=== PATIENT | female | born 1965 | race African-American/Black ===

== ENCOUNTER 2016-11-28 09:42 | Emergency (ER) | payer SELFPAY ==
[~2016-11-28] VITALS: Ht 175.3 cm; Wt 118.0 kg
[~2016-11-28 09:42] MED LIST: ALL5TAB5; DIFL150T PO; FLAG500T PO; NYST100024 TOP; RISP1TAB2 PO
[2016-11-28 09:43] VITALS: BP 140/84; PULSE 64; RESP 15; TEMP 98.3; O2SAT 99
[2016-11-28] MEDS ORDERED: LOVA20TA PO (10:05)
[2016-11-28] MEDS ORDERED: RISP2TAB2 PO (10:05)
[2016-11-28] MEDS ORDERED: SERT-129 PO (10:05)
[2016-11-28 10:26] VITALS: BP 122/75; PULSE 58; RESP 18; O2SAT 97
[2016-11-28] MEDS ORDERED: KETOROLAC TROMETHAMINE 30 MG/ML (IVP) VIAL IV PUSH ONE (11:45)
[2016-11-28 12:04] LABS: BACTERIA, URINE RARE /hpf; BLOOD, URINE MOD (NEG); COMMENT (UR) CULT NOT INDICATED; CULTURE IF INDICATED CULT NOT INDICATED; GLUCOSE,URINE NEG (NEG); KETONE, URINE NEG (NEG); MUCUS URINE FEW /lpf (OCC); NITRITE,URINE NEG (NEG); PH, URINE 5.5 (5.0-8.5); SQUAMOUS EPITHELIAL CELL URINE 1 /hpf (0-5); URINE COLOR YELLOW (YELLW/STRAW)
[2016-11-28 12:13] LABS: AUTOMATED NEUTROPHIL # 8.1 TH/MM3 (1.8-7.7); BASOPHIL # 0.1 TH/MM3 (0-0.2); BASOPHIL % 0.6 % (0.0-2.0); EOSINOPHIL % 0.4 % (0.0-4.0); HEMATOCRIT 41.2 % (35.0-46.0); HEMO FLAGS DIFF FINAL; LYMPH % 21.2 % (9.0-44.0); LYMPHOCYTE # 2.3 TH/MM3 (1.0-4.8); MEAN CELL VOLUME 94.3 FL (80.0-100.0); MEAN CORPUSCULAR HEMOGLOBIN 30.6 PG (27.0-34.0); MEAN CORPUSCULAR HGB CONC 32.4 % (32.0-36.0); MONO % 4.6 % (0.0-8.0); NEUT % 73.2 % (16.0-70.0); PLATELET COUNT 321 TH/MM3 (150-450); RED BLOOD COUNT 4.37 MIL/MM3 (4.00-5.30); WHITE BLOOD COUNT 11.1 TH/MM3 (4.0-11.0)
[2016-11-28 12:30] LABS: ALT (GPT) 15 U/L (10-53); ANION GAP 9 MEQ/L (5-15); AST (GOT) 10 U/L (15-37); BICARBONATE 23.3 MEQ/L (21.0-32.0); BLOOD UREA NITROGEN 14 MG/DL (7-18); CHLORIDE 109 MEQ/L (98-107); GLOMERULAR FILTRATION RATE 66 ML/MIN (>89); POTASSIUM 3.9 MEQ/L (3.5-5.1); SODIUM (NA) 141 MEQ/L (136-145)
[2016-11-28 12:33] LABS: INTERNATIONAL NORMALIZED RATIO 0.9 RATIO; PROTHROMBIN TIME - PATIENT 10.3 SEC (9.8-11.6)
[2016-11-28 12:34] LABS: ALKALINE PHOSPHATASE 151 U/L (45-117); BETA HCG QUANT LESS THAN 1 MIU/ML (0-5); TOTAL BILIRUBIN ADULT 0.2 MG/DL (0.2-1.0)
--- NOTE | 2016-11-28 13:30 | PD ---
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 He describes the bleeding as spotting. She is also experiencing significant left lower quadrant abdominal pain radiating down to her hip area. No history of nausea or vomiting. No history of fever or chills. In had her menopause 2 years ago as per her. She does not have a [facility] physician and does not have insurance. Signs were otherwise stable. She doesn't appear to be in any significant distress. No history of dysuria or hematuria. Patient gained 50 pounds over last 6 months or so. PFSH Past Medical History Narrative Medical List of her past medical, surgical, social and family history is reviewed from the nursing note. Anemia: Yes Arthritis: Yes (IN JOINTS) Anxiety: Yes Depression: Yes Cancer: No Cardiovascular Problems: Yes High Cholesterol: Yes Diabetes: No Diminished Hearing: No Endocrine: No Gastrointestinal Disorders: Yes (IBS) GERD: Yes Genitourinary: No Hypertension: Yes (no treatment) Immune Disorder: No Musculoskeletal: No Neurologic: No Psychiatric: Yes (psychosis ) Reproductive: No Respiratory: No Migraines: Yes Schizophrenia: Yes Tetanus Vaccination: Unknown Influenza Vaccination: No ?: Not Menopausal: Yes : 6 Para: 2 Tubal Ligation: Yes (1991) Past Surgical History Cardiac Surgery: No Section: Yes (X 2) Ear Surgery: No Endocrine Surgery: No Eye Surgery: No Genitourinary Surgery: No Gynecologic Surgery: Yes (C sections) Oral Surgery: No Thoracic Surgery: No Other Surgery: Yes Social History Alcohol Use: No Tobacco Use: Yes (SMOKES AN OCCASIONAL BLACK AND MILD CIGAR) Substance Use: Yes (cannabinoids) Allergies-Medications (Allergen,Severity, Reaction): Coded Allergies: acetaminophen (Unverified Allergy, Severe, 11/28/16) amoxicillin (Unverified Allergy, Severe, 11/28/16) oxycodone (Unverified Allergy, Severe, 11/28/16) Sulfa (Sulfonamide Antibiotics) (Unverified Allergy, Mild, HALLUCINATIONS , 11/28/16) Comments list of her allergies reviewed from the nursing note. Reported Meds & Prescriptions Reported Meds & Active Scripts Active Reported Sertraline (Sertraline HCl) 100 Mg Tab 100 Mg PO BID Lovastatin 20 Mg Tab 20 Mg PO HS Risperidone 2 Mg Tab 2 Mg PO Q12HR Narrative Medication list of her home medications reviewed from the nursing note. Review of Systems Except as stated in HPI: all other systems reviewed are Neg Physical Exam Narrative GENERAL: Awake, alert, morbidly obese, no obvious distress SKIN: Focused skin assessment warm/dry. HEAD: Atraumatic. Normocephalic. EYES: Pupils equal and round. No scleral icterus. No injection or drainage. ENT: No nasal bleeding or discharge. Mucous membranes pink and moist. NECK: Trachea midline. No JVD. CARDIOVASCULAR: Regular rate and rhythm. No murmur appreciated. RESPIRATORY: No accessory muscle use. Clear to auscultation. Breath sounds equal bilaterally. GASTROINTESTINAL: Abdomen soft, non-tender, nondistended. Hepatic and splenic margins not palpable. Left lower quadrant and right lower quadrant tenderness. : External inspection appears to be within normal limit. Speculum exam showed brownish to pinkish color mucus in the vaginal vault. Swabs were collected. MUSCULOSKELETAL: No obvious deformities. No clubbing. No cyanosis. No edema. NEUROLOGICAL: Awake and alert. No obvious cranial nerve deficits. Motor grossly within normal limits. Normal speech. PSYCHIATRIC: Appropriate mood and affect; insight and judgment normal. Data Data Last Documented VS Vital Signs Date Time Temp Pulse Resp B/P (MAP) Pulse Ox O2 Delivery O2 Flow Rate FiO2 11/28/16 15:20 49 18 124/77 (93) 98 11/28/16 14:58 Room Air 11/28/16 09:43 98.3 Orders Orders Urinalysis - C+S If Indicated (11/28/16 10:37) Beta Hcg (Quant/Titer) (11/28/16 11:42) Complete Blood Count With Diff (11/28/16 11:42) Comprehensive Metabolic Panel (11/28/16 11:42) Type And Screen (11/28/16 11:42) Ketorolac Inj (Toradol Inj) (11/28/16 11:45) Prothrombin Time / Inr (Pt) (11/28/16 11:42) Ct Abd/Pel W Iv Contrast(Rout) (11/28/16 ) Wet Prep Profile (11/28/16 12:50) Gc And Chlamydia Pcr (11/28/16 12:50) Us Pelvis Comp W Transvaginal (11/28/16 ) Iohexol 350 Inj (Omnipaque 350 Inj) (11/28/16 14:29) Mandatory Outpatient Referral (11/28/16 15:03) Labs Laboratory Tests Test 11/28/16 11:15 11/28/16 11:50 11/28/16 12:45 Urine Color YELLOW Urine Turbidity CLEAR Urine pH 5.5 Urine Specific [place] 1.025 Urine Protein TRACE mg/dL Urine Glucose (UA) NEG mg/dL Urine Ketones NEG mg/dL Urine Occult Blood MOD Urine Nitrite NEG Urine Bilirubin NEG Urine Urobilinogen 2.0 MG/DL Urine Leukocyte Esterase NEG Urine RBC LESS THAN 1 /hpf Urine WBC 2 /hpf Urine Squamous Epithelial Cells 1 /hpf Urine Bacteria RARE /hpf Urine Mucus FEW /lpf Microscopic Urinalysis Comment CULT NOT INDICATED White Blood Count 11.1 TH/MM3 Red Blood Count 4.37 MIL/MM3 Hemoglobin 13.4 GM/DL Hematocrit 41.2 % Mean Corpuscular Volume 94.3 FL Mean Corpuscular Hemoglobin 30.6 PG Mean Corpuscular Hemoglobin Concent 32.4 % Red Cell Distribution Width 17.0 % Platelet Count 321 TH/MM3 Mean Platelet Volume 7.2 FL Neutrophils (%) (Auto) 73.2 % Lymphocytes (%) (Auto) 21.2 % Monocytes (%) (Auto) 4.6 % Eosinophils (%) (Auto) 0.4 % Basophils (%) (Auto) 0.6 % Neutrophils # (Auto) 8.1 TH/MM3 Lymphocytes # (Auto) 2.3 TH/MM3 Monocytes # (Auto) 0.5 TH/MM3 Eosinophils # (Auto) 0.0 TH/MM3 Basophils # (Auto) 0.1 TH/MM3 CBC Comment DIFF FINAL Differential Comment Prothrombin Time 10.3 SEC Prothromb Time International Ratio 0.9 RATIO Blood Urea Nitrogen 14 MG/DL Creatinine 1.06 MG/DL Random Glucose 104 MG/DL Total Protein 7.9 GM/DL Albumin 3.5 GM/DL Calcium Level 9.0 MG/DL Alkaline Phosphatase 151 U/L Aspartate Amino Transf (AST/SGOT) 10 U/L Alanine Aminotransferase (ALT/SGPT) 15 U/L Total Bilirubin 0.2 MG/DL Sodium Level 141 MEQ/L Potassium Level 3.9 MEQ/L Chloride Level 109 MEQ/L Carbon Dioxide Level 23.3 MEQ/L Anion Gap 9 MEQ/L Estimat Glomerular Filtration Rate 66 ML/MIN Human Chorionic Gonadotropin, Quant LESS THAN 1 MIU/ML Clue Cells (Wet Prep) NONE SEEN Vaginal Trichomonas (Wet Prep) NONE SEEN Vaginal Yeast (Wet Prep) NONE SEEN Chlamydia trachomatis DNA (PCR) NOT DETECTED Neisseria gonorrhoeae DNA (PCR) NOT DETECTED MDM Medical Decision Making Medical Screen Exam Complete: Yes Emergency Medical Condition: Yes Medical Record Reviewed: Yes Differential Diagnosis endometrial cancer, ovarian cancer, cervicitis, STD Narrative Course 1:30 PM blood test results of back and within normal limit. Wet mount is negative. GC and chlamydia is pending. UA is pending. Awaiting for the ultrasound and CAT scan to be done and resulted. 2:59 PM ultrasound shows a small fibroid but otherwise negative. CT scan is unremarkable as per the radiologist. I have let the patient know about her test results. GC and chlamydia still pending. However I'm comfortable discharging her. She'll get a mandatory referral with [facility]. I've asked her to talk with the physician who has started her on Risperdal and to reconsider since the bleeding could be from that. Procedures EKG Prior to Arrival: No Diagnosis Primary Impression: Vaginal bleeding Additional Impressions: Uterine fibroid Qualified Codes: D25.9 - Leiomyoma of uterus, unspecified Postmenopausal bleeding Referrals: Michelle Jo MD 3 days Additional Instructions: Please follow-up with the [facility] specialist was name and number been given to you. Hopefully you will hear from the office because he mandatory consult has been put in. Please return to the ER if the condition worsens or any other new concerns. Otherwise follow-up with your primary care was started on Risperdal and discussed the possibility of the bleeding from it. No vaginal intercourse, tampons, vaginal douching or any thing else and vagina until the symptoms resolve in been seen by [facility]. Disposition: 01 DISCHARGE HOME Condition: Stable Brad Merida MD Nov 28, 2016 13:30
--- NOTE | 2016-11-28 14:20 | RADRPT ---
EXAM DATE/TIME: 11/28/2016 13:05 [facility] COMPARISON: No previous studies available for comparison. INDICATIONS : Pelvic pain. MEDICAL HISTORY : Hypercholesterolemia. Gastroesophageal reflux disease. Migraine. Hypertension. IBS. Arthritis. Schi zpohrenia. SURGICAL HISTORY : section. Tubal ligation. ENCOUNTER: Initial ACUITY: 1 day PAIN SCORE: 5/10 LOCATION: Bilateral pelvis MEASUREMENTS: UTERUS: 10.1 x 6.4 x 4.6 cm ENDOMETRIAL STRIPE: 6 mm RIGHT OVARY: 4.2 x 2.1 x 2.0 cm LEFT OVARY: 3.7 x 2.3 x 1.3 cm FINDINGS: Approximate 2.2 cm uterine fibroid is present. There is an approximate 1.9 cm cyst in the right ovary . Left ovary appears intact. There is a trace of fluid in the cul-de-sac. Flow is identified within b oth ovaries. CONCLUSION: Small uterine fibroid. Faith Ortiz MD on November 28, 2016 at 14:17 Board Certified Radiologist. This report was verified electronically.
[2016-11-28] MEDS ORDERED: IOHEXOL 350 MG/ML 10 ML VIAL (for RAD DIAG) IVCONTRAST ONE (14:29)
--- NOTE | 2016-11-28 14:50 | RADRPT ---
EXAM DATE/TIME: 11/28/2016 14:17 [facility] COMPARISON: No previous studies available for comparison. INDICATIONS : Lower abdominal cramping IV CONTRAST: 91 cc Omnipaque 350 (iohexol) IV ORAL CONTRAST: No oral contrast ingested. RADIATION DOSE: 23.23 CTDIvol (mGy) MEDICAL HISTORY : Hypertension. Irritable bowel syndrome. SURGICAL HISTORY : Tubal ligation. ENCOUNTER: Initial ACUITY: 3 days PAIN SCALE: 4/10 LOCATION: lower quadrant TECHNIQUE: Volumetric scanning of the abdomen and pelvis was performed. Using automated exposure control and ad justment of the mA and/or kV according to patient size, radiation dose was kept as low as reasonably achievable to obtain optimal diagnostic quality images. DICOM format image data is available electro nically for review and comparison. FINDINGS: There is a small area of atelectasis in the medial aspect of the right middle lobe. The appearance of the liver spleen, pancreas, adrenal glands and right kidney is within normal limits . Examination of the left kidney demonstrates a 2.1 cm simple cyst. There is no hydronephrosis. The abdominal aorta is normal in caliber. There is no retroperitoneal lymphadenopathy. The visualized loops of small and large bowel are normal in caliber. No free air or free fluid is see n. There is no free fluid within the pelvis no iliac or inguinal adenopathy is seen. The loops of small large bowel within the pelvis are unremarkable. The visualized bony structures demonstrate mild degenerative changes but are otherwise intact. CONCLUSION: 1. No definite abnormality to explain the patient's lower abdominal pain identified. 2. Degenerative changes in the lumbar spine. Huseyin Christiansen MD on November 28, 2016 at 14:45 Board Certified Radiologist. This report was verified electronically.
[2016-11-28 14:58] VITALS: BP 124/77; PULSE 49; RESP 20; O2SAT 97
[2016-11-28 15:20] VITALS: BP 124/77
[2016-11-28 15:44] LABS: CHLAMYDIA PCR NOT DETECTED (NOT DETECT); NEISSERIA PCR NOT DETECTED (NOT DETECT)
== END 2016-11-28 15:21 | disposition home or self-care (01) ==
LOC: NEPC 09:42
DX: D25.9 Leiomyoma of uterus, unspecified (principal); N95.0 Postmenopausal bleeding
CPT/HCPCS: 74177; 76830; 76856; 80053; 81001; 84702; 85025; 85610; 86850; 86900; 86901; 87210; 87491; 87591; 96374; 99285; J1885; Q9967

== ENCOUNTER 2017-04-24 12:07 | Inpatient (IN) | payer MEDICAID, OTHER ==
[~2017-04-24] VITALS: Ht 172.7 cm; Wt 104.0 kg
[2017-04-24] VITALS (17 sets, daily range): BP systolic 98–167; BP diastolic 58–97; PULSE 78–112; RESP 24–33; TEMP 98.7–99.1; O2SAT 78–99
[~2017-04-24 12:07] MED LIST changes: -ALL5TAB5; -DIFL150T PO; -FLAG500T PO; +LOVA20TA PO; -NYST100024 TOP; -RISP1TAB2 PO; +RISP2TAB2 PO; +SERT-129 PO
[2017-04-24] MEDS ORDERED: SODIUM CHLOR 0.9% 1000 ML INJ 1,000 ML IV ONE ×2 (12:45→14:15)
[2017-04-24] MEDS ORDERED: ZOLO100T PO (12:47)
[2017-04-24 12:53] LABS: AUTOMATED NEUTROPHIL # 11.8 TH/MM3 (1.8-7.7); EOSINOPHIL % 0.1 % (0.0-4.0); HEMATOCRIT 49.4 % (35.0-46.0); HEMOGLOBIN 16.7 GM/DL (11.6-15.3); LYMPH % 6.3 % (9.0-44.0); LYMPHOCYTE # 0.8 TH/MM3 (1.0-4.8); MEAN CELL VOLUME 90.4 FL (80.0-100.0); MEAN CORPUSCULAR HEMOGLOBIN 30.5 PG (27.0-34.0); MEAN CORPUSCULAR HGB CONC 33.7 % (32.0-36.0); MEAN PLATELET VOLUME 9.7 FL (7.0-11.0); MONO % 0.2 % (0.0-8.0); NEUT % 93.4 % (16.0-70.0); PLATELET COUNT 184 TH/MM3 (150-450); RED BLOOD COUNT 5.47 MIL/MM3 (4.00-5.30); RED CELL DISTRIBUTION WIDTH 16.5 % (11.6-17.2); WHITE BLOOD COUNT 12.6 TH/MM3 (4.0-11.0)
[2017-04-24] MEDS ORDERED: cefTRIAXone INJ 2,000 MG in SODIUM CHLORIDE 0.9% INJ 100 ML IV ONE (13:00)
[2017-04-24] MEDS ORDERED: SODIUM CHLORIDE 0.9% FLUSH 10 ML FLUSH IVF PRN (13:00)
[2017-04-24] MEDS ORDERED: AZITHROMYCIN INJ 500 MG in SODIUM CHLOR 0.9% 250 ML INJ 250 ML IV ONE (13:00)
[2017-04-24 13:04] LABS: CHLORIDE 93 MEQ/L (98-107); SODIUM (NA) 126 MEQ/L (136-145)
--- NOTE | 2017-04-24 13:06 | PD ---
HPI Chief Complaint: Cold / Flu Symptoms Time Seen by Provider: 12:29 Travel History International Travel<30 days: No Contact w/Intl Traveler<30days: No Traveled to known affect area: No History of Present Illness HPI This 51-year-old female comes in with complaint of cough, vomiting or diarrhea. She says she has been sick for about 3 weeks. She is not aware of fever. She has a history of psychosis in is not a very good historian. She is on Zyprexa in 1 of the medicine. She used to smoke cigars but has stopped recently. She has been vomiting him having diarrhea every day. She is not complaining of abdominal pain right now. She has been coughing up a lot of phlegm. She is not aware of fever PFSH Past Medical History Diminished Hearing: No Tetanus Vaccination: Unknown ?: Not Past Surgical History Section: Yes Social History Alcohol Use: No Tobacco Use: No Substance Use: No Allergies-Medications (Allergen,Severity, Reaction): Coded Allergies: amoxicillin (Verified Allergy, Unknown, 04/24/17) Reported Meds & Prescriptions Reported Meds & Active Scripts Active Reported Zoloft (Sertraline HCl) 100 Mg Tab 100 Mg PO DAILY Review of Systems General / Constitutional: Positive: Chills, No: Fever Eyes: No: Diploplia, Blurred Vision HENT: No: Headaches, Vertigo Cardiovascular: No: Chest Pain or Discomfort, Palpitations Respiratory: Positive: Cough, Shortness of Breath Gastrointestinal: Positive: Vomiting, Diarrhea Genitourinary: No: Urgency Neurologic: No: Weakness, Dizziness Psychiatric: No: Anxiety Hematologic/Lymphatic: No: Easy Bruising Physical Exam Narrative GENERAL: Well-developed female. She does have labored breathing SKIN: Focused skin assessment warm/dry. HEAD: Atraumatic. Normocephalic. EYES: Pupils equal and round. No scleral icterus. No injection or drainage. ENT: No nasal bleeding or discharge. Mucous membranes pink and moist. NECK: Trachea midline. No JVD. CARDIOVASCULAR: Regular rate and rhythm. No murmur appreciated. RESPIRATORY: As accessory muscle use. There are bibasilar rales. There are occasional rhonchi GASTROINTESTINAL: Abdomen soft, non-tender, nondistended. Hepatic and splenic margins not palpable. MUSCULOSKELETAL: No obvious deformities. No clubbing. No cyanosis. No edema. NEUROLOGICAL: Awake and alert. No obvious cranial nerve deficits. Motor grossly within normal limits. Normal speech. PSYCHIATRIC: Patient somewhat withdrawn Data Data Last Documented VS Vital Signs Date Time Temp Pulse Resp B/P (MAP) Pulse Ox O2 Delivery O2 Flow Rate FiO2 04/24/17 13:10 112 30 140/97 (111) 90 6.00 04/24/17 12:41 Room Air 04/24/17 12:12 98.8 Orders Orders Sepsis Workup Initiated (04/24/17 ) Complete Blood Count With Diff (04/24/17 12:29) Comprehensive Metabolic Panel (04/24/17 12:29) Lactic Acid Sepsis Protocol (04/24/17 12:29) Lipase (04/24/17 12:29) Urinalysis - C+S If Indicated (04/24/17 12:29) Influenzae A/B Antigen (04/24/17 12:29) Blood Culture (04/24/17 12:29) Chest, Single Ap (04/24/17 12:29) Blood Glucose (04/24/17 12:29) Ecg Monitoring (04/24/17 12:29) Iv Access Insert/Monitor (04/24/17 12:29) Oximetry (04/24/17 12:29) Oxygen Administration (04/24/17 12:29) Sodium Chlor 0.9% 1000 Ml Inj (Ns 1000 M (04/24/17 12:45) B-Type Natriuretic Peptide (04/24/17 12:52) Arterial Blood Gas (Abg) (04/24/17 ) Sodium Chloride 0.9% Flush (Ns Flush) (04/24/17 13:00) Ceftriaxone Inj (Rocephin Inj) (04/24/17 13:00) Azithromycin Inj (Zithromax Inj) (04/24/17 13:00) Ct Thorax/ Chest Wo Iv Contras (04/24/17 13:27) Ct Abd/Pel W/O Iv Contrast (04/24/17 13:27) Sodium Bicarbonate 8.4% Inj (Sodium Bica (04/24/17 14:15) Sodium Chlor 0.9% 1000 Ml Inj (Ns 1000 M (04/24/17 14:15) Admit Order (Ed Use Only) (04/24/17 14:08) Vancomycin Inj (Vancomycin Inj) (04/24/17 14:15) Labs Laboratory Tests Test 04/24/17 12:33 04/24/17 12:34 04/24/17 13:11 White Blood Count 12.6 TH/MM3 Red Blood Count 5.47 MIL/MM3 Hemoglobin 16.7 GM/DL Hematocrit 49.4 % Mean Corpuscular Volume 90.4 FL Mean Corpuscular Hemoglobin 30.5 PG Mean Corpuscular Hemoglobin Concent 33.7 % Red Cell Distribution Width 16.5 % Platelet Count 184 TH/MM3 Mean Platelet Volume 9.7 FL Neutrophils (%) (Auto) 93.4 % Lymphocytes (%) (Auto) 6.3 % Monocytes (%) (Auto) 0.2 % Eosinophils (%) (Auto) 0.1 % Basophils (%) (Auto) 0.0 % Neutrophils # (Auto) 11.8 TH/MM3 Lymphocytes # (Auto) 0.8 TH/MM3 Monocytes # (Auto) 0.0 TH/MM3 Eosinophils # (Auto) 0.0 TH/MM3 Basophils # (Auto) 0.0 TH/MM3 CBC Comment DIFF FINAL Differential Comment Blood Urea Nitrogen 97 MG/DL Creatinine 4.20 MG/DL Random Glucose 165 MG/DL Total Protein 8.9 GM/DL Albumin 3.1 GM/DL Calcium Level 8.9 MG/DL Alkaline Phosphatase 162 U/L Aspartate Amino Transf (AST/SGOT) 246 U/L Alanine Aminotransferase (ALT/SGPT) 44 U/L Total Bilirubin 0.7 MG/DL Sodium Level 126 MEQ/L Potassium Level 3.9 MEQ/L Chloride Level 93 MEQ/L Carbon Dioxide Level 16.4 MEQ/L Anion Gap 17 MEQ/L Estimat Glomerular Filtration Rate 11 ML/MIN B-Type Natriuretic Peptide 9 PG/ML Lipase 1146 U/L Lactic Acid Level 3.5 mmol/L Blood Gas Puncture Site RT RADIAL Blood Gas Patient Temperature 98.6 Blood Gas HCO3 10 mmol/L Blood Gas Base Excess -13.5 mmol/L Blood Gas Oxygen Saturation 76 % Arterial Blood pH 7.42 Arterial Blood Partial Pressure CO2 16 mmHG Arterial Blood Partial Pressure O2 48 mmHG Arterial Blood Oxygen Content 18.0 Vol % Arterial Blood Carboxyhemoglobin 1.2 % Arterial Blood Methemoglobin 1.0 % Blood Gas Hemoglobin 16.9 G/DL Oxygen Delivery Device NONE Blood Gas Inspired Oxygen 21 % [facility] Medical Decision Making Medical Screen Exam Complete: Yes Emergency Medical Condition: Yes Medical Record Reviewed: Yes Differential Diagnosis Differential includes influenza, gastroenteritis, pneumonia Narrative Course Chest x-ray shows bilateral lower lobe lung consolidation left greater than right. Radiologist suggests that the right midlung field appears somewhat nodular. Her hemoglobin at 16.7 with a white count of 12.6. Sodium as 126 with potassium 3.9. Bicarbonate 16. BUNs 97 with creatinine of 4.2. CT chest shows patchy groundglass infiltrates all lobes of the lungs. This most prominent in the perihilar distribution. CT abdomen pelvis with also done because of the elevation of the lipase in there is no evidence of pancreatitis or other abnormality. Case discussed with Dr. Das. He will be [facility] [place] [facility] Blood gas does show pH of 7.42 PCO2 of 16 oxygen 48. She has been given supplemental oxygen. Patient has given additional bicarbonate in the blood gas repeated. She had PO2 of only 66 in spite of 100% oxygen. I want to see the patient she was not alert but she admitted that she has getting very tired. As apparent the patient should be intubated at this point. This will discussed with the patient in her significant other than they are in agreement. I administered succinylcholine 120 mg of etomidate 20 mg. The patient has adequately sedated as intubated by Dr. Lemus. After intubation there are good bilateral breath sounds Diagnosis Primary Impression: Pneumonia Additional Impressions: Renal failure Respiratory failure Admitting Information Admitting Physician Requests: Admit Sivakumar Jarquin MD Apr 24, 2017 13:05
[2017-04-24 13:09] LABS: ALBUMIN 3.1 GM/DL (3.4-5.0); BICARBONATE 16.4 MEQ/L (21.0-32.0); BLOOD UREA NITROGEN 97 MG/DL (7-18); CALCIUM 8.9 MG/DL (8.5-10.1); GLUCOSE,RANDOM 165 MG/DL (74-106)
--- NOTE | 2017-04-24 13:10 | RADRPT ---
EXAM DATE/TIME: 04/24/2017 12:48 [facility] COMPARISON: No previous studies available for comparison. INDICATIONS : Cough, chest pain, short of breath, vomiting, diarrhea. MEDICAL HISTORY : None. SURGICAL HISTORY : None. ENCOUNTER: Initial ACUITY: 2 weeks PAIN SCORE: 2/10 LOCATION: Bilateral chest FINDINGS: Portable AP view of the chest demonstrates a normal-sized cardiac silhouette. There are is abnormal a irspace consolidation within the lower lung zones bilaterally. No pleural effusion or pneumothorax is identified. Some of the consolidation in the right mid to upper lung zone appears nodular. Bones and soft tissues demonstrate no acute finding. CONCLUSION: Abnormal bilateral lower lung zone airspace consolidation. The history suggests that it could be rela ángel to an infectious process but the distribution is atypical. Additionally, some of the consolidatio n in the right midlung zone appears nodular. Consider either further evaluation with chest CT or perf orm a followup chest x-ray or chest CT following appropriate medical therapy. Davey Melvin MD on April 24, 2017 at 13:06 Board Certified Radiologist. This report was verified electronically.
[2017-04-24 13:12] LABS: ALT (GPT) 44 U/L (10-53); AST (GOT) 246 U/L (15-37); GLOMERULAR FILTRATION RATE 11 ML/MIN (>89)
[2017-04-24 13:13] LABS: TOTAL BILIRUBIN ADULT 0.7 MG/DL (0.2-1.0)
[2017-04-24 13:14] LABS: TOTAL PROTEIN 8.9 GM/DL (6.4-8.2)
[2017-04-24 13:15] LABS: ALKALINE PHOSPHATASE 162 U/L (45-117)
[2017-04-24 13:15] LABS: LACTIC ACID SEPSIS PROTOCOL 3.5 mmol/L (0.4-2.0)
[2017-04-24] MEDS ORDERED: SODIUM BICARBONATE 8.4% INJ 50 MEQ/50 ML SYR IV PUSH ONE (14:15)
[2017-04-24] MEDS ORDERED: VANCOMYCIN INJ 1,500 MG in SODIUM CHLORID 0.9% 500 ML INJ 500 ML IV ONE (14:15)
--- NOTE | 2017-04-24 14:24 | RADRPT ---
EXAM DATE/TIME: 04/24/2017 13:46 [facility] COMPARISON: No previous studies available for comparison. INDICATIONS : Cough x 3 weeks. Evaluate for pneumonia. RADIATION DOSE: 17.55 CTDIvol (mGy) ; Combined studies - Thorax/Abdomen/Pelvis MEDICAL HISTORY : None SURGICAL HISTORY : section. ENCOUNTER: Initial ACUITY: 3 weeks PAIN SCALE: 0/10 LOCATION: chest TECHNIQUE: Volumetric scanning of the chest was performed. Using automated exposure control and adjustment of t he mA and/or kV according to patient size, radiation dose was kept as low as reasonably achievable to obtain optimal diagnostic quality images. DICOM format image data is available electronically for r eview and comparison. Follow-up recommendations for detected pulmonary nodules are based at a minimum on nodule size and pa tient risk factors according to Fleischner Society Guidelines. FINDINGS: LUNGS: There are significant patchy areas of ground glass infiltrate throughout the lungs mostly in a perihi lar distribution but also diffusely throughout the lungs. PLEURAE: There is no pleural thickening or pleural effusion. MEDIASTINUM: The heart and great vessels demonstrate no acute abnormality. There is no mediastinal or hilar lymph adenopathy. AXILLAE: Within normal limits. No lymphadenopathy. MUSCULOSKELETAL: Within normal limits for patient age. MISCELLANEOUS: The visualized upper abdominal organs demonstrate no acute abnormality. CONCLUSION: Patchy groundglass infiltrates throughout all lobes of the lungs. It is most prominent in the perihil ar distribution but also more peripheral areas. I did not see a mass amenable to biopsy with CT corey lyles. Jay Weaver MD on April 24, 2017 at 14:21 Board Certified Radiologist. This report was verified electronically.
[2017-04-24] MEDS ORDERED: SODIUM BICARBONATE 8.4% SOLN 50 MEQ/50 ML VIAL IV PUSH ONE (14:30)
--- NOTE | 2017-04-24 14:34 | RADRPT ---
EXAM DATE/TIME: 04/24/2017 13:46 [facility] COMPARISON: No previous studies available for comparison. INDICATIONS : Cough, vomiting, diarrhea and diffuse abdominal pain x 1.5 weeks. ORAL CONTRAST: No oral contrast ingested. RADIATION DOSE: 17.55 CTDIvol (mGy) ; Combined studies - Thorax/Abdomen/Pelvis MEDICAL HISTORY : None SURGICAL HISTORY : section. ENCOUNTER: Initial ACUITY: 2 weeks PAIN SCALE: 7/10 LOCATION: Diffuse abdomen. TECHNIQUE: Volumetric scanning of the abdomen and pelvis was performed. Using automated exposure control and ad justment of the mA and/or kV according to patient size, radiation dose was kept as low as reasonably achievable to obtain optimal diagnostic quality images. DICOM format image data is available electro nically for review and comparison. FINDINGS: LOWER LUNGS: There is patchy groundglass infiltrates throughout the lungs. LIVER: Homogeneous density without lesion. There is no dilation of the biliary tree. No calcified gallston es. SPLEEN: Normal size without lesion. PANCREAS: Within normal limits. KIDNEYS: Normal in size and shape. There is no solid mass, stone, or hydronephrosis. 2.1 cm cyst posterior up per pole left kidney ADRENAL GLANDS: Within normal limits. VASCULAR: There is no aortic aneurysm. BOWEL/MESENTERY: The stomach, small bowel, and colon demonstrate no acute abnormality. There is no free intraperitone al air or fluid. ABDOMINAL WALL: Within normal limits. RETROPERITONEUM: There is no lymphadenopathy. BLADDER: No wall thickening or mass. Small amount of free fluid in the pelvis REPRODUCTIVE: Within normal limits. INGUINAL: There is no lymphadenopathy or hernia. MUSCULOSKELETAL: Within normal limits for patient age. CONCLUSION: Patchy infiltrates in the lung bases. No concerning adenopathy or mass. Abdomen and pelvis are unrema rkable. Small amount of free fluid in the pelvis within normal limits for age. The appendix is joel l. Jay Weaver MD on April 24, 2017 at 14:30 Board Certified Radiologist. This report was verified electronically.
[2017-04-24] MEDS ORDERED: SUCCINYLCHOLINE CHLORIDE 100 MG/5 ML SYRINGE IV PUSH ONE (15:15)
[2017-04-24] MEDS ORDERED: ETOMIDATE 20 MG/10 ML VIAL IV PUSH ONE (15:15)
[2017-04-24] MEDS ORDERED: SUCCINYLCHOLINE CHLORIDE 200 MG/10 ML VIAL ONE (15:25)
[2017-04-24] MEDS ORDERED: SUCCINYLCHOLINE CHLORIDE 200 MG/10 ML VIAL IV PUSH ONE (15:30)
[2017-04-24] MEDS ORDERED: NS + KCL 20 MEQ INJ 1,000 ML IV SCH (15:33)
[2017-04-24] MEDS: PROPOFOL 1000 MG/100 ML INJ 100 ML IV PRN ×2 (15:40→23:06)
[2017-04-24] MEDS ORDERED: LACTULOSE SYRUP 20 GM/30 ML CUP PO PRN (15:45)
[2017-04-24] MEDS ORDERED: CHLORHEXIDINE GLUCONATE 2 % 1 PACK (2 CLOTHS) TOP PRN (15:45)
[2017-04-24] MEDS ORDERED: MISCELLANEOUS NURSING INFORMATION XX SCH (15:45)
[2017-04-24] MEDS ORDERED: LORazepam 2 MG/ML VIAL IV PUSH PRN (15:45)
--- NOTE | 2017-04-24 15:48 | PD ---
Physical Exam Date Seen by Provider: Apr 24, 2017 Time Seen by Provider: 15:45 Narrative I was asked by my for the physician to perform an intubation on the patient for progressing respiratory failure. Data Data Last Documented VS Vital Signs Date Time Temp Pulse Resp B/P (MAP) Pulse Ox O2 Delivery O2 Flow Rate FiO2 04/24/17 13:10 112 30 140/97 (111) 90 6.00 04/24/17 12:41 Room Air 04/24/17 12:12 98.8 Orders Orders Sepsis Workup Initiated (04/24/17 ) Complete Blood Count With Diff (04/24/17 12:29) Comprehensive Metabolic Panel (04/24/17 12:29) Lactic Acid Sepsis Protocol (04/24/17 12:29) Lipase (04/24/17 12:29) Urinalysis - C+S If Indicated (04/24/17 12:29) Influenzae A/B Antigen (04/24/17 12:29) Blood Culture (04/24/17 12:29) Chest, Single Ap (04/24/17 12:29) Blood Glucose (04/24/17 12:29) Ecg Monitoring (04/24/17 12:29) Iv Access Insert/Monitor (04/24/17 12:29) Oximetry (04/24/17 12:29) Oxygen Administration (04/24/17 12:29) Sodium Chlor 0.9% 1000 Ml Inj (Ns 1000 M (04/24/17 12:45) B-Type Natriuretic Peptide (04/24/17 12:52) Arterial Blood Gas (Abg) (04/24/17 ) Sodium Chloride 0.9% Flush (Ns Flush) (04/24/17 13:00) Ceftriaxone Inj (Rocephin Inj) (04/24/17 13:00) Azithromycin Inj (Zithromax Inj) (04/24/17 13:00) Ct Thorax/ Chest Wo Iv Contras (04/24/17 13:27) Ct Abd/Pel W/O Iv Contrast (04/24/17 13:27) Sodium Bicarbonate 8.4% Inj (Sodium Bica (04/24/17 14:15) Sodium Chlor 0.9% 1000 Ml Inj (Ns 1000 M (04/24/17 14:15) Admit Order (Ed Use Only) (04/24/17 14:08) Vancomycin Inj (Vancomycin Inj) (04/24/17 14:15) Labs Laboratory Tests Test 04/24/17 12:33 04/24/17 12:34 04/24/17 13:11 White Blood Count 12.6 TH/MM3 Red Blood Count 5.47 MIL/MM3 Hemoglobin 16.7 GM/DL Hematocrit 49.4 % Mean Corpuscular Volume 90.4 FL Mean Corpuscular Hemoglobin 30.5 PG Mean Corpuscular Hemoglobin Concent 33.7 % Red Cell Distribution Width 16.5 % Platelet Count 184 TH/MM3 Mean Platelet Volume 9.7 FL Neutrophils (%) (Auto) 93.4 % Lymphocytes (%) (Auto) 6.3 % Monocytes (%) (Auto) 0.2 % Eosinophils (%) (Auto) 0.1 % Basophils (%) (Auto) 0.0 % Neutrophils # (Auto) 11.8 TH/MM3 Lymphocytes # (Auto) 0.8 TH/MM3 Monocytes # (Auto) 0.0 TH/MM3 Eosinophils # (Auto) 0.0 TH/MM3 Basophils # (Auto) 0.0 TH/MM3 CBC Comment DIFF FINAL Differential Comment Blood Urea Nitrogen 97 MG/DL Creatinine 4.20 MG/DL Random Glucose 165 MG/DL Total Protein 8.9 GM/DL Albumin 3.1 GM/DL Calcium Level 8.9 MG/DL Alkaline Phosphatase 162 U/L Aspartate Amino Transf (AST/SGOT) 246 U/L Alanine Aminotransferase (ALT/SGPT) 44 U/L Total Bilirubin 0.7 MG/DL Sodium Level 126 MEQ/L Potassium Level 3.9 MEQ/L Chloride Level 93 MEQ/L Carbon Dioxide Level 16.4 MEQ/L Anion Gap 17 MEQ/L Estimat Glomerular Filtration Rate 11 ML/MIN B-Type Natriuretic Peptide 9 PG/ML Lipase 1146 U/L Lactic Acid Level 3.5 mmol/L Blood Gas Puncture Site RT RADIAL Blood Gas Patient Temperature 98.6 Blood Gas HCO3 10 mmol/L Blood Gas Base Excess -13.5 mmol/L Blood Gas Oxygen Saturation 76 % Arterial Blood pH 7.42 Arterial Blood Partial Pressure CO2 16 mmHG Arterial Blood Partial Pressure O2 48 mmHG Arterial Blood Oxygen Content 18.0 Vol % Arterial Blood Carboxyhemoglobin 1.2 % Arterial Blood Methemoglobin 1.0 % Blood Gas Hemoglobin 16.9 G/DL Oxygen Delivery Device NONE Blood Gas Inspired Oxygen 21 % [facility] Medical Record Reviewed: Yes Supervised Visit with MARYBETH: No Interpretation(s) Last Impressions Chest CT 04/24/17 1327 Signed Impressions: Service Date/Time: April 13:46 - CONCLUSION: Patchy groundglass infiltrates throughout all lobes of the lungs. It is most prominent in the perihilar distribution but also more peripheral areas. I did not see a mass amenable to biopsy with CT guidance. Jay Weaver MD Abdomen/Pelvis CT 04/24/17 1327 Signed Impressions: Service Date/Time: April 13:46 - CONCLUSION: Patchy infiltrates in the lung bases. No concerning adenopathy or mass. Abdomen and pelvis are unremarkable. Small amount of free fluid in the pelvis within normal limits for age. The appendix is normal. Jay Weaver MD Chest X-Ray 04/24/17 1229 Signed Impressions: Service Date/Time: April 12:48 - CONCLUSION: Abnormal bilateral lower lung zone airspace consolidation. The history suggests that it could be related to an infectious process but the distribution is atypical. Additionally, some of the consolidation in the right midlung zone appears nodular. Consider either further evaluation with chest CT or perform a followup chest x-ray or chest CT following appropriate medical therapy. Davey Melvin MD Laboratory Tests Test 04/24/17 12:33 04/24/17 12:34 04/24/17 13:11 White Blood Count 12.6 TH/MM3 Red Blood Count 5.47 MIL/MM3 Hemoglobin 16.7 GM/DL Hematocrit 49.4 % Mean Corpuscular Volume 90.4 FL Mean Corpuscular Hemoglobin 30.5 PG Mean Corpuscular Hemoglobin Concent 33.7 % Red Cell Distribution Width 16.5 % Platelet Count 184 TH/MM3 Mean Platelet Volume 9.7 FL Neutrophils (%) (Auto) 93.4 % Lymphocytes (%) (Auto) 6.3 % Monocytes (%) (Auto) 0.2 % Eosinophils (%) (Auto) 0.1 % Basophils (%) (Auto) 0.0 % Neutrophils # (Auto) 11.8 TH/MM3 Lymphocytes # (Auto) 0.8 TH/MM3 Monocytes # (Auto) 0.0 TH/MM3 Eosinophils # (Auto) 0.0 TH/MM3 Basophils # (Auto) 0.0 TH/MM3 CBC Comment DIFF FINAL Differential Comment Blood Urea Nitrogen 97 MG/DL Creatinine 4.20 MG/DL Random Glucose 165 MG/DL Total Protein 8.9 GM/DL Albumin 3.1 GM/DL Calcium Level 8.9 MG/DL Alkaline Phosphatase 162 U/L Aspartate Amino Transf (AST/SGOT) 246 U/L Alanine Aminotransferase (ALT/SGPT) 44 U/L Total Bilirubin 0.7 MG/DL Sodium Level 126 MEQ/L Potassium Level 3.9 MEQ/L Chloride Level 93 MEQ/L Carbon Dioxide Level 16.4 MEQ/L Anion Gap 17 MEQ/L Estimat Glomerular Filtration Rate 11 ML/MIN B-Type Natriuretic Peptide 9 PG/ML Lipase 1146 U/L Lactic Acid Level 3.5 mmol/L Blood Gas Puncture Site RT RADIAL Blood Gas Patient Temperature 98.6 Blood Gas HCO3 10 mmol/L Blood Gas Base Excess -13.5 mmol/L Blood Gas Oxygen Saturation 76 % Arterial Blood pH 7.42 Arterial Blood Partial Pressure CO2 16 mmHG Arterial Blood Partial Pressure O2 48 mmHG Arterial Blood Oxygen Content 18.0 Vol % Arterial Blood Carboxyhemoglobin 1.2 % Arterial Blood Methemoglobin 1.0 % Blood Gas Hemoglobin 16.9 G/DL Oxygen Delivery Device NONE Blood Gas Inspired Oxygen 21 % Narrative Course I was asked by my fellow physician to perform an intubation on a lady with progressing respiratory failure and hypoxia. The medications, to etomidate and succinylcholine were ordered by Dr. Magallanes. Using a C Mac I intubated the patient with a 7.5 endotracheal tube. There was visible blood in the posterior aspect of the oropharynx as well as coming from the trachea on direct visualization. The patient was intubated, 7.5 endotracheal tube was placed. Post intubation chest x-ray was obtained. The patient will be admitted to the intensive care unit. Procedures Procedure Narrative After the risks and benefits were discussed the following procedure was performed: INTUBATION: The patient was put in optimal position for the procedure. Rapid sequence intubation was initiated by me using 20 milligrams of etomidate IV and 120 milligrams of succinylcholine IV. The patient was intubated with a 7.5 cuffed endotracheal tube. Tube placement was confirmed by visualization of the tube and balloon passing through the cords, capnometry and subsequent chest x- ray. Breath sounds were equal and well aerated bilaterally postintubation. No breath sounds over stomach. Patient tolerated procedure well. Diagnosis Primary Impression: Pneumonia Additional Impression: Renal failure Condition: Critical Isaac Lemus MD Apr 24, 2017 15:48
[2017-04-24] MEDS ORDERED: BISACODYL 10 MG SUPP RECTAL PRN (16:00)
--- NOTE | 2017-04-24 16:24 | RADRPT ---
EXAM DATE/TIME: 04/24/2017 16:03 [place] COMPARISON: CHEST SINGLE AP, April 24, 2017, 12:48. INDICATIONS : Post intubation. Evaluate tube placement. MEDICAL HISTORY : None. SURGICAL HISTORY : None. ENCOUNTER: Initial ACUITY: 1 day PAIN SCORE: 0/10 LOCATION: Bilateral chest FINDINGS: A single view of the chest demonstrates interval placement of an endotracheal tube in good position. There are perihilar batwing infiltrates bilaterally. The infiltrates are worse than on the previous s tudy. No visible pneumothorax.. Osseous structures are intact. CONCLUSION: ET tube in good position. Perihilar batwing infiltrates in good position. Jay Weaver MD on April 24, 2017 at 16:21 Board Certified Radiologist. This report was verified electronically.
[2017-04-24] MEDS ORDERED: GLUCAGON 1 MG/ML VIAL OTHER PRN (16:30)
[2017-04-24] MEDS ORDERED: Vancomycin Consult Pharmacy 1 EA OTHER SCH (16:30)
[2017-04-24] MEDS ORDERED: DEXTROSE 50% IN WATER 50 ML VIAL(D50) IV PUSH PRN (16:30)
[2017-04-24] MEDS: RESP: ALBUTEROL 2.5 MG/IPRATROPIUM 0.5 MG NEB (SCH) INH ×2 (16:36→19:43)
[2017-04-24 16:46] LABS: BILIRUBIN, URINE NEG (NEG); BLOOD, URINE LARGE (NEG); GLUCOSE,URINE NEG (NEG); KETONE, URINE NEG (NEG); NITRITE,URINE NEG (NEG); PH, URINE 5.5 (5.0-8.5); URINE LEUKOCYTE ESTERASE NEG (NEG)
[2017-04-24 16:56] LABS: URINE COLOR YELLOW (YELLW/STRAW)
[2017-04-24 16:57] LABS: AMORPHOUS SEDIMENT, URINE MOD; WBC, URINE 0-2 /hpf (0-5)
[2017-04-24] MEDS: SODIUM CHLOR 0.9% 1000 ML INJ 1,000 ML IV SCH (17:08)
[2017-04-24] MEDS: AZTREONAM INJ 1,000 MG in SODIUM CHLORIDE 0.9% INJ 100 ML IV SCH (17:24)
--- NOTE | 2017-04-24 17:33 | HHI.HP ---
[facility] Service Critical Care Medicine Primary Care Physician No Primary Care Physician Admission Diagnosis PNEUMONIA, RENAL FAILURE, RESPIRATORY FAILURE Diagnosis: (1) Adult respiratory distress syndrome Diagnosis: Principal (2) Acute respiratory failure with hypoxia Diagnosis: Principal (3) Pneumonia Diagnosis: Principal (4) Acute renal failure Diagnosis: Principal (5) Increased anion gap metabolic acidosis Diagnosis: Principal (6) Diarrhea (7) Hyponatremia Diagnosis: Principal (8) Leukocytosis Diagnosis: Principal (9) Lactic acidosis Diagnosis: Principal (10) Renal failure Diagnosis: Principal (11) Hyperglycemia Diagnosis: Principal (12) Elevated lipase Diagnosis: Principal (13) Tobacco use Diagnosis: Principal Chief Complaint: Patient brought to the hospital by her family because of one week history of illness Travel History International Travel<30 Days: No Contact w/Intl Traveler <30 Da: No Traveled to Known Affected Are: No History of Present Illness This is a 51-year-old female with known history of iron deficient anemia,-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 She states that she is had multiple symptoms to include nausea, vomiting, diarrhea, cough, congestion, sore throat. Patient states that her symptoms have improved progressively getting worse over the last 2 days. Because she did not improve her family brought her to the emergency department for evaluation. Because of her family's concern is could have saved the patient's life. Patient with severe multisystem organ failure with respiratory failure, renal failure, severe metabolic acidosis with anion gap. Patient indicates that she has had nausea, vomiting and diarrhea and only minimally keep minimal liquids down. She has had cough, congestion. CT scans and chest x-rays show significant infiltrates bilaterally with respiratory failure. Patient with adult respiratory distress syndrome. Without intubation patient will unlikely survive. This was discussed with the family and patient at bedside prior to intubation. They are in agreement with pursuing heroic measures and intubation for medical management. Patient was intubated by ER physician successfully. Patient will be transferred to [facility] for critical care management. Review of Systems Ears, nose, mouth, throat: COMPLAINS OF: Throat pain, Running Nose Respiratory: COMPLAINS OF: Cough, Sputum production, Shortness of breath Gastrointestinal: COMPLAINS OF: Diarrhea, Nausea, Vomiting Past Family Social History Allergies: Coded Allergies: amoxicillin (Verified Allergy, Unknown, 04/24/17) Past Medical History Iron deficient anemia Irritable bowel syndrome Past Surgical History 2 Reported Medications Reported Meds & Active Scripts Active Reported Zoloft (Sertraline HCl) 100 Mg Tab 100 Mg PO DAILY Family History Reviewed is significant for grandmother had leukemia, otherwise unremarkable for any heart disease lung disease diabetes Social History Patient smokes probably 5 cigars daily. Does use marijuana occasionally. Denies any alcohol use Physical Exam Vital Signs Vital Signs Date Time Temp Pulse Resp B/P (MAP) Pulse Ox O2 Delivery O2 Flow Rate FiO2 04/24/17 15:45 92 100 04/24/17 15:37 100 04/24/17 14:53 90 Non-Rebreather 15.00 04/24/17 14:47 98.7 102 24 118/83 (95) 98 Nasal Cannula 6.00 04/24/17 13:10 112 30 140/97 (111) 90 6.00 04/24/17 12:41 95 Room Air 04/24/17 12:41 97 Room Air 04/24/17 12:41 95 Room Air 04/24/17 12:12 98.8 109 24 138/73 (94) 78 Physical Exam GENERAL: Well-developed, mildly obese, in respiratory distress. alert and orientated HEENT: Head is normocephalic without any lesions or masses noted. Facial features are symmetric. Eyes: Extraocular muscles are intact. Conjunctivae were clear. Oropharyngeal: Pharynx without any erythema edema. Tongue is midline without deviation. Buccal mucosa is moist without any masses or lesions NECK: Supple without any masses. Trachea midline no deviation. No JVD, no bruits are appreciated CARDIAC: Regular rhythm, regular rate. S1/S2 are heard. No murmurs gallops or rubs. LUNGS: Patient with severe lung sounds very wet, rhonchi, wheezes. Patient with abdominal breathing and use of accessory muscles on inspiration and expiration ABDOMEN: Soft, nontender. Nondistended. Bowel sounds heard in all 4 quadrants. No organomegaly or masses. Negative rebound, negative guarding EXTREMITIES: No edema, pulses are equal bilaterally. No cyanosis or clubbing NEUROLOGY: Mood and affect appear appropriate. Cranial nerves II through XII grossly intact. Muscle strength 5/5 in upper and lower extremities bilaterally. Deep tendon reflexes are 2+ in upper and lower extremities bilaterally. Laboratory Laboratory Tests Test 04/24/17 12:33 04/24/17 12:34 04/24/17 13:11 04/24/17 15:00 White Blood Count 12.6 Red Blood Count 5.47 Hemoglobin 16.7 Hematocrit 49.4 Mean Corpuscular Volume 90.4 Mean Corpuscular Hemoglobin 30.5 Mean Corpuscular Hemoglobin Concent 33.7 Red Cell Distribution Width 16.5 Platelet Count 184 Mean Platelet Volume 9.7 Neutrophils (%) (Auto) 93.4 Lymphocytes (%) (Auto) 6.3 Monocytes (%) (Auto) 0.2 Eosinophils (%) (Auto) 0.1 Basophils (%) (Auto) 0.0 Neutrophils # (Auto) 11.8 Lymphocytes # (Auto) 0.8 Monocytes # (Auto) 0.0 Eosinophils # (Auto) 0.0 Basophils # (Auto) 0.0 CBC Comment DIFF FINAL Differential Comment Blood Urea Nitrogen 97 Creatinine 4.20 Random Glucose 165 Total Protein 8.9 Albumin 3.1 Calcium Level 8.9 Alkaline Phosphatase 162 Aspartate Amino Transf (AST/SGOT) 246 Alanine Aminotransferase (ALT/SGPT) 44 Total Bilirubin 0.7 Sodium Level 126 Potassium Level 3.9 Chloride Level 93 Carbon Dioxide Level 16.4 Anion Gap 17 Estimat Glomerular Filtration Rate 11 B-Type Natriuretic Peptide 9 Lipase 1146 Lactic Acid Level 3.5 Blood Gas Puncture Site RT RADIAL RT RADIAL Blood Gas Patient Temperature 98.6 98.6 Blood Gas HCO3 10 16 Blood Gas Base Excess -13.5 -7.8 Blood Gas Oxygen Saturation 76 90 Arterial Blood pH 7.42 7.44 Arterial Blood Partial Pressure CO2 16 24 Arterial Blood Partial Pressure O2 48 66 Arterial Blood Oxygen Content 18.0 18.0 Arterial Blood Carboxyhemoglobin 1.2 1.2 Arterial Blood Methemoglobin 1.0 1.1 Blood Gas Hemoglobin 16.9 14.3 Oxygen Delivery Device NONE NONREBREATHER Blood Gas Inspired Oxygen 21 Blood Gas Liter Flow 15 Test 04/24/17 16:25 04/24/17 16:50 Urine Collection Type CATH Urine Color YELLOW Urine Turbidity SLIGHT Urine pH 5.5 Urine Specific Angela 1.013 Urine Protein 100 Urine Glucose (UA) NEG Urine Ketones NEG Urine Occult Blood LARGE Urine Nitrite NEG Urine Bilirubin NEG Urine Leukocyte Esterase NEG Urine RBC 20-24 Urine WBC 0-2 Urine Amorphous Sediment MOD Microscopic Urinalysis Comment CATH-CULT NOT IND Urine Collection Time 16:25 Blood Gas Puncture Site LT BRACHIAL Blood Gas Patient Temperature 98.6 Blood Gas HCO3 15 Blood Gas Base Excess -9.8 Blood Gas Oxygen Saturation 94 Arterial Blood pH 7.33 Arterial Blood Partial Pressure CO2 30 Arterial Blood Partial Pressure O2 95 Arterial Blood Oxygen Content 18.5 Arterial Blood Carboxyhemoglobin 0.8 Arterial Blood Methemoglobin 1.2 Blood Gas Hemoglobin 14.0 Oxygen Delivery Device VENTILATOR Blood Gas Ventilator Setting [facility]/AC16/550/1IT/8P Blood Gas Inspired Oxygen 100 Date/Time Source Procedure Growth Status 04/24/17 12:33 Blood Peripheral Aerobic Blood Culture Pending Received 04/24/17 12:33 Blood Peripheral Anaerobic Blood Culture Pending Received 04/24/17 14:05 Nasal Aspirate Influenza Types A,B Antigen (ERIK) - Final NEGATIVE FOR FLU A AND B ANTIGEN.... Complete Result Diagram: 04/24/17 1233 04/24/17 1233 Imaging Last Impressions Chest CT 04/24/17 1327 Signed Impressions: Service Date/Time: April 13:46 - CONCLUSION: Patchy groundglass infiltrates throughout all lobes of the lungs. It is most prominent in the perihilar distribution but also more peripheral areas. I did not see a mass amenable to biopsy with CT guidance. Jay Weaver MD Abdomen/Pelvis CT 04/24/17 1327 Signed Impressions: Service Date/Time: April 13:46 - CONCLUSION: Patchy infiltrates in the lung bases. No concerning adenopathy or mass. Abdomen and pelvis are unremarkable. Small amount of free fluid in the pelvis within normal limits for age. The appendix is normal. Jay Weaver MD Chest X-Ray 04/24/17 1229 Signed Impressions: Service Date/Time: April 12:48 - CONCLUSION: Abnormal bilateral lower lung zone airspace consolidation. The history suggests that it could be related to an infectious process but the distribution is atypical. Additionally, some of the consolidation in the right midlung zone appears nodular. Consider either further evaluation with chest CT or perform a followup chest x-ray or chest CT following appropriate medical therapy. Davey Melvin MD Septic Shock Reassessment Septic shock perfusion: reassessment completed Caprini VTE Risk Assessment Caprini VTE Risk Assessment: Mod/High Risk (score >= 2) Caprini Risk Assessment Model Point Value = 1 Point Value = 2 Point Value = 3 Point Value = 5 Age 41-60 Minor surgery BMI > 25 kg/m2 Swollen legs Varicose veins or History of unexplained or recurrent spontaneous Oral contraceptives or hormone replacement Sepsis (< 1 month) Serious lung disease, including pneumonia (< 1 month) Abnormal pulmonary function Acute myocardial infarction Congestive heart failure (< 1 month) History of inflammatory bowel disease Medical patient at bed rest Age 61-74 Arthroscopic surgery Major open surgery (> 45 min) Laparoscopic surgery (> 45 min) Malignancy Confined to bed (> 72 hours) Immobilizing plaster cast Central venous access Age >= 75 History of VTE Family history of VTE Factor V Leiden Prothrombin [id number] Lupus anticoagulant Anticardiolipin antibodies Elevated serum homocysteine Heparin-induced thrombocytopenia Other congenital or acquired thrombophilia Stroke (< 1 month) Elective arthroplasty Hip, pelvis, or leg fracture Acute spinal cord injury (< 1 month) Prophylaxis Regimen Total Risk Factor Score Risk Level Prophylaxis Regimen 0-1 Low Early ambulation 2 Moderate Order ONE of the following: *Sequential Compression Device (SCD) *Heparin 5000 units SQ BID 3-4 Higher Order ONE of the following medications: *Heparin 5000 units SQ TID *Enoxaparin/Lovenox 40 mg SQ daily (WT < 150 kg, CrCl > 30 mL/min) *Enoxaparin/Lovenox 30 mg SQ daily (WT < 150 kg, CrCl > 10-29 mL/min) *Enoxaparin/Lovenox 30 mg SQ BID (WT < 150 kg, CrCl > 30 mL/min) AND/OR *Sequential Compression Device (SCD) 5 or more Highest Order ONE of the following medications: *Heparin 5000 units SQ TID (Preferred with Epidurals) *Enoxaparin/Lovenox 40 mg SQ daily (WT < 150 kg, CrCl > 30 mL/min) *Enoxaparin/Lovenox 30 mg SQ daily (WT < 150 kg, CrCl > 10-29 mL/min) *Enoxaparin/Lovenox 30 mg SQ BID (WT < 150 kg, CrCl > 30 mL/min) AND *Sequential Compression Device (SCD) Assessment and Plan Problem List: (1) Adult respiratory distress syndrome ICD Code: J80 - Acute respiratory distress syndrome (2) Acute respiratory failure with hypoxia ICD Code: J96.01 - Acute respiratory failure with hypoxia (3) Pneumonia ICD Code: J18.9 - Pneumonia, unspecified organism Status: Acute (4) Increased anion gap metabolic acidosis ICD Code: E87.2 - Acidosis (5) Acute renal failure ICD Code: N17.9 - Acute kidney failure, unspecified (6) Lactic acidosis ICD Code: E87.2 - Acidosis (7) Leukocytosis ICD Code: D72.829 - Elevated white blood cell count, unspecified (8) Hyponatremia ICD Code: E87.1 - Hypo-osmolality and hyponatremia (9) Hyperglycemia ICD Code: R73.9 - Hyperglycemia, unspecified (10) Diarrhea ICD Code: R19.7 - Diarrhea, unspecified (11) Elevated lipase ICD Code: R74.8 - Abnormal levels of other serum enzymes (12) Tobacco use ICD Code: Z72.0 - Tobacco use Assessment and Plan NEUROLOGY Patient is sedated with propofol and fentanyl Adjust sedation to maintain rest -2 Ativan, fentanyl, Versed as needed for agitation and sedation Daily sedation medications Soft restraints to protect patient PULMONOLOGY Acute hypoxic respiratory failure Adult respiratory distress syndrome Bilateral pneumonia Daily tobacco use Patient is intubated and sedated for respiratory management PRVC/AC ventilation 16/550/1.0/8+/100% Continue monitor ABG, pH 7.33, PCO2 30, PO2 95, bicarbonate 15, base excess -9.8 , O2 sat 94 Ventilator bundle Daily weaning trials CARDIOLOGY Continue IV fluids Continue monitor blood pressure, keep map greater than 65 GASTROENTEROLOGY Nausea, vomiting Diarrhea Elevated lipase level CT the abdomen does not indicate any acute abnormality within the abdomen OG tube placed Start tube feeding GI protection with Pepcid IV GENITOURINARY Acute renal failure Metabolic acidosis with anion gap Hyponatremia De La Garza insertion for accurate input and output Continue IV fluids Monitor renal function Monitor sodium level Status post 2 Amp sodium bicarbonate INFECTIOUS DISEASE Leukocytosis Lactic acidosis Bilateral pneumonia Diarrhea Patient was given vancomycin, Rocephin, Zithromax emergency department. We'll continue Azactam and azithromycin Blood cultures are pending Influenza testing was negative Obtain sputum culture stool studies, C. difficile culture, Legionella testing, pneumococcal testing Monitor lactic acid level ENDOCRINOLOGY Hyperglycemia Check hemoglobin A1c Accu-Cheks with sliding scale insulin HEMATOLOGY History of iron deficiency Continue monitor CBC PROPHYLAXIS DVT prevention with sequential compression devices GI protection with Pepcid IV LINES Peripheral IVs Code status Full code Critical care management: 60 minutes excluding procedures Problem Qualifiers (1) Pneumonia: Qualified Codes: J18.9 - Pneumonia, unspecified organism Maurice Marroquin Apr 24, 2017 17:33
[2017-04-24] MEDS: INSULIN NovoLIN REGULAR SUPPLEMENTAL SCALE SQ SCH ×2 (17:55→22:10)
[2017-04-24] MEDS ORDERED: ONDANSETRON HCL 4 MG/2 ML VIAL IV PUSH PRN (18:00)
[2017-04-24 18:31] LABS: CALCIUM 6.9 MG/DL (8.5-10.1); CREATININE 3.3 MG/DL (0.50-1.00)
[2017-04-24 18:42] LABS: TOTAL PROTEIN 6.6 GM/DL (6.4-8.2)
[2017-04-24 18:46] LABS: CALCIUM-PROTEIN CORRECTED 7.2 MG/DL (8.5-10.1)
--- NOTE | 2017-04-24 19:40 | EKG ---
Date Performed: 04/24/2017 Time Performed: 16:17:53 PTAGE: 51 years EKG: Baseline artifact present Sinus rhythm NORMAL ECG NO PREVIOUS TRACING DOCTOR: Brien Sam Interpretating Date/Time 04/24/2017 19:39:29
[2017-04-24] MEDS: AZITHROMYCIN INJ 500 MG in SODIUM CHLOR 0.9% 250 ML INJ 250 ML IV SCH (20:03)
[2017-04-24] MEDS ORDERED: MAGNESIUM HYDROXIDE SUSP 30 ML CUP PO PRN (21:00)
[2017-04-24] MEDS ORDERED: SENNOSIDES 8.6 MG TAB PO PRN (21:00)
[2017-04-24] MEDS: SODIUM BICARBONATE 8.4% INJ 150 MEQ in WATER STERILE FOR INJ 850 ML IV SCH (21:02)
--- NOTE | 2017-04-24 21:39 | EKG ---
Date Performed: 04/24/2017 Time Performed: 21:07:18 PTAGE: 51 years EKG: Sinus rhythm NORMAL ECG No significant change from prior electrocardiogram. PREVIOUS TRACING : 04/24/2017 16.17 DOCTOR: Brien Sam Interpretating Date/Time 04/24/2017 21:38:53
[2017-04-24] MEDS: FAMOTIDINE 20 MG/2 ML VIAL IV PUSH SCH (22:09)
[2017-04-24] MEDS: DOCUSATE SODIUM 50 MG/SENNA 8.6 MG TAB PO SCH (22:09)
[2017-04-24] MEDS: SODIUM CHLORIDE 0.9% FLUSH 10 ML FLUSH IV FLUSH SCH (22:09)
[2017-04-24] MEDS: fentaNYL DRIP 250 ML IV PRN (22:49)
[2017-04-24 23:18] LABS: CALCIUM 7.2 MG/DL (8.5-10.1); CREATININE 3.38 MG/DL (0.50-1.00); TROPONIN I 0.2 NG/ML (0.02-0.05)
[2017-04-24 23:49] LABS: TOTAL PROTEIN 6.7 GM/DL (6.4-8.2)
[2017-04-24 23:52] LABS: CALCIUM-PROTEIN CORRECTED 7.4 MG/DL (8.5-10.1)
[2017-04-25] VITALS (43 sets, daily range): BP systolic 87–149; BP diastolic 46–77; PULSE 76–144; RESP 16–29; TEMP 98.4–101.9; O2SAT 83–100
[2017-04-25] MEDS: RESP: ALBUTEROL 2.5 MG/IPRATROPIUM 0.5 MG NEB (SCH) INH ×6 (00:02→20:21)
[2017-04-25] MEDS: AZTREONAM INJ 1,000 MG in SODIUM CHLORIDE 0.9% INJ 100 ML IV SCH ×3 (00:56→15:41)
[2017-04-25] MEDS: INSULIN NovoLIN REGULAR SUPPLEMENTAL SCALE SQ SCH ×6 (01:03→21:00)
[2017-04-25] MEDS: SODIUM BICARBONATE 8.4% INJ 150 MEQ in WATER STERILE FOR INJ 850 ML IV SCH (03:21)
[2017-04-25] MEDS: PROPOFOL 1000 MG/100 ML INJ 100 ML IV PRN ×5 (03:21→22:19)
[2017-04-25] MEDS: CHLORHEXIDINE GLUCONATE 2 % 1 PACK (2 CLOTHS) TOP SCH (04:00)
[2017-04-25] MEDS: SODIUM CHLOR 0.9% 1000 ML INJ 1,000 ML IV SCH (05:23)
[2017-04-25] MEDS: FAMOTIDINE 20 MG/2 ML VIAL IV PUSH SCH ×2 (07:54→20:53)
[2017-04-25] MEDS: MIDAZOLAM HCL 2 MG/2 ML VIAL IV PUSH PRN (07:54)
[2017-04-25] MEDS: SODIUM CHLORIDE 0.9% FLUSH 10 ML FLUSH IV FLUSH SCH ×2 (07:55→20:53)
[2017-04-25] MEDS ORDERED: FUROSEMIDE 40 MG/4 ML VIAL IV PUSH ONE ×2 (08:45→09:15)
[2017-04-25] MEDS: DOCUSATE SODIUM 50 MG/SENNA 8.6 MG TAB PO SCH ×2 (09:00→20:53)
--- NOTE | 2017-04-25 09:24 | HHI.CCPN ---
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 She states that she is had multiple symptoms to include nausea, vomiting, diarrhea, cough, congestion, sore throat. Patient states that her symptoms have improved progressively getting worse over the last 2 days. Because she did not improve her family brought her to the emergency department for evaluation. Because of her family's concern is could have saved the patient's life. Patient with severe multisystem organ failure with respiratory failure, renal failure, severe metabolic acidosis with anion gap. Patient indicates that she has had nausea, vomiting and diarrhea and only minimally keep minimal liquids down. She has had cough, congestion. CT scans and chest x-rays show significant infiltrates bilaterally with respiratory failure. Patient with adult respiratory distress syndrome. Without intubation patient will unlikely survive. This was discussed with the family and patient at bedside prior to intubation. They are in agreement with pursuing heroic measures and intubation for medical management. Patient was intubated by ER physician successfully. Patient will be transferred to [facility] for critical care management. 04/25 Patient is sedated with Diprivan, Fentanyl drips and intubated. Afebrile. Objective Vital Signs Date Time Temp Pulse Resp B/P (MAP) Pulse Ox O2 Delivery O2 Flow Rate FiO2 04/25/17 08:15 90 100 04/25/17 06:00 77 04/25/17 06:00 26 111/66 (81) 04/25/17 04:00 98.6 04/24/17 17:40 Ventilator 04/24/17 15:10 15.00 Intake and Output 04/25/17 04/25/17 04/26/17 08:00 16:00 00:00 Intake Total 2967 ml Output Total 280 ml Balance 2687 ml Result Diagram: 04/24/17 1233 04/24/17 9699 Other Results Laboratory Tests Test 04/24/17 12:33 04/24/17 12:34 04/24/17 13:11 04/24/17 15:00 White Blood Count 12.6 TH/MM3 Red Blood Count 5.47 MIL/MM3 Hemoglobin 16.7 GM/DL Hematocrit 49.4 % Mean Corpuscular Volume 90.4 FL Mean Corpuscular Hemoglobin 30.5 PG Mean Corpuscular Hemoglobin Concent 33.7 % Red Cell Distribution Width 16.5 % Platelet Count 184 TH/MM3 Mean Platelet Volume 9.7 FL Neutrophils (%) (Auto) 93.4 % Lymphocytes (%) (Auto) 6.3 % Monocytes (%) (Auto) 0.2 % Eosinophils (%) (Auto) 0.1 % Basophils (%) (Auto) 0.0 % Neutrophils # (Auto) 11.8 TH/MM3 Lymphocytes # (Auto) 0.8 TH/MM3 Monocytes # (Auto) 0.0 TH/MM3 Eosinophils # (Auto) 0.0 TH/MM3 Basophils # (Auto) 0.0 TH/MM3 CBC Comment DIFF FINAL Differential Comment Blood Urea Nitrogen 97 MG/DL Creatinine 4.20 MG/DL Random Glucose 165 MG/DL Total Protein 8.9 GM/DL Albumin 3.1 GM/DL Calcium Level 8.9 MG/DL Alkaline Phosphatase 162 U/L Aspartate Amino Transf (AST/SGOT) 246 U/L Alanine Aminotransferase (ALT/SGPT) 44 U/L Total Bilirubin 0.7 MG/DL Sodium Level 126 MEQ/L Potassium Level 3.9 MEQ/L Chloride Level 93 MEQ/L Carbon Dioxide Level 16.4 MEQ/L Anion Gap 17 MEQ/L Estimat Glomerular Filtration Rate 11 ML/MIN B-Type Natriuretic Peptide 9 PG/ML Lipase 1146 U/L Lactic Acid Level 3.5 mmol/L Blood Gas Puncture Site RT RADIAL RT RADIAL Blood Gas Patient Temperature 98.6 98.6 Blood Gas HCO3 10 mmol/L 16 mmol/L Blood Gas Base Excess -13.5 mmol/L -7.8 mmol/L Blood Gas Oxygen Saturation 76 % 90 % Arterial Blood pH 7.42 7.44 Arterial Blood Partial Pressure CO2 16 mmHG 24 mmHG Arterial Blood Partial Pressure O2 48 mmHG 66 mmHG Arterial Blood Oxygen Content 18.0 Vol % 18.0 Vol % Arterial Blood Carboxyhemoglobin 1.2 % 1.2 % Arterial Blood Methemoglobin 1.0 % 1.1 % Blood Gas Hemoglobin 16.9 G/DL 14.3 G/DL Oxygen Delivery Device NONE NONREBREATHER Blood Gas Inspired Oxygen 21 % Blood Gas Liter Flow 15 L/M Test 04/24/17 16:25 04/24/17 16:50 04/24/17 17:30 04/24/17 19:10 Urine Collection Type CATH Urine Color YELLOW Urine Turbidity SLIGHT Urine pH 5.5 Urine Specific [place] 1.013 Urine Protein 100 mg/dL Urine Glucose (UA) NEG mg/dL Urine Ketones NEG mg/dL Urine Occult Blood LARGE Urine Nitrite NEG Urine Bilirubin NEG Urine Leukocyte Esterase NEG Urine RBC 20-24 /hpf Urine WBC 0-2 /hpf Urine Amorphous Sediment MOD Microscopic Urinalysis Comment CATH-CULT NOT IND Urine Collection Time 16:25 Blood Gas Puncture Site LT BRACHIAL Blood Gas Patient Temperature 98.6 Blood Gas HCO3 15 mmol/L Blood Gas Base Excess -9.8 mmol/L Blood Gas Oxygen Saturation 94 % Arterial Blood pH 7.33 Arterial Blood Partial Pressure CO2 30 mmHG Arterial Blood Partial Pressure O2 95 mmHG Arterial Blood Oxygen Content 18.5 Vol % Arterial Blood Carboxyhemoglobin 0.8 % Arterial Blood Methemoglobin 1.2 % Blood Gas Hemoglobin 14.0 G/DL Oxygen Delivery Device VENTILATOR Blood Gas Ventilator Setting PRVC/AC16/550/1IT/8P Blood Gas Inspired Oxygen 100 % Blood Urea Nitrogen 92 MG/DL Creatinine 3.30 MG/DL Random Glucose 136 MG/DL Total Protein 6.6 GM/DL Calcium Level 6.9 MG/DL Sodium Level 134 MEQ/L Potassium Level 3.5 MEQ/L Chloride Level 103 MEQ/L Carbon Dioxide Level 17.0 MEQ/L Anion Gap 14 MEQ/L Estimat Glomerular Filtration Rate 18 ML/MIN Lactic Acid Level 1.4 mmol/L Protein Corrected Calcium 7.2 MG/DL Troponin I 0.16 NG/ML Nasal Screen MRSA (PCR) MRSA NOT DETECTED Test 04/24/17 22:07 04/24/17 22:39 04/25/17 08:27 Blood Gas Puncture Site RT RADIAL RT RADIAL Blood Gas Patient Temperature 98.6 98.6 Blood Gas HCO3 15 mmol/L 24 mmol/L Blood Gas Base Excess -9.3 mmol/L 0.1 mmol/L Blood Gas Oxygen Saturation 93 % 79 % Arterial Blood pH 7.34 7.44 Arterial Blood Partial Pressure CO2 29 mmHg 36 mmHg Arterial Blood Partial Pressure O2 92 mmHg 47 mmHg Arterial Blood Oxygen Content 18.0 Vol % 13.9 Vol % Arterial Blood Carboxyhemoglobin 0.3 % 0.7 % Arterial Blood Methemoglobin 1.5 % 1.7 % Blood Gas Hemoglobin 13.6 G/DL 12.6 G/DL Oxygen Delivery Device VENTILATOR VENTILATOR Blood Gas Ventilator Setting PRVC16/550/1.0/+8 Blood Gas Inspired Oxygen 100 % 100 % Blood Urea Nitrogen 92 MG/DL Creatinine 3.38 MG/DL Random Glucose 119 MG/DL Total Protein 6.7 GM/DL Calcium Level 7.2 MG/DL Sodium Level 132 MEQ/L Potassium Level 4.1 MEQ/L Chloride Level 101 MEQ/L Carbon Dioxide Level 17.0 MEQ/L Anion Gap 14 MEQ/L Estimat Glomerular Filtration Rate 17 ML/MIN Lactic Acid Level 1.2 mmol/L Protein Corrected Calcium 7.4 MG/DL Troponin I 0.20 NG/ML Imaging Last Impressions Chest CT 04/24/171326 Signed Impressions: Service Date/Time: April 13:46 - CONCLUSION: Patchy groundglass infiltrates throughout all lobes of the lungs. It is most prominent in the perihilar distribution but also more peripheral areas. I did not see a mass amenable to biopsy with CT guidance. Jay Weaver MD Abdomen/Pelvis CT 04/24/177 Signed Impressions: Service Date/Time: April 13:46 - CONCLUSION: Patchy infiltrates in the lung bases. No concerning adenopathy or mass. Abdomen and pelvis are unremarkable. Small amount of free fluid in the pelvis within normal limits for age. The appendix is normal. Jay Weaver MD Chest X-Ray 04/24/17 1229 Signed Impressions: Service Date/Time: April 12:48 - CONCLUSION: Abnormal bilateral lower lung zone airspace consolidation. The history suggests that it could be related to an infectious process but the distribution is atypical. Additionally, some of the consolidation in the right midlung zone appears nodular. Consider either further evaluation with chest CT or perform a followup chest x-ray or chest CT following appropriate medical therapy. Davey Melvin MD Objective Remarks GENERAL: Patient is 51 yo intubated and sedated SKIN: Warm and dry. HEAD: Normocephalic. EYES: No scleral icterus. No injection or drainage. NECK: Supple, trachea midline. No JVD or lymphadenopathy. CARDIOVASCULAR: Regular rate and rhythm without murmurs, gallops, or rubs. RESPIRATORY: Breath sounds equal bilaterally. No accessory muscle use. GASTROINTESTINAL: Abdomen soft, non-tender, nondistended. MUSCULOSKELETAL: No cyanosis, or edema. Neuro: sedated A/P Problem List: (1) Adult respiratory distress syndrome ICD Code: J80 - Acute respiratory distress syndrome (2) Acute respiratory failure with hypoxia ICD Code: J96.01 - Acute respiratory failure with hypoxia (3) Pneumonia ICD Code: J18.9 - Pneumonia, unspecified organism Status: Acute (4) Increased anion gap metabolic acidosis ICD Code: E87.2 - Acidosis (5) Acute renal failure ICD Code: N17.9 - Acute kidney failure, unspecified (6) Lactic acidosis ICD Code: E87.2 - Acidosis (7) Leukocytosis ICD Code: D72.829 - Elevated white blood cell count, unspecified (8) Hyponatremia ICD Code: E87.1 - Hypo-osmolality and hyponatremia (9) Hyperglycemia ICD Code: R73.9 - Hyperglycemia, unspecified (10) Diarrhea ICD Code: R19.7 - Diarrhea, unspecified (11) Elevated lipase ICD Code: R74.8 - Abnormal levels of other serum enzymes (12) Tobacco use ICD Code: Z72.0 - Tobacco use Assessment and Plan NEUROLOGY On propofol and fentanyl infusion for sedation and vent synchrony Daily sedation medication when appropiate PULMONOLOGY Acute hypoxic respiratory failure Adult respiratory distress syndrome Bilateral pneumonia Daily tobacco use Continue with vent support and keep sat >92% PRVC/AC ventilation 16/450/1.0/8+/100%, increase PEEP: 12 Check CXR and ABG Bronchodilators, ICU Ventilator bundle Add Solumederol 80mg IV Q6 Given severe ARDS and O2 requirements will proceed with pronation and place on [place] CARDIOLOGY Monitor HR and BP keep MAP>65mmHg Lactic acid 1.2. Check 2D echo to eval LV function GASTROENTEROLOGY Nausea, vomiting Diarrhea Elevated lipase level CT the abdomen does not indicate any acute abnormality within the abdomen Start tube feeds- Nepro with goal rate 45ml/hr GI protection with Pepcid IV GENITOURINARY Acute renal failure Metabolic acidosis with anion gap Monitor renal function, I/O's, avoid nephrotoxins Diurese with Lasix 80mg x1, d/c IVF. Renal is consulted- Dr. Serrano CT abdomen: No hydronephrosis INFECTIOUS DISEASE Leukocytosis Lactic acidosis Bilateral pneumonia Diarrhea Patient was given vancomycin, Rocephin, Zithromax in ED. Continue Azactam, Vanco and azithromycin Blood cultures are pending Influenza testing negative Obtain sputum culture, stool studies, C. difficile culture, Legionella testing, pneumococcal testing ENDOCRINOLOGY Hyperglycemia Accu-Cheks with sliding scale insulin HEMATOLOGY History of iron deficiency Continue monitor CBC PROPHYLAXIS DVT prevention with sequential compression devices GI protection with Pepcid IV LINES Peripheral IVs Code status Full code Patient is critically ill with resp failure, acute renal failure, pneumonia. Right IJ CVP placed today CCT 30 mins Problem Qualifiers (1) Pneumonia: Qualified Codes: J18.9 - Pneumonia, unspecified organism Nay Das MD Apr 25, 2017 09:23
[2017-04-25] MEDS ORDERED: methylPREDNISolone SOD SUCC 125 MG/2 ML VIAL ONE (09:30)
[2017-04-25] MEDS: methylPREDNISolone SOD SUCC 40 MG/1 ML VIAL IV PUSH SCH ×3 (10:00→20:53)
--- NOTE | 2017-04-25 10:03 | RADRPT ---
EXAM DATE/TIME: 04/25/2017 09:39 [facility] COMPARISON: CHEST SINGLE AP, April 24, 2017, 16:03. INDICATIONS : Ventilator dependent respiratory failure. MEDICAL HISTORY : Leukemia. Arthritis. Hypertension. Smoker. SURGICAL HISTORY : section. Tubal ligation. ENCOUNTER: Subsequent ACUITY: 2 days PAIN SCORE: Non-responsive. LOCATION: Bilateral chest FINDINGS: Endotracheal tube is present with tip 6-7 cm above the dayanara. Nasogastric tube descends to the stoma ch. There is persistent symmetric bilateral primarily basilar pleuroparenchymal opacity which may be slightly more confluent than on prior exam. Cardiac contours are largely obscured. CONCLUSION: Slight interval worsening in diffuse parenchymal lung disease. Satisfactory support line positioning Davey Mitchell MD on April 25, 2017 at 10:00 Board Certified Radiologist. This report was verified electronically.
[2017-04-25 10:21] LABS: INTERNATIONAL NORMALIZED RATIO 1.1 RATIO; PROTHROMBIN TIME - PATIENT 11.3 SEC (9.8-11.6)
[2017-04-25 10:31] LABS: AUTOMATED NEUTROPHIL # 6.1 TH/MM3 (1.8-7.7); BASOPHIL % 0.3 % (0.0-2.0); HEMOGLOBIN 13.4 GM/DL (11.6-15.3); LYMPHOCYTE # 0.9 TH/MM3 (1.0-4.8); MEAN CELL VOLUME 91.1 FL (80.0-100.0); MEAN CORPUSCULAR HEMOGLOBIN 31.4 PG (27.0-34.0); MEAN CORPUSCULAR HGB CONC 34.4 % (32.0-36.0); MEAN PLATELET VOLUME 9.8 FL (7.0-11.0); MONO % 2.8 % (0.0-8.0); MONOCYTE # 0.2 TH/MM3 (0-0.9); NEUT % 83.9 % (16.0-70.0); PLATELET COUNT 133 TH/MM3 (150-450); RED BLOOD COUNT 4.27 MIL/MM3 (4.00-5.30); RED CELL DISTRIBUTION WIDTH 17.2 % (11.6-17.2); WHITE BLOOD COUNT 7.3 TH/MM3 (4.0-11.0)
[2017-04-25 10:37] LABS: RANDOM VANCOMYCIN 17.3 COMMENT
[2017-04-25 10:38] LABS: ALBUMIN 2.1 GM/DL (3.4-5.0); CALCIUM 6.3 MG/DL (8.5-10.1); CREATININE 3.14 MG/DL (0.50-1.00); MAGNESIUM 2.1 MG/DL (1.5-2.5); PHOSPHORUS 4.3 MG/DL (2.5-4.9); TOTAL BILIRUBIN ADULT 0.6 MG/DL (0.2-1.0)
[2017-04-25 10:41] LABS: CALCIUM-PROTEIN CORRECTED 6.8 MG/DL (8.5-10.1)
[2017-04-25] MEDS ORDERED: POTASSIUM CHLOR 20 MEQ PREMIX 100 ML IV ONE (12:00)
[2017-04-25] MEDS ORDERED: CALCIUM GLUCONATE INJ 1 GM in SODIUM CHLORIDE 0.9% INJ 100 ML IV ONE (12:00)
--- NOTE | 2017-04-25 12:48 | MB ---
cc: [facility] DATE OF CONSULTATION: 04/25/2018 REASON FOR CONSULTATION: Elevated blood urea nitrogen and creatinine for evaluation. HISTORY OF PRESENT ILLNESS: This is a 51 year-old female with past medical history of chronic anemia and irritable bowel syndrome was admitted yesterday because of nausea, vomiting or diarrhea and fever. I was called to see the patient because of elevated creatinine, her creatinine on presentation was 4.2 which has been gradually improving. The patient was initially presented at [facility] and has moved here to the [facility]. She was intubated, had respiratory failure requiring very high oxygen. The patient was resuscitated with fluid yesterday but this morning the urine output was low and she has a lot of secretions so she was given Lasix one dose of 80 mg around 9:30 this morning. The patient is intubated and not able to give much history. Most of the history was taken from the patients daughter, chronically she has been sick for about a week before she came to the hospital. She had fever, has nausea, vomiting or diarrhea and sore throat with congestion. She got some kind of treatment before coming into the emergency department but it was not working and she was not improving and she had worsening cough and congestion along with nausea, vomiting or diarrhea. When she arrived here, chest x-ray showed she has bilateral infiltrates and she was in respiratory distress. Currently she is intubated and sedated. PAST MEDICAL HISTORY: Irritable bowel syndrome Chronic anemia. PAST SURGICAL HISTORY: History of several infections. REVIEW OF SYSTEMS Cannot be taken since the patient is intubated. SOCIAL HISTORY: The patient is , with history of smoking cigars and occasionally uses marijuana. There is no history of alcoholism. FAMILY HISTORY: Noncontributory. ALLERGIES AMOXICILLIN MEDICATIONS: Pericolace 1 tablet twice a day Duoneb nebulizer One dose of potassium One dose of Lasix 80 mg this morning. Potassium Gluconate 1 dose. Femotidine 20 mg IV q 12 hours. Azithromycin 500 mg q 24 hours. Methylprednisone 80 mg q six hours. Aztreonam 1 gram q 8 hours. Propofol as needed. Zofran as needed. PHYSICAL EXAMINATION: IN GENERAL: The patient is intubated and sedated. VITAL SIGNS: Last blood pressure 111/66, temperature 98.6. Oxygen saturation on 100% FIO2 92%. HEAD, EYES, EARS, NOSE, AND THROAT: Pupils constricted, nonicteric sclera, conjunctiva are pale. NECK: The neck is supple. Jugular venous distention not elevated. LUNGS: The patient has bilateral decreased air entry with basal <<3:54>> and scattered wheezing. HEART: S1, S2, irregular rhythm. ABDOMEN: The abdomen is distended. Soft, lax there is no tenderness. Bowel sound positive. EXTREMITIES: She has mild edema. LABORATORY INVESTIGATION: White blood count 7.3, hemoglobin 13.4, platelet count 133, sodium 137, potassium 3.3. Chloride 99, bicarbonate 26, blood urea nitrogen 87, creatinine 3.1. Calcium corrected 6.8, aspartate aminotransferase 213, ALT 34, Troponin 0.1, albumin 2.1, total protein 6.0, lipase 1465, INR 1.1 Urinalysis showed protein 100, red blood cell 2225. RADIOLOGIC: Chest x-ray was done which shows bilateral patchy infiltrates. CT scan of the abdomen/pelvis was done without IV contrast and shows both kidneys to be normal in size, no solid masses, no hydronephrosis 2.1 cm cyst in the posterior upper pole of the left kidney. Lung infiltrate with free fluid in the pelvis, appendix is normal. ASSESSMENT AND PLAN: 1. Acute kidney injury. 2. Respiratory failure. 3. Pneumonia. 4. Metabolic acidosis. 5. History of diarrhea and vomiting. 6. Elevated lipase. 7. The patient has minimal antibiotic, is still requiring very high oxygen. 8. Try to keep a negative fluid balance, use diuretic as needed. Creatinine is improving. Most likely the acute kidney injury is either related to the [employer] or interstitial nephritis. I will check the urine sodium and Eosinophils. To continue with the antibiotics and avoid nephrotoxins. Thank you for the consultation, MD BRITTNEY Shea/denny /11:57 AM /12:05 PM
[2017-04-25] MEDS ORDERED: VECURONIUM BROMIDE 10 MG VIAL IV PUSH ONE (14:00)
--- NOTE | 2017-04-25 15:04 | PD.PROCEDR ---
Central Line Procedure REASON FOR PROCEDURE Central venous access PROCEDURE PERFORMED Central line placement: Right IJ CVP CONSENT Informed consent for procedure was obtained. The risks and benefits of the procedure were discussed to include but limited to bleeding, clot formation, infection, and even . ANESTHESIA Local injection of 1% Lidocaine DESCRIPTION OF THE PROCEDURE The patient was placed in supine, mild Trendelenburg position. The area was exposed and cleansed with ChloraPrep, times two. Large sterile drape was used to cover the patient, with the site exposed, under sterile conditions including cap, face mask, sterile gown, and sterile gloves. On single attempt, the introducer needle was inserted with negative pressure in syringe and venous flash was obtained. The guide wire was then advanced without any restriction and the needle was removed. The dilator was used without any complications. Using Seldinger technique the catheter was advanced over the guide wire to a depth of 20centimeters. The guide wire was removed. All ports were aspirated with dark venous blood return and flushed easily with sterile saline. All ports were capped. Antibiotic disc was placed around central line at puncture site. The central line was secured to the skin with two interrupted 2.0 silk sutures. The area was bandaged with sterile see-through central line bandage. RADIOLOGICAL DATA Ultrasound guidance was used to locate right IJ vein. CXR ordered to verify line placement. COMPLICATIONS: No apparent complications ESTIMATED BLOOD LOSS: Less than 1 cc. Nay Das MD Apr 25, 2017 15:04
--- NOTE | 2017-04-25 15:16 | RADRPT ---
EXAM DATE/TIME: 04/25/2017 14:51 [facility] COMPARISON: CHEST SINGLE AP, April 25, 2017, 9:39. INDICATIONS : Central line placement MEDICAL HISTORY : Leukemia. Arthritis. Hypertension. Smoker SURGICAL HISTORY : section. Tubal ligation. ENCOUNTER: Initial ACUITY: 1 day PAIN SCORE: Non-responsive. LOCATION: Bilateral chest FINDINGS: Endotracheal tube is present with tip approximately 5 cm above the dayanara. Nasogastric tube since the stomach. A right neck central line is present good position with tip overlying SVC. There is no evid ence of pneumothorax or other complication of placement. Aeration is slightly improved with slight im provement in lung volumes. Persistent lower lung zone interstitial and alveolar opacities. CONCLUSION: Satisfactory central line positioning without pneumothorax Davey Mitchell MD on April 25, 2017 at 15:12 Board Certified Radiologist. This report was verified electronically.
[2017-04-25] MEDS: fentaNYL DRIP 250 ML IV PRN (15:42)
--- NOTE | 2017-04-25 16:21 | ECHRPT ---
Indication: Respiratory failure, unspecified, unspecified whether with hypoxia or hypercapnia CONCLUSIONS Normal left ventricular size and wall thickness. The left ventricular systolic function is normal wi th an estimated ejection fraction in the range of 60-65%. No definite wall motion abnormalities. There is mild tricuspid regurgitation. The estimated pulmonary arterial pressure is 70 mm Hg suggestive of severe pulmonary hypertension. BP: 111 / 66 HR: 77 Rhythm: Sinus MEASUREMENTS (Male / Female) Normal Values Technical Quality:Fair 2D ECHO LV Diastolic Diameter PLAX 4.2 cm 4.2 - 5.9 / 3.9 - 5.3 cm LV Systolic Diameter PLAX 3.2 cm IVS Diastolic Thickness 1.0 cm 0.6 - 1.0 / 0.6 - 0.9 cm LVPW Diastolic Thickness 1.0 cm 0.6 - 1.0 / 0.6 - 0.9 cm LV Relative Wall Thickness 0.5 LVOT Diameter 1.8 cm M-MODE Aortic Root Diameter MM 2.6 cm LA Systolic Diameter MM 3.7 cm LA Ao Ratio MM 1.4 AV Cusp Separation MM 2.0 cm DOPPLER AV Peak Velocity 204.6 cm/s AV Peak Gradient 16.7 mmHg AV Mean Gradient 10.0 mmHg AV Velocity Time Integral 28.8 cm LVOT Peak Velocity 139.0 cm/s LVOT Peak Gradient 7.7 mmHg AV Area Cont Eq pk 1.7 cm Mitral E Point Velocity 86.9 cm/s Mitral A Point Velocity 60.7 cm/s Mitral E to A Ratio 1.4 LV E' Lateral Velocity 10.0 cm/s Mitral E to LV E' Lateral Ratio 8.7 LV E' Septal Velocity 7.1 cm/s Mitral E to LV E' Septal Ratio 12.2 TR Peak Velocity 388.0 cm/s TR Peak Gradient 60.2 mmHg Right Atrial Pressure 10.0 mmHg Pulmonary Artery Systolic Pressu 70.2 mmHg Right Ventricular Systolic Press 70.2 mmHg PV Peak Velocity 125.0 cm/s PV Peak Gradient 6.3 mmHg FINDINGS LEFT VENTRICLE Normal left ventricular size and wall thickness. The left ventricular systolic function is normal wi th an estimated ejection fraction in the range of 60-65%. No definite wall motion abnormalities. RIGHT VENTRICLE Normal right ventricular size and systolic function. LEFT ATRIUM The left atrial size is normal. RIGHT ATRIUM The right atrial size is normal. ATRIAL SEPTUM Normal atrial septal thickness without atrial level shunting by limited color doppler interrogation. AORTA The aortic root and proximal ascending aorta are normal in size on limited imaging. MITRAL VALVE Structurally normal mitral valve. No mitral valve stenosis or regurgitation. AORTIC VALVE Trileaflet aortic valve. No aortic valve stenosis or regurgitation. TRICUSPID VALVE There is mild tricuspid regurgitation. The estimated pulmonary arterial pressure is 70 mm Hg suggestive of severe pulmonary hypertension. PULMONARY VALVE No pulmonary valve regurgitation or stenosis. VESSELS The inferior vena cava is normal in size. PERICARDIUM No pericardial effusion. Cassius Mendosa MD (Electronically Signed) Final Date:25 April 2017 16:20
[2017-04-25] MEDS: EPOPROSTENOL NEB SOLUTION 50 NG/KG/MIN 100 ML NEB SCH ×2 (16:56)
[2017-04-25] MEDS ORDERED: CISATRACURIUM 100 MG/NS 250 ML IV PRN ×2 (17:00)
--- NOTE | 2017-04-25 17:47 | PD.PROCEDR ---
Procedure Note Procedure REASON FOR PROCEDURE Invasive HD monitor PROCEDURE PERFORMED Arterial line placement: ANESTHESIA Local injection of 1% Lidocaine DESCRIPTION OF THE PROCEDURE The patient was placed in supine, mild Trendelenburg position. The area was exposed and cleansed with ChloraPrep, times two. Sterile drape was used to cover the the right ángel, On second attempt, the introducer needle was inserted and arterial flash was obtained. The guide wire was then advanced without any restriction and the needle was removed. Using Seldinger technique the arterial catheter was advanced. The guide wire was removed. Antibiotic disc was placed around central line at puncture site. The arterial line was secured to the skin with one interrupted 2.0 silk sutures. The area was bandaged with sterile see-through central line bandage. COMPLICATIONS: No apparent complications ESTIMATED BLOOD LOSS: Less than 1 cc. Partha Mariscal MD Apr 25, 2017 17:47
[2017-04-25] MEDS: AZITHROMYCIN INJ 500 MG in SODIUM CHLOR 0.9% 250 ML INJ 250 ML IV SCH (19:41)
[2017-04-25] MEDS: CISATRACURIUM INJ 100 MG in SODIUM CHLOR 0.9% 250 ML INJ 250 ML IV PRN (19:56)
[2017-04-25] MEDS ORDERED: RASS Change Order XX ONE (22:30)
[2017-04-26] VITALS (26 sets, daily range): BP systolic 70–146; BP diastolic 36–78; PULSE 71–83; RESP 16–24; TEMP 97.5–99.1; O2SAT 88–100
[2017-04-26] MEDS: AZTREONAM INJ 1,000 MG in SODIUM CHLORIDE 0.9% INJ 100 ML IV SCH ×3 (00:09→16:02)
[2017-04-26] MEDS: RESP: ALBUTEROL 2.5 MG/IPRATROPIUM 0.5 MG NEB (SCH) INH ×6 (00:59→20:00)
[2017-04-26] MEDS: INSULIN NovoLIN REGULAR SUPPLEMENTAL SCALE SQ SCH ×7 (01:00→20:17)
[2017-04-26] MEDS: methylPREDNISolone SOD SUCC 40 MG/1 ML VIAL IV PUSH SCH ×4 (03:12→20:16)
[2017-04-26] MEDS: CHLORHEXIDINE GLUCONATE 2 % 1 PACK (2 CLOTHS) TOP SCH (03:13)
[2017-04-26 03:58] LABS: AUTOMATED NEUTROPHIL # 7.5 TH/MM3 (1.8-7.7); BASOPHIL % 0.1 % (0.0-2.0); HEMOGLOBIN 12.7 GM/DL (11.6-15.3); LYMPH % 5.8 % (9.0-44.0); LYMPHOCYTE # 0.5 TH/MM3 (1.0-4.8); MEAN CELL VOLUME 92.2 FL (80.0-100.0); MEAN CORPUSCULAR HEMOGLOBIN 30.8 PG (27.0-34.0); MEAN CORPUSCULAR HGB CONC 33.4 % (32.0-36.0); MEAN PLATELET VOLUME 9.3 FL (7.0-11.0); MONO % 4.7 % (0.0-8.0); MONOCYTE # 0.4 TH/MM3 (0-0.9); NEUT % 89.4 % (16.0-70.0); PLATELET COUNT 132 TH/MM3 (150-450); RED BLOOD COUNT 4.12 MIL/MM3 (4.00-5.30); RED CELL DISTRIBUTION WIDTH 17.2 % (11.6-17.2); WHITE BLOOD COUNT 8.4 TH/MM3 (4.0-11.0)
[2017-04-26] MEDS: PROPOFOL 1000 MG/100 ML INJ 100 ML IV PRN ×4 (04:12→20:15)
[2017-04-26 04:22] LABS: BICARBONATE 25.4 MEQ/L (21.0-32.0); CALCIUM 6.6 MG/DL (8.5-10.1); CREATININE 3.01 MG/DL (0.50-1.00)
[2017-04-26 04:27] LABS: TOTAL BILIRUBIN ADULT 0.5 MG/DL (0.2-1.0); TOTAL PROTEIN 6.1 GM/DL (6.4-8.2)
[2017-04-26 04:29] LABS: CALCIUM-PROTEIN CORRECTED 7.1 MG/DL (8.5-10.1)
[2017-04-26] MEDS: EPOPROSTENOL NEB SOLUTION 50 NG/KG/MIN 100 ML NEB SCH ×6 (04:46→16:46)
--- NOTE | 2017-04-26 05:16 | RADRPT ---
EXAM DATE/TIME: 04/26/2017 03:49 [facility] COMPARISON: CHEST SINGLE AP, April 25, 2017, 14:51. INDICATIONS : Shortness of breath, possible pulmonary disease. MEDICAL HISTORY : Leukemia. Arthritis. Hypertension. SURGICAL HISTORY : section. Tubal ligation. ENCOUNTER: Subsequent ACUITY: 2 days PAIN SCORE: Non-responsive. LOCATION: Bilateral chest FINDINGS: Stable ETT, NGT and right IJ central line. Patchy bilateral mid to lower lung zone airspace disease s lightly improved in the right lung. Cardiomediastinal contours are stable. Remainder of the exam is u nchanged. CONCLUSION: 1. Stable tubes and lines, as above. 2. Patchy bilateral mid to lower lung zone airspace disease, slightly improved in the right lung. Jabier Lazo MD on April 26, 2017 at 5:13 Board Certified Radiologist. This report was verified electronically.
[2017-04-26] MEDS ORDERED: CALCIUM GLUCONATE INJ 2 GM in SODIUM CHLORIDE 0.9% INJ 100 ML IV ONE (05:30)
[2017-04-26] MEDS ORDERED: VANCOMYCIN 1,500 MG/NS 500 ML IV ONE ×2 (07:00)
[2017-04-26] MEDS: FAMOTIDINE 20 MG/2 ML VIAL IV PUSH SCH ×2 (08:08→20:17)
[2017-04-26] MEDS: CISATRACURIUM INJ 100 MG in SODIUM CHLOR 0.9% 250 ML INJ 250 ML IV PRN ×2 (08:08→23:06)
[2017-04-26] MEDS: SODIUM CHLORIDE 0.9% FLUSH 10 ML FLUSH IV FLUSH SCH ×2 (08:08→20:17)
[2017-04-26] MEDS: DOCUSATE SODIUM 50 MG/SENNA 8.6 MG TAB PO SCH ×2 (08:08→20:16)
[2017-04-26] MEDS ORDERED: GLUCAGON 1 MG/ML VIAL OTHER PRN (09:45)
[2017-04-26] MEDS ORDERED: DEXTROSE 50% IN WATER 50 ML VIAL(D50) IV PUSH PRN (09:45)
--- NOTE | 2017-04-26 09:46 | HHI.CCPN ---
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 She states that she is had multiple symptoms to include nausea, vomiting, diarrhea, cough, congestion, sore throat. Patient states that her symptoms have improved progressively getting worse over the last 2 days. Because she did not improve her family brought her to the emergency department for evaluation. Because of her family's concern is could have saved the patient's life. Patient with severe multisystem organ failure with respiratory failure, renal failure, severe metabolic acidosis with anion gap. Patient indicates that she has had nausea, vomiting and diarrhea and only minimally keep minimal liquids down. She has had cough, congestion. CT scans and chest x-rays show significant infiltrates bilaterally with respiratory failure. Patient with adult respiratory distress syndrome. Without intubation patient will unlikely survive. This was discussed with the family and patient at bedside prior to intubation. They are in agreement with pursuing heroic measures and intubation for medical management. Patient was intubated by ER physician successfully. Patient will be transferred to [facility] for critical care management. 04/25 Patient is sedated with Diprivan, Fentanyl drips and intubated. Afebrile. 04/26 Patient is intubated, sedated with Diprivan, Fentanyl drip in addition she is on Nimbex. She was proned yesterday her O2 requirements is better overall now on PEEP;12 and FIO2 65% Objective Vital Signs Date Time Temp Pulse Resp B/P (MAP) Pulse Ox O2 Delivery O2 Flow Rate FiO2 04/26/17 09:24 65 04/26/17 06:00 75 04/26/17 04:34 99 04/26/17 04:00 98.7 16 106/63 (77) 115/55 (75) 04/24/17 17:40 Ventilator 04/24/17 15:10 15.00 Intake and Output 04/26/17 04/26/17 04/27/17 08:00 16:00 00:00 Intake Total 1116 ml 156 ml Output Total 1050 ml Balance 66 ml 156 ml Result Diagram: 04/26/17 0305 04/26/17 0305 Other Results Laboratory Tests Test 04/25/17 09:45 04/25/17 13:00 04/26/17 03:05 White Blood Count 7.3 TH/MM3 8.4 TH/MM3 Red Blood Count 4.27 MIL/MM3 4.12 MIL/MM3 Hemoglobin 13.4 GM/DL 12.7 GM/DL Hematocrit 39.0 % 38.0 % Mean Corpuscular Volume 91.1 FL 92.2 FL Mean Corpuscular Hemoglobin 31.4 PG 30.8 PG Mean Corpuscular Hemoglobin Concent 34.4 % 33.4 % Red Cell Distribution Width 17.2 % 17.2 % Platelet Count 133 TH/MM3 132 TH/MM3 Mean Platelet Volume 9.8 FL 9.3 FL Neutrophils (%) (Auto) 83.9 % 89.4 % Lymphocytes (%) (Auto) 13.0 % 5.8 % Monocytes (%) (Auto) 2.8 % 4.7 % Eosinophils (%) (Auto) 0.0 % 0.0 % Basophils (%) (Auto) 0.3 % 0.1 % Neutrophils # (Auto) 6.1 TH/MM3 7.5 TH/MM3 Lymphocytes # (Auto) 0.9 TH/MM3 0.5 TH/MM3 Monocytes # (Auto) 0.2 TH/MM3 0.4 TH/MM3 Eosinophils # (Auto) 0.0 TH/MM3 0.0 TH/MM3 Basophils # (Auto) 0.0 TH/MM3 0.0 TH/MM3 CBC Comment DIFF FINAL DIFF FINAL Differential Comment Prothrombin Time 11.3 SEC Prothromb Time International Ratio 1.1 RATIO Blood Urea Nitrogen 87 MG/DL 85 MG/DL Creatinine 3.14 MG/DL 3.01 MG/DL Random Glucose 110 MG/DL 192 MG/DL Total Protein 6.0 GM/DL 6.1 GM/DL Albumin 2.1 GM/DL 2.0 GM/DL Calcium Level 6.3 MG/DL 6.6 MG/DL Phosphorus Level 4.3 MG/DL Magnesium Level 2.1 MG/DL Alkaline Phosphatase 118 U/L 140 U/L Aspartate Amino Transf (AST/SGOT) 213 U/L 225 U/L Alanine Aminotransferase (ALT/SGPT) 34 U/L 37 U/L Total Bilirubin 0.6 MG/DL 0.5 MG/DL Sodium Level 137 MEQ/L 141 MEQ/L Potassium Level 3.3 MEQ/L 3.6 MEQ/L Chloride Level 99 MEQ/L 103 MEQ/L Carbon Dioxide Level 26.0 MEQ/L 25.4 MEQ/L Anion Gap 12 MEQ/L 13 MEQ/L Estimat Glomerular Filtration Rate 19 ML/MIN 20 ML/MIN Protein Corrected Calcium 6.8 MG/DL 7.1 MG/DL Troponin I 0.17 NG/ML Lipase 1465 U/L Random Vancomycin Level 17.3 COMMENT Urine Eosinophils NONE SEEN /HPF Urine Random Sodium 44 MEQ/L Imaging Last Impressions Chest X-Ray 04/26/17 0000 Signed Impressions: Service Date/Time: Wednesday, April 26, 2017 03:49 - CONCLUSION: 1. Stable tubes and lines, as above. 2. Patchy bilateral mid to lower lung zone airspace disease, slightly improved in the right lung. Jabier Lazo MD Chest CT 04/24/177 Signed Impressions: Service Date/Time: April 13:46 - CONCLUSION: Patchy groundglass infiltrates throughout all lobes of the lungs. It is most prominent in the perihilar distribution but also more peripheral areas. I did not see a mass amenable to biopsy with CT guidance. Jay Weaver MD Abdomen/Pelvis CT 04/24/177 Signed Impressions: Service Date/Time: April 13:46 - CONCLUSION: Patchy infiltrates in the lung bases. No concerning adenopathy or mass. Abdomen and pelvis are unremarkable. Small amount of free fluid in the pelvis within normal limits for age. The appendix is normal. Jay Weaver MD Objective Remarks GENERAL: Patient is 51 yo intubated and sedated SKIN: Warm and dry. HEAD: Normocephalic. EYES: No scleral icterus. No injection or drainage. NECK: Supple, trachea midline. No JVD or lymphadenopathy. CARDIOVASCULAR: Regular rate and rhythm without murmurs, gallops, or rubs. RESPIRATORY: Breath sounds equal bilaterally. No accessory muscle use. GASTROINTESTINAL: Abdomen soft, non-tender, nondistended. MUSCULOSKELETAL: No cyanosis, or edema. Neuro: sedated A/P Problem List: (1) Adult respiratory distress syndrome ICD Code: J80 - Acute respiratory distress syndrome (2) Acute respiratory failure with hypoxia ICD Code: J96.01 - Acute respiratory failure with hypoxia (3) Pneumonia ICD Code: J18.9 - Pneumonia, unspecified organism Status: Acute (4) Increased anion gap metabolic acidosis ICD Code: E87.2 - Acidosis (5) Acute renal failure ICD Code: N17.9 - Acute kidney failure, unspecified (6) Lactic acidosis ICD Code: E87.2 - Acidosis (7) Leukocytosis ICD Code: D72.829 - Elevated white blood cell count, unspecified (8) Hyponatremia ICD Code: E87.1 - Hypo-osmolality and hyponatremia (9) Hyperglycemia ICD Code: R73.9 - Hyperglycemia, unspecified (10) Diarrhea ICD Code: R19.7 - Diarrhea, unspecified (11) Elevated lipase ICD Code: R74.8 - Abnormal levels of other serum enzymes (12) Tobacco use ICD Code: Z72.0 - Tobacco use Assessment and Plan NEUROLOGY On propofol and fentanyl infusion for sedation in addition she is Nimbex Monitor train of 4. Daily sedation medication when appropiate PULMONOLOGY Acute hypoxic respiratory failure Adult respiratory distress syndrome Bilateral pneumonia Daily tobacco use Continue with vent support and keep sat >92% On PRVC RR 16, TV 550, IT:1.5, PEEP:15, FIO2: 65%. Decrease PEEP:12 Check ABG Bronchodilators, ICU Ventilator bundle Solumederol 80mg IV Q6 Continue with Flolan 30,000ng/ml at rate 8ml/hr CARDIOLOGY Monitor HR and BP keep MAP>65mmHg Lactic acid 1.2. Echo showed EF 60-65% GASTROENTEROLOGY Nausea, vomiting Diarrhea Elevated lipase level and AST CT the abdomen does not indicate any acute abnormality within the abdomen Check US liver On Nepro with goal rate 45ml/hr GI protection with Pepcid IV GENITOURINARY Acute renal failure Metabolic acidosis with anion gap Monitor renal function, I/O's, avoid nephrotoxins Diurese with Lasix 40mg daily Renal is following- Dr. Serrano Cr:3.0 today from 3.14 with UOP: 2080ml in 24hrs, given Lasix 80mg yesterday CT abdomen: No hydronephrosis INFECTIOUS DISEASE Leukocytosis Lactic acidosis Bilateral pneumonia Diarrhea Patient was given vancomycin, Rocephin, Zithromax in ED. Continue Azactam, Vanco and azithromycin Blood cultures04/24: NGTD Influenza screening, Legionella testing, pneumococcal Ag all negative Check sputum cx ENDOCRINOLOGY Hyperglycemia Accu-Cheks with sliding scale insulin HEMATOLOGY History of iron deficiency Continue monitor CBC PROPHYLAXIS DVT prevention with SCD, add Heparin SQ GI protection with Pepcid IV LINES Peripheral IVs Code status Full code Patient is critically ill with resp failure, acute renal failure, pneumonia and ARDS. Right IJ CVP, Art line placed 04/25 CCT 30 mins Problem Qualifiers (1) Pneumonia: Qualified Codes: J18.9 - Pneumonia, unspecified organism Nay Das MD Apr 26, 2017 09:46
[2017-04-26] MEDS: fentaNYL DRIP 250 ML IV PRN ×2 (10:00→20:18)
[2017-04-26] MEDS: FUROSEMIDE 40 MG/4 ML VIAL IV PUSH SCH (10:03)
[2017-04-26] MEDS ORDERED: CALCIUM GLUCONATE INJ 1 GM in SODIUM CHLORIDE 0.9% INJ 100 ML IV ONE (11:00)
--- NOTE | 2017-04-26 11:28 | HHI.NPPN ---
Subjective History of Present Illness 51 year-old female with past medical history of chronic anemia and irritable bowel syndrome was admitted yesterday because of nausea, vomiting or diarrhea and fever. I was called to see the patient because of elevated creatinine, her creatinine on presentation was 4.2. Additional Remarks Patient remain intubated and with rotator bed now, Fio2 decreased to 55%. Review of Systems General General Remarks Intubated and sedated. Objective Data Data 04/26/17 04/27/17 19:00 07:00 Intake Total 721 ml Balance 721 ml IV Total 721 ml Vital Signs Date Time Temp Pulse Resp B/P (MAP) Pulse Ox O2 Delivery O2 Flow Rate FiO2 04/26/17 10:00 71 04/26/17 09:55 96 55 04/26/17 09:24 65 04/26/17 09:02 71 16 80/51 (61) 97 118/57 (77) 04/26/17 09:01 71 16 70/36 (47) 99 123/58 (79) 04/26/17 09:00 71 16 124/58 (80) 98 04/26/17 08:00 97.9 73 16 102/58 (73) 97 119/59 (79) 04/26/17 08:00 73 04/26/17 08:00 65 04/26/17 07:07 74 16 101/55 (70) 98 117/59 (78) 04/26/17 07:00 72 16 79/43 (55) 97 126/60 (82) 04/26/17 06:00 75 04/26/17 04:34 99 65 04/26/17 04:00 98.7 75 16 106/63 (77) 95 115/55 (75) 04/26/17 04:00 75 04/26/17 04:00 65 04/26/17 02:00 76 04/26/17 01:00 99 65 04/26/17 01:00 65 04/26/17 00:00 80 04/26/17 00:00 99.1 78 16 81/50 (60) 100 126/61 (82) 04/26/17 00:00 78 04/25/17 22:00 79 04/25/17 20:21 100 80 04/25/17 20:00 80 04/25/17 20:00 78 04/25/17 20:00 98.7 79 16 119/77 (91) 100 125/63 (83) 04/25/17 19:00 80 04/25/17 18:30 92 100 04/25/17 18:00 88 04/25/17 17:01 92 100 04/25/17 16:32 100 04/25/17 16:14 92 16 149/70 (96) 90 04/25/17 16:00 144 04/25/17 16:00 100 04/25/17 16:00 100.6 04/25/17 15:00 101.0 04/25/17 14:00 144 04/25/17 13:52 84 04/25/17 13:47 83 04/25/17 13:46 83 04/25/17 13:31 85 04/25/17 13:01 86 04/25/17 13:01 86 18 91/53 (66) 91 04/25/17 12:30 89 19 91/50 (64) 91 04/25/17 12:30 89 04/25/17 12:01 88 04/25/17 12:01 88 20 87/46 (60) 92 04/25/17 12:00 88 19 92 04/25/17 12:00 100 04/25/17 12:00 88 04/25/17 11:46 92 100 04/25/17 11:30 86 23 108/66 (80) 83 04/25/17 11:30 86 -: 04/26/17 0305 04/26/17 0305 Physical Exam General Appearance Remarks Limited as on rotator bed. Eyes Eye Exam: Pupils Equal Neck Neck Exam: Neck Supple Pulmonary Resp Exam: Crackles, Rhonchi, Decreased Bases, Diminished Breath Sounds Cardiology CV Exam: Regular Gastrointestinal/Abdomen GI Exam: Soft, Non-Tender, Distended Extremeties Extremities Exam: Trace Edema Neurologic Neuro Exam: Sedated Assessment/Plan Assessment Summary: FORTINO/Acute Renal Failure Electrolyte Assessment: Hypocalcemia Problem List: Plan Patient has Acute kidney injury. BP is now better. Started on Lasix. Creatinine is slightly better. Oxygenation is improving. Continue antibiotic, avoid Nephrotoxins. Weaning as per CCM. Urine Eosinophils negative and Na. was not low. Most likely has ATN due to hypotension. Fariha Serrano MD Apr 26, 2017 11:28
--- NOTE | 2017-04-26 18:11 | RADRPT ---
EXAM DATE/TIME: 04/26/2017 16:44 [place] COMPARISON: No previous studies available for comparison. INDICATIONS : Increased lab values. MEDICAL HISTORY : Intubation due to respiratory failure. Increased lab values. SURGICAL HISTORY : section. ENCOUNTER: Initial ACUITY: 1 day PAIN SCORE: Nonresponsive. LOCATION: Abdomen. MEASUREMENTS: LIVER: 16.6 cm length COMMON DUCT: 4 mm RIGHT KIDNEY: 12.6 x 4.0 x 5.0 cm SPLEEN: 10.7 cm length FINDINGS: LIVER: Normal echotexture without focal lesion or ductal dilatation. Hepatopedal flow. COMMON DUCT: No intraluminal mass or stone visualized. GALLBLADDER: Contains no stones, demonstrates no wall thickening or pericholecystic fluid. PANCREAS: The visualized portions are within normal limits. RIGHT KIDNEY: Echogenic right kidney. No hydronephrosis, stone or mass. SPLEEN: No focal lesion. CONCLUSION: Echogenic right kidney which can be seen with medical renal disease, otherwise unremarkable right upp er quadrant sonogram. Roque Gutiérrez MD on April 26, 2017 at 18:08 Board Certified Radiologist. This report was verified electronically.
[2017-04-26] MEDS: AZITHROMYCIN INJ 500 MG in SODIUM CHLOR 0.9% 250 ML INJ 250 ML IV SCH (18:15)
[2017-04-26] MEDS: HEPARIN SODIUM - SQ 10,000 UNITS/ML VIAL SQ SCH (20:16)
[2017-04-27] VITALS (23 sets, daily range): BP systolic 87–168; BP diastolic 49–84; PULSE 67–102; RESP 24; TEMP 98.5–100.6; O2SAT 87–99
[2017-04-27] MEDS: RESP: ALBUTEROL 2.5 MG/IPRATROPIUM 0.5 MG NEB (SCH) INH ×6 (00:08→20:21)
[2017-04-27] MEDS: CISATRACURIUM INJ 100 MG in SODIUM CHLOR 0.9% 250 ML INJ 250 ML IV PRN ×2 (00:33→15:44)
[2017-04-27] MEDS: AZTREONAM INJ 1,000 MG in SODIUM CHLORIDE 0.9% INJ 100 ML IV SCH ×3 (01:06→16:30)
[2017-04-27] MEDS: INSULIN NovoLIN REGULAR SUPPLEMENTAL SCALE SQ SCH ×6 (01:45→21:49)
[2017-04-27] MEDS: methylPREDNISolone SOD SUCC 40 MG/1 ML VIAL IV PUSH SCH ×4 (03:43→21:49)
[2017-04-27] MEDS: CHLORHEXIDINE GLUCONATE 2 % 1 PACK (2 CLOTHS) TOP SCH (03:43)
[2017-04-27] MEDS: EPOPROSTENOL NEB SOLUTION 50 NG/KG/MIN 100 ML NEB SCH ×6 (03:43→16:30)
[2017-04-27 05:33] LABS: BASOPHIL % 0.2 % (0.0-2.0); HEMATOCRIT 33.6 % (35.0-46.0); HEMOGLOBIN 11.3 GM/DL (11.6-15.3); LYMPH % 3.5 % (9.0-44.0); LYMPHOCYTE # 0.3 TH/MM3 (1.0-4.8); MEAN CELL VOLUME 91.5 FL (80.0-100.0); MEAN CORPUSCULAR HEMOGLOBIN 30.7 PG (27.0-34.0); MEAN CORPUSCULAR HGB CONC 33.6 % (32.0-36.0); MONO % 6.5 % (0.0-8.0); MONOCYTE # 0.6 TH/MM3 (0-0.9); NEUT % 89.8 % (16.0-70.0); PLATELET COUNT 158 TH/MM3 (150-450); RED BLOOD COUNT 3.67 MIL/MM3 (4.00-5.30); RED CELL DISTRIBUTION WIDTH 17.4 % (11.6-17.2); WHITE BLOOD COUNT 8.9 TH/MM3 (4.0-11.0)
[2017-04-27 05:49] LABS: AST (GOT) 159 U/L (15-37); BICARBONATE 24.4 MEQ/L (21.0-32.0); BLOOD UREA NITROGEN 87 MG/DL (7-18); CALCIUM 7.6 MG/DL (8.5-10.1); CHLORIDE 108 MEQ/L (98-107); CREATININE 2.75 MG/DL (0.50-1.00); GLOMERULAR FILTRATION RATE 22 ML/MIN (>89); GLUCOSE,RANDOM 182 MG/DL (74-106); SODIUM (NA) 144 MEQ/L (136-145)
[2017-04-27 06:00] LABS: ALKALINE PHOSPHATASE 135 U/L (45-117); ALT (GPT) 34 U/L (10-53); TOTAL BILIRUBIN ADULT 0.4 MG/DL (0.2-1.0); TOTAL PROTEIN 5.9 GM/DL (6.4-8.2)
[2017-04-27] MEDS: SODIUM CHLORIDE 0.9% FLUSH 10 ML FLUSH IV FLUSH SCH ×2 (08:34→19:43)
[2017-04-27] MEDS: DOCUSATE SODIUM 50 MG/SENNA 8.6 MG TAB PO SCH ×2 (08:34→19:43)
[2017-04-27] MEDS: FAMOTIDINE 20 MG/2 ML VIAL IV PUSH SCH ×2 (08:34→19:43)
[2017-04-27] MEDS: HEPARIN SODIUM - SQ 10,000 UNITS/ML VIAL SQ SCH ×2 (08:34→19:43)
[2017-04-27] MEDS: FUROSEMIDE 40 MG/4 ML VIAL IV PUSH SCH ×2 (08:35→17:35)
[2017-04-27 08:39] LABS: BANDS 8 % (0-6); CORRECTED NUCLEATED RBC 1 /100 WBC (0-0); LYMPHOCYTES 1 % (9-44); MONOCYTES 6 % (0-8); NEUTROPHIL # MANUAL DIFF 8.3 TH/MM3 (1.8-7.7); NUCLEATED RED BLOOD CELL 1 (0-0); POLYS (SEG NEUTROPHILS) 85 % (16-70)
--- NOTE | 2017-04-27 10:22 | HHI.CCPN ---
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 She states that she is had multiple symptoms to include nausea, vomiting, diarrhea, cough, congestion, sore throat. Patient states that her symptoms have improved progressively getting worse over the last 2 days. Because she did not improve her family brought her to the emergency department for evaluation. Because of her family's concern is could have saved the patient's life. Patient with severe multisystem organ failure with respiratory failure, renal failure, severe metabolic acidosis with anion gap. Patient indicates that she has had nausea, vomiting and diarrhea and only minimally keep minimal liquids down. She has had cough, congestion. CT scans and chest x-rays show significant infiltrates bilaterally with respiratory failure. Patient with adult respiratory distress syndrome. Without intubation patient will unlikely survive. This was discussed with the family and patient at bedside prior to intubation. They are in agreement with pursuing heroic measures and intubation for medical management. Patient was intubated by ER physician successfully. Patient will be transferred to [facility] for critical care management. 04/25 Patient is sedated with Diprivan, Fentanyl drips and intubated. Afebrile. 04/26 Patient is intubated, sedated with Diprivan, Fentanyl drip in addition she is on Nimbex. She was proned yesterday her O2 requirements is better overall now on PEEP;12 and FIO2 65% 04/27 No events overnight. Intubated and sedation in addition she is on Nimbex. Afebrile. On Flolan Objective Vital Signs Date Time Temp Pulse Resp B/P (MAP) Pulse Ox O2 Delivery O2 Flow Rate FiO2 04/27/17 09:00 77 24 128/62 (84) 95 04/27/17 08:37 55 04/27/17 08:00 98.9 04/24/17 17:40 Ventilator 04/24/17 15:10 15.00 Intake and Output 04/27/17 04/27/17 04/28/17 08:00 16:00 00:00 Intake Total 1566 ml 100 ml Output Total 750 ml Balance 816 ml 100 ml Result Diagram: 04/27/17 0430 04/27/17 0430 Other Results Laboratory Tests Test 04/26/17 12:24 04/26/17 16:18 04/27/17 04:30 Blood Gas Puncture Site ART LINE ART LINE Blood Gas Patient Temperature 98.6 98.6 Blood Gas HCO3 23 mmol/L 22 mmol/L Blood Gas Base Excess -2.8 mmol/L -3.2 mmol/L Blood Gas Oxygen Saturation 85 % 93 % Arterial Blood pH 7.29 7.33 Arterial Blood Partial Pressure CO2 49 mmHg 43 mmHg Arterial Blood Partial Pressure O2 57 mmHg 86 mmHg Arterial Blood Oxygen Content 14.5 Vol % 14.7 Vol % Arterial Blood Carboxyhemoglobin 0.5 % 0.5 % Arterial Blood Methemoglobin 1.6 % 1.8 % Blood Gas Hemoglobin 12.1 G/DL 11.1 G/DL Oxygen Delivery Device VENTILATOR VENTILATOR Blood Gas Ventilator Setting Blood Gas Inspired Oxygen 70 % White Blood Count 8.9 TH/MM3 Red Blood Count 3.67 MIL/MM3 Hemoglobin 11.3 GM/DL Hematocrit 33.6 % Mean Corpuscular Volume 91.5 FL Mean Corpuscular Hemoglobin 30.7 PG Mean Corpuscular Hemoglobin Concent 33.6 % Red Cell Distribution Width 17.4 % Platelet Count 158 TH/MM3 Mean Platelet Volume 9.0 FL Neutrophils (%) (Auto) 89.8 % Lymphocytes (%) (Auto) 3.5 % Monocytes (%) (Auto) 6.5 % Eosinophils (%) (Auto) 0.0 % Basophils (%) (Auto) 0.2 % Neutrophils # (Auto) 8.0 TH/MM3 Lymphocytes # (Auto) 0.3 TH/MM3 Monocytes # (Auto) 0.6 TH/MM3 Eosinophils # (Auto) 0.0 TH/MM3 Basophils # (Auto) 0.0 TH/MM3 CBC Comment AUTO DIFF Differential Total Cells Counted 100 Neutrophils % (Manual) 85 % Band Neutrophils % 8 % Lymphocytes % 1 % Monocytes % 6 % Neutrophils # (Manual) 8.3 TH/MM3 Nucleated Red Blood Cells 1 /100 WBC Differential Comment FINAL DIFF MANUAL Platelet Estimate NORMAL Platelet Morphology Comment NORMAL Red Cell Morphology Comment NORMAL Blood Urea Nitrogen 87 MG/DL Creatinine 2.75 MG/DL Random Glucose 182 MG/DL Total Protein 5.9 GM/DL Albumin 2.0 GM/DL Calcium Level 7.6 MG/DL Alkaline Phosphatase 135 U/L Aspartate Amino Transf (AST/SGOT) 159 U/L Alanine Aminotransferase (ALT/SGPT) 34 U/L Total Bilirubin 0.4 MG/DL Sodium Level 144 MEQ/L Potassium Level 3.3 MEQ/L Chloride Level 108 MEQ/L Carbon Dioxide Level 24.4 MEQ/L Anion Gap 12 MEQ/L Estimat Glomerular Filtration Rate 22 ML/MIN Lipase 2686 U/L Imaging Last Impressions Liver Ultrasound 04/26/17 0000 Signed Impressions: Service Date/Time: Wednesday, April 26, 2017 16:44 - CONCLUSION: Echogenic right kidney which can be seen with medical renal disease, otherwise unremarkable right upper quadrant sonogram. Roque Gutiérrez MD Chest X-Ray 04/26/17 0000 Signed Impressions: Service Date/Time: Wednesday, April 26, 2017 03:49 - CONCLUSION: 1. Stable tubes and lines, as above. 2. Patchy bilateral mid to lower lung zone airspace disease, slightly improved in the right lung. Jabier Lazo MD Chest CT 04/24/17 1327 Signed Impressions: Service Date/Time: April 13:46 - CONCLUSION: Patchy groundglass infiltrates throughout all lobes of the lungs. It is most prominent in the perihilar distribution but also more peripheral areas. I did not see a mass amenable to biopsy with CT guidance. Jay Weaver MD Abdomen/Pelvis CT 04/24/17 4727 Signed Impressions: Service Date/Time: April 13:46 - CONCLUSION: Patchy infiltrates in the lung bases. No concerning adenopathy or mass. Abdomen and pelvis are unremarkable. Small amount of free fluid in the pelvis within normal limits for age. The appendix is normal. Jay Weaver MD Objective Remarks GENERAL: Patient is 51 yo intubated and sedated SKIN: Warm and dry. HEAD: Normocephalic. EYES: No scleral icterus. No injection or drainage. NECK: Supple, trachea midline. No JVD or lymphadenopathy. CARDIOVASCULAR: Regular rate and rhythm without murmurs, gallops, or rubs. RESPIRATORY: Breath sounds equal bilaterally. No accessory muscle use. GASTROINTESTINAL: Abdomen soft, non-tender, nondistended. MUSCULOSKELETAL: No cyanosis, or edema. Neuro: sedated A/P Problem List: (1) Adult respiratory distress syndrome ICD Code: J80 - Acute respiratory distress syndrome (2) Acute respiratory failure with hypoxia ICD Code: J96.01 - Acute respiratory failure with hypoxia (3) Pneumonia ICD Code: J18.9 - Pneumonia, unspecified organism Status: Acute (4) Increased anion gap metabolic acidosis ICD Code: E87.2 - Acidosis (5) Acute renal failure ICD Code: N17.9 - Acute kidney failure, unspecified (6) Lactic acidosis ICD Code: E87.2 - Acidosis (7) Leukocytosis ICD Code: D72.829 - Elevated white blood cell count, unspecified (8) Hyponatremia ICD Code: E87.1 - Hypo-osmolality and hyponatremia (9) Hyperglycemia ICD Code: R73.9 - Hyperglycemia, unspecified (10) Diarrhea ICD Code: R19.7 - Diarrhea, unspecified (11) Elevated lipase ICD Code: R74.8 - Abnormal levels of other serum enzymes (12) Tobacco use ICD Code: Z72.0 - Tobacco use Assessment and Plan NEUROLOGY On propofol and fentanyl infusion for sedation in addition she is Nimbex Monitor train of 4. Daily sedation medication when appropriate PULMONOLOGY Acute hypoxic respiratory failure Adult respiratory distress syndrome Bilateral pneumonia Daily tobacco use Continue with vent support and keep sat >92% On PRVC RR 24, TV 450, IT:1.5, PEEP:12, FIO2: 65%. Decrease FIO2 55% Bronchodilators, ICU Ventilator bundle Solumederol 80mg IV Q6 Continue with Flolan 30,000ng/ml at rate 5ml/hr CARDIOLOGY Monitor HR and BP keep MAP>65mmHg Lactic acid 1.2. Echo showed EF 60-65% GASTROENTEROLOGY Nausea, vomiting Diarrhea Elevated lipase level and AST CT the abdomen does not indicate any acute abnormality within the abdomen US liver: Echogenic right kidney which can be seen with medical renal disease, otherwise unremarkable On Nepro with goal rate 45ml/hr GI protection with Pepcid IV GENITOURINARY Acute renal failure Metabolic acidosis with anion gap Monitor renal function, I/O's, avoid nephrotoxins Chnage Lasix 40mg BID Renal is following- Dr. Serrano Renal function is improving with Cr: 2.75 today, UOP: 2L in [address] abdomen: No hydronephrosis INFECTIOUS DISEASE Leukocytosis Lactic acidosis Bilateral pneumonia Diarrhea Patient was given vancomycin, Rocephin, Zithromax in ED. Continue Azactam,Vanco and azithromycin Blood cultures04/24: NGTD Influenza screening, Legionella testing, pneumococcal Ag all negative Check sputum cx ENDOCRINOLOGY Hyperglycemia Accu-Cheks with sliding scale insulin HEMATOLOGY History of iron deficiency Continue monitor CBC PROPHYLAXIS DVT prevention with SCD, add Heparin SQ GI protection with Pepcid IV LINES Peripheral IVs Code status Full code Patient is critically ill with resp failure, acute renal failure, pneumonia and ARDS. Right IJ CVP, Art line placed 04/25 CCT 30 mins Problem Qualifiers (1) Pneumonia: Qualified Codes: J18.9 - Pneumonia, unspecified organism Nay Das MD Apr 27, 2017 10:22
[2017-04-27] MEDS ORDERED: POTASSIUM CHLOR 40 MEQ PREMIX 100 ML IV ONE (10:45)
[2017-04-27] MEDS: PROPOFOL 1000 MG/100 ML INJ 100 ML IV PRN ×4 (11:04→21:48)
--- NOTE | 2017-04-27 12:39 | HHI.NPPN ---
Subjective History of Present Illness 51 year-old female with past medical history of chronic anemia and irritable bowel syndrome was admitted yesterday because of nausea, vomiting or diarrhea and fever. I was called to see the patient because of elevated creatinine, her creatinine on presentation was 4.2. Additional Remarks Patient remain comfortable intubated and with rotator bed now, Fio2 decreased to 60% (Kiarra Lazo) Review of Systems General General Remarks Intubated and sedated. (Kiarra Lazo) Objective Data Data 04/27/17 04/28/17 19:00 07:00 Intake Total 100 ml Balance 100 ml IV Total 100 ml Vital Signs Date Time Temp Pulse Resp B/P (MAP) Pulse Ox O2 Delivery O2 Flow Rate FiO2 04/27/17 12:01 87 60 04/27/17 12:00 60 04/27/17 10:00 80 04/27/17 09:00 77 24 128/62 (84) 95 04/27/17 08:37 97 55 04/27/17 08:00 77 04/27/17 08:00 55 04/27/17 08:00 98.9 77 24 87/49 (62) 97 144/65 (91) 04/27/17 07:30 55 04/27/17 07:00 77 24 97/55 (69) 98 130/61 (84) 04/27/17 06:00 74 04/27/17 04:23 99 65 04/27/17 04:00 70 04/27/17 04:00 98.7 74 24 101/59 (73) 95 124/60 (81) 04/27/17 04:00 72 04/27/17 02:00 74 04/27/17 00:10 99 65 04/27/17 00:00 67 04/27/17 00:00 70 04/27/17 00:00 98.8 67 24 96/55 (69) 98 117/60 (79) 04/26/17 22:00 71 04/26/17 20:57 98 65 04/26/17 20:00 70 04/26/17 20:00 83 04/26/17 20:00 97.7 83 24 106/58 (74) 97 128/61 (83) 04/26/17 18:00 75 04/26/17 16:15 97 70 04/26/17 16:00 70 04/26/17 16:00 98.5 71 24 84/45 (58) 95 139/74 (95) 04/26/17 16:00 71 04/26/17 15:00 73 16 107/62 (77) 90 135/72 (93) 04/26/17 14:00 71 16 81/47 (58) 92 136/73 (94) 04/26/17 14:00 72 04/26/17 13:00 71 16 104/64 (77) 91 131/70 (90) 04/26/17 12:42 70 (Kiarra Lazo) -: 04/27/17 0430 04/27/17 0430 Imaging Last Impressions Liver Ultrasound 04/26/17 0000 Signed Impressions: Service Date/Time: Wednesday, April 26, 2017 16:44 - CONCLUSION: Echogenic right kidney which can be seen with medical renal disease, otherwise unremarkable right upper quadrant sonogram. Roque Gutiérrez MD Chest X-Ray 04/26/17 0000 Signed Impressions: Service Date/Time: Wednesday, April 26, 2017 03:49 - CONCLUSION: 1. Stable tubes and lines, as above. 2. Patchy bilateral mid to lower lung zone airspace disease, slightly improved in the right lung. Jabier Lazo MD Chest CT 04/24/17 1327 Signed Impressions: Service Date/Time: April 13:46 - CONCLUSION: Patchy groundglass infiltrates throughout all lobes of the lungs. It is most prominent in the perihilar distribution but also more peripheral areas. I did not see a mass amenable to biopsy with CT guidance. Jay Weaver MD Abdomen/Pelvis CT 04/24/17 1327 Signed Impressions: Service Date/Time: April 13:46 - CONCLUSION: Patchy infiltrates in the lung bases. No concerning adenopathy or mass. Abdomen and pelvis are unremarkable. Small amount of free fluid in the pelvis within normal limits for age. The appendix is normal. Jay Weaver MD (Kiarra Lazo) Physical Exam Eyes Eye Exam: Pupils Equal (Kiarra Lazo) Neck Neck Exam: Neck Supple (Kiarra Lazo) Pulmonary Resp Exam: Rhonchi, Decreased Bases, Diminished Breath Sounds (Kiarra Lazo) Cardiology CV Exam: Regular (Kiarra Lazo) Gastrointestinal/Abdomen GI Exam: Soft, Non-Tender, Distended (Kiarra Lazo) Extremeties Extremities Exam: Trace Edema (Kiarra Lazo) Neurologic Neuro Exam: Sedated (Kiarra Lazo) Assessment/Plan Assessment Summary: FORTINO/Acute Renal Failure Electrolyte Assessment: Hypocalcemia Problem List: (1) Acute renal failure ICD Codes: N17.9 - Acute kidney failure, unspecified Plan: Patient has Acute kidney injury. BP is now better. Started on Lasix increased to BID Creatinine is slightly better at 2.75 from 3.01 2000 ml urine output over last 24 hours Continue antibiotic, avoid Nephrotoxins. Weaning as per CCM. Urine Eosinophils negative and Na. was not low. Most likely has ATN due to hypotension. (2) Hypokalemia ICD Codes: E87.6 - Hypokalemia Plan: Potassium level at 3.3 replacement given (Kiarra Lazo) Problem List: (1) Acute renal failure ICD Codes: N17.9 - Acute kidney failure, unspecified Plan: Patient has Acute kidney injury. BP is now better. Started on Lasix increased to BID Creatinine is slightly better at 2.75 from 3.01 2000 ml urine output over last 24 hours Continue antibiotic, avoid Nephrotoxins. Weaning as per CCM. Urine Eosinophils negative and Na. was not low. Most likely has ATN due to hypotension. K was low and replaced. Still with high Fio2, CCM following. (2) Hypokalemia ICD Codes: E87.6 - Hypokalemia Plan: Potassium level at 3.3 replacement given (Fariha Serrano MD) Kiarra Lazo Apr 27, 2017 12:39 Fariha Serrano MD Apr 27, 2017 18:46
[2017-04-27] MEDS: fentaNYL DRIP 250 ML IV PRN ×2 (14:16→22:43)
[2017-04-27] MEDS: AZITHROMYCIN INJ 500 MG in SODIUM CHLOR 0.9% 250 ML INJ 250 ML IV SCH (17:35)
[2017-04-28] VITALS (18 sets, daily range): BP systolic 88–160; BP diastolic 47–94; PULSE 77–102; RESP 18–24; TEMP 97.8–100; O2SAT 90–98
[2017-04-28] MEDS: RESP: ALBUTEROL 2.5 MG/IPRATROPIUM 0.5 MG NEB (SCH) INH ×4 (00:08→12:21)
[2017-04-28] MEDS: AZTREONAM INJ 1,000 MG in SODIUM CHLORIDE 0.9% INJ 100 ML IV SCH ×3 (01:03→16:10)
[2017-04-28] MEDS: INSULIN NovoLIN REGULAR SUPPLEMENTAL SCALE SQ SCH ×6 (02:09→22:00)
[2017-04-28] MEDS: PROPOFOL 1000 MG/100 ML INJ 100 ML IV PRN ×6 (02:09→20:55)
[2017-04-28] MEDS: methylPREDNISolone SOD SUCC 40 MG/1 ML VIAL IV PUSH SCH ×4 (03:50→20:56)
[2017-04-28] MEDS: CISATRACURIUM INJ 100 MG in SODIUM CHLOR 0.9% 250 ML INJ 250 ML IV PRN ×2 (03:50→14:46)
[2017-04-28] MEDS: CHLORHEXIDINE GLUCONATE 2 % 1 PACK (2 CLOTHS) TOP SCH (04:00)
[2017-04-28 05:30] LABS: AUTOMATED NEUTROPHIL # 10.8 TH/MM3 (1.8-7.7); BASOPHIL % 0.2 % (0.0-2.0); HEMATOCRIT 32.5 % (35.0-46.0); HEMOGLOBIN 10.8 GM/DL (11.6-15.3); LYMPH % 2.3 % (9.0-44.0); LYMPHOCYTE # 0.3 TH/MM3 (1.0-4.8); MEAN CELL VOLUME 93.2 FL (80.0-100.0); MEAN CORPUSCULAR HGB CONC 33.3 % (32.0-36.0); MEAN PLATELET VOLUME 8.4 FL (7.0-11.0); MONO % 7.9 % (0.0-8.0); NEUT % 89.6 % (16.0-70.0); PLATELET COUNT 228 TH/MM3 (150-450); RED BLOOD COUNT 3.49 MIL/MM3 (4.00-5.30); RED CELL DISTRIBUTION WIDTH 17.8 % (11.6-17.2); WHITE BLOOD COUNT 12.1 TH/MM3 (4.0-11.0)
[2017-04-28 05:51] LABS: ALBUMIN 2.1 GM/DL (3.4-5.0); AST (GOT) 95 U/L (15-37); BICARBONATE 28.5 MEQ/L (21.0-32.0); BLOOD UREA NITROGEN 93 MG/DL (7-18); CALCIUM 7.8 MG/DL (8.5-10.1); CHLORIDE 113 MEQ/L (98-107); GLUCOSE,RANDOM 180 MG/DL (74-106); SODIUM (NA) 150 MEQ/L (136-145)
[2017-04-28 05:53] LABS: ALT (GPT) 33 U/L (10-53)
[2017-04-28 05:54] LABS: ALKALINE PHOSPHATASE 136 U/L (45-117); RANDOM VANCOMYCIN 14.3 COMMENT; TOTAL BILIRUBIN ADULT 0.4 MG/DL (0.2-1.0)
[2017-04-28] MEDS: EPOPROSTENOL NEB SOLUTION 50 NG/KG/MIN 100 ML NEB SCH ×6 (06:59→18:05)
--- NOTE | 2017-04-28 07:11 | HHI.CCPN ---
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 She states that she is had multiple symptoms to include nausea, vomiting, diarrhea, cough, congestion, sore throat. Patient states that her symptoms have improved progressively getting worse over the last 2 days. Because she did not improve her family brought her to the emergency department for evaluation. Because of her family's concern is could have saved the patient's life. Patient with severe multisystem organ failure with respiratory failure, renal failure, severe metabolic acidosis with anion gap. Patient indicates that she has had nausea, vomiting and diarrhea and only minimally keep minimal liquids down. She has had cough, congestion. CT scans and chest x-rays show significant infiltrates bilaterally with respiratory failure. Patient with adult respiratory distress syndrome. Without intubation patient will unlikely survive. This was discussed with the family and patient at bedside prior to intubation. They are in agreement with pursuing heroic measures and intubation for medical management. Patient was intubated by ER physician successfully. Patient will be transferred to [facility] for critical care management. 04/25 Patient is sedated with Diprivan, Fentanyl drips and intubated. Afebrile. 04/26 Patient is intubated, sedated with Diprivan, Fentanyl drip in addition she is on Nimbex. She was proned yesterday her O2 requirements is better overall now on PEEP;12 and FIO2 65% 04/27 No events overnight. Intubated and sedation in addition she is on Nimbex. Afebrile. On Flolan 04/28 Patient remains sedated and intubated . On PRVC with PEEP:12, FIO2: 50%. Renal function is improving with Cr: 2.50 from 2.75. Had low grade fever with T: 100.6 last night. Objective Vital Signs Date Time Temp Pulse Resp B/P (MAP) Pulse Ox O2 Delivery O2 Flow Rate FiO2 04/28/17 06:00 80 04/28/17 04:00 75 04/28/17 04:00 97.8 24 98/53 (68) 98 148/68 (94) 04/24/17 17:40 Ventilator 04/24/17 15:10 15.00 Intake and Output 04/28/17 04/28/17 04/29/17 08:00 16:00 00:00 Intake Total 2435 ml Output Total 1200 ml Balance 1235 ml Result Diagram: 04/28/17 0430 04/28/17 0430 Other Results Laboratory Tests Test 04/28/17 04:30 White Blood Count 12.1 TH/MM3 Red Blood Count 3.49 MIL/MM3 Hemoglobin 10.8 GM/DL Hematocrit 32.5 % Mean Corpuscular Volume 93.2 FL Mean Corpuscular Hemoglobin 31.0 PG Mean Corpuscular Hemoglobin Concent 33.3 % Red Cell Distribution Width 17.8 % Platelet Count 228 TH/MM3 Mean Platelet Volume 8.4 FL Neutrophils (%) (Auto) 89.6 % Lymphocytes (%) (Auto) 2.3 % Monocytes (%) (Auto) 7.9 % Eosinophils (%) (Auto) 0.0 % Basophils (%) (Auto) 0.2 % Neutrophils # (Auto) 10.8 TH/MM3 Lymphocytes # (Auto) 0.3 TH/MM3 Monocytes # (Auto) 1.0 TH/MM3 Eosinophils # (Auto) 0.0 TH/MM3 Basophils # (Auto) 0.0 TH/MM3 CBC Comment AUTO DIFF Blood Urea Nitrogen 93 MG/DL Creatinine 2.50 MG/DL Random Glucose 180 MG/DL Total Protein 6.0 GM/DL Albumin 2.1 GM/DL Calcium Level 7.8 MG/DL Alkaline Phosphatase 136 U/L Aspartate Amino Transf (AST/SGOT) 95 U/L Alanine Aminotransferase (ALT/SGPT) 33 U/L Total Bilirubin 0.4 MG/DL Sodium Level 150 MEQ/L Potassium Level 3.6 MEQ/L Chloride Level 113 MEQ/L Carbon Dioxide Level 28.5 MEQ/L Anion Gap 9 MEQ/L Lipase 4823 U/L Random Vancomycin Level 14.3 COMMENT Imaging Last Impressions Liver Ultrasound 04/26/17 0000 Signed Impressions: Service Date/Time: Wednesday, April 26, 2017 16:44 - CONCLUSION: Echogenic right kidney which can be seen with medical renal disease, otherwise unremarkable right upper quadrant sonogram. Roque Gutiérrez MD Chest X-Ray 04/26/17 0000 Signed Impressions: Service Date/Time: Wednesday, April 26, 2017 03:49 - CONCLUSION: 1. Stable tubes and lines, as above. 2. Patchy bilateral mid to lower lung zone airspace disease, slightly improved in the right lung. Jabier Lazo MD Chest CT 04/24/177 Signed Impressions: Service Date/Time: April 13:46 - CONCLUSION: Patchy groundglass infiltrates throughout all lobes of the lungs. It is most prominent in the perihilar distribution but also more peripheral areas. I did not see a mass amenable to biopsy with CT guidance. Jay Weaver MD Abdomen/Pelvis CT 04/24/177 Signed Impressions: Service Date/Time: April 13:46 - CONCLUSION: Patchy infiltrates in the lung bases. No concerning adenopathy or mass. Abdomen and pelvis are unremarkable. Small amount of free fluid in the pelvis within normal limits for age. The appendix is normal. Jay Weaver MD Objective Remarks GENERAL: Patient is 51 yo intubated and sedated SKIN: Warm and dry. HEAD: Normocephalic. EYES: No scleral icterus. No injection or drainage. NECK: Supple, trachea midline. No JVD or lymphadenopathy. CARDIOVASCULAR: Regular rate and rhythm without murmurs, gallops, or rubs. RESPIRATORY: Breath sounds equal bilaterally. No accessory muscle use. GASTROINTESTINAL: Abdomen soft, non-tender, nondistended. MUSCULOSKELETAL: No cyanosis, or edema. Neuro: sedated A/P Problem List: (1) Adult respiratory distress syndrome ICD Code: J80 - Acute respiratory distress syndrome (2) Acute respiratory failure with hypoxia ICD Code: J96.01 - Acute respiratory failure with hypoxia (3) Pneumonia ICD Code: J18.9 - Pneumonia, unspecified organism Status: Acute (4) Increased anion gap metabolic acidosis ICD Code: E87.2 - Acidosis (5) Acute renal failure ICD Code: N17.9 - Acute kidney failure, unspecified (6) Lactic acidosis ICD Code: E87.2 - Acidosis (7) Leukocytosis ICD Code: D72.829 - Elevated white blood cell count, unspecified (8) Hyponatremia ICD Code: E87.1 - Hypo-osmolality and hyponatremia (9) Hyperglycemia ICD Code: R73.9 - Hyperglycemia, unspecified (10) Diarrhea ICD Code: R19.7 - Diarrhea, unspecified (11) Elevated lipase ICD Code: R74.8 - Abnormal levels of other serum enzymes (12) Tobacco use ICD Code: Z72.0 - Tobacco use Assessment and Plan NEUROLOGY On propofol and fentanyl infusion for sedation in addition she is Nimbex Monitor train of 4. Daily sedation medication when appropriate PULMONOLOGY Acute hypoxic respiratory failure Adult respiratory distress syndrome Bilateral pneumonia Daily tobacco use Continue with vent support and keep sat >92% On PRVC RR 24, TV 450, IT:1.5, PEEP:12, FIO2: 50%. Decrease PEEP:10 Bronchodilators, ICU Ventilator bundle Solumederol 80mg IV Q6, check CXR Continue with Flolan 30,000ng/ml at rate 5ml/hr CARDIOLOGY Monitor HR and BP keep MAP>65mmHg Lactic acid 1.2. Echo showed EF 60-65% GASTROENTEROLOGY Nausea, vomiting Diarrhea Elevated lipase level and AST CT the abdomen does not indicate any acute abnormality within the abdomen US liver: Echogenic right kidney which can be seen with medical renal disease, otherwise unremarkable On Nepro with goal rate 45ml/hr GI protection with Pepcid IV Monitor Lipase level, GI eval. GENITOURINARY Acute renal failure Metabolic acidosis with anion gap Monitor renal function, I/O's, avoid nephrotoxins On Lasix 40mg BID Renal is following- Dr. Serrano Renal function is improving with Cr: 2.50 from 2.75 today, UOP: 2850ml in 24 hrs Add Free water 250ml Q8, monitor sodium level. CT abdomen: No hydronephrosis INFECTIOUS DISEASE Leukocytosis Lactic acidosis Bilateral pneumonia Diarrhea Patient was given vancomycin, Rocephin, Zithromax in ED. Continue Azactam,Vanco and azithromycin Blood cultures04/24: NGTD Influenza screening, Legionella testing, pneumococcal Ag all negative Check sputum cx ENDOCRINOLOGY Hyperglycemia Accu-Cheks with sliding scale insulin HEMATOLOGY History of iron deficiency Continue monitor CBC PROPHYLAXIS DVT prevention with SCD, add Heparin SQ GI protection with Pepcid IV LINES Peripheral IVs Code status Full code Patient is critically ill with resp failure, acute renal failure, pneumonia and ARDS. Right IJ CVP, Art line placed 04/25 CCT 30 mins Problem Qualifiers (1) Pneumonia: Qualified Codes: J18.9 - Pneumonia, unspecified organism Nay Das MD Apr 28, 2017 07:11
[2017-04-28] MEDS: FREE WATER G-TUBE SCH ×3 (07:15→22:20)
[2017-04-28 08:25] LABS: BANDS 8 % (0-6); LYMPHOCYTES 8 % (9-44); METAMYELOCYTES 3 % (0-1); MONOCYTES 6 % (0-8); MYELOCYTES 2 % (0-0); NEUTROPHIL # MANUAL DIFF 10.4 TH/MM3 (1.8-7.7); POLYS (SEG NEUTROPHILS) 73 % (16-70); STOMATOCYTES 1+ (NORMAL)
--- NOTE | 2017-04-28 08:59 | RADRPT ---
EXAM DATE/TIME: 04/28/2017 07:27 [place] COMPARISON: CT THORAX W/O CONTRAST, April 24, 2017, 13:46. CHEST SINGLE AP, April 26, 2017, 3:49. INDICATIONS : Shortness of breath. MEDICAL HISTORY : Hypertension. Arthritis. Leukemia. SURGICAL HISTORY : section. Tubal ligation. ENCOUNTER: Subsequent ACUITY: 4 - 6 days PAIN SCORE: Non-responsive. LOCATION: Bilateral chest FINDINGS: The examination demonstrates mild cardiomegaly. ET tube in good position. The nasogastric tube in goo d position. The right jugular central line is in good position. There are extensive bilateral pulmonary infiltrates similar to the previous examination. There is no pleural effusion. CONCLUSION: 1. The support equipment is in good position. 2. There are extensive bilateral pulmonary infiltrates similar to the prior exam. Exam would be consi stent with a pneumonia. Huseyin Christiansen MD on April 28, 2017 at 8:56 Board Certified Radiologist. This report was verified electronically.
--- NOTE | 2017-04-28 09:41 | PD.CONS ---
HPI History of Present Illness This is a 51 year old female with hx IBS, NATHALIA who presented after 1 week of n/v , diarrhea, cough, congestion and was found to be in renal failure, respiratory failure. SHe was found to have bilateral PNA and ARDS. She was intubated on admission. She is now on a rotaprone bed. GI has been consulted for increasing lipase. Her lipase on admission was 1465 and has been worsening. CT abd with no contrast on 04/24/17 had no acute abd findings and pancreas within normal limits. Per EMR no hx significant ETOH consumption, does use marijiuana on occasion. (Teresita Avila) PFSH Past Medical History NATHALIA IBS Past Surgical History c section x 2 (Teresita Avila) Coded Allergies: amoxicillin (Verified Allergy, Unknown, 04/24/17) Family History leukemia Social History smokes 5 cigars daily no report ETOH consumption occasional marijuana (Teresita Avila) Review of Systems noncontributory (Teresita Avila) GI Exam Vitals I&O Vital Signs Date Time Temp Pulse Resp B/P (MAP) Pulse Ox O2 Delivery O2 Flow Rate FiO2 04/28/17 08:32 98 50 04/28/17 06:00 80 04/28/17 04:00 80 04/28/17 04:00 75 04/28/17 04:00 97.8 79 24 98/53 (68) 98 148/68 (94) 04/28/17 03:50 97 50 04/28/17 02:00 80 04/28/17 00:00 99.9 82 24 89/54 (66) 97 146/69 (94) 04/28/17 00:00 75 04/28/17 00:00 97 50 04/28/17 00:00 84 04/27/17 22:00 84 04/27/17 20:15 97 55 04/27/17 20:00 100.6 97 24 94/50 (65) 96 145/70 (95) 04/27/17 20:00 75 04/27/17 20:00 97 04/27/17 18:00 102 04/27/17 16:00 99 04/27/17 16:00 75 04/27/17 16:00 98.7 99 24 110/56 (74) 91 168/84 (112) 04/27/17 15:28 93 75 04/27/17 15:00 85 24 112/65 (81) 90 158/82 (107) 04/27/17 14:00 93 04/27/17 14:00 93 24 102/52 (69) 93 162/84 (110) 04/27/17 13:00 90 24 115/70 (85) 89 152/79 (103) 04/27/17 12:01 87 60 04/27/17 12:00 98.5 93 24 104/51 (68) 88 159/83 (108) 04/27/17 12:00 60 04/27/17 12:00 93 04/27/17 11:00 91 24 118/62 (80) 95 144/68 (93) 04/27/17 10:00 80 24 87/49 (62) 97 147/67 (93) 04/27/17 10:00 80 I/O 04/27/17 04/27/17 04/27/17 04/28/17 04/28/17 04/28/17 07:00 15:00 23:00 07:00 15:00 23:00 Intake Total 2016 ml 550 ml 2014 ml 2435 ml Output Total 750 ml 1650 ml 1200 ml Balance 1266 ml 550 ml 364 ml 1235 ml IV Total 1483 ml 550 ml 1374 ml 1835 ml Tube Feeding 493 ml 580 ml 540 ml Tube Irrigant 40 ml 60 ml 60 ml Output Urine Total 750 ml 1650 ml 1200 ml Stool Total 0 ml 0 ml # Bowel Movements 1 Imaging Last Impressions Chest X-Ray 04/28/17 0000 Signed Impressions: Service Date/Time: Friday, April 28, 2017 07:27 - CONCLUSION: 1. The support equipment is in good position. 2. There are extensive bilateral pulmonary infiltrates similar to the prior exam. Exam would be consistent with a pneumonia. Huseyin Christiansen MD Liver Ultrasound 04/26/17 0000 Signed Impressions: Service Date/Time: Wednesday, April 26, 2017 16:44 - CONCLUSION: Echogenic right kidney which can be seen with medical renal disease, otherwise unremarkable right upper quadrant sonogram. Roque Gutiérrez MD Chest CT 04/24/17 1327 Signed Impressions: Service Date/Time: April 13:46 - CONCLUSION: Patchy groundglass infiltrates throughout all lobes of the lungs. It is most prominent in the perihilar distribution but also more peripheral areas. I did not see a mass amenable to biopsy with CT guidance. Jay Weaver MD Abdomen/Pelvis CT 04/24/17 1327 Signed Impressions: Service Date/Time: April 13:46 - CONCLUSION: Patchy infiltrates in the lung bases. No concerning adenopathy or mass. Abdomen and pelvis are unremarkable. Small amount of free fluid in the pelvis within normal limits for age. The appendix is normal. Jay Weaver MD Laboratory Test 04/28/17 04:30 White Blood Count 12.1 TH/MM3 Red Blood Count 3.49 MIL/MM3 Hemoglobin 10.8 GM/DL Hematocrit 32.5 % Mean Corpuscular Volume 93.2 FL Mean Corpuscular Hemoglobin 31.0 PG Mean Corpuscular Hemoglobin Concent 33.3 % Red Cell Distribution Width 17.8 % Platelet Count 228 TH/MM3 Mean Platelet Volume 8.4 FL Neutrophils (%) (Auto) 89.6 % Lymphocytes (%) (Auto) 2.3 % Monocytes (%) (Auto) 7.9 % Eosinophils (%) (Auto) 0.0 % Basophils (%) (Auto) 0.2 % Neutrophils # (Auto) 10.8 TH/MM3 Lymphocytes # (Auto) 0.3 TH/MM3 Monocytes # (Auto) 1.0 TH/MM3 Eosinophils # (Auto) 0.0 TH/MM3 Basophils # (Auto) 0.0 TH/MM3 CBC Comment AUTO DIFF Differential Total Cells Counted 100 Neutrophils % (Manual) 73 % Band Neutrophils % 8 % Lymphocytes % 8 % Monocytes % 6 % Neutrophils # (Manual) 10.4 TH/MM3 Metamyelocytes 3 % Myelocytes 2 % Differential Comment FINAL DIFF MANUAL Platelet Estimate NORMAL Platelet Morphology Comment NORMAL Stomatocytes 1+ Blood Urea Nitrogen 93 MG/DL Creatinine 2.50 MG/DL Random Glucose 180 MG/DL Total Protein 6.0 GM/DL Albumin 2.1 GM/DL Calcium Level 7.8 MG/DL Alkaline Phosphatase 136 U/L Aspartate Amino Transf (AST/SGOT) 95 U/L Alanine Aminotransferase (ALT/SGPT) 33 U/L Total Bilirubin 0.4 MG/DL Sodium Level 150 MEQ/L Potassium Level 3.6 MEQ/L Chloride Level 113 MEQ/L Carbon Dioxide Level 28.5 MEQ/L Anion Gap 9 MEQ/L Lipase 4823 U/L Random Vancomycin Level 14.3 COMMENT Date/Time Source Procedure Growth Status 04/24/17 12:33 Blood Peripheral Aerobic Blood Culture - Preliminary NO GROWTH IN 3 DAYS Resulted 04/24/17 12:33 Blood Peripheral Anaerobic Blood Culture - Preliminary NO GROWTH IN 3 DAYS Resulted 04/24/17 14:05 Nasal Aspirate Influenza Types A,B Antigen (ERIK) - Final NEGATIVE FOR FLU A AND B ANTIGEN.... Complete 04/24/17 16:25 Urine Random Urine Legionella Antigen - Final PRESUMPTIVE NEGATIVE FOR LEGIONELLA P... Complete 04/24/17 16:25 Urine Random Urine Streptococcus pneumoniae Antigen (M - Final PRESUMPTIVE NEGATIVE FOR STREPTOCOCCU... Complete Physical Examination HEENT: normocephalic; atraumatic; no jaundice. CHEST: diminished CARDIAC: RRR + murmur ABDOMEN: Soft, obese, nontender; no hepatosplenomegaly; bowel sounds are present in all four quadrants. EXTREMITIES: No clubbing, cyanosis, + mild BLE edema. rotaprone bed SKIN: Normal; no rash; no jaundice. SWITCH[employer] MECH[employer]IC: intubated on vent (Teresita Avila) Assessment and Plan Plan ASSESSMENT - pancreatitis - lipase 1465 on admission and worsening, + hypocalcemia. CT abd no contrast 04/24 no acute abd findings and pancreas WNL but cannot get further imaging now d/t pt being on rotaprone bed and kidney function will not allow IV contrast - elevated LFTs - unclear etiology. does not appear to be obstructive pattern. US liver unremarkable. no hx heavy drinking reported. will get liver w/u - bilat PNA, ARDS, acute renal failure - per CCM, nephrology following PLAN - consider CT or MRCP with contrast when kidney function improved and pt off rotaprone - NPO - IVF - will check triglycerides - liver w/u - Hep panel, iron studies, immunology - monitor lipase - further recs as case unfolds pt seen by myself and Dr Hunter and this note is written on his behalf (Teresita Avila) Physician Comments Seen and examined with [employer], worsening Lipase. Clinically not doing well with Pneumonia and ARDS. Etiology of pancreatitis unclear. MRCP when able. Aggressive hydration per [place]. TF on hold due to high residuals. KUB when possible. IV reglan. (Sindy Hunter MD) Teresita Avila Apr 28, 2017 09:41 Sindy Hunter MD Apr 28, 2017 13:42
--- NOTE | 2017-04-28 09:50 | HHI.NPPN ---
Subjective History of Present Illness 51 year-old female with past medical history of chronic anemia and irritable bowel syndrome was admitted yesterday because of nausea, vomiting or diarrhea and fever. I was called to see the patient because of elevated creatinine, her creatinine on presentation was 4.2. Additional Remarks Patient remain on the vent. and sedated, on rotator bed. Review of Systems General General Remarks Intubated and sedated. Objective Data Data Vital Signs Date Time Temp Pulse Resp B/P (MAP) Pulse Ox O2 Delivery O2 Flow Rate FiO2 04/28/17 08:32 98 50 04/28/17 06:00 80 04/28/17 04:00 80 04/28/17 04:00 75 04/28/17 04:00 97.8 79 24 98/53 (68) 98 148/68 (94) 04/28/17 03:50 97 50 04/28/17 02:00 80 04/28/17 00:00 99.9 82 24 89/54 (66) 97 146/69 (94) 04/28/17 00:00 75 04/28/17 00:00 97 50 04/28/17 00:00 84 04/27/17 22:00 84 04/27/17 20:15 97 55 04/27/17 20:00 100.6 97 24 94/50 (65) 96 145/70 (95) 04/27/17 20:00 75 04/27/17 20:00 97 04/27/17 18:00 102 04/27/17 16:00 99 04/27/17 16:00 75 04/27/17 16:00 98.7 99 24 110/56 (74) 91 168/84 (112) 04/27/17 15:28 93 75 04/27/17 15:00 85 24 112/65 (81) 90 158/82 (107) 04/27/17 14:00 93 04/27/17 14:00 93 24 102/52 (69) 93 162/84 (110) 04/27/17 13:00 90 24 115/70 (85) 89 152/79 (103) 04/27/17 12:01 87 60 04/27/17 12:00 98.5 93 24 104/51 (68) 88 159/83 (108) 04/27/17 12:00 60 04/27/17 12:00 93 04/27/17 11:00 91 24 118/62 (80) 95 144/68 (93) 04/27/17 10:00 80 24 87/49 (62) 97 147/67 (93) 04/27/17 10:00 80 -: 04/28/17 0430 04/28/17 0430 Physical Exam General Appearance Remarks Limited as on rotator bed. Eyes Eye Exam: Pupils Equal Neck Neck Exam: Neck Supple Pulmonary Resp Exam: Rhonchi, Decreased Bases, Diminished Breath Sounds Cardiology CV Exam: Regular Gastrointestinal/Abdomen GI Exam: Soft, Non-Tender, Distended Extremeties Extremities Exam: Trace Edema Neurologic Neuro Exam: Sedated Assessment/Plan Assessment Summary: FORTINO/Acute Renal Failure Electrolyte Assessment: Hypocalcemia Problem List: (1) Acute renal failure ICD Codes: N17.9 - Acute kidney failure, unspecified Plan: Patient has Acute kidney injury. BP is now better. Started on Lasix increased to BID Creatinine continue to improve. Urine out put is better with Lasix. Continue antibiotic, avoid Nephrotoxins. Weaning as per CCM. Urine Eosinophils negative and Na. was not low. Most likely has ATN due to hypotension. K is normal now and Na. increase. Continue Lasix, weaning as tolerated. (2) Hypokalemia ICD Codes: E87.6 - Hypokalemia Plan: Potassium level at 3.3 replacement given Fariha Serrano MD Apr 28, 2017 09:50
[2017-04-28] MEDS: DOCUSATE SODIUM 50 MG/SENNA 8.6 MG TAB PO SCH ×2 (09:53→20:56)
[2017-04-28] MEDS: HEPARIN SODIUM - SQ 10,000 UNITS/ML VIAL SQ SCH ×2 (09:54→20:56)
[2017-04-28] MEDS: SODIUM CHLORIDE 0.9% FLUSH 10 ML FLUSH IV FLUSH SCH ×2 (09:54→20:56)
[2017-04-28] MEDS: SODIUM CHLORIDE 0.9% FLUSH 10 ML FLUSH IV FLUSH PRN (09:55)
[2017-04-28] MEDS: FUROSEMIDE 40 MG/4 ML VIAL IV PUSH SCH ×2 (09:56→18:00)
[2017-04-28] MEDS: FAMOTIDINE 20 MG/2 ML VIAL IV PUSH SCH ×2 (09:56→20:56)
[2017-04-28] MEDS: fentaNYL DRIP 250 ML IV PRN ×2 (09:58→20:59)
[2017-04-28] MEDS ORDERED: VANCOMYCIN 1,500 MG/NS 500 ML IV ONE ×2 (11:00)
--- NOTE | 2017-04-28 13:33 | MB ---
cc: TITO GAMINO MD DATE OF CONSULTATION: 04/28/[address] Das. REASON FOR CONSULTATION: Pneumonia. HISTORY OF PRESENT ILLNESS This is a 51-year-old black female who presented to [facility] emergency department on 04/07/2017 with cold and flu-like symptoms including cough, vomiting and diarrhea. The patient is on the ventilator and information is obtained from the medical record. She is also on a RotoProne bed. When she presented to the emergency department her temperature was normal, heart rate was 112 and white count was 12.6 and estimated glomerular filtration rate was 11 and creatinine 4.2. The patient also was noted to have sodium of 126 and bicarbonate of 16. She was hypoxic with a low pO2. She was intubated on April 24. The patient had elevated temperature of 101.9 degrees on 04/25 and temperature remained elevated throughout the day on 04/25 and then improved. Her last temperature elevation was 100.6 degrees yesterday evening and before that she was afebrile for approximately 36 hours. Her white count had decreased from 12.6 to 8.9 and then today it is elevated again to 12.1. The patient had a CT scan of the chest which shows patchy ground glass infiltrates throughout all lobes of the lungs. On 04/24 chest x-ray continues to show patchy bilateral mid to lower lung zone airspace disease. Information is obtained from the medical record since the patient is on the ventilator and cannot give information. PAST MEDICAL HISTORY 1. Irritable bowel syndrome. 2. Iron-deficiency anemia. 3. History of . ALLERGIES AMOXICILLIN. MEDICATIONS 1. Vancomycin. 2. Aztreonam. 3. Azithromycin. 4. Pepcid. 5. Lasix. 6. Subcutaneous heparin. 7. Methylprednisolone. 8. Cisatracurium besylate. SOCIAL HISTORY Per medical record. No tobacco, alcohol or illicit drugs. FAMILY HISTORY Unable to obtain. REVIEW OF SYSTEMS Unable to obtain. PHYSICAL EXAMINATION GENERAL: This is a moderately obese female who is on the ventilator. VITAL SIGNS: Include temperature 97.8, heart rate 73, respirations per ventilator. The patient is on a RotoProne bed which makes it difficult to do complete examination. HEENT: The head appears atraumatic. The remainder of the face cannot be assessed at this time. LUNGS: Has coarse rhonchi bilateral. HEART: Regular, S1 and S2 without audible murmurs. ABDOMEN: Benign. RECTAL: Not performed. EXTREMITIES: No visible edema. SKIN: No visible rash. NEURO: Unable to assess. PSYCHE: Unable to assess. LABORATORY DATA WBC 12.1, platelets 228, hemoglobin 10.8, differential 73% neutrophils, 8% bands, 8% lymphocytes, creatinine 2.50, BUN 93, sodium 150, lipase 4823, AST 95, ALT 33, total bilirubin 0.4. Sputum culture from today is pending. Influenza negative. IMPRESSION 1. Pneumonia. Questionable etiology. 2. Acute respiratory failure. 3. ARDS. 4. Acute renal failure. RECOMMENDATIONS 1. Continue vancomycin. 2. Continue aztreonam. 3. Continue azithromycin. 4. Monitor sputum culture which was obtained today. 5. Follow clinical status. Thank you for this consultation. The patient's progress will be monitored and further recommendations will be given upon followup if necessary. Tito Gamino MD FD/TLFred /12:01 PM /1:02 PM
[2017-04-28] MEDS: RESP: ALBUTEROL 2.5 MG/IPRATROPIUM 0.5 MG NEB (PRN) INH (16:26)
[2017-04-28] MEDS: AZITHROMYCIN INJ 500 MG in SODIUM CHLOR 0.9% 250 ML INJ 250 ML IV SCH (18:05)
[2017-04-29] VITALS (18 sets, daily range): BP systolic 131–163; BP diastolic 74–88; PULSE 63–101; RESP 24–28; TEMP 99.6–102.2; O2SAT 91–98
[2017-04-29] MEDS: EPOPROSTENOL NEB SOLUTION 50 NG/KG/MIN 100 ML NEB SCH ×4 (01:00→08:47)
[2017-04-29] MEDS: CISATRACURIUM INJ 100 MG in SODIUM CHLOR 0.9% 250 ML INJ 250 ML IV PRN ×2 (01:19→10:02)
[2017-04-29] MEDS: AZTREONAM INJ 1,000 MG in SODIUM CHLORIDE 0.9% INJ 100 ML IV SCH ×3 (01:21→16:44)
[2017-04-29] MEDS: PROPOFOL 1000 MG/100 ML INJ 100 ML IV PRN ×6 (01:21→22:37)
[2017-04-29] MEDS: INSULIN NovoLIN REGULAR SUPPLEMENTAL SCALE SQ SCH ×6 (02:00→22:00)
[2017-04-29] MEDS: RESP: ALBUTEROL 2.5 MG/IPRATROPIUM 0.5 MG NEB (PRN) INH (03:59)
[2017-04-29] MEDS: methylPREDNISolone SOD SUCC 40 MG/1 ML VIAL IV PUSH SCH ×4 (04:13→22:00)
[2017-04-29] MEDS: CHLORHEXIDINE GLUCONATE 2 % 1 PACK (2 CLOTHS) TOP SCH (04:14)
[2017-04-29 05:29] LABS: AUTOMATED NEUTROPHIL # 15.5 TH/MM3 (1.8-7.7); BASOPHIL % 0.2 % (0.0-2.0); HEMATOCRIT 32.8 % (35.0-46.0); HEMOGLOBIN 10.8 GM/DL (11.6-15.3); LYMPH % 2.2 % (9.0-44.0); LYMPHOCYTE # 0.4 TH/MM3 (1.0-4.8); MEAN CORPUSCULAR HEMOGLOBIN 30.9 PG (27.0-34.0); MEAN CORPUSCULAR HGB CONC 32.9 % (32.0-36.0); MEAN PLATELET VOLUME 8.1 FL (7.0-11.0); MONO % 7.7 % (0.0-8.0); MONOCYTE # 1.3 TH/MM3 (0-0.9); NEUT % 89.9 % (16.0-70.0); PLATELET COUNT 276 TH/MM3 (150-450); RED BLOOD COUNT 3.48 MIL/MM3 (4.00-5.30); RED CELL DISTRIBUTION WIDTH 17.2 % (11.6-17.2); WHITE BLOOD COUNT 17.3 TH/MM3 (4.0-11.0)
[2017-04-29 05:56] LABS: ALBUMIN 2.2 GM/DL (3.4-5.0); ALT (GPT) 45 U/L (10-53); AST (GOT) 85 U/L (15-37); BICARBONATE 31.5 MEQ/L (21.0-32.0); BLOOD UREA NITROGEN 83 MG/DL (7-18); CHLORIDE 117 MEQ/L (98-107); CREATININE 1.93 MG/DL (0.50-1.00); GLOMERULAR FILTRATION RATE 33 ML/MIN (>89); GLUCOSE,RANDOM 163 MG/DL (74-106); IRON (FE) 62 MCG/DL (50-170); SODIUM (NA) 155 MEQ/L (136-145); TRIGLYCERIDES 492 MG/DL (42-150)
[2017-04-29 05:59] LABS: % SATURATION IRON PROFILE 29.9 % (20-50); ALKALINE PHOSPHATASE 130 U/L (45-117); FERRITIN 1056 NG/ML (8-252); TOTAL BILIRUBIN ADULT 0.4 MG/DL (0.2-1.0); TOTAL IRON BINDING CAPACITY 207 MCG/DL (250-450); TOTAL PROTEIN 6.1 GM/DL (6.4-8.2)
[2017-04-29] MEDS: FREE WATER G-TUBE SCH ×3 (06:11→17:59)
[2017-04-29 07:20] LABS: BANDS 3 % (0-6); LYMPHOCYTES 4 % (9-44); METAMYELOCYTES 8 % (0-1); MONOCYTES 2 % (0-8); MYELOCYTES 7 % (0-0); NEUTROPHIL # MANUAL DIFF 16.3 TH/MM3 (1.8-7.7); POLYS (SEG NEUTROPHILS) 76 % (16-70)
[2017-04-29] MEDS: SODIUM CHLORIDE 0.9% FLUSH 10 ML FLUSH IV FLUSH PRN (07:56)
[2017-04-29] MEDS: SODIUM CHLORIDE 0.9% FLUSH 10 ML FLUSH IV FLUSH SCH ×2 (07:56→21:59)
[2017-04-29] MEDS: DOCUSATE SODIUM 50 MG/SENNA 8.6 MG TAB PO SCH ×2 (07:57→21:59)
[2017-04-29] MEDS: FUROSEMIDE 40 MG/4 ML VIAL IV PUSH SCH (07:57)
[2017-04-29] MEDS: FAMOTIDINE 20 MG/2 ML VIAL IV PUSH SCH ×2 (07:58→21:59)
[2017-04-29] MEDS: HEPARIN SODIUM - SQ 10,000 UNITS/ML VIAL SQ SCH ×2 (07:58→21:59)
[2017-04-29] MEDS: fentaNYL DRIP 250 ML IV PRN ×2 (08:01→18:18)
--- NOTE | 2017-04-29 10:16 | HHI.CCPN ---
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 She states that she is had multiple symptoms to include nausea, vomiting, diarrhea, cough, congestion, sore throat. Patient states that her symptoms have improved progressively getting worse over the last 2 days. Because she did not improve her family brought her to the emergency department for evaluation. Because of her family's concern is could have saved the patient's life. Patient with severe multisystem organ failure with respiratory failure, renal failure, severe metabolic acidosis with anion gap. Patient indicates that she has had nausea, vomiting and diarrhea and only minimally keep minimal liquids down. She has had cough, congestion. CT scans and chest x-rays show significant infiltrates bilaterally with respiratory failure. Patient with adult respiratory distress syndrome. Without intubation patient will unlikely survive. This was discussed with the family and patient at bedside prior to intubation. They are in agreement with pursuing heroic measures and intubation for medical management. Patient was intubated by ER physician successfully. Patient will be transferred to [facility] for critical care management. 04/25 Patient is sedated with Diprivan, Fentanyl drips and intubated. Afebrile. 04/26 Patient is intubated, sedated with Diprivan, Fentanyl drip in addition she is on Nimbex. She was proned yesterday her O2 requirements is better overall now on PEEP;12 and FIO2 65% 04/27 No events overnight. Intubated and sedation in addition she is on Nimbex. Afebrile. On Flolan 04/28 Patient remains sedated and intubated . On PRVC with PEEP:12, FIO2: 50%. Renal function is improving with Cr: 2.50 from 2.75. Had low grade fever with T: 100.6 last night. 04/29 Patient remains on prone bed intubated, sedated in addition she is on neuromuscular blockade ( Nimbex). Afebrile. Renal function is better with Cr: 1.93 from 2.5 and O2 requirements is better. TF held for high residuals. Spiked fever with Objective Vital Signs Date Time Temp Pulse Resp B/P (MAP) Pulse Ox O2 Delivery O2 Flow Rate FiO2 04/29/17 08:00 101 04/29/17 08:00 101.8 24 163/88 (113) 94 04/29/17 08:00 45 Intake and Output 04/29/17 04/29/17 04/30/17 08:00 16:00 00:00 Intake Total 1050 ml Output Total 2400 ml Balance -1350 ml Result Diagram: 04/29/17 0420 04/29/17 0420 Other Results Laboratory Tests Test 04/29/17 04:20 White Blood Count 17.3 TH/MM3 Red Blood Count 3.48 MIL/MM3 Hemoglobin 10.8 GM/DL Hematocrit 32.8 % Mean Corpuscular Volume 94.0 FL Mean Corpuscular Hemoglobin 30.9 PG Mean Corpuscular Hemoglobin Concent 32.9 % Red Cell Distribution Width 17.2 % Platelet Count 276 TH/MM3 Mean Platelet Volume 8.1 FL Neutrophils (%) (Auto) 89.9 % Lymphocytes (%) (Auto) 2.2 % Monocytes (%) (Auto) 7.7 % Eosinophils (%) (Auto) 0.0 % Basophils (%) (Auto) 0.2 % Neutrophils # (Auto) 15.5 TH/MM3 Lymphocytes # (Auto) 0.4 TH/MM3 Monocytes # (Auto) 1.3 TH/MM3 Eosinophils # (Auto) 0.0 TH/MM3 Basophils # (Auto) 0.0 TH/MM3 CBC Comment AUTO DIFF Differential Total Cells Counted 100 Neutrophils % (Manual) 76 % Band Neutrophils % 3 % Lymphocytes % 4 % Monocytes % 2 % Neutrophils # (Manual) 16.3 TH/MM3 Metamyelocytes 8 % Myelocytes 7 % Differential Comment FINAL DIFF MANUAL Platelet Estimate NORMAL Platelet Morphology Comment NORMAL Blood Urea Nitrogen 83 MG/DL Creatinine 1.93 MG/DL Random Glucose 163 MG/DL Total Protein 6.1 GM/DL Albumin 2.2 GM/DL Calcium Level 8.0 MG/DL Alkaline Phosphatase 130 U/L Aspartate Amino Transf (AST/SGOT) 85 U/L Alanine Aminotransferase (ALT/SGPT) 45 U/L Total Bilirubin 0.4 MG/DL Sodium Level 155 MEQ/L Potassium Level 3.8 MEQ/L Chloride Level 117 MEQ/L Carbon Dioxide Level 31.5 MEQ/L Anion Gap 7 MEQ/L Estimat Glomerular Filtration Rate 33 ML/MIN Iron Level 62 MCG/DL Total Iron Binding Capacity 207 MCG/DL Percent Iron Saturation 29.9 % Ferritin 1056 NG/ML Triglycerides Level 492 MG/DL Lipase 4589 U/L Tumor Marker Alpha Fetoprotein 5.5 NG/ML Imaging Last Impressions Chest X-Ray 04/28/17 0000 Signed Impressions: Service Date/Time: Friday, April 28, 2017 07:27 - CONCLUSION: 1. The support equipment is in good position. 2. There are extensive bilateral pulmonary infiltrates similar to the prior exam. Exam would be consistent with a pneumonia. Huseyin Christiansen MD Liver Ultrasound 04/26/17 0000 Signed Impressions: Service Date/Time: Wednesday, April 26, 2017 16:44 - CONCLUSION: Echogenic right kidney which can be seen with medical renal disease, otherwise unremarkable right upper quadrant sonogram. Roque Gutiérrez MD Chest CT 04/24/17 1327 Signed Impressions: Service Date/Time: April 13:46 - CONCLUSION: Patchy groundglass infiltrates throughout all lobes of the lungs. It is most prominent in the perihilar distribution but also more peripheral areas. I did not see a mass amenable to biopsy with CT guidance. Jay Weaver MD Abdomen/Pelvis CT 04/24/177 Signed Impressions: Service Date/Time: April 13:46 - CONCLUSION: Patchy infiltrates in the lung bases. No concerning adenopathy or mass. Abdomen and pelvis are unremarkable. Small amount of free fluid in the pelvis within normal limits for age. The appendix is normal. Jay Weaver MD Objective Remarks GENERAL: Patient is 51 yo intubated and sedated SKIN: Warm and dry. HEAD: Normocephalic. EYES: No scleral icterus. No injection or drainage. NECK: Supple, trachea midline. No JVD or lymphadenopathy. CARDIOVASCULAR: Tachycardic without murmurs, gallops, or rubs. RESPIRATORY: Breath sounds equal bilaterally. No accessory muscle use. GASTROINTESTINAL: Abdomen soft, non-tender, nondistended. MUSCULOSKELETAL: No cyanosis, or edema. Neuro: sedated A/P Problem List: (1) Adult respiratory distress syndrome ICD Code: J80 - Acute respiratory distress syndrome (2) Acute respiratory failure with hypoxia ICD Code: J96.01 - Acute respiratory failure with hypoxia (3) Pneumonia ICD Code: J18.9 - Pneumonia, unspecified organism Status: Acute (4) Increased anion gap metabolic acidosis ICD Code: E87.2 - Acidosis (5) Acute renal failure ICD Code: N17.9 - Acute kidney failure, unspecified (6) Lactic acidosis ICD Code: E87.2 - Acidosis (7) Leukocytosis ICD Code: D72.829 - Elevated white blood cell count, unspecified (8) Hyponatremia ICD Code: E87.1 - Hypo-osmolality and hyponatremia (9) Hyperglycemia ICD Code: R73.9 - Hyperglycemia, unspecified (10) Diarrhea ICD Code: R19.7 - Diarrhea, unspecified (11) Elevated lipase ICD Code: R74.8 - Abnormal levels of other serum enzymes (12) Tobacco use ICD Code: Z72.0 - Tobacco use Assessment and Plan NEUROLOGY On propofol and fentanyl infusion for sedation in addition she is Nimbex Monitor train of 4. Daily sedation medication when appropriate PULMONOLOGY Acute hypoxic respiratory failure Adult respiratory distress syndrome Bilateral pneumonia Daily tobacco use Continue with vent support and keep sat >92% On PRVC RR 24, TV 450, IT:1.5, PEEP:10, FIO2: 45% Bronchodilators, ICU Ventilator bundle Decrease Solumederol 40mg IV Q6, Start weaning Flolan 30,000ng/ml at rate 5ml/hr CARDIOLOGY Monitor HR and BP keep MAP>65mmHg Lactic acid 1.2. Echo showed EF 60-65% GASTROENTEROLOGY Hypertriglyceridemia Elevated lipase level and AST TF placed on hold for high residuals. Check KUB abdomen today. Continue Reglan CT the abdomen does not indicate any acute abnormality within the abdomen US liver: Echogenic right kidney which can be seen with medical renal disease, otherwise unremarkable On Nepro with goal rate 45ml/hr GI protection with Pepcid IV Monitor Lipase level, GI is following, will need either MRCP or CT abdomen with contrast once her renal function is better. Not on Statin due to elevated LFT;s GENITOURINARY Acute renal failure- Improving Hypernatremia Monitor renal function, I/O's, avoid nephrotoxins Change Lasix 40mg daily Change free water 300ml Q6, monitor sodium level. Renal is following- Dr. Serrano Renal function is improving with Cr: 1.93 today from: 2.50 , UOP: 4300 ml in [address] abdomen: No hydronephrosis INFECTIOUS DISEASE Leukocytosis Lactic acidosis Bilateral pneumonia Diarrhea Patient was given vancomycin, Rocephin, Zithromax in ED. Continue Azactam,Vanco and azithromycin. ID is following. Will panculture Blood cultures04/24: NGTD Influenza screening, Legionella testing, pneumococcal Ag all negative Follow up on sputum cx ENDOCRINOLOGY Hyperglycemia Accu-Cheks with sliding scale insulin HEMATOLOGY History of iron deficiency Continue monitor CBC PROPHYLAXIS DVT prevention with SCD, Heparin SQ GI protection with Pepcid IV LINES Peripheral IVs Right IJ CVP, Art line placed 04/25 CCT 30 mins Problem Qualifiers (1) Pneumonia: Qualified Codes: J18.9 - Pneumonia, unspecified organism Nay Das MD Apr 29, 2017 10:16
[2017-04-29] MEDS: ACETAMINOPHEN 325 MG TAB PO PRN ×2 (11:05→18:00)
[2017-04-29 11:49] LABS: HEPATITIS A AB IGM NEGATIVE (NEGATIVE); HEPATITIS B CORE AB IGM NEGATIVE (NEGATIVE); HEPATITIS B SURFACE ANTIGEN NEGATIVE (NEGATIVE); HEPATITIS C AB IgG NEGATIVE (NEGATIVE)
--- NOTE | 2017-04-29 12:10 | HHI.IDPN ---
Note Infectious Disease Note Patient is spiking temps. On the rota prone bed. On 45% FIO2. WBC increased. Sputum culture pending. Presented to [facility] emergency department on 04/07/2017 with cold and flu-like symptoms including cough, vomiting and diarrhea. PAST MEDICAL HISTORY 1. Irritable bowel syndrome. 2. Iron-deficiency anemia. 3. History of . ALLERGIES AMOXICILLIN. MEDICATIONS 1. Vancomycin dose. 2. Aztreonam. 3. Azithromycin. Current Medications Medications (Trade) Dose Ordered Sig/Tiffanie Route PRN Reason Start Time Stop Time Status Last Admin Dose Admin Propofol 100 ml @ 0 mls/hr TITRATE PRN IV SEDATION 04/24/17 15:30 04/29/17 09:49 Sodium Chloride (NS Flush) 2 ml UNSCH PRN IV FLUSH FLUSH AFTER USING IV ACCESS 04/24/17 15:45 04/29/17 07:56 Sodium Chloride (NS Flush) 2 ml BID IV FLUSH 04/24/17 21:00 04/29/17 07:56 Fentanyl Citrate (fentaNYL INJ) 50 mcg Q1H PRN IV PUSH Pain scale 6-10 &/or sedation 04/24/17 15:45 Midazolam HCl (Versed Inj) 2 mg Q1H PRN IV PUSH SEDATION 04/24/17 15:45 04/25/17 07:54 Lorazepam (Ativan Inj) 1 mg Q1H PRN IV PUSH Agitation/Sedation 04/24/17 15:45 04/24/17 15:50 Ondansetron HCl (Zofran Inj) 4 mg Q6HR PRN IV PUSH NAUSEA OR VOMITING 04/24/17 18:00 Albuterol/ Ipratropium (Duoneb Neb) 1 ampule Q2HR NEB PRN INH WHEEZING 04/24/17 15:45 04/29/17 03:59 Miscellaneous Information 1 Q361D XX 04/24/17 15:45 Chlorhexidine Gluconate (Chlorhexidine 2% Cloth) 3 pack Taper DAILY@04 TOP 04/25/17 04:00 04/21/18 03:59 04/29/17 04:14 Chlorhexidine Gluconate (Chlorhexidine 2% Cloth) 3 pack UNSCH PRN TOP HYGIENIC CARE 04/24/17 15:45 Senna/Docusate Sodium (Alisa-Colace) 1 tab BID PO 04/24/17 21:00 04/29/17 07:57 Magnesium Hydroxide (Milk Of Magnesia Liq) 30 ml Q12HR PRN PO Mild constipation 04/24/17 21:00 04/27/17 21:48 Sennosides (Senokot) 17.2 mg Q12HR PRN PO Moderate constipation 04/24/17 21:00 04/28/17 09:53 Bisacodyl (Dulcolax Supp) 10 mg DAILY PRN RECTAL SEVERE CONSITIPATION 04/24/17 16:00 Lactulose (Lactulose Liq) 30 ml DAILY PRN PO SEVERE CONSITIPATION 04/24/17 15:45 04/28/17 09:53 Fentanyl Citrate 250 ml @ 5 mls/hr TITRATE PRN IV SEDATION 04/24/17 15:45 04/29/17 08:01 Pharmacy Profile Note 0 ml @ 0 mls/hr UNSCH OTHER 04/24/17 16:30 Aztreonam 1000 mg/ Sodium Chloride 100 ml @ 200 mls/hr Q8H IV 04/24/17 17:00 04/29/17 07:56 Azithromycin 500 mg/Sodium Chloride 250 ml @ 250 mls/hr Q24H IV 04/24/17 18:00 04/28/17 18:05 Glucagon (Glucagon Inj) 1 mg UNSCH PRN OTHER HYPOGLYCEMIA-SEE COMMENTS 04/24/17 16:30 Epoprostenol Sodium 75 ml/ Sodium Chloride 100 ml @ 5 mls/hr Q8H NEB 04/25/17 17:00 04/29/17 08:47 Cisatracurium Besylate 100 mg/ Sodium Chloride 260 ml @ 17.89 mls/ hr TITRATE PRN IV TOF 04/1004/25/17 19:00 04/29/17 10:02 Dextrose (D50w (Vial) Inj) 50 ml UNSCH PRN IV PUSH HYPOGLYCEMIA-SEE COMMENTS 04/26/17 09:45 Glucagon (Glucagon Inj) 1 mg UNSCH PRN OTHER HYPOGLYCEMIA-SEE COMMENTS 04/26/17 09:45 Insulin Human Regular (NovoLIN R SUPPLEMENTAL SCALE) 1 Q4H SQ 04/26/17 10:00 04/28/17 10:00 Heparin Sodium (Porcine) (Heparin Inj) 5,000 units Q12HR SQ 04/26/17 21:00 04/29/17 07:58 Famotidine (Pepcid Inj) 10 mg Q12HR IV PUSH 04/27/17 21:00 04/29/17 07:58 Water (Free Water) 300 ml Q6HR G-TUBE 04/29/17 12:00 04/29/17 11:05 Furosemide (Lasix Inj) 40 mg DAILY IV PUSH 04/30/17 09:00 Methylprednisolone Sodium Succinate (SoluMEDROL INJ) 40 mg Q6H IV PUSH 04/29/17 16:00 Albuterol/ Ipratropium (Duoneb Neb) 1 ampule Q4HR NEB NEB 04/29/17 12:00 Acetaminophen (Tylenol) 650 mg Q6H PRN PO fever 04/29/17 10:00 04/29/17 11:05 OBJECTIVE: Vital Signs Date Time Temp Pulse Resp B/P (MAP) Pulse Ox O2 Delivery O2 Flow Rate FiO2 04/29/17 10:06 97 40 04/29/17 10:00 86 04/29/17 08:00 101 04/29/17 08:00 101.8 101 24 163/88 (113) 94 04/29/17 08:00 45 04/29/17 07:58 97 45 04/29/17 06:00 83 04/29/17 04:11 98 45 04/29/17 04:00 101.2 82 24 149/77 (101) 91 04/29/17 04:00 45 04/29/17 04:00 82 04/29/17 02:00 84 04/29/17 00:00 99.9 84 24 153/87 (109) 93 04/29/17 00:00 45 04/29/17 00:00 84 04/28/17 23:56 95 45 04/28/17 22:00 86 04/28/17 20:44 93 45 04/28/17 20:00 99.8 85 18 149/84 (105) 92 04/28/17 20:00 45 04/28/17 20:00 85 04/28/17 18:00 83 04/28/17 16:32 90 45 04/28/17 16:00 79 04/28/17 16:00 45 04/28/17 16:00 100.0 79 20 124/69 (87) 90 132/94 (107) 04/28/17 14:00 82 04/28/17 12:21 90 45 Laboratory Tests Test 04/28/17 04:30 04/29/17 04:20 White Blood Count 12.1 TH/MM3 17.3 TH/MM3 Red Blood Count 3.49 MIL/MM3 3.48 MIL/MM3 Hemoglobin 10.8 GM/DL 10.8 GM/DL Hematocrit 32.5 % 32.8 % Mean Corpuscular Volume 93.2 FL 94.0 FL Mean Corpuscular Hemoglobin 31.0 PG 30.9 PG Mean Corpuscular Hemoglobin Concent 33.3 % 32.9 % Red Cell Distribution Width 17.8 % 17.2 % Platelet Count 228 TH/MM3 276 TH/MM3 Mean Platelet Volume 8.4 FL 8.1 FL Neutrophils (%) (Auto) 89.6 % 89.9 % Lymphocytes (%) (Auto) 2.3 % 2.2 % Monocytes (%) (Auto) 7.9 % 7.7 % Eosinophils (%) (Auto) 0.0 % 0.0 % Basophils (%) (Auto) 0.2 % 0.2 % Neutrophils # (Auto) 10.8 TH/MM3 15.5 TH/MM3 Lymphocytes # (Auto) 0.3 TH/MM3 0.4 TH/MM3 Monocytes # (Auto) 1.0 TH/MM3 1.3 TH/MM3 Eosinophils # (Auto) 0.0 TH/MM3 0.0 TH/MM3 Basophils # (Auto) 0.0 TH/MM3 0.0 TH/MM3 CBC Comment AUTO DIFF AUTO DIFF Differential Total Cells Counted 100 100 Neutrophils % (Manual) 73 % 76 % Band Neutrophils % 8 % 3 % Lymphocytes % 8 % 4 % Monocytes % 6 % 2 % Neutrophils # (Manual) 10.4 TH/MM3 16.3 TH/MM3 Metamyelocytes 3 % 8 % Myelocytes 2 % 7 % Differential Comment FINAL DIFF MANUAL FINAL DIFF MANUAL Platelet Estimate NORMAL NORMAL Platelet Morphology Comment NORMAL NORMAL Stomatocytes 1+ Laboratory Tests Test 04/28/17 04:30 04/29/17 04:20 Blood Urea Nitrogen 93 MG/DL 83 MG/DL Creatinine 2.50 MG/DL 1.93 MG/DL Random Glucose 180 MG/DL 163 MG/DL Total Protein 6.0 GM/DL 6.1 GM/DL Albumin 2.1 GM/DL 2.2 GM/DL Calcium Level 7.8 MG/DL 8.0 MG/DL Alkaline Phosphatase 136 U/L 130 U/L Aspartate Amino Transf (AST/SGOT) 95 U/L 85 U/L Alanine Aminotransferase (ALT/SGPT) 33 U/L 45 U/L Total Bilirubin 0.4 MG/DL 0.4 MG/DL Sodium Level 150 MEQ/L 155 MEQ/L Potassium Level 3.6 MEQ/L 3.8 MEQ/L Chloride Level 113 MEQ/L 117 MEQ/L Carbon Dioxide Level 28.5 MEQ/L 31.5 MEQ/L Anion Gap 9 MEQ/L 7 MEQ/L Lipase 4823 U/L 4589 U/L Estimat Glomerular Filtration Rate 33 ML/MIN Iron Level 62 MCG/DL Total Iron Binding Capacity 207 MCG/DL Percent Iron Saturation 29.9 % Ferritin 1056 NG/ML Triglycerides Level 492 MG/DL Tumor Marker Alpha Fetoprotein 5.5 NG/ML Microbiology Date/Time Source Procedure Growth Status 04/28/17 10:45 Sputum Endotracheal Gram Stain - Final Resulted 04/28/17 10:45 Sputum Endotracheal Sputum Culture - Preliminary NO GROWTH IN 24 HOURS. Resulted IMAGING: Chest X-Ray 04/28/17 0000 Signed Impressions: Service Date/Time: Friday, April 28, 2017 07:27 - CONCLUSION: 1. The support equipment is in good position. 2. There are extensive bilateral pulmonary infiltrates similar to the prior exam. Exam would be consistent with a pneumonia. Huseyin Christiansen MD Liver Ultrasound 04/26/17 0000 Signed Impressions: Service Date/Time: Wednesday, April 26, 2017 16:44 - CONCLUSION: Echogenic right kidney which can be seen with medical renal disease, otherwise unremarkable right upper quadrant sonogram. Roque Gutiérrez MD Chest CT 04/24/17 1327 Signed Impressions: Service Date/Time: April 13:46 - CONCLUSION: Patchy groundglass infiltrates throughout all lobes of the lungs. It is most prominent in the perihilar distribution but also more peripheral areas. I did not see a mass amenable to biopsy with CT guidance. Jay Weaver MD Abdomen/Pelvis CT 04/24/177 Signed Impressions: Service Date/Time: April 13:46 - CONCLUSION: Patchy infiltrates in the lung bases. No concerning adenopathy or mass. Abdomen and pelvis are unremarkable. Small amount of free fluid in the pelvis within normal limits for age. The appendix is normal. Jay Weaver MD PHYSICAL EXAMINATION GENERAL: On the ventilator. The patient is on a Rota Prone bed which makes it difficult to do complete examination. HEENT: The head appears atraumatic. LUNGS: Coarse rhonchi bilateral. HEART: Regular, S1 and S2 without audible murmurs. EXTREMITIES: No visible edema. SKIN: No visible rash. NEURO: Unable to assess. PSYCHE: Unable to assess. IMPRESSION 1. Pneumonia. 2. Acute respiratory failure. 3. ARDS. 4. Acute renal failure. 5. Leukocytosis. RECOMMENDATIONS 1. Start Zyvox. 2. Continue aztreonam. 3. Continue azithromycin. 4. Monitor sputum culture. 5. Blood culture today. 6. Follow clinical status. Rikki Walker MD Apr 29, 2017 12:10
[2017-04-29] MEDS: RESP: ALBUTEROL 2.5 MG/IPRATROPIUM 0.5 MG NEB (SCH) NEB ×3 (12:46→19:48)
--- NOTE | 2017-04-29 12:49 | RADRPT ---
EXAM DATE/TIME: 04/29/2017 11:30 [facility] COMPARISON: CHEST SINGLE AP, April 28, 2017, 7:27. INDICATIONS : Ventilator dependent respiratory distress. MEDICAL HISTORY : None. SURGICAL HISTORY : section. ENCOUNTER: Subsequent ACUITY: 4 - 6 days PAIN SCORE: Non-responsive. LOCATION: Bilateral chest FINDINGS: Today's exam is compared to the prior study. There continue to be scattered bilateral pulmonary infil trates without significant change. No evidence of pneumothorax. The support devices remain in place. No definite pleural effusions. Compared to the prior exam there has been no significant changes. CONCLUSION: No significant interval change. Tin Moon MD on April 29, 2017 at 12:45 Board Certified Radiologist. This report was verified electronically.
--- NOTE | 2017-04-29 12:50 | RADRPT ---
EXAM DATE/TIME: 04/29/2017 11:58 [facility] COMPARISON: No previous studies available for comparison. INDICATIONS : Evaluate for Ileus. MEDICAL HISTORY : None. SURGICAL HISTORY : section. ENCOUNTER: Subsequent ACUITY: 4 - 6 days PAIN SCORE: Non-responsive. LOCATION: Bilateral abdomen. FINDINGS: Supine view of the abdomen was performed. The abdominal bowel gas pattern is nonspecific. There are some air-filled nondilated loops of small and large bowel. There is an NG tube in stomach.. CONCLUSION: Nonspecific bowel gas pattern with no significant dilatation of the large or small bowel. Tin Moon MD on April 29, 2017 at 12:47 Board Certified Radiologist. This report was verified electronically.
--- NOTE | 2017-04-29 14:35 | HHI.NPPN ---
Subjective History of Present Illness 51 year-old female with past medical history of chronic anemia and irritable bowel syndrome was admitted yesterday because of nausea, vomiting or diarrhea and fever. I was called to see the patient because of elevated creatinine, her creatinine on presentation was 4.2. Additional Remarks Patient remain on the vent. and sedated, seen in AM, on rotator bed, now has fever. Review of Systems General General Remarks Intubated and sedated. Objective Data Data Vital Signs Date Time Temp Pulse Resp B/P (MAP) Pulse Ox O2 Delivery O2 Flow Rate FiO2 04/29/17 12:46 92 40 04/29/17 10:06 97 40 04/29/17 10:00 86 04/29/17 08:00 101 04/29/17 08:00 101.8 101 24 163/88 (113) 94 04/29/17 08:00 45 04/29/17 07:58 97 45 04/29/17 06:00 83 04/29/17 04:11 98 45 04/29/17 04:00 101.2 82 24 149/77 (101) 91 04/29/17 04:00 45 04/29/17 04:00 82 04/29/17 02:00 84 04/29/17 00:00 99.9 84 24 153/87 (109) 93 04/29/17 00:00 45 04/29/17 00:00 84 04/28/17 23:56 95 45 04/28/17 22:00 86 04/28/17 20:44 93 45 04/28/17 20:00 99.8 85 18 149/84 (105) 92 04/28/17 20:00 45 04/28/17 20:00 85 04/28/17 18:00 83 04/28/17 16:32 90 45 04/28/17 16:00 79 04/28/17 16:00 45 04/28/17 16:00 100.0 79 20 124/69 (87) 90 132/94 (107) -: 04/29/17 0420 04/29/17 0420 Microbiology 04/29/17 Aerobic Blood Culture, Received Pending 04/29/17 Anaerobic Blood Culture, Received Pending Physical Exam General Appearance Remarks Limited as on rotator bed. Eyes Eye Exam: Pupils Equal Neck Neck Exam: Neck Supple Pulmonary Resp Exam: Rhonchi, Decreased Bases, Diminished Breath Sounds Cardiology CV Exam: Regular Gastrointestinal/Abdomen GI Exam: Soft, Non-Tender, Distended Extremeties Extremities Exam: Trace Edema Neurologic Neuro Exam: Sedated Assessment/Plan Assessment Summary: FORTINO/Acute Renal Failure Electrolyte Assessment: Hypocalcemia Problem List: (1) Acute renal failure ICD Codes: N17.9 - Acute kidney failure, unspecified Plan: Patient has Acute kidney injury. BP is now better. Urine out put is better with Lasix. Continue antibiotic, avoid Nephrotoxins. Weaning as per CCM. Urine Eosinophils negative and Na. was not low. Most likely has ATN due to hypotension. K is normal now and Na. increase to 155. Now on free water via GT. Continue Lasix, weaning as tolerated. Creatinine continue to improve, now 1.9. (2) Hypokalemia ICD Codes: E87.6 - Hypokalemia Plan: Potassium level at 3.3 replacement given Fariha Serrano MD Apr 29, 2017 14:35
[2017-04-29] MEDS: LINEZOLID 600 MG PREMIX 300 ML IV SCH (14:45)
--- NOTE | 2017-04-29 14:57 | HHI.GIFU ---
Subjective Remarks Pt intubated on rotaprone bed. + liquid stool in bag. (Teresita Avila) Objective Vitals I&O Vital Signs Date Time Temp Pulse Resp B/P (MAP) Pulse Ox O2 Delivery O2 Flow Rate FiO2 04/29/17 12:46 92 40 04/29/17 10:06 97 40 04/29/17 10:00 86 04/29/17 08:00 101 04/29/17 08:00 101.8 101 24 163/88 (113) 94 04/29/17 08:00 45 04/29/17 07:58 97 45 04/29/17 06:00 83 04/29/17 04:11 98 45 04/29/17 04:00 101.2 82 24 149/77 (101) 91 04/29/17 04:00 45 04/29/17 04:00 82 04/29/17 02:00 84 04/29/17 00:00 99.9 84 24 153/87 (109) 93 04/29/17 00:00 45 04/29/17 00:00 84 04/28/17 23:56 95 45 04/28/17 22:00 86 04/28/17 20:44 93 45 04/28/17 20:00 99.8 85 18 149/84 (105) 92 04/28/17 20:00 45 04/28/17 20:00 85 04/28/17 18:00 83 04/28/17 16:32 90 45 04/28/17 16:00 79 04/28/17 16:00 45 04/28/17 16:00 100.0 79 20 124/69 (87) 90 132/94 (107) I/O 04/28/17 04/28/17 04/28/17 04/29/17 04/29/17 04/29/17 07:00 15:00 23:00 07:00 15:00 23:00 Intake Total 2435 ml 100 ml 1928 ml 1050 ml Output Total 1200 ml 400.0 ml 2460 ml 2400 ml Balance 1235 ml -300.0 ml -532 ml -1350 ml IV Total 1835 ml 100 ml 1215 ml 550 ml Tube Feeding 540 ml 213 ml Tube Irrigant 60 ml Other 500 ml 500 ml Output Urine Total 1200 ml 2000 ml 2300 ml Stool Total 460 ml 100 ml Tube Feeding Residual Discard 400.0 ml # Bowel Movements 1 1 Laboratory Laboratory Tests Test 04/29/17 04:20 04/29/17 11:46 White Blood Count 17.3 Red Blood Count 3.48 Hemoglobin 10.8 Hematocrit 32.8 Mean Corpuscular Volume 94.0 Mean Corpuscular Hemoglobin 30.9 Mean Corpuscular Hemoglobin Concent 32.9 Red Cell Distribution Width 17.2 Platelet Count 276 Mean Platelet Volume 8.1 Neutrophils (%) (Auto) 89.9 Lymphocytes (%) (Auto) 2.2 Monocytes (%) (Auto) 7.7 Eosinophils (%) (Auto) 0.0 Basophils (%) (Auto) 0.2 Neutrophils # (Auto) 15.5 Lymphocytes # (Auto) 0.4 Monocytes # (Auto) 1.3 Eosinophils # (Auto) 0.0 Basophils # (Auto) 0.0 CBC Comment AUTO DIFF Differential Total Cells Counted 100 Neutrophils % (Manual) 76 Band Neutrophils % 3 Lymphocytes % 4 Monocytes % 2 Neutrophils # (Manual) 16.3 Metamyelocytes 8 Myelocytes 7 Differential Comment FINAL DIFF MANUAL Platelet Estimate NORMAL Platelet Morphology Comment NORMAL Blood Urea Nitrogen 83 Creatinine 1.93 Random Glucose 163 Total Protein 6.1 Albumin 2.2 Calcium Level 8.0 Alkaline Phosphatase 130 Aspartate Amino Transf (AST/SGOT) 85 Alanine Aminotransferase (ALT/SGPT) 45 Total Bilirubin 0.4 Sodium Level 155 Potassium Level 3.8 Chloride Level 117 Carbon Dioxide Level 31.5 Anion Gap 7 Estimat Glomerular Filtration Rate 33 Iron Level 62 Total Iron Binding Capacity 207 Percent Iron Saturation 29.9 Ferritin 1056 Triglycerides Level 492 Lipase 4589 Tumor Marker Alpha Fetoprotein 5.5 Hepatitis A IgM Antibody NEGATIVE Hepatitis B Surface Antigen NEGATIVE Hepatitis B Core IgM Antibody NEGATIVE Hepatitis C Antibody NEGATIVE Blood Gas Puncture Site ART LINE Blood Gas Patient Temperature 98.6 Blood Gas HCO3 30 Blood Gas Base Excess 5.4 Blood Gas Oxygen Saturation 95 Arterial Blood pH 7.40 Arterial Blood Partial Pressure CO2 49 Arterial Blood Partial Pressure O2 132 Arterial Blood Oxygen Content 6.8 Arterial Blood Carboxyhemoglobin 1.3 Arterial Blood Methemoglobin 2.6 Blood Gas Hemoglobin 4.8 Oxygen Delivery Device VENTILATOR Blood Gas Ventilator Setting Blood Gas Inspired Oxygen 40 Date/Time Source Procedure Growth Status 04/29/17 13:00 Blood Peripheral Aerobic Blood Culture Pending Received 04/29/17 13:00 Blood Peripheral Anaerobic Blood Culture Pending Received 04/28/17 10:45 Sputum Endotracheal Gram Stain - Final Resulted 04/28/17 10:45 Sputum Endotracheal Sputum Culture - Preliminary NO GROWTH IN 24 HOURS. Resulted 04/24/17 16:25 Urine Random Urine Legionella Antigen - Final PRESUMPTIVE NEGATIVE FOR LEGIONELLA P... Complete 04/24/17 16:25 Urine Random Urine Streptococcus pneumoniae Antigen (M - Final PRESUMPTIVE NEGATIVE FOR STREPTOCOCCU... Complete Imaging Last Impressions Chest X-Ray 04/29/17 0000 Signed Impressions: Service Date/Time: Saturday, April 29, 2017 11:30 - CONCLUSION: No significant interval change. Tin Moon MD Abdomen X-Ray 04/29/17 0000 Signed Impressions: Service Date/Time: Saturday, April 29, 2017 11:58 - CONCLUSION: Nonspecific bowel gas pattern with no significant dilatation of the large or small bowel. Tin Moon MD Liver Ultrasound 04/26/17 0000 Signed Impressions: Service Date/Time: Wednesday, April 26, 2017 16:44 - CONCLUSION: Echogenic right kidney which can be seen with medical renal disease, otherwise unremarkable right upper quadrant sonogram. Roque Gutiérrez MD Chest CT 04/24/177 Signed Impressions: Service Date/Time: April 13:46 - CONCLUSION: Patchy groundglass infiltrates throughout all lobes of the lungs. It is most prominent in the perihilar distribution but also more peripheral areas. I did not see a mass amenable to biopsy with CT guidance. Jay Weaver MD Abdomen/Pelvis CT 04/24/177 Signed Impressions: Service Date/Time: April 13:46 - CONCLUSION: Patchy infiltrates in the lung bases. No concerning adenopathy or mass. Abdomen and pelvis are unremarkable. Small amount of free fluid in the pelvis within normal limits for age. The appendix is normal. Jay Weaver MD Physical Exam HEENT: PERRL; normocephalic; atraumatic; no jaundice. CHEST: diminished CARDIAC: RRR ABDOMEN: Soft, obese, pt in rotaprone bed, exam limited EXTREMITIES: No clubbing, cyanosis, or edema. SKIN: Normal; no rash; no jaundice. 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 CT abd no contrast 04/24 no acute abd findings and pancreas WNL but cannot get further imaging now d/t pt being on rotaprone bed and kidney function will not allow IV contrast triglycerides elevated 492 no statin d/t LFT elevation - ?ileus - TF held d/t high residuals. KUB 04/29 nonspecific gas pattern, no significant bowel dilatation. abd exam limited d/t pt being in rotaprone - elevated LFTs - unclear etiology. does not appear to be obstructive pattern. US liver unremarkable. no hx heavy drinking reported. hepatitis panel neg, rest of liver w/u pending - bilat PNA, ARDS, acute renal failure - per CCM, nephrology following PLAN - imaging with contrast when off rotaprone - IVF - await rest liver w/u - monitor lipase - further recs as case unfolds pt seen by myself and Dr Hunter and this note is written on his behalf (Teresita Avila) Physician Comments Seen and examined , start trickle TF. Reglan 8mg q 8hr ordered. CT/ MRCP when able. (Sindy Hunter MD) Teresita Avila Apr 29, 2017 14:57 Sindy Hunter MD Apr 29, 2017 17:25
[2017-04-29 15:55] LABS: BILIRUBIN, URINE NEG (NEG); BLOOD, URINE SMALL (NEG); GLUCOSE,URINE NEG (NEG); KETONE, URINE NEG (NEG); MUCUS URINE FEW /lpf (OCC); NITRITE,URINE NEG (NEG); PH, URINE 5.5 (5.0-8.5); URINE COLOR YELLOW (YELLW/STRAW); URINE LEUKOCYTE ESTERASE NEG (NEG)
[2017-04-29 16:17] LABS: HEMATOCRIT 33.6 % (35.0-46.0); HEMOGLOBIN 10.9 GM/DL (11.6-15.3)
[2017-04-29] MEDS: METOCLOPRAMIDE HCL 10 MG/2 ML VIAL IV PUSH SCH (17:59)
[2017-04-29] MEDS: AZITHROMYCIN INJ 500 MG in SODIUM CHLOR 0.9% 250 ML INJ 250 ML IV SCH (17:59)
[2017-04-29] MEDS: EPOPROSTENOL NEB SOLUTION 40 NG/KG/MIN 100 ML NEB SCH ×2 (20:29)
[2017-04-30] VITALS (23 sets, daily range): BP systolic 105–174; BP diastolic 64–108; PULSE 57–84; RESP 24–26; TEMP 97.5–101.7; O2SAT 92–99
[2017-04-30] MEDS: RESP: ALBUTEROL 2.5 MG/IPRATROPIUM 0.5 MG NEB (SCH) NEB ×7 (00:05→23:52)
[2017-04-30] MEDS: EPOPROSTENOL NEB SOLUTION 40 NG/KG/MIN 100 ML NEB SCH ×4 (01:00→08:15)
[2017-04-30] MEDS: AZTREONAM INJ 1,000 MG in SODIUM CHLORIDE 0.9% INJ 100 ML IV SCH ×3 (02:04→16:37)
[2017-04-30] MEDS: LINEZOLID 600 MG PREMIX 300 ML IV SCH ×2 (02:05→11:44)
[2017-04-30] MEDS: METOCLOPRAMIDE HCL 10 MG/2 ML VIAL IV PUSH SCH ×3 (02:05→17:22)
[2017-04-30] MEDS: INSULIN NovoLIN REGULAR SUPPLEMENTAL SCALE SQ SCH ×6 (02:30→22:00)
--- NOTE | 2017-04-30 04:19 | RADRPT ---
EXAM DATE/TIME: 04/30/2017 03:25 [facility] COMPARISON: CHEST SINGLE AP, April 29, 2017, 11:30. INDICATIONS : Short of breath. MEDICAL HISTORY : None. SURGICAL HISTORY : None. ENCOUNTER: Subsequent ACUITY: 1 week PAIN SCORE: 0/10 LOCATION: Bilateral chest FINDINGS: Endotracheal tube tip is well above the dayanara. Right internal jugular catheter tip projects over th e mid superior vena cava. Gastric tube traverses the [id number]. Bilateral airspace opacities in the central lungs bilaterally with some air bronchograms a similar on the right side and has increas ed on the left, now with loss of delineation of portions of the medial left hemidiaphragm. CONCLUSION: 1. Persistent central airspace infiltrates with increasing consolidation of left lung base. Nakul Bailon MD on April 30, 2017 at 4:17 Board Certified Radiologist. This report was verified electronically.
[2017-04-30] MEDS: CHLORHEXIDINE GLUCONATE 2 % 1 PACK (2 CLOTHS) TOP SCH (04:28)
[2017-04-30] MEDS: methylPREDNISolone SOD SUCC 40 MG/1 ML VIAL IV PUSH SCH ×3 (04:59→17:22)
[2017-04-30] MEDS: FREE WATER G-TUBE SCH ×6 (06:00→20:00)
[2017-04-30 06:09] LABS: AUTOMATED NEUTROPHIL # 15.9 TH/MM3 (1.8-7.7); BASOPHIL % 0.1 % (0.0-2.0); HEMATOCRIT 31.9 % (35.0-46.0); HEMOGLOBIN 10.3 GM/DL (11.6-15.3); LYMPH % 4.2 % (9.0-44.0); LYMPHOCYTE # 0.7 TH/MM3 (1.0-4.8); MEAN CELL VOLUME 93.6 FL (80.0-100.0); MEAN CORPUSCULAR HEMOGLOBIN 30.1 PG (27.0-34.0); MEAN CORPUSCULAR HGB CONC 32.1 % (32.0-36.0); MEAN PLATELET VOLUME 7.4 FL (7.0-11.0); MONO % 4.7 % (0.0-8.0); MONOCYTE # 0.8 TH/MM3 (0-0.9); PLATELET COUNT 267 TH/MM3 (150-450); RED BLOOD COUNT 3.41 MIL/MM3 (4.00-5.30); RED CELL DISTRIBUTION WIDTH 17.2 % (11.6-17.2); WHITE BLOOD COUNT 17.5 TH/MM3 (4.0-11.0)
[2017-04-30 06:48] LABS: ALBUMIN 2.2 GM/DL (3.4-5.0); ALKALINE PHOSPHATASE 120 U/L (45-117); ALT (GPT) 48 U/L (10-53); AST (GOT) 55 U/L (15-37); BICARBONATE 32.3 MEQ/L (21.0-32.0); BLOOD UREA NITROGEN 70 MG/DL (7-18); CALCIUM 7.9 MG/DL (8.5-10.1); CHLORIDE 119 MEQ/L (98-107); CREATININE 1.47 MG/DL (0.50-1.00); GLOMERULAR FILTRATION RATE 45 ML/MIN (>89); GLUCOSE,RANDOM 168 MG/DL (74-106); TOTAL BILIRUBIN ADULT 0.4 MG/DL (0.2-1.0); TOTAL PROTEIN 6.1 GM/DL (6.4-8.2)
[2017-04-30 06:55] LABS: SODIUM (NA) 157 MEQ/L (136-145)
[2017-04-30] MEDS: SODIUM CHLORIDE 0.9% FLUSH 10 ML FLUSH IV FLUSH SCH ×2 (08:16→22:29)
[2017-04-30] MEDS: DOCUSATE SODIUM 50 MG/SENNA 8.6 MG TAB PO SCH (08:21)
[2017-04-30] MEDS: FUROSEMIDE 40 MG/4 ML VIAL IV PUSH SCH (08:21)
[2017-04-30] MEDS: FAMOTIDINE 20 MG/2 ML VIAL IV PUSH SCH (08:22)
[2017-04-30] MEDS: HEPARIN SODIUM - SQ 10,000 UNITS/ML VIAL SQ SCH ×2 (08:25→22:29)
[2017-04-30] MEDS: PROPOFOL 1000 MG/100 ML INJ 100 ML IV PRN (08:33)
[2017-04-30 09:36] LABS: BANDS 8 % (0-6); LYMPHOCYTES 1 % (9-44); METAMYELOCYTES 3 % (0-1); MONOCYTES 6 % (0-8); MYELOCYTES 3 % (0-0); NEUTROPHIL # MANUAL DIFF 16.3 TH/MM3 (1.8-7.7); POLYS (SEG NEUTROPHILS) 79 % (16-70)
[2017-04-30] MEDS ORDERED: NITROGLYCERIN 2% OINT 1 GM PACKET TOPICAL PRN (10:30)
[2017-04-30] MEDS: hydrALAZINE HCL 20 MG/ML VIAL IV PUSH PRN ×2 (10:45→12:07)
[2017-04-30] MEDS ORDERED: VANCOMYCIN INJ 2,000 MG in SODIUM CHLORID 0.9% 500 ML INJ 500 ML IV ONE (11:00)
[2017-04-30] MEDS ORDERED: RESP: ALBUTEROL 2.5 MG/3 ML NEB (PRN) NEB (11:00)
[2017-04-30] MEDS ORDERED: ACETAMINOPHEN 650 MG/20.3 ML UDC OG-TUBE PRN (11:00)
--- NOTE | 2017-04-30 11:10 | HHI.CCPN ---
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 She states that she is had multiple symptoms to include nausea, vomiting, diarrhea, cough, congestion, sore throat. Patient states that her symptoms have improved progressively getting worse over the last 2 days. Because she did not improve her family brought her to the emergency department for evaluation. Because of her family's concern is could have saved the patient's life. Patient with severe multisystem organ failure with respiratory failure, renal failure, severe metabolic acidosis with anion gap. Patient indicates that she has had nausea, vomiting and diarrhea and only minimally keep minimal liquids down. She has had cough, congestion. CT scans and chest x-rays show significant infiltrates bilaterally with respiratory failure. Patient with adult respiratory distress syndrome. Without intubation patient will unlikely survive. This was discussed with the family and patient at bedside prior to intubation. They are in agreement with pursuing heroic measures and intubation for medical management. Patient was intubated by ER physician successfully. Patient will be transferred to [facility] for critical care management. 04/25 Patient is sedated with Diprivan, Fentanyl drips and intubated. Afebrile. 04/26 Patient is intubated, sedated with Diprivan, Fentanyl drip in addition she is on Nimbex. She was proned yesterday her O2 requirements is better overall now on PEEP;12 and FIO2 65% 04/27 No events overnight. Intubated and sedation in addition she is on Nimbex. Afebrile. On Flolan 04/28 Patient remains sedated and intubated . On PRVC with PEEP:12, FIO2: 50%. Renal function is improving with Cr: 2.50 from 2.75. Had low grade fever with T: 100.6 last night. 04/29 Patient remains on prone bed intubated, sedated in addition she is on neuromuscular blockade ( Nimbex). Afebrile. Renal function is better with Cr: 1.93 from 2.5 and O2 requirements is better. TF held for high residuals. Spiked fever with Subjective 04/30: Tmax 102.7. Currently afebrile. Blood cultures 2 obtained yesterday. Tube feeds restarted currently at 20 cc an hour with Glucerna 1.5. Positive BM. Sodium increased. Objective Vital Signs Date Time Temp Pulse Resp B/P (MAP) Pulse Ox O2 Delivery O2 Flow Rate FiO2 04/30/17 10:00 80 04/30/17 08:09 94 40 04/30/17 08:00 98.3 24 125/76 (92) Intake and Output 04/30/17 04/30/17 05/01/17 08:00 16:00 00:00 Intake Total 1256 ml 175 ml Output Total 1500 ml Balance -244 ml 175 ml Result Diagram: 04/30/17 0545 04/30/17 0545 Other Results Microbiology Date/Time Source Procedure Growth Status 04/29/17 18:49 Blood Peripheral Aerobic Blood Culture Pending Received 04/29/17 18:49 Blood Peripheral Anaerobic Blood Culture Pending Received 04/28/17 10:45 Sputum Endotracheal Gram Stain - Final Complete 04/28/17 10:45 Sputum Endotracheal Sputum Culture - Final NO GROWTH IN 48 HOURS. Complete 04/24/17 16:25 Urine Random Urine Legionella Antigen - Final PRESUMPTIVE NEGATIVE FOR LEGIONELLA P... Complete 04/24/17 16:25 Urine Random Urine Streptococcus pneumoniae Antigen (M - Final PRESUMPTIVE NEGATIVE FOR STREPTOCOCCU... Complete Imaging Last Impressions Chest X-Ray 04/30/17 0000 Signed Impressions: Service Date/Time: Sunday, April 30, 2017 03:25 - CONCLUSION: 1. Persistent central airspace infiltrates with increasing consolidation of left lung base. Nakul Bailon MD Abdomen X-Ray 04/29/17 0000 Signed Impressions: Service Date/Time: Saturday, April 29, 2017 11:58 - CONCLUSION: Nonspecific bowel gas pattern with no significant dilatation of the large or small bowel. Tin Moon MD Liver Ultrasound 04/26/17 0000 Signed Impressions: Service Date/Time: Wednesday, April 26, 2017 16:44 - CONCLUSION: Echogenic right kidney which can be seen with medical renal disease, otherwise unremarkable right upper quadrant sonogram. Roque Gutiérrez MD Chest CT 04/24/17 1327 Signed Impressions: Service Date/Time: April 13:46 - CONCLUSION: Patchy groundglass infiltrates throughout all lobes of the lungs. It is most prominent in the perihilar distribution but also more peripheral areas. I did not see a mass amenable to biopsy with CT guidance. Jay Weaver MD Abdomen/Pelvis CT 04/24/17 1327 Signed Impressions: Service Date/Time: April 13:46 - CONCLUSION: Patchy infiltrates in the lung bases. No concerning adenopathy or mass. Abdomen and pelvis are unremarkable. Small amount of free fluid in the pelvis within normal limits for age. The appendix is normal. Jay Weaver MD Objective Remarks GENERAL:51-year-old AA female currently orotracheally intubated SKIN: Warm and dry. Unable to evaluate backside. Positive facial skin breakdown from rotoprone bed HEAD: Normocephalic. EYES: No scleral icterus. No injection or drainage. NECK: Supple, trachea midline. No JVD or lymphadenopathy. CARDIOVASCULAR: RRR. S1, [id number] murmurs RESPIRATORY: Diffuse fine crackles appreciated anteriorly. No wheezing GASTROINTESTINAL: Abdomen soft, non-tender, nondistended. Hypoactive bowel sounds appreciated MUSCULOSKELETAL: Trace below the knee pitting edema identified Neuro: Cranial nerves II through XII appear grossly intact. Moving all 4 extremities spontaneously to noxious stimulus. Currently not following commands Urinary Catheter: Yes Assessment to: Continue De La Garza insert reason: ICU Pt Getting Diuretics Vascular Central Line Catheter: Yes Assessment to: Continue Date of Insertion: Apr 25, 2017 Line: Central Venous Catheter Side: Right Location: Internal, Jugular A/P Assessment and Plan NEUROLOGY History depression On propofol 40 mcg/kg per minute and fentanyl infusion at 150 g an hour for sedation while intubated goal of RA SS -2 Daily sedation vacation when appropriate Discontinue propofol with elevated triglycerides. Start a midazolam drip titrated for RA SS -2-0 Acetaminophen 650 mg by tube every 6 hours when necessary fever Holding sertraline 100 mg daily/home medication while on linezolid PULMONOLOGY Acute hypoxic respiratory failure Adult respiratory distress syndrome Bilateral pneumonia Daily tobacco use Continue with vent support and keep sat >92% On PRVC RR 24, TV 450, IT:1.25, PEEP:8, FIO2: 40% Albuterol/ipratropium aerosols every 4 hours with albuterol aerosols every 2 hours. Dyspnea Decrease methylprednisolone succinate 40mg IV Q8, Start weaning epoprostenol 40,000ng/ml at rate every 8 hours 10,000 ng until discontinued Tobacco cessation will be encouraged when appropriate CARDIOLOGY Hypertension Severe pulmonary hypertension Monitor HR and BP keep MAP>65mmHg Lactic acid 1.2. Echo showed EF 60-65% with no regional wall motion abnormality. Severe pulmonary arterial pressure 70 mmHg As needed hydralazine, labetalol and Nitropaste for hypertension GASTROENTEROLOGY Hypertriglyceridemia Elevated lipase level and AST Currently on Glucerna 1.5 goal 45 cc an hour. Currently at 20 cc an hour. Nutrition recommended Nepro [address] the abdomen does not indicate any acute abnormality within the abdomen US liver: Echogenic right kidney which can be seen with medical renal disease, otherwise unremarkable Docusate sodium 100 cc twice a day/senna 8.8 mg twice a day for bowel regimen On metoclopramide 5 mg every 8 hours for GI motility GI protection with famotidine 20 mg by tube twice daily Monitor Lipase level, GI is following, will need either MRCP or CT abdomen with contrast once her renal function is better. Not on a cholesterol-lowering agent/gemfibrozil due to elevated LFTs GENITOURINARY Acute renal failure- Improving - likely ATN from hypo-perfusion Hypernatremia Monitor renal function, I/O's, avoid nephrotoxins Currently on furosemide 40mg daily Change free water 300ml Q4, with one quarter normal saline 1 L monitor sodium level. Renal is following- Dr. Serrano Renal function is improving with Cr: 1.47 today from: 1.9, UOP CT abdomen: No hydronephrosis and possible medical renal disease right kidney. INFECTIOUS DISEASE Bilateral pneumonia Diarrhea Patient was given vancomycin, ceftriaxone and azithromycin, Continue Azactam, linezolid and azithromycin. ID is following. Blood cultures04/24 and 04/29: NGTD Influenza screening, Legionella testing, pneumococcal Ag all negative Follow up on sputum cx 04/28 no growth to date ENDOCRINOLOGY Hyperglycemia Accu-Cheks with sliding scale insulin medium Novulog every 4 hours HEMATOLOGY Leukocytosis Normocytic anemia History of iron deficiency Continue monitor CBC MSK Elevated BMI Weight loss encouraged PROPHYLAXIS DVT prevention with SCD, Heparin SQ GI protection with famotidine LINES Peripheral IVs Right IJ CVP 04/25 - current, Art line placed 04/25 - 04/29 Critical Care: The total critical care time was 35 minutes. Time to perform other separately billable procedures was not included in the critical care time. Juan Hui MD Apr 30, 2017 11:10
--- NOTE | 2017-04-30 11:16 | HHI.NPPN ---
Subjective History of Present Illness 51 year-old female with past medical history of chronic anemia and irritable bowel syndrome was admitted yesterday because of nausea, vomiting or diarrhea and fever. I was called to see the patient because of elevated creatinine, her creatinine on presentation was 4.2. Additional Remarks Patient remain on the vent. and sedated. Hypernatremia noted with sodium of 157 (Kiarra Lazo) Review of Systems General General Remarks Intubated and sedated. (Kiarra Lazo) Objective Data Data 04/30/17 05/01/17 19:00 07:00 Intake Total 575 ml Balance 575 ml IV Total 575 ml Vital Signs Date Time Temp Pulse Resp B/P (MAP) Pulse Ox O2 Delivery O2 Flow Rate FiO2 04/30/17 10:59 40 04/30/17 10:00 80 04/30/17 08:09 94 40 04/30/17 08:00 72 04/30/17 08:00 98.3 71 24 125/76 (92) 94 04/30/17 08:00 40 04/30/17 06:00 84 04/30/17 04:08 96 40 04/30/17 04:00 40 04/30/17 04:00 99.2 77 24 144/81 (102) 96 Arterial Line 04/30/17 04:00 77 04/30/17 02:00 57 04/30/17 00:05 97 40 04/30/17 00:00 99.1 64 24 143/78 (99) 92 Arterial Line 04/30/17 00:00 64 04/30/17 00:00 40 04/29/17 22:00 63 04/29/17 20:00 71 04/29/17 20:00 99.6 71 24 131/74 (93) 93 Arterial Line 04/29/17 20:00 40 04/29/17 19:43 95 40 04/29/17 18:00 71 04/29/17 16:24 94 40 04/29/17 16:00 80 04/29/17 16:00 40 04/29/17 16:00 101.7 80 24 145/82 (103) 92 04/29/17 14:00 78 04/29/17 12:46 92 40 04/29/17 12:00 40 04/29/17 12:00 85 04/29/17 12:00 102.2 85 28 142/76 (52) 93 (Kiarra Lazo) -: 04/30/17 0545 04/30/17 0545 Microbiology 04/29/17 Aerobic Blood Culture - Preliminary, Resulted NO GROWTH IN 1 DAY 04/29/17 Anaerobic Blood Culture - Preliminary, Resulted NO GROWTH IN 1 DAY 04/29/17 Aerobic Blood Culture - Preliminary, Resulted NO GROWTH IN 1 DAY 04/29/17 Anaerobic Blood Culture - Preliminary, Resulted NO GROWTH IN 1 DAY (Kiarra Lazo) Physical Exam Eyes Eye Exam: Pupils Equal (Kiarra Lazo) Neck Neck Exam: Neck Supple (Kiarra Lazo) Pulmonary Resp Exam: Rhonchi, Decreased Bases, Diminished Breath Sounds (Kiarra Lazo) Cardiology CV Exam: Regular (Kiarra Lazo) Gastrointestinal/Abdomen GI Exam: Soft, Non-Tender, Distended (Kiarra Lazo) Extremeties Extremities Exam: Trace Edema (Kiarra Lazo) Neurologic Neuro Exam: Sedated (Kiarra Lazo) Assessment/Plan Assessment Summary: FORTINO/Acute Renal Failure Electrolyte Assessment: Hypocalcemia Problem List: (1) Acute renal failure ICD Codes: N17.9 - Acute kidney failure, unspecified Plan: Patient has Acute kidney injury. BP is now better. Urine out put is gppd Continue antibiotic, avoid Nephrotoxins. Weaning as per CCM. Urine Eosinophils negative and Na. was not low. Most likely has ATN due to hypotension. K is normal now and Na. increase to [address] Serrano free water via GT 300 ml every 4 hours Continue Lasix, weaning as tolerated. Creatinine continue to improve, now 1.47 today (2) Hypokalemia ICD Codes: E87.6 - Hypokalemia Plan: Potassium level at 3.3 replacement given (Kiarra Lazo) Problem List: (1) Acute renal failure ICD Codes: N17.9 - Acute kidney failure, unspecified Plan: Patient has Acute kidney injury. BP is now better. Urine out put is gppd Continue antibiotic, avoid Nephrotoxins. Weaning as per CCM. Urine Eosinophils negative and Na. was not low. Most likely has ATN due to hypotension. K is normal now and Na. increase to 157 discussed. On free water via GT 300 ml every 4 hours. Now off rotator bed, so will have better absorption. Continue Lasix , on 40 mg IV daily. Creatinine continue to improve, now 1.47 today. (2) Hypokalemia ICD Codes: E87.6 - Hypokalemia Plan: Potassium level at 3.3 replacement given (Fariha Serrano MD) Kiarra Lazo Apr 30, 2017 11:16 Fariha Serrano MD Apr 30, 2017 11:50
--- NOTE | 2017-04-30 11:29 | HHI.IDPN ---
Note Infectious Disease Note Patient is off the rota bed. On vent 40% FIO2. Not responding to commands. Temp lower. WBC elevated same. Sputum culture - no growth. Blood culture pending. Presented to [place] emergency department on 04/07/2017 with cold and flu-like symptoms including cough, vomiting and diarrhea. PAST MEDICAL HISTORY 1. Irritable bowel syndrome. 2. Iron-deficiency anemia. 3. History of . ALLERGIES AMOXICILLIN. MEDICATIONS 1. Zyvox 2. Aztreonam. 3. Azithromycin. OBJECTIVE: Vital Signs Date Time Temp Pulse Resp B/P (MAP) Pulse Ox O2 Delivery O2 Flow Rate FiO2 04/30/17 10:59 40 04/30/17 10:00 80 04/30/17 08:09 94 40 04/30/17 08:00 72 04/30/17 08:00 98.3 71 24 125/76 (92) 94 04/30/17 08:00 40 04/30/17 06:00 84 04/30/17 04:08 96 40 04/30/17 04:00 40 04/30/17 04:00 99.2 77 24 144/81 (102) 96 Arterial Line 04/30/17 04:00 77 04/30/17 02:00 57 04/30/17 00:05 97 40 04/30/17 00:00 99.1 64 24 143/78 (99) 92 Arterial Line 04/30/17 00:00 64 04/30/17 00:00 40 04/29/17 22:00 63 04/29/17 20:00 71 04/29/17 20:00 99.6 71 24 131/74 (93) 93 Arterial Line 04/29/17 20:00 40 04/29/17 19:43 95 40 04/29/17 18:00 71 04/29/17 16:24 94 40 04/29/17 16:00 80 04/29/17 16:00 40 04/29/17 16:00 101.7 80 24 145/82 (103) 92 04/29/17 14:00 78 04/29/17 12:46 92 40 04/29/17 12:00 40 04/29/17 12:00 85 04/29/17 12:00 102.2 85 28 142/76 (98) 93 Laboratory Tests Test 04/29/17 04:20 04/29/17 14:50 04/30/17 05:45 White Blood Count 17.3 TH/MM3 17.5 TH/MM3 Red Blood Count 3.48 MIL/MM3 3.41 MIL/MM3 Hemoglobin 10.8 GM/DL 10.9 GM/DL 10.3 GM/DL Hematocrit 32.8 % 33.6 % 31.9 % Mean Corpuscular Volume 94.0 FL 93.6 FL Mean Corpuscular Hemoglobin 30.9 PG 30.1 PG Mean Corpuscular Hemoglobin Concent 32.9 % 32.1 % Red Cell Distribution Width 17.2 % 17.2 % Platelet Count 276 TH/MM3 267 TH/MM3 Mean Platelet Volume 8.1 FL 7.4 FL Neutrophils (%) (Auto) 89.9 % 91.0 % Lymphocytes (%) (Auto) 2.2 % 4.2 % Monocytes (%) (Auto) 7.7 % 4.7 % Eosinophils (%) (Auto) 0.0 % 0.0 % Basophils (%) (Auto) 0.2 % 0.1 % Neutrophils # (Auto) 15.5 TH/MM3 15.9 TH/MM3 Lymphocytes # (Auto) 0.4 TH/MM3 0.7 TH/MM3 Monocytes # (Auto) 1.3 TH/MM3 0.8 TH/MM3 Eosinophils # (Auto) 0.0 TH/MM3 0.0 TH/MM3 Basophils # (Auto) 0.0 TH/MM3 0.0 TH/MM3 CBC Comment AUTO DIFF AUTO DIFF Differential Total Cells Counted 100 100 Neutrophils % (Manual) 76 % 79 % Band Neutrophils % 3 % 8 % Lymphocytes % 4 % 1 % Monocytes % 2 % 6 % Neutrophils # (Manual) 16.3 TH/MM3 16.3 TH/MM3 Metamyelocytes 8 % 3 % Myelocytes 7 % 3 % Differential Comment FINAL DIFF MANUAL FINAL DIFF MANUAL Platelet Estimate NORMAL NORMAL Platelet Morphology Comment NORMAL NORMAL Red Cell Morphology Comment NORMAL Laboratory Tests Test 04/29/17 04:20 04/30/17 05:45 Blood Urea Nitrogen 83 MG/DL 70 MG/DL Creatinine 1.93 MG/DL 1.47 MG/DL Random Glucose 163 MG/DL 168 MG/DL Total Protein 6.1 GM/DL 6.1 GM/DL Albumin 2.2 GM/DL 2.2 GM/DL Calcium Level 8.0 MG/DL 7.9 MG/DL Alkaline Phosphatase 130 U/L 120 U/L Aspartate Amino Transf (AST/SGOT) 85 U/L 55 U/L Alanine Aminotransferase (ALT/SGPT) 45 U/L 48 U/L Total Bilirubin 0.4 MG/DL 0.4 MG/DL Sodium Level 155 MEQ/L 157 MEQ/L Potassium Level 3.8 MEQ/L 3.5 MEQ/L Chloride Level 117 MEQ/L 119 MEQ/L Carbon Dioxide Level 31.5 MEQ/L 32.3 MEQ/L Anion Gap 7 MEQ/L 6 MEQ/L Estimat Glomerular Filtration Rate 33 ML/MIN 45 ML/MIN Iron Level 62 MCG/DL Total Iron Binding Capacity 207 MCG/DL Percent Iron Saturation 29.9 % Ferritin 1056 NG/ML Triglycerides Level 492 MG/DL Lipase 4589 U/L 3976 U/L Tumor Marker Alpha Fetoprotein 5.5 NG/ML Microbiology Date/Time Source Procedure Growth Status 04/29/17 18:49 Blood Peripheral Aerobic Blood Culture - Preliminary NO GROWTH IN 1 DAY Resulted 04/29/17 18:49 Blood Peripheral Anaerobic Blood Culture - Preliminary NO GROWTH IN 1 DAY Resulted 04/29/17 13:00 Blood Peripheral Aerobic Blood Culture - Preliminary NO GROWTH IN 1 DAY Resulted 04/29/17 13:00 Blood Peripheral Anaerobic Blood Culture - Preliminary NO GROWTH IN 1 DAY Resulted 04/28/17 10:45 Sputum Endotracheal Gram Stain - Final Complete 04/28/17 10:45 Sputum Endotracheal Sputum Culture - Final NO GROWTH IN 48 HOURS. Complete IMAGING: Chest X-Ray 04/30/17 0000 Signed Impressions: Service Date/Time: Sunday, April 30, 2017 03:25 - CONCLUSION: 1. Persistent central airspace infiltrates with increasing consolidation of left lung base. Nakul Bailon MD Chest X-Ray 04/29/17 0000 Signed Impressions: Service Date/Time: Saturday, April 29, 2017 11:30 - CONCLUSION: No significant interval change. Tin Moon MD Abdomen X-Ray 04/29/17 0000 Signed Impressions: Service Date/Time: Saturday, April 29, 2017 11:58 - CONCLUSION: Nonspecific bowel gas pattern with no significant dilatation of the large or small bowel. Tin Moon MD Chest X-Ray 04/28/17 0000 Signed Impressions: Service Date/Time: Friday, April 28, 2017 07:27 - CONCLUSION: 1. The support equipment is in good position. 2. There are extensive bilateral pulmonary infiltrates similar to the prior exam. Exam would be consistent with a pneumonia. Huseyin Christiansen MD Liver Ultrasound 04/26/17 0000 Signed Impressions: Service Date/Time: Wednesday, April 26, 2017 16:44 - CONCLUSION: Echogenic right kidney which can be seen with medical renal disease, otherwise unremarkable right upper quadrant sonogram. Roque Gutiérrez MD Chest CT 04/24/17 1327 Signed Impressions: Service Date/Time: April 13:46 - CONCLUSION: Patchy groundglass infiltrates throughout all lobes of the lungs. It is most prominent in the perihilar distribution but also more peripheral areas. I did not see a mass amenable to biopsy with CT guidance. Jay Weaver MD Abdomen/Pelvis CT 04/24/17 1327 Signed Impressions: Service Date/Time: April 13:46 - CONCLUSION: Patchy infiltrates in the lung bases. No concerning adenopathy or mass. Abdomen and pelvis are unremarkable. Small amount of free fluid in the pelvis within normal limits for age. The appendix is normal. Jay Weaver MD PHYSICAL EXAMINATION GENERAL: On the ventilator. HEENT: No icterus. moist mucosa. LUNGS: Coarse rhonchi bilateral. HEART: Regular, S1 and S2 without audible murmurs. ABDOMEN: Soft, No masses. EXTREMITIES: No CC, Trace edema. SKIN: No rash. NEURO: Unable to assess. PSYCH: Unable to assess. IMPRESSION 1. Pneumonia. 2. Acute respiratory failure. 3. ARDS. 4. Acute renal failure. 5. Leukocytosis. RECOMMENDATIONS 1. Continue Zyvox. 2. Continue aztreonam. 3. Continue azithromycin. 4. Monitor sputum culture. 5. Follow blood culture. 6. Follow clinical status. Rikki Walker MD Apr 30, 2017 11:29
[2017-04-30] MEDS ORDERED: RASS Change Order XX ONE (11:30)
[2017-04-30] MEDS: MIDAZOLAM 100 MG/100 ML INJ 100 ML IV PRN (11:44)
[2017-04-30] MEDS: LABETALOL HCL 100 MG/20 ML VIAL IV PUSH PRN (11:58)
[2017-04-30] MEDS: fentaNYL DRIP 250 ML IV PRN (12:12)
[2017-04-30] MEDS: DEXMEDETOMIDINE INJ 200 MCG in SODIUM CHLORIDE 0.9% INJ 50 ML IV PRN ×2 (12:37→17:59)
[2017-04-30] MEDS ORDERED: SODIUM CHLORIDE 23.4% INJ 38.5 MEQ in WATER STERILE FOR INJ 990.375 ML IV SCH (13:00)
[2017-04-30 13:45] LABS: ALPHA-1-ANTITRYPSIN 234 mg/dL (100 - 190)
--- NOTE | 2017-04-30 13:47 | HHI.GIFU ---
Subjective Remarks Pt off rotaprone. Trickle feeds 20ml/hr. Per RN last residual 60cc. (Teresita Avila) Objective Vitals I&O Vital Signs Date Time Temp Pulse Resp B/P (MAP) Pulse Ox O2 Delivery O2 Flow Rate FiO2 04/30/17 12:00 78 04/30/17 12:00 78 24 163/108 (126) 99 04/30/17 12:00 40 04/30/17 11:34 95 40 04/30/17 11:00 72 26 143/89 (107) 97 04/30/17 10:59 40 04/30/17 10:00 80 04/30/17 10:00 80 24 157/95 (115) 98 04/30/17 09:00 81 24 174/97 (122) 98 04/30/17 08:09 94 40 04/30/17 08:00 72 04/30/17 08:00 98.3 71 24 125/76 (92) 94 04/30/17 08:00 40 04/30/17 06:00 84 04/30/17 04:08 96 40 04/30/17 04:00 40 04/30/17 04:00 99.2 77 24 144/81 (102) 96 Arterial Line 04/30/17 04:00 77 04/30/17 02:00 57 04/30/17 00:05 97 40 04/30/17 00:00 99.1 64 24 143/78 (99) 92 Arterial Line 04/30/17 00:00 64 04/30/17 00:00 40 04/29/17 22:00 63 04/29/17 20:00 71 04/29/17 20:00 99.6 71 24 131/74 (93) 93 Arterial Line 04/29/17 20:00 40 04/29/17 19:43 95 40 04/29/17 18:00 71 04/29/17 16:24 94 40 04/29/17 16:00 80 04/29/17 16:00 40 04/29/17 16:00 101.7 80 24 145/82 (103) 92 04/29/17 14:00 78 I/O 04/29/17 04/29/17 04/29/17 04/30/17 04/30/17 04/30/17 07:00 15:00 23:00 07:00 15:00 23:00 Intake Total 1050 ml 800 ml 856 ml 725 ml Output Total 2400 ml 2600 ml 1500 ml Balance -1350 ml -1800 ml -644 ml 725 ml IV Total 550 ml 200 ml 725 ml Tube Feeding 256 ml Other 500 ml 600 ml 600 ml Output Urine Total 2300 ml 2600 ml 1350 ml Stool Total 100 ml 150 ml Laboratory Laboratory Tests Test 04/29/17 13:50 04/29/17 14:50 04/30/17 05:45 Urine Color YELLOW Urine Turbidity CLEAR Urine pH 5.5 Urine Specific [place] 1.014 Urine Protein 30 Urine Glucose (UA) NEG Urine Ketones NEG Urine Occult Blood SMALL Urine Nitrite NEG Urine Bilirubin NEG Urine Urobilinogen LESS THAN 2.0 Urine Leukocyte Esterase NEG Urine RBC 1 Urine WBC 2 Urine Mucus FEW Microscopic Urinalysis Comment CATH-CULT NOT IND Hemoglobin 10.9 10.3 Hematocrit 33.6 31.9 White Blood Count 17.5 Red Blood Count 3.41 Mean Corpuscular Volume 93.6 Mean Corpuscular Hemoglobin 30.1 Mean Corpuscular Hemoglobin Concent 32.1 Red Cell Distribution Width 17.2 Platelet Count 267 Mean Platelet Volume 7.4 Neutrophils (%) (Auto) 91.0 Lymphocytes (%) (Auto) 4.2 Monocytes (%) (Auto) 4.7 Eosinophils (%) (Auto) 0.0 Basophils (%) (Auto) 0.1 Neutrophils # (Auto) 15.9 Lymphocytes # (Auto) 0.7 Monocytes # (Auto) 0.8 Eosinophils # (Auto) 0.0 Basophils # (Auto) 0.0 CBC Comment AUTO DIFF Differential Total Cells Counted 100 Neutrophils % (Manual) 79 Band Neutrophils % 8 Lymphocytes % 1 Monocytes % 6 Neutrophils # (Manual) 16.3 Metamyelocytes 3 Myelocytes 3 Differential Comment FINAL DIFF MANUAL Platelet Estimate NORMAL Platelet Morphology Comment NORMAL Red Cell Morphology Comment NORMAL Blood Urea Nitrogen 70 Creatinine 1.47 Random Glucose 168 Total Protein 6.1 Albumin 2.2 Calcium Level 7.9 Alkaline Phosphatase 120 Aspartate Amino Transf (AST/SGOT) 55 Alanine Aminotransferase (ALT/SGPT) 48 Total Bilirubin 0.4 Sodium Level 157 Potassium Level 3.5 Chloride Level 119 Carbon Dioxide Level 32.3 Anion Gap 6 Estimat Glomerular Filtration Rate 45 Lipase 3976 Random Vancomycin Level 10.0 Date/Time Source Procedure Growth Status 1/23/18 18:49 Blood Peripheral Aerobic Blood Culture - Preliminary NO GROWTH IN 1 DAY Resulted 04/29/17 18:49 Blood Peripheral Anaerobic Blood Culture - Preliminary NO GROWTH IN 1 DAY Resulted 04/28/17 10:45 Sputum Endotracheal Gram Stain - Final Complete 04/28/17 10:45 Sputum Endotracheal Sputum Culture - Final NO GROWTH IN 48 HOURS. Complete 04/24/17 16:25 Urine Random Urine Legionella Antigen - Final PRESUMPTIVE NEGATIVE FOR LEGIONELLA P... Complete 04/24/17 16:25 Urine Random Urine Streptococcus pneumoniae Antigen (M - Final PRESUMPTIVE NEGATIVE FOR STREPTOCOCCU... Complete Imaging Last Impressions Chest X-Ray 04/30/17 0000 Signed Impressions: Service Date/Time: Sunday, April 30, 2017 03:25 - CONCLUSION: 1. Persistent central airspace infiltrates with increasing consolidation of left lung base. Nakul Bailon MD Abdomen X-Ray 04/29/17 0000 Signed Impressions: Service Date/Time: Saturday, April 29, 2017 11:58 - CONCLUSION: Nonspecific bowel gas pattern with no significant dilatation of the large or small bowel. Tin Moon MD Liver Ultrasound 04/26/17 0000 Signed Impressions: Service Date/Time: Wednesday, April 26, 2017 16:44 - CONCLUSION: Echogenic right kidney which can be seen with medical renal disease, otherwise unremarkable right upper quadrant sonogram. Roque Gutiérrez MD Chest CT 04/24/17 1327 Signed Impressions: Service Date/Time: April 13:46 - CONCLUSION: Patchy groundglass infiltrates throughout all lobes of the lungs. It is most prominent in the perihilar distribution but also more peripheral areas. I did not see a mass amenable to biopsy with CT guidance. Jay Weaver MD Abdomen/Pelvis CT 04/24/17 1327 Signed Impressions: Service Date/Time: April 13:46 - CONCLUSION: Patchy infiltrates in the lung bases. No concerning adenopathy or mass. Abdomen and pelvis are unremarkable. Small amount of free fluid in the pelvis within normal limits for age. The appendix is normal. Jay Weaver MD Physical Exam HEENT: PERRL; normocephalic; atraumatic; no jaundice. CHEST: diminished CARDIAC: RRR ABDOMEN: Soft, obese, BS active EXTREMITIES: No clubbing, cyanosis, or edema. SKIN: Normal; no rash; no jaundice. 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 CT abd no contrast no acute abd findings and pancreas WNL triglycerides elevated 492 no statin d/t LFT elevation. lipase mild decrease today - ?ileus - TF held d/t high residuals. KUB 04/29 nonspecific gas pattern, no significant bowel dilatation. today abd soft, BS+, + liquid stool tolerating trickle feeds @ 20ml/h with some residual - elevated LFTs - unclear etiology. does not appear to be obstructive pattern. US liver unremarkable. no hx heavy drinking reported. hepatitis panel neg LFTs mild decrease today - bilat PNA, ARDS, acute renal failure - per CCM, nephrology following PLAN - consider CT with contrast - continue trickle feed 20ml/hr - IVF - await rest liver w/u - monitor lipase pt seen by myself and Dr Hunter and this note is written on his behalf (Teresita Avila) Physician Comments Seen and examined with CERTIFIED FIRST ASSISTANT, CT with contrast tomorrow. Continue hydration for pancreatitis. Monitor labs. TF as tolerated. (Sindy Hunter MD) Teresita Avila Apr 30, 2017 13:47 Sindy Hunter MD Apr 30, 2017 14:02
[2017-04-30] MEDS: ARTIFICIAL TEARS OPTH SOLN 15 ML BTL EACH EYE SCH ×2 (14:06→22:30)
[2017-04-30 14:26] LABS: SMOOTH MUSCLE TOTAL AUTOABS Negative (Negative)
[2017-04-30 16:30] LABS: ANA SCREEN NEG (NEG)
[2017-04-30] MEDS ORDERED: EPOPROSTENOL NEB SOLUTION 30 NG/KG/MIN 100 ML NEB SCH ×2 (17:00)
[2017-04-30] MEDS: AZITHROMYCIN INJ 500 MG in SODIUM CHLOR 0.9% 250 ML INJ 250 ML IV SCH (17:18)
[2017-04-30] MEDS: CHLORHEXIDINE 0.12% (ORAL KIT) 15 ML CUP MT SCH (20:00)
[2017-04-30] MEDS: FAMOTIDINE 20 MG TAB NG SCH (22:28)
[2017-04-30] MEDS: DOCUSATE SODIUM 100 MG/10 ML UDC OG-TUBE SCH (22:28)
[2017-04-30] MEDS: SENNOSIDES SYRUP 8.8 MG/5 ML CUP OG-TUBE SCH (22:35)
[2017-05-01] VITALS (22 sets, daily range): BP systolic 111–137; BP diastolic 63–84; PULSE 68–109; RESP 13–32; TEMP 97.8–97.9; O2SAT 91–100
[2017-05-01] MEDS ORDERED: EPOPROSTENOL NEB SOLUTION 20 NG/KG/MIN 100 ML NEB SCH ×2 (01:00)
[2017-05-01] MEDS: LINEZOLID 600 MG PREMIX 300 ML IV SCH ×2 (01:20→12:55)
[2017-05-01] MEDS: METOCLOPRAMIDE HCL 10 MG/2 ML VIAL IV PUSH SCH ×3 (01:21→17:25)
[2017-05-01] MEDS: AZTREONAM INJ 1,000 MG in SODIUM CHLORIDE 0.9% INJ 100 ML IV SCH ×3 (01:21→17:22)
[2017-05-01] MEDS: methylPREDNISolone SOD SUCC 40 MG/1 ML VIAL IV PUSH SCH ×3 (01:21→17:24)
[2017-05-01] MEDS: INSULIN NovoLIN REGULAR SUPPLEMENTAL SCALE SQ SCH ×6 (01:21→21:07)
[2017-05-01] MEDS: MIDAZOLAM 100 MG/100 ML INJ 100 ML IV PRN ×2 (02:07→23:04)
[2017-05-01] MEDS: CHLORHEXIDINE GLUCONATE 2 % 1 PACK (2 CLOTHS) TOP SCH (04:00)
[2017-05-01] MEDS: FREE WATER G-TUBE SCH ×6 (04:00→20:00)
[2017-05-01] MEDS: DEXMEDETOMIDINE INJ 200 MCG in SODIUM CHLORIDE 0.9% INJ 50 ML IV PRN ×5 (04:02→22:28)
[2017-05-01] MEDS: RESP: ALBUTEROL 2.5 MG/IPRATROPIUM 0.5 MG NEB (SCH) NEB ×6 (04:05→23:09)
[2017-05-01] MEDS: ARTIFICIAL TEARS OPTH SOLN 15 ML BTL EACH EYE SCH ×3 (05:28→21:06)
[2017-05-01 05:44] LABS: AUTOMATED NEUTROPHIL # 17.5 TH/MM3 (1.8-7.7); BASOPHIL % 0.1 % (0.0-2.0); EOSINOPHIL % 0.1 % (0.0-4.0); HEMATOCRIT 32.2 % (35.0-46.0); HEMOGLOBIN 10.4 GM/DL (11.6-15.3); LYMPH % 2.5 % (9.0-44.0); LYMPHOCYTE # 0.5 TH/MM3 (1.0-4.8); MEAN CELL VOLUME 93.2 FL (80.0-100.0); MEAN CORPUSCULAR HEMOGLOBIN 30.1 PG (27.0-34.0); MEAN CORPUSCULAR HGB CONC 32.3 % (32.0-36.0); MEAN PLATELET VOLUME 7.7 FL (7.0-11.0); MONO % 3.8 % (0.0-8.0); MONOCYTE # 0.7 TH/MM3 (0-0.9); NEUT % 93.5 % (16.0-70.0); PLATELET COUNT 298 TH/MM3 (150-450); RED BLOOD COUNT 3.46 MIL/MM3 (4.00-5.30); RED CELL DISTRIBUTION WIDTH 17.1 % (11.6-17.2); WHITE BLOOD COUNT 18.7 TH/MM3 (4.0-11.0)
[2017-05-01 05:57] LABS: INTERNATIONAL NORMALIZED RATIO 1.1 RATIO; PROTHROMBIN TIME - PATIENT 10.7 SEC (9.8-11.6)
[2017-05-01 06:23] LABS: ALBUMIN 2.3 GM/DL (3.4-5.0); ALT (GPT) 40 U/L (10-53); AST (GOT) 31 U/L (15-37); BICARBONATE 32.3 MEQ/L (21.0-32.0); BLOOD UREA NITROGEN 62 MG/DL (7-18); CALCIUM 8.2 MG/DL (8.5-10.1); CHLORIDE 112 MEQ/L (98-107); CREATININE 1.05 MG/DL (0.50-1.00); GLOMERULAR FILTRATION RATE 67 ML/MIN (>89); GLUCOSE,RANDOM 159 MG/DL (74-106); MAGNESIUM 2.5 MG/DL (1.5-2.5); SODIUM (NA) 150 MEQ/L (136-145)
[2017-05-01 06:24] LABS: PHOSPHORUS 2.5 MG/DL (2.5-4.9)
[2017-05-01 06:26] LABS: ALKALINE PHOSPHATASE 112 U/L (45-117); RANDOM VANCOMYCIN 20.1 COMMENT; TOTAL BILIRUBIN ADULT 0.5 MG/DL (0.2-1.0)
[2017-05-01 06:31] LABS: AMYLASE 402 U/L (25-115)
[2017-05-01 07:00] LABS: BANDS 8 % (0-6); CORRECTED NUCLEATED RBC 1 /100 WBC (0-0); LYMPHOCYTES 1 % (9-44); METAMYELOCYTES 3 % (0-1); MONOCYTES 3 % (0-8); MYELOCYTES 1 % (0-0); NEUTROPHIL # MANUAL DIFF 17.8 TH/MM3 (1.8-7.7); NUCLEATED RED BLOOD CELL 1 (0-0); POLYS (SEG NEUTROPHILS) 83 % (16-70)
[2017-05-01] MEDS: CHLORHEXIDINE 0.12% (ORAL KIT) 15 ML CUP MT SCH ×2 (07:05→20:00)
[2017-05-01 07:07] LABS: SPHEROCYTES OCC (NORMAL)
[2017-05-01] MEDS: SODIUM CHLORIDE 0.9% FLUSH 10 ML FLUSH IV FLUSH SCH ×2 (07:38→21:05)
[2017-05-01] MEDS: FUROSEMIDE 40 MG/4 ML VIAL IV PUSH SCH (07:38)
[2017-05-01] MEDS: DOCUSATE SODIUM 100 MG/10 ML UDC OG-TUBE SCH ×2 (07:41→21:05)
[2017-05-01] MEDS: SENNOSIDES SYRUP 8.8 MG/5 ML CUP OG-TUBE SCH ×2 (07:41→21:05)
[2017-05-01] MEDS: FAMOTIDINE 20 MG TAB NG SCH ×2 (07:41→21:05)
[2017-05-01] MEDS: HEPARIN SODIUM - SQ 10,000 UNITS/ML VIAL SQ SCH ×2 (07:42→21:05)
[2017-05-01] MEDS ORDERED: EPOPROSTENOL NEB SOLUTION 10 NG/KG/MIN 100 ML NEB SCH ×2 (09:00)
--- NOTE | 2017-05-01 11:37 | HHI.GIFU ---
Subjective Remarks Pt in bed, sedated on vent. + liquid stool bag. TF running 20ml/hr. (Teresita Avila) Objective Vitals I&O Vital Signs Date Time Temp Pulse Resp B/P (MAP) Pulse Ox O2 Delivery O2 Flow Rate FiO2 05/01/17 10:00 92 05/01/17 08:23 96 40 05/01/17 08:00 97.8 86 24 137/77 (97) 93 05/01/17 08:00 40 05/01/17 08:00 86 05/01/17 06:00 84 05/01/17 04:06 93 40 05/01/17 04:00 97.9 109 24 136/82 (100) 94 05/01/17 04:00 40 05/01/17 04:00 109 05/01/17 02:00 93 05/01/17 00:00 40 05/01/17 00:00 97.9 79 25 117/63 (81) 96 05/01/17 00:00 79 04/30/17 23:56 97 40 04/30/17 22:00 61 04/30/17 20:53 99 40 04/30/17 20:00 40 04/30/17 20:00 61 04/30/17 20:00 98.4 61 24 105/64 (78) 97 04/30/17 18:00 71 04/30/17 16:00 40 04/30/17 16:00 64 04/30/17 16:00 97.5 64 24 116/72 (87) 96 04/30/17 15:32 98 40 04/30/17 15:00 70 24 119/72 (88) 97 04/30/17 14:00 67 04/30/17 14:00 67 24 117/69 (85) 97 04/30/17 13:00 70 24 112/67 (82) 97 04/30/17 12:00 78 04/30/17 12:00 78 24 163/108 (126) 99 04/30/17 12:00 40 04/30/17 11:34 95 40 I/O 04/30/17 04/30/17 04/30/17 05/01/17 05/01/17 05/01/17 07:00 15:00 23:00 07:00 15:00 23:00 Intake Total 856 ml 1275 ml 2026 ml 1778 ml 190 ml Output Total 1500 ml 2575 ml 1000 ml Balance -644 ml 1275 ml -549 ml 778 ml 190 ml IV Total 1275 ml 540 ml 738 ml 190 ml Tube Feeding 256 ml 187 ml 240 ml Tube Irrigant 300 ml 800 ml Other 600 ml 999 ml Output Urine Total 1350 ml 1875 ml 900 ml Stool Total 150 ml 600 ml 100 ml Gastric Drainage Total 100 ml Laboratory Laboratory Tests Test 04/30/17 16:30 05/01/17 05:23 05/01/17 05:24 Blood Gas Puncture Site RT RADIAL Blood Gas Patient Temperature 98.6 Blood Gas HCO3 32 Blood Gas Base Excess 7.7 Blood Gas Oxygen Saturation 89 Arterial Blood pH 7.46 Arterial Blood Partial Pressure CO2 45 Arterial Blood Partial Pressure O2 58 Arterial Blood Oxygen Content 12.9 Arterial Blood Carboxyhemoglobin 1.2 Arterial Blood Methemoglobin 1.4 Blood Gas Hemoglobin 10.3 Oxygen Delivery Device C Blood Gas Ventilator Setting Blood Gas Inspired Oxygen 40 White Blood Count 18.7 Red Blood Count 3.46 Hemoglobin 10.4 Hematocrit 32.2 Mean Corpuscular Volume 93.2 Mean Corpuscular Hemoglobin 30.1 Mean Corpuscular Hemoglobin Concent 32.3 Red Cell Distribution Width 17.1 Platelet Count 298 Mean Platelet Volume 7.7 Neutrophils (%) (Auto) 93.5 Lymphocytes (%) (Auto) 2.5 Monocytes (%) (Auto) 3.8 Eosinophils (%) (Auto) 0.1 Basophils (%) (Auto) 0.1 Neutrophils # (Auto) 17.5 Lymphocytes # (Auto) 0.5 Monocytes # (Auto) 0.7 Eosinophils # (Auto) 0.0 Basophils # (Auto) 0.0 CBC Comment AUTO DIFF Differential Total Cells Counted 100 Neutrophils % (Manual) 83 Band Neutrophils % 8 Lymphocytes % 1 Monocytes % 3 Eosinophils % 1 Neutrophils # (Manual) 17.8 Metamyelocytes 3 Myelocytes 1 Nucleated Red Blood Cells 1 Differential Comment FINAL DIFF MANUAL Platelet Estimate NORMAL Platelet Morphology Comment NORMAL Spherocytes OCC Blood Urea Nitrogen 62 Creatinine 1.05 Random Glucose 159 Total Protein 6.0 Albumin 2.3 Calcium Level 8.2 Phosphorus Level 2.5 Magnesium Level 2.5 Alkaline Phosphatase 112 Aspartate Amino Transf (AST/SGOT) 31 Alanine Aminotransferase (ALT/SGPT) 40 Total Bilirubin 0.5 Sodium Level 150 Potassium Level 3.6 Chloride Level 112 Carbon Dioxide Level 32.3 Anion Gap 6 Estimat Glomerular Filtration Rate 67 Ammonia 16 Amylase Level 402 Lipase 2497 Random Vancomycin Level 20.1 Prothrombin Time 10.7 Prothromb Time International Ratio 1.1 Activated Partial Thromboplast Time 22.3 Date/Time Source Procedure Growth Status 04/29/17 18:49 Blood Peripheral Aerobic Blood Culture - Preliminary NO GROWTH IN 2 DAYS Resulted 04/29/17 18:49 Blood Peripheral Anaerobic Blood Culture - Preliminary NO GROWTH IN 2 DAYS Resulted 04/28/17 10:45 Sputum Endotracheal Gram Stain - Final Complete 04/28/17 10:45 Sputum Endotracheal Sputum Culture - Final NO GROWTH IN 48 HOURS. Complete 04/24/17 16:25 Urine Random Urine Legionella Antigen - Final PRESUMPTIVE NEGATIVE FOR LEGIONELLA P... Complete 04/24/17 16:25 Urine Random Urine Streptococcus pneumoniae Antigen (M - Final PRESUMPTIVE NEGATIVE FOR STREPTOCOCCU... Complete Imaging Last Impressions Chest X-Ray 04/30/17 0000 Signed Impressions: Service Date/Time: Sunday, April 30, 2017 03:25 - CONCLUSION: 1. Persistent central airspace infiltrates with increasing consolidation of left lung base. Nakul Bailon MD Abdomen X-Ray 04/29/17 0000 Signed Impressions: Service Date/Time: Saturday, April 29, 2017 11:58 - CONCLUSION: Nonspecific bowel gas pattern with no significant dilatation of the large or small bowel. Tin Moon MD Liver Ultrasound 04/26/17 0000 Signed Impressions: Service Date/Time: Wednesday, April 26, 2017 16:44 - CONCLUSION: Echogenic right kidney which can be seen with medical renal disease, otherwise unremarkable right upper quadrant sonogram. Roque Gutiérrez MD Chest CT 04/24/17 1327 Signed Impressions: Service Date/Time: April 13:46 - CONCLUSION: Patchy groundglass infiltrates throughout all lobes of the lungs. It is most prominent in the perihilar distribution but also more peripheral areas. I did not see a mass amenable to biopsy with CT guidance. Jay Weaver MD Abdomen/Pelvis CT 04/24/17 1327 Signed Impressions: Service Date/Time: April 13:46 - CONCLUSION: Patchy infiltrates in the lung bases. No concerning adenopathy or mass. Abdomen and pelvis are unremarkable. Small amount of free fluid in the pelvis within normal limits for age. The appendix is normal. Jay Weaver MD Physical Exam HEENT: PERRL; normocephalic; atraumatic; no jaundice. CHEST: diminished CARDIAC: RRR ABDOMEN: Soft, obese, BS + EXTREMITIES: No clubbing, cyanosis, or edema. SKIN: Normal; no rash; no jaundice. 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 CT abd no contrast no acute abd findings and pancreas WNL triglycerides elevated 492 no statin d/t LFT elevation. lipase trending down - ?ileus - TF held d/t high residuals. KUB 04/29 nonspecific gas pattern, no significant bowel dilatation. BS+, + liquid stool tolerating trickle feeds - elevated LFTs - unclear etiology. does not appear to be obstructive pattern. US liver unremarkable. no hx heavy drinking reported. hepatitis panel neg live rw/u so far negative. AMA and ceruloplasmin still pending. LFTs trending down - bilat PNA, ARDS, acute renal failure - per CCM, nephrology following PLAN - CT with contrast - continue trickle feed 20ml/hr - IVF - await rest liver w/u - monitor labs pt seen by myself and Dr Jarrett and this note is written on his behalf (Teresita Avila) Plan Patient was seen and examined, agree with above, await CT results, further laps for liver workup still pending (Franko Jarrett MD) Teresita Avila May 01, 2017 11:37 Franko Jarrett MD May 01, 2017 18:18
--- NOTE | 2017-05-01 12:18 | HHI.IDPN ---
Note Infectious Disease Note Patient is sedated. Not awakening to voice. On vent 40% FIO2. Afebrile. WBC elevated. Sputum culture - no growth. Blood culture no growth. Presented to [facility] emergency department on 04/07/2017 with cold and flu-like symptoms including cough, vomiting and diarrhea. PAST MEDICAL HISTORY 1. Irritable bowel syndrome. 2. Iron-deficiency anemia. 3. History of . ALLERGIES AMOXICILLIN. MEDICATIONS 1. Zyvox 2. Aztreonam. 3. Azithromycin. OBJECTIVE: Vital Signs Date Time Temp Pulse Resp B/P (MAP) Pulse Ox O2 Delivery O2 Flow Rate FiO2 05/01/17 11:34 98 40 05/01/17 10:00 92 05/01/17 08:23 96 40 05/01/17 08:00 97.8 86 24 137/77 (97) 93 05/01/17 08:00 40 05/01/17 08:00 86 05/01/17 06:00 84 05/01/17 04:06 93 40 05/01/17 04:00 97.9 109 24 136/82 (100) 94 05/01/17 04:00 40 05/01/17 04:00 109 05/01/17 02:00 93 05/01/17 00:00 40 05/01/17 00:00 97.9 79 25 117/63 (81) 96 05/01/17 00:00 79 04/30/17 23:56 97 40 04/30/17 22:00 61 04/30/17 20:53 99 40 04/30/17 20:00 40 04/30/17 20:00 61 04/30/17 20:00 98.4 61 24 105/64 (78) 97 04/30/17 18:00 71 04/30/17 16:00 40 04/30/17 16:00 64 04/30/17 16:00 97.5 64 24 116/72 (87) 96 04/30/17 15:32 98 40 04/30/17 15:00 70 24 119/72 (88) 97 04/30/17 14:00 67 04/30/17 14:00 67 24 117/69 (85) 97 04/30/17 13:00 70 24 112/67 (82) 97 Laboratory Tests Test 04/29/17 14:50 04/30/17 05:45 1/25/18 05:23 Hemoglobin 10.9 GM/DL 10.3 GM/DL 10.4 GM/DL Hematocrit 33.6 % 31.9 % 32.2 % White Blood Count 17.5 TH/MM3 18.7 TH/MM3 Red Blood Count 3.41 MIL/MM3 3.46 MIL/MM3 Mean Corpuscular Volume 93.6 FL 93.2 FL Mean Corpuscular Hemoglobin 30.1 PG 30.1 PG Mean Corpuscular Hemoglobin Concent 32.1 % 32.3 % Red Cell Distribution Width 17.2 % 17.1 % Platelet Count 267 TH/MM3 298 TH/MM3 Mean Platelet Volume 7.4 FL 7.7 FL Neutrophils (%) (Auto) 91.0 % 93.5 % Lymphocytes (%) (Auto) 4.2 % 2.5 % Monocytes (%) (Auto) 4.7 % 3.8 % Eosinophils (%) (Auto) 0.0 % 0.1 % Basophils (%) (Auto) 0.1 % 0.1 % Neutrophils # (Auto) 15.9 TH/MM3 17.5 TH/MM3 Lymphocytes # (Auto) 0.7 TH/MM3 0.5 TH/MM3 Monocytes # (Auto) 0.8 TH/MM3 0.7 TH/MM3 Eosinophils # (Auto) 0.0 TH/MM3 0.0 TH/MM3 Basophils # (Auto) 0.0 TH/MM3 0.0 TH/MM3 CBC Comment AUTO DIFF AUTO DIFF Differential Total Cells Counted 100 100 Neutrophils % (Manual) 79 % 83 % Band Neutrophils % 8 % 8 % Lymphocytes % 1 % 1 % Monocytes % 6 % 3 % Neutrophils # (Manual) 16.3 TH/MM3 17.8 TH/MM3 Metamyelocytes 3 % 3 % Myelocytes 3 % 1 % Differential Comment FINAL DIFF MANUAL FINAL DIFF MANUAL Platelet Estimate NORMAL NORMAL Platelet Morphology Comment NORMAL NORMAL Red Cell Morphology Comment NORMAL Eosinophils % 1 % Nucleated Red Blood Cells 1 /100 WBC Spherocytes OCC Laboratory Tests Test 04/30/17 05:45 05/01/17 05:23 Blood Urea Nitrogen 70 MG/DL 62 MG/DL Creatinine 1.47 MG/DL 1.05 MG/DL Random Glucose 168 MG/DL 159 MG/DL Total Protein 6.1 GM/DL 6.0 GM/DL Albumin 2.2 GM/DL 2.3 GM/DL Calcium Level 7.9 MG/DL 8.2 MG/DL Alkaline Phosphatase 120 U/L 112 U/L Aspartate Amino Transf (AST/SGOT) 55 U/L 31 U/L Alanine Aminotransferase (ALT/SGPT) 48 U/L 40 U/L Total Bilirubin 0.4 MG/DL 0.5 MG/DL Sodium Level 157 MEQ/L 150 MEQ/L Potassium Level 3.5 MEQ/L 3.6 MEQ/L Chloride Level 119 MEQ/L 112 MEQ/L Carbon Dioxide Level 32.3 MEQ/L 32.3 MEQ/L Anion Gap 6 MEQ/L 6 MEQ/L Estimat Glomerular Filtration Rate 45 ML/MIN 67 ML/MIN Lipase 3976 U/L 2497 U/L Phosphorus Level 2.5 MG/DL Magnesium Level 2.5 MG/DL Ammonia 16 MCMOL/L Amylase Level 402 U/L Microbiology Date/Time Source Procedure Growth Status 04/29/17 18:49 Blood Peripheral Aerobic Blood Culture - Preliminary NO GROWTH IN 2 DAYS Resulted 04/29/17 18:49 Blood Peripheral Anaerobic Blood Culture - Preliminary NO GROWTH IN 2 DAYS Resulted 04/29/17 13:00 Blood Peripheral Aerobic Blood Culture - Preliminary NO GROWTH IN 2 DAYS Resulted 04/29/17 13:00 Blood Peripheral Anaerobic Blood Culture - Preliminary NO GROWTH IN 2 DAYS Resulted IMAGING: Chest X-Ray 04/30/17 0000 Signed Impressions: Service Date/Time: Sunday, April 30, 2017 03:25 - CONCLUSION: 1. Persistent central airspace infiltrates with increasing consolidation of left lung base. Nakul Bailon MD Chest X-Ray 04/29/17 0000 Signed Impressions: Service Date/Time: Saturday, April 29, 2017 11:30 - CONCLUSION: No significant interval change. Tin Moon MD Abdomen X-Ray 04/29/17 0000 Signed Impressions: Service Date/Time: Saturday, April 29, 2017 11:58 - CONCLUSION: Nonspecific bowel gas pattern with no significant dilatation of the large or small bowel. Tin Moon MD Chest X-Ray 04/28/17 0000 Signed Impressions: Service Date/Time: Friday, April 28, 2017 07:27 - CONCLUSION: 1. The support equipment is in good position. 2. There are extensive bilateral pulmonary infiltrates similar to the prior exam. Exam would be consistent with a pneumonia. Huseyin Christiansen MD Liver Ultrasound 04/26/17 0000 Signed Impressions: Service Date/Time: Wednesday, April 26, 2017 16:44 - CONCLUSION: Echogenic right kidney which can be seen with medical renal disease, otherwise unremarkable right upper quadrant sonogram. Roque Gutiérrez MD Chest CT 04/24/17 1327 Signed Impressions: Service Date/Time: April 13:46 - CONCLUSION: Patchy groundglass infiltrates throughout all lobes of the lungs. It is most prominent in the perihilar distribution but also more peripheral areas. I did not see a mass amenable to biopsy with CT guidance. Jay Weaver MD Abdomen/Pelvis CT 04/24/17 1327 Signed Impressions: Service Date/Time: April 13:46 - CONCLUSION: Patchy infiltrates in the lung bases. No concerning adenopathy or mass. Abdomen and pelvis are unremarkable. Small amount of free fluid in the pelvis within normal limits for age. The appendix is normal. Jay Weaver MD PHYSICAL EXAMINATION GENERAL: On the ventilator. No distress. HEENT: No icterus. moist mucosa. LUNGS: Coarse rhonchi bilateral. HEART: Regular, S1 and S2 without audible murmurs. ABDOMEN: Soft, Decreased bowel sounds. Rectal bag has loose stools. EXTREMITIES: No CC, Trace edema. SKIN: No rash. NEURO: Unable to assess. PSYCH: Unable to assess. IMPRESSION 1. Pneumonia. Negative culture. 2. Acute respiratory failure. 3. ARDS. 4. Acute renal failure. 5. Leukocytosis. RECOMMENDATIONS 1. Continue Zyvox. 2. Continue aztreonam. 3. Continue azithromycin. 4. Follow Temp and clinical status. Rikki Walker MD May 01, 2017 12:18
[2017-05-01] MEDS: fentaNYL DRIP 250 ML IV PRN (12:55)
[2017-05-01] MEDS ORDERED: DIATRIZOATE MEGLUM/DIATRIZOATE SOD 9 ML CUP PO ONE (13:00)
--- NOTE | 2017-05-01 14:46 | HHI.NPPN ---
Subjective History of Present Illness 51 year-old female with past medical history of chronic anemia and irritable bowel syndrome was admitted yesterday because of nausea, vomiting or diarrhea and fever. I was called to see the patient because of elevated creatinine, her creatinine on presentation was 4.2. Additional Remarks Patient is sedated on ventilator (Kiarra Lazo) Additional Remarks Clinically same. (Fariha Serrano MD) Review of Systems General General Remarks Intubated and sedated. (Kiarra Lazo) Objective Data Data 05/01/17 05/02/17 19:00 07:00 Intake Total 190 ml Balance 190 ml IV Total 190 ml Vital Signs Date Time Temp Pulse Resp B/P (MAP) Pulse Ox O2 Delivery O2 Flow Rate FiO2 05/01/17 14:00 72 15 125/72 (89) 96 05/01/17 14:00 72 05/01/17 13:00 79 13 119/70 (86) 98 05/01/17 12:00 75 17 111/67 (82) 96 05/01/17 12:00 75 05/01/17 12:00 40 05/01/17 11:34 98 40 05/01/17 11:00 91 32 131/84 (100) 97 05/01/17 10:00 92 05/01/17 10:00 92 21 137/83 (101) 96 05/01/17 09:00 87 14 133/84 (100) 96 05/01/17 08:23 96 40 05/01/17 08:00 97.8 86 24 137/77 (97) 93 05/01/17 08:00 40 05/01/17 08:00 86 05/01/17 06:00 84 05/01/17 04:06 93 40 05/01/17 04:00 97.9 109 24 136/82 (100) 94 05/01/17 04:00 40 05/01/17 04:00 109 05/01/17 02:00 93 05/01/17 00:00 40 05/01/17 00:00 97.9 79 25 117/63 (81) 96 05/01/17 00:00 79 04/30/17 23:56 97 40 04/30/17 22:00 61 04/30/17 20:53 99 40 04/30/17 20:00 40 04/30/17 20:00 61 04/30/17 20:00 98.4 61 24 105/64 (78) 97 04/30/17 18:00 71 04/30/17 16:00 40 04/30/17 16:00 64 04/30/17 16:00 97.5 64 24 116/72 (87) 96 04/30/17 15:32 98 40 04/30/17 15:00 70 24 119/72 (88) 97 (Kiarra Lazo) -: 05/01/17 0523 05/01/17 0523 Imaging Last Impressions Chest X-Ray 04/30/17 0000 Signed Impressions: Service Date/Time: Sunday, April 30, 2017 03:25 - CONCLUSION: 1. Persistent central airspace infiltrates with increasing consolidation of left lung base. Nakul Bailon MD Abdomen X-Ray 04/29/17 0000 Signed Impressions: Service Date/Time: Saturday, April 29, 2017 11:58 - CONCLUSION: Nonspecific bowel gas pattern with no significant dilatation of the large or small bowel. Tin Moon MD Liver Ultrasound 04/26/17 0000 Signed Impressions: Service Date/Time: Wednesday, April 26, 2017 16:44 - CONCLUSION: Echogenic right kidney which can be seen with medical renal disease, otherwise unremarkable right upper quadrant sonogram. Roque Gutiérrez MD Chest CT 04/24/17 1327 Signed Impressions: Service Date/Time: April 13:46 - CONCLUSION: Patchy groundglass infiltrates throughout all lobes of the lungs. It is most prominent in the perihilar distribution but also more peripheral areas. I did not see a mass amenable to biopsy with CT guidance. Jay Weaver MD Abdomen/Pelvis CT 04/24/17 1327 Signed Impressions: Service Date/Time: April 13:46 - CONCLUSION: Patchy infiltrates in the lung bases. No concerning adenopathy or mass. Abdomen and pelvis are unremarkable. Small amount of free fluid in the pelvis within normal limits for age. The appendix is normal. Jay Weaver MD (Kiarra Lazo) Physical Exam General Appearance: Obese (Kiarra Lazo) Eyes Eye Exam: Pupils Equal (Kiarra LazoP) Neck Neck Exam: Neck Supple (Kiarra Lazo) Pulmonary Resp Exam: Rhonchi, Decreased Bases, Diminished Breath Sounds (Kiarra LazoP) Cardiology CV Exam: Regular (Kiarra LazoP) Gastrointestinal/Abdomen GI Exam: Soft, Non-Tender, Distended (Kiarra Lazo) Extremeties Extremities Exam: Trace Edema (Kiarra Lazo) Neurologic Neuro Exam: Sedated (Kiarra aLzo) Assessment/Plan Assessment Summary: FORTINO/Acute Renal Failure Electrolyte Assessment: Hypocalcemia Problem List: (1) Acute renal failure ICD Codes: N17.9 - Acute kidney failure, unspecified Plan: Patient has Acute kidney injury. Most likely has ATN due to hypotension. BP is now better. Urine out put is good Continue antibiotic, avoid Nephrotoxins. Weaning as per CCM. Urine Eosinophils negative and Na. was not low. K is normal now Sodium improved at 150 On free water via GT 300 ml every 4 hours. Now off rotator bed, so will have better absorption. Continue Lasix , on 40 mg IV daily. Creatinine continue to improve, now 1.[address] of abodmen with IV contrast for ?ileus will monitor for RADHA (2) Hypokalemia ICD Codes: E87.6 - Hypokalemia Plan: Resolved Potassium level at 3.6 (Kiarra Lazo) Problem List: (1) Acute renal failure ICD Codes: N17.9 - Acute kidney failure, unspecified Plan: Patient has Acute kidney injury. Most likely has ATN due to hypotension. BP is now better. Urine out put is good Continue antibiotic, avoid Nephrotoxins. Weaning as per CCM. Urine Eosinophils negative and Na. was not low. K is normal now Sodium improved at 150, Creatinine also improving. On free water via GT 300 ml every 4 hours. Now off rotator bed, so will have better absorption. Continue Lasix , on 40 mg IV daily. Creatinine continue to improve, now 1.[address] of abodmen with IV contrast for ?ileus will monitor for RADHA (2) Hypokalemia ICD Codes: E87.6 - Hypokalemia Plan: Resolved Potassium level at 3.6 (Fariha Serrano MD) Kiarra Lazo May 01, 2017 14:45 Fariha Serrano MD May 01, 2017 16:12
[2017-05-01] MEDS: LABETALOL HCL 100 MG/20 ML VIAL IV PUSH PRN (16:37)
[2017-05-01] MEDS: AZITHROMYCIN INJ 500 MG in SODIUM CHLOR 0.9% 250 ML INJ 250 ML IV SCH (17:28)
--- NOTE | 2017-05-01 17:41 | HHI.CCPN ---
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 She states that she is had multiple symptoms to include nausea, vomiting, diarrhea, cough, congestion, sore throat. Patient states that her symptoms have improved progressively getting worse over the last 2 days. Because she did not improve her family brought her to the emergency department for evaluation. Because of her family's concern is could have saved the patient's life. Patient with severe multisystem organ failure with respiratory failure, renal failure, severe metabolic acidosis with anion gap. Patient indicates that she has had nausea, vomiting and diarrhea and only minimally keep minimal liquids down. She has had cough, congestion. CT scans and chest x-rays show significant infiltrates bilaterally with respiratory failure. Patient with adult respiratory distress syndrome. Without intubation patient will unlikely survive. This was discussed with the family and patient at bedside prior to intubation. They are in agreement with pursuing heroic measures and intubation for medical management. Patient was intubated by ER physician successfully. Patient will be transferred to [facility] for critical care management. 04/25 Patient is sedated with Diprivan, Fentanyl drips and intubated. Afebrile. 04/26 Patient is intubated, sedated with Diprivan, Fentanyl drip in addition she is on Nimbex. She was proned yesterday her O2 requirements is better overall now on PEEP;12 and FIO2 65% 04/27 No events overnight. Intubated and sedation in addition she is on Nimbex. Afebrile. On Flolan 04/28 Patient remains sedated and intubated . On PRVC with PEEP:12, FIO2: 50%. Renal function is improving with Cr: 2.50 from 2.75. Had low grade fever with T: 100.6 last night. 04/29 Patient remains on prone bed intubated, sedated in addition she is on neuromuscular blockade ( Nimbex). Afebrile. Renal function is better with Cr: 1.93 from 2.5 and O2 requirements is better. TF held for high residuals. Spiked fever with 04/30: Tmax 102.7. Currently afebrile. Blood cultures 2 obtained yesterday. Tube feeds restarted currently at 20 cc an hour with Glucerna 1.5. Positive BM. Sodium increased. Subjective 05/01: Currently afebrile. Sodium is improved currently 150. Tolerating tube feeds at goal 20 cc per GI. Plan for CT abdomen today due to elevated lipase Objective Vital Signs Date Time Temp Pulse Resp B/P (MAP) Pulse Ox O2 Delivery O2 Flow Rate FiO2 05/01/17 14:00 72 15 125/72 (89) 96 05/01/17 12:00 40 05/01/17 08:00 97.8 Intake and Output 05/01/17 05/01/17 05/01/17 07:59 15:59 23:59 Intake Total 1778 ml 190 ml Output Total 1000 ml Balance 778 ml 190 ml Result Diagram: 05/01/17 0523 05/01/17 0523 Other Results Microbiology Date/Time Source Procedure Growth Status 04/29/17 18:49 Blood Peripheral Aerobic Blood Culture - Preliminary NO GROWTH IN 2 DAYS Resulted 04/29/17 18:49 Blood Peripheral Anaerobic Blood Culture - Preliminary NO GROWTH IN 2 DAYS Resulted 04/28/17 10:45 Sputum Endotracheal Gram Stain - Final Complete 04/28/17 10:45 Sputum Endotracheal Sputum Culture - Final NO GROWTH IN 48 HOURS. Complete 04/24/17 16:25 Urine Random Urine Legionella Antigen - Final PRESUMPTIVE NEGATIVE FOR LEGIONELLA P... Complete 04/24/17 16:25 Urine Random Urine Streptococcus pneumoniae Antigen (M - Final PRESUMPTIVE NEGATIVE FOR STREPTOCOCCU... Complete Imaging Last Impressions Chest X-Ray 04/30/17 0000 Signed Impressions: Service Date/Time: Sunday, April 30, 2017 03:25 - CONCLUSION: 1. Persistent central airspace infiltrates with increasing consolidation of left lung base. Nakul Bailon MD Abdomen X-Ray 04/29/17 0000 Signed Impressions: Service Date/Time: Saturday, April 29, 2017 11:58 - CONCLUSION: Nonspecific bowel gas pattern with no significant dilatation of the large or small bowel. Tin Moon MD Liver Ultrasound 04/26/17 0000 Signed Impressions: Service Date/Time: Wednesday, April 26, 2017 16:44 - CONCLUSION: Echogenic right kidney which can be seen with medical renal disease, otherwise unremarkable right upper quadrant sonogram. Roque Gutiérrez MD Chest CT 04/24/17 1327 Signed Impressions: Service Date/Time: April 13:46 - CONCLUSION: Patchy groundglass infiltrates throughout all lobes of the lungs. It is most prominent in the perihilar distribution but also more peripheral areas. I did not see a mass amenable to biopsy with CT guidance. Jay Weaver MD Abdomen/Pelvis CT 04/24/17 1327 Signed Impressions: Service Date/Time: April 13:46 - CONCLUSION: Patchy infiltrates in the lung bases. No concerning adenopathy or mass. Abdomen and pelvis are unremarkable. Small amount of free fluid in the pelvis within normal limits for age. The appendix is normal. Jay Weaver MD Objective Remarks GENERAL:51-year-old AA female currently orotracheally intubated SKIN: Warm and dry. Unable to evaluate backside. Positive facial skin breakdown from rotoprone bed HEAD: Normocephalic. EYES: No scleral icterus. No injection or drainage. NECK: Supple, trachea midline. No JVD or lymphadenopathy. CARDIOVASCULAR: RRR. S1, [id number] murmurs RESPIRATORY: Diffuse fine crackles appreciated anteriorly. No wheezing GASTROINTESTINAL: Abdomen soft, non-tender, nondistended. Hypoactive bowel sounds appreciated MUSCULOSKELETAL: Trace below the knee pitting edema identified Neuro: Cranial nerves II through XII appear grossly intact. Moving all 4 extremities spontaneously to noxious stimulus. Currently not following commands Date of Insertion: Apr 25, 2017 Line: Central Venous Catheter Side: Right Location: Internal, Jugular A/P Assessment and Plan NEUROLOGY History depression On currently on as a midazolam drip and fentanyl infusion at 150 g an hour for sedation while intubated goal of RA SS -2 Daily sedation vacation when appropriate Discontinue propofol with elevated triglycerides. Acetaminophen 650 mg by tube every 6 hours when necessary fever Holding sertraline 100 mg daily/home medication while on linezolid PULMONOLOGY Acute hypoxic respiratory failure Adult respiratory distress syndrome Bilateral pneumonia Daily tobacco use Continue with vent support and keep sat >92% On PRVC RR 24, TV 450, IT:1.25, PEEP:8, FIO2: 40% Albuterol/ipratropium aerosols every 4 hours with albuterol aerosols every 2 hours. Dyspnea Decrease methylprednisolone succinate 40mg IV Q8, Start weaning epoprostenol 10,000ng/ml at rate every 8 hours 10,000 ng until discontinued Tobacco cessation will be encouraged when appropriate CARDIOLOGY Hypertension Severe pulmonary hypertension Monitor HR and BP keep MAP>65mmHg Lactic acid 1.2. Echo showed EF 60-65% with no regional wall motion abnormality. Severe pulmonary arterial pressure 70 mmHg As needed hydralazine, labetalol and Nitropaste for hypertension GASTROENTEROLOGY Hypertriglyceridemia Elevated lipase level and AST Currently on Glucerna 1.5 goal 45 cc an hour. Currently at 20 cc an hour. Nutrition recommended Nepro [address] the abdomen does not indicate any acute abnormality within the abdomen US liver: Echogenic right kidney which can be seen with medical renal disease, otherwise unremarkable Docusate sodium 100 cc twice a day/senna 8.8 mg twice a day for bowel regimen On metoclopramide 5 mg every 8 hours for GI motility GI protection with famotidine 20 mg by tube twice daily Monitor Lipase level, GI is following, will need either MRCP or CT abdomen with contrast once her renal function is better. Not on a cholesterol-lowering agent/gemfibrozil due to elevated LFTs GENITOURINARY Acute renal failure- Improving - likely ATN from hypo-perfusion Hypernatremia Monitor renal function, I/O's, avoid nephrotoxins Currently on furosemide 40mg daily Change free water 300ml Q4, Sodium 157-150 Renal is following- Dr. Serrano Renal function is improving CT abdomen: No hydronephrosis and possible medical renal disease right kidney. INFECTIOUS DISEASE Bilateral pneumonia Diarrhea Patient was given vancomycin, ceftriaxone and azithromycin, Continue Azactam, linezolid and azithromycin. ID is following. Blood cultures04/24 and 04/29: NGTD Influenza screening, Legionella testing, pneumococcal Ag all negative Follow up on sputum cx 04/28 no growth to date ENDOCRINOLOGY Hyperglycemia Accu-Cheks with sliding scale insulin medium Novulog every 4 hours HEMATOLOGY Leukocytosis Normocytic anemia History of iron deficiency Continue monitor CBC MSK Elevated BMI Weight loss encouraged PROPHYLAXIS DVT prevention with SCD, Heparin SQ GI protection with famotidine LINES Peripheral IVs Right IJ CVP 04/25 - current, Art line placed 04/25 - 04/29 Critical Care: The total critical care time was 35 minutes. Time to perform other separately billable procedures was not included in the critical care time. Juan Hui MD May 01, 2017 17:41
[2017-05-01 17:51] LABS: CERULOPLASMIN 29 mg/dL (18-53)
[2017-05-02] VITALS (37 sets, daily range): BP systolic 128–170; BP diastolic 69–101; PULSE 55–94; RESP 15–37; TEMP 98–98.9; O2SAT 89–100
[2017-05-02] MEDS: LINEZOLID 600 MG PREMIX 300 ML IV SCH ×2 (00:16→13:00)
[2017-05-02] MEDS: AZTREONAM INJ 1,000 MG in SODIUM CHLORIDE 0.9% INJ 100 ML IV SCH ×3 (00:16→17:20)
[2017-05-02] MEDS: METOCLOPRAMIDE HCL 10 MG/2 ML VIAL IV PUSH SCH ×3 (01:28→17:20)
[2017-05-02] MEDS: methylPREDNISolone SOD SUCC 40 MG/1 ML VIAL IV PUSH SCH ×3 (01:28→17:20)
[2017-05-02] MEDS: INSULIN NovoLIN REGULAR SUPPLEMENTAL SCALE SQ SCH ×6 (01:28→22:00)
[2017-05-02] MEDS: DEXMEDETOMIDINE INJ 200 MCG in SODIUM CHLORIDE 0.9% INJ 50 ML IV PRN ×6 (01:55→20:27)
[2017-05-02] MEDS: RESP: ALBUTEROL 2.5 MG/IPRATROPIUM 0.5 MG NEB (SCH) NEB ×5 (02:50→20:19)
[2017-05-02] MEDS: CHLORHEXIDINE GLUCONATE 2 % 1 PACK (2 CLOTHS) TOP SCH (03:40)
[2017-05-02] MEDS: FREE WATER G-TUBE SCH ×5 (03:40→23:04)
[2017-05-02 03:50] LABS: MITOCHONDRIAL ABS LESS THAN 20.0 U (<=20.0)
[2017-05-02] MEDS ORDERED: IOHEXOL 350 MG/ML 10 ML VIAL (for RAD DIAG) IVCONTRAST ONE (05:07)
--- NOTE | 2017-05-02 05:26 | RADRPT ---
EXAM DATE/TIME: 05/02/2017 04:06 [facility] COMPARISON: CHEST SINGLE AP, April 30, 2017, 3:25. INDICATIONS : Evaluate for pneumonia MEDICAL HISTORY : None. SURGICAL HISTORY : None. ENCOUNTER: Subsequent ACUITY: 1 week PAIN SCORE: Non-responsive. LOCATION: Bilateral chest FINDINGS: ET tube, NG tube and right internal jugular central line are well placed. The heart size is within no rmal limits. There is diffuse mixed interstitial and alveolar consolidation being worse at the bases. CONCLUSION: Diffuse consolidation likely related to edema. Davey Lutz MD on May 02, 2017 at 5:23 Board Certified Radiologist. This report was verified electronically.
[2017-05-02 05:36] LABS: AUTOMATED NEUTROPHIL # 18.4 TH/MM3 (1.8-7.7); BASOPHIL % 0.1 % (0.0-2.0); EOSINOPHIL % 0.1 % (0.0-4.0); HEMATOCRIT 31.4 % (35.0-46.0); HEMOGLOBIN 10.1 GM/DL (11.6-15.3); LYMPH % 3.2 % (9.0-44.0); LYMPHOCYTE # 0.6 TH/MM3 (1.0-4.8); MEAN CELL VOLUME 93.2 FL (80.0-100.0); MEAN CORPUSCULAR HEMOGLOBIN 30.1 PG (27.0-34.0); MEAN CORPUSCULAR HGB CONC 32.3 % (32.0-36.0); MEAN PLATELET VOLUME 7.8 FL (7.0-11.0); MONO % 3.4 % (0.0-8.0); MONOCYTE # 0.7 TH/MM3 (0-0.9); NEUT % 93.2 % (16.0-70.0); PLATELET COUNT 298 TH/MM3 (150-450); RED BLOOD COUNT 3.37 MIL/MM3 (4.00-5.30); RED CELL DISTRIBUTION WIDTH 16.5 % (11.6-17.2); WHITE BLOOD COUNT 19.8 TH/MM3 (4.0-11.0)
[2017-05-02] MEDS: ARTIFICIAL TEARS OPTH SOLN 15 ML BTL EACH EYE SCH ×3 (05:54→20:26)
--- NOTE | 2017-05-02 05:54 | RADRPT ---
EXAM DATE/TIME: 05/02/2017 04:57 [facility] COMPARISON: CT ABDOMEN & PELVIS W/O CONTRAST, April 24, 2017, 13:46. INDICATIONS : Pain. Elevated lfts, pancreatitis. IV CONTRAST: 100 cc Omnipaque 350 (iohexol) IV ORAL CONTRAST: Prescribed oral contrast ingested. RADIATION DOSE: 13.48 CTDIvol (mGy) MEDICAL HISTORY : Pancreatitis. SURGICAL HISTORY : section. ENCOUNTER: Subsequent ACUITY: 1 week PAIN SCALE: Non-responsive LOCATION: abdomen TECHNIQUE: Volumetric scanning of the abdomen and pelvis was performed. Using automated exposure control and ad justment of the mA and/or kV according to patient size, radiation dose was kept as low as reasonably achievable to obtain optimal diagnostic quality images. DICOM format image data is available electro nically for review and comparison. FINDINGS: LOWER LUNGS: There is a dense consolidation seen at the lower lungs bilaterally. LIVER: The liver demonstrates decreased density throughout. No focal hepatic lesion is seen. SPLEEN: Normal size without lesion. PANCREAS: There is increased density seen around the pancreatic head and uncinate process and extending inferio rly along the root of the mesentery concerning for pancreatitis. No focal fluid collection is seen. T he pancreas itself appears intact. KIDNEYS: Left renal cysts are seen measuring up to 2 cm. No hydronephrosis is seen. There is some anterior and lateral right perinephric density likely related to the pancreatitis. ADRENAL GLANDS: Within normal limits. VASCULAR: There is no aortic aneurysm. BOWEL/MESENTERY: There is an NG tube in place with the tip in the stomach. There is a rectal tube present. The ascendi ng colon appear somewhat prominent measuring 7.8 cm in diameter. The remaining aspects of the bowel i s unremarkable. ABDOMINAL WALL: Within normal limits. RETROPERITONEUM: There is no lymphadenopathy. BLADDER: There is a De La Garza catheter in place. REPRODUCTIVE: There is some free fluid in the right pelvis. INGUINAL: There is no lymphadenopathy or hernia. MUSCULOSKELETAL: There is degenerative change of the lower lumbar spine. CONCLUSION: 1. Increased density around the pancreatic head enhancing region and extending into the mesentery and right perinephric region all likely related to pancreatitis. 2. Suspected mild hepatic steatosis. 3. Bilateral dense areas of consolidation at the lung bases Davey Lutz MD on May 02, 2017 at 5:46 Board Certified Radiologist. This report was verified electronically.
[2017-05-02 06:00] LABS: ALBUMIN 2.2 GM/DL (3.4-5.0); ALKALINE PHOSPHATASE 106 U/L (45-117); ALT (GPT) 35 U/L (10-53); AST (GOT) 31 U/L (15-37); BICARBONATE 33.6 MEQ/L (21.0-32.0); BLOOD UREA NITROGEN 48 MG/DL (7-18); CALCIUM 8.4 MG/DL (8.5-10.1); CHLORIDE 108 MEQ/L (98-107); CREATININE 0.95 MG/DL (0.50-1.00); GLOMERULAR FILTRATION RATE 75 ML/MIN (>89); GLUCOSE,RANDOM 115 MG/DL (74-106); MAGNESIUM 2.3 MG/DL (1.5-2.5); SODIUM (NA) 146 MEQ/L (136-145); TOTAL BILIRUBIN ADULT 0.6 MG/DL (0.2-1.0); TOTAL PROTEIN 6.1 GM/DL (6.4-8.2)
[2017-05-02 08:00] LABS: BANDS 7 % (0-6); LYMPHOCYTES 1 % (9-44); METAMYELOCYTES 3 % (0-1); MONOCYTES 1 % (0-8); NEUTROPHIL # MANUAL DIFF 19.4 TH/MM3 (1.8-7.7); POLYS (SEG NEUTROPHILS) 88 % (16-70)
[2017-05-02] MEDS: CHLORHEXIDINE 0.12% (ORAL KIT) 15 ML CUP MT SCH ×2 (08:00→20:29)
[2017-05-02] MEDS: DOCUSATE SODIUM 100 MG/10 ML UDC OG-TUBE SCH ×2 (08:21→20:34)
[2017-05-02] MEDS: FUROSEMIDE 40 MG/4 ML VIAL IV PUSH SCH (08:22)
[2017-05-02] MEDS: SENNOSIDES SYRUP 8.8 MG/5 ML CUP OG-TUBE SCH ×2 (08:22→20:34)
[2017-05-02] MEDS: FAMOTIDINE 20 MG TAB NG SCH ×2 (08:22→20:25)
[2017-05-02] MEDS: HEPARIN SODIUM - SQ 10,000 UNITS/ML VIAL SQ SCH ×2 (08:22→20:25)
[2017-05-02] MEDS: SODIUM CHLORIDE 0.9% FLUSH 10 ML FLUSH IV FLUSH SCH ×2 (08:24→20:25)
--- NOTE | 2017-05-02 10:08 | HHI.NPPN ---
Subjective History of Present Illness 51 year-old female with past medical history of chronic anemia and irritable bowel syndrome was admitted yesterday because of nausea, vomiting or diarrhea and fever. I was called to see the patient because of elevated creatinine, her creatinine on presentation was 4.2. Additional Remarks Clinically same. Sedated on ventilator (Kiarra Lazo) Review of Systems General General Remarks Intubated and sedated. (Kiarra Lazo) Objective Data Data Vital Signs Date Time Temp Pulse Resp B/P (MAP) Pulse Ox O2 Delivery O2 Flow Rate FiO2 05/02/17 09:30 77 20 143/101 (115) 90 05/02/17 09:30 77 05/02/17 09:15 40 05/02/17 09:11 96 40 05/02/17 09:00 79 24 158/98 (118) 90 05/02/17 09:00 79 05/02/17 08:30 64 05/02/17 08:30 64 20 144/94 (111) 91 05/02/17 08:00 74 05/02/17 08:00 98.0 74 20 152/86 (108) 91 05/02/17 07:30 76 05/02/17 07:30 76 30 155/93 (113) 92 05/02/17 07:00 55 20 139/85 (103) 91 05/02/17 07:00 55 05/02/17 06:00 71 05/02/17 04:43 100 100 05/02/17 04:04 95 40 05/02/17 04:00 62 05/02/17 04:00 40 05/02/17 04:00 98.1 62 19 133/74 (93) 93 05/02/17 02:00 63 05/02/17 00:12 98 40 05/02/17 00:00 40 05/02/17 00:00 98.2 83 20 128/69 (88) 91 05/02/17 00:00 83 05/01/17 22:00 68 05/01/17 20:16 100 40 05/01/17 20:00 73 05/01/17 20:00 97.9 73 23 129/78 (95) 91 05/01/17 20:00 40 05/01/17 18:00 80 05/01/17 17:35 94 40 05/01/17 17:00 68 20 116/70 (85) 93 05/01/17 16:00 69 05/01/17 16:00 97.8 69 20 123/72 (89) 96 05/01/17 16:00 40 05/01/17 15:00 71 16 122/72 (89) 96 05/01/17 14:00 72 15 125/72 (89) 96 05/01/17 14:00 72 05/01/17 13:00 79 13 119/70 (86) 98 05/01/17 12:00 75 17 111/67 (82) 96 05/01/17 12:00 75 05/01/17 12:00 40 05/01/17 11:34 98 40 05/01/17 11:00 91 32 131/84 (100) 97 (Kiarra Lazo) -: 05/02/17 0430 05/02/17 0430 Imaging Last Impressions Chest X-Ray 05/02/17 0600 Signed Impressions: Service Date/Time: Tuesday, May 02, 2017 04:06 - CONCLUSION: Diffuse consolidation likely related to edema. Davey Lutz MD Abdomen/Pelvis CT 05/01/17 0000 Signed Impressions: Service Date/Time: Tuesday, May 02, 2017 04:57 - CONCLUSION: 1. Increased density around the pancreatic head enhancing region and extending into the mesentery and right perinephric region all likely related to pancreatitis. 2. Suspected mild hepatic steatosis. 3. Bilateral dense areas of consolidation at the lung bases Davey Lutz MD Abdomen X-Ray 04/29/17 0000 Signed Impressions: Service Date/Time: Saturday, April 29, 2017 11:58 - CONCLUSION: Nonspecific bowel gas pattern with no significant dilatation of the large or small bowel. Tin Moon MD Liver Ultrasound 04/26/17 0000 Signed Impressions: Service Date/Time: Wednesday, April 26, 2017 16:44 - CONCLUSION: Echogenic right kidney which can be seen with medical renal disease, otherwise unremarkable right upper quadrant sonogram. Roque Gutiérrez MD Chest CT 04/24/17 1327 Signed Impressions: Service Date/Time: April 13:46 - CONCLUSION: Patchy groundglass infiltrates throughout all lobes of the lungs. It is most prominent in the perihilar distribution but also more peripheral areas. I did not see a mass amenable to biopsy with CT guidance. Jay Weaver MD (Kiarra Lazo [facility]) Physical Exam General Appearance: Obese ([employer]) Eyes Eye Exam: Pupils Equal ([facility] [employer]) Neck Neck Exam: Neck Supple (Kiarra Lazo. [employer]) Pulmonary Resp Exam: Rhonchi, Decreased Bases, Diminished Breath Sounds (Kiarra Lazo. [employer]) Cardiology CV Exam: Regular (Kiarra Lazo. [employer]) Gastrointestinal/Abdomen GI Exam: Soft, Non-Tender, Distended (Kiarra Lazo [employer]) Extremeties Extremities Exam: Trace Edema (Kirara Lazo. [employer]) Neurologic Neuro Exam: Sedated (Kiarra Lazo [employer]) Assessment/Plan Assessment Summary: FORTINO/Acute Renal Failure Electrolyte Assessment: Hypocalcemia Problem List: (1) Acute renal failure ICD Codes: N17.9 - Acute kidney failure, unspecified Plan: Patient had Acute kidney injury. Most likely has ATN due to hypotension. BP is now better. Urine out put is good Continue antibiotic, avoid Nephrotoxins. Weaning as per CCM. Urine Eosinophils negative and Na. was not low. Sodium improved at 146, Creatinine also improving and normal now at 0.95 On free water via GT 300 ml every 4 hours for hypernatremia but has not been able to tolerate with high residuals Continue Lasix , on [address] of ab[place] with IV contrast noted (2) Hypokalemia ICD Codes: E87.6 - Hypokalemia Plan: Resolved Potassium level at 4.1 (Kiarra Lazo. [employer]) Problem List: (1) Acute renal failure ICD Codes: N17.9 - Acute kidney failure, unspecified Plan: Patient had Acute kidney injury. Most likely has ATN due to hypotension. BP is now better. Urine out put is good Continue antibiotic, avoid Nephrotoxins. Weaning as per CCM. Urine Eosinophils negative and Na. was not low. Sodium improved at 146, Creatinine also improving and normal now at 0.95 On free water via GT 300 ml every 4 hours for hypernatremia but has not been able to tolerate with high residuals Continue Lasix , on [address] of ab[place] with IV contrast noted. Patient seen and examined , Creatinine is now 0.95, Na. is better 146. I will sign off from Nephrology. (2) Hypokalemia ICD Codes: E87.6 - Hypokalemia Plan: Resolved Potassium level at 4.1 (Fariha Serrano MD) Kiarra Lazo May 02, 2017 10:08 Fariha Serrano MD May 02, 2017 19:49
--- NOTE | 2017-05-02 10:13 | HHI.CCPN ---
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 She states that she is had multiple symptoms to include nausea, vomiting, diarrhea, cough, congestion, sore throat. Patient states that her symptoms have improved progressively getting worse over the last 2 days. Because she did not improve her family brought her to the emergency department for evaluation. Because of her family's concern is could have saved the patient's life. Patient with severe multisystem organ failure with respiratory failure, renal failure, severe metabolic acidosis with anion gap. Patient indicates that she has had nausea, vomiting and diarrhea and only minimally keep minimal liquids down. She has had cough, congestion. CT scans and chest x-rays show significant infiltrates bilaterally with respiratory failure. Patient with adult respiratory distress syndrome. Without intubation patient will unlikely survive. This was discussed with the family and patient at bedside prior to intubation. They are in agreement with pursuing heroic measures and intubation for medical management. Patient was intubated by ER physician successfully. Patient will be transferred to [facility] for critical care management. 04/25 Patient is sedated with Diprivan, Fentanyl drips and intubated. Afebrile. 04/26 Patient is intubated, sedated with Diprivan, Fentanyl drip in addition she is on Nimbex. She was proned yesterday her O2 requirements is better overall now on PEEP;12 and FIO2 65% 04/27 No events overnight. Intubated and sedation in addition she is on Nimbex. Afebrile. On Flolan 04/28 Patient remains sedated and intubated . On PRVC with PEEP:12, FIO2: 50%. Renal function is improving with Cr: 2.50 from 2.75. Had low grade fever with T: 100.6 last night. 04/29 Patient remains on prone bed intubated, sedated in addition she is on neuromuscular blockade ( Nimbex). Afebrile. Renal function is better with Cr: 1.93 from 2.5 and O2 requirements is better. TF held for high residuals. Spiked fever with 04/30: Tmax 102.7. Currently afebrile. Blood cultures 2 obtained yesterday. Tube feeds restarted currently at 20 cc an hour with Glucerna 1.5. Positive BM. Sodium increased. Subjective 05/01: Currently afebrile. Sodium is improved currently 150. Tolerating tube feeds at goal 20 cc per GI. Plan for CT abdomen today due to elevated lipase 05/02 Patient remains intubated on Versed, Fentanyl and Precedex drips for sedation. CT abdomen performed showed findings c/w pancreatitis. Objective Vital Signs Date Time Temp Pulse Resp B/P (MAP) Pulse Ox O2 Delivery O2 Flow Rate FiO2 05/02/17 09:30 77 20 143/101 (115) 90 05/02/17 09:15 40 05/02/17 08:00 98.0 Intake and Output 05/02/17 05/02/17 05/03/17 08:00 16:00 00:00 Intake Total 2799 ml Output Total 1350 ml Balance 1449 ml Result Diagram: 05/02/17 0430 05/02/17 0430 Other Results Laboratory Tests Test 05/02/17 04:30 White Blood Count 19.8 TH/MM3 Red Blood Count 3.37 MIL/MM3 Hemoglobin 10.1 GM/DL Hematocrit 31.4 % Mean Corpuscular Volume 93.2 FL Mean Corpuscular Hemoglobin 30.1 PG Mean Corpuscular Hemoglobin Concent 32.3 % Red Cell Distribution Width 16.5 % Platelet Count 298 TH/MM3 Mean Platelet Volume 7.8 FL Neutrophils (%) (Auto) 93.2 % Lymphocytes (%) (Auto) 3.2 % Monocytes (%) (Auto) 3.4 % Eosinophils (%) (Auto) 0.1 % Basophils (%) (Auto) 0.1 % Neutrophils # (Auto) 18.4 TH/MM3 Lymphocytes # (Auto) 0.6 TH/MM3 Monocytes # (Auto) 0.7 TH/MM3 Eosinophils # (Auto) 0.0 TH/MM3 Basophils # (Auto) 0.0 TH/MM3 CBC Comment AUTO DIFF Differential Total Cells Counted 100 Neutrophils % (Manual) 88 % Band Neutrophils % 7 % Lymphocytes % 1 % Monocytes % 1 % Neutrophils # (Manual) 19.4 TH/MM3 Metamyelocytes 3 % Differential Comment FINAL DIFF MANUAL Platelet Estimate NORMAL Platelet Morphology Comment NORMAL Blood Urea Nitrogen 48 MG/DL Creatinine 0.95 MG/DL Random Glucose 115 MG/DL Total Protein 6.1 GM/DL Albumin 2.2 GM/DL Calcium Level 8.4 MG/DL Phosphorus Level 2.0 MG/DL Magnesium Level 2.3 MG/DL Alkaline Phosphatase 106 U/L Aspartate Amino Transf (AST/SGOT) 31 U/L Alanine Aminotransferase (ALT/SGPT) 35 U/L Total Bilirubin 0.6 MG/DL Sodium Level 146 MEQ/L Potassium Level 4.1 MEQ/L Chloride Level 108 MEQ/L Carbon Dioxide Level 33.6 MEQ/L Anion Gap 4 MEQ/L Estimat Glomerular Filtration Rate 75 ML/MIN Lipase 1874 U/L Imaging Last Impressions Chest X-Ray 05/02/17 0600 Signed Impressions: Service Date/Time: Tuesday, May 02, 2017 04:06 - CONCLUSION: Diffuse consolidation likely related to edema. Davey Lutz MD Abdomen/Pelvis CT 05/01/17 0000 Signed Impressions: Service Date/Time: Tuesday, May 02, 2017 04:57 - CONCLUSION: 1. Increased density around the pancreatic head enhancing region and extending into the mesentery and right perinephric region all likely related to pancreatitis. 2. Suspected mild hepatic steatosis. 3. Bilateral dense areas of consolidation at the lung bases Davey Lutz MD Abdomen X-Ray 04/29/17 0000 Signed Impressions: Service Date/Time: Saturday, April 29, 2017 11:58 - CONCLUSION: Nonspecific bowel gas pattern with no significant dilatation of the large or small bowel. Tin Moon MD Liver Ultrasound 04/26/17 0000 Signed Impressions: Service Date/Time: Wednesday, April 26, 2017 16:44 - CONCLUSION: Echogenic right kidney which can be seen with medical renal disease, otherwise unremarkable right upper quadrant sonogram. Roque Gutiérrez MD Chest CT 04/24/17 1327 Signed Impressions: Service Date/Time: April 13:46 - CONCLUSION: Patchy groundglass infiltrates throughout all lobes of the lungs. It is most prominent in the perihilar distribution but also more peripheral areas. I did not see a mass amenable to biopsy with CT guidance. Jay Weaver MD Objective Remarks GENERAL:51-year-old AA female currently orotracheally intubated SKIN: Warm and dry. Unable to evaluate backside. Positive facial skin breakdown from rotoprone bed HEAD: Normocephalic. EYES: No scleral icterus. No injection or drainage. NECK: Supple, trachea midline. No JVD or lymphadenopathy. CARDIOVASCULAR: RRR. S1, X0txpeysy murmurs RESPIRATORY: Diffuse fine crackles appreciated anteriorly. No wheezing GASTROINTESTINAL: Abdomen soft, non-tender, nondistended. Hypoactive bowel sounds appreciated MUSCULOSKELETAL: Trace below the knee pitting edema identified Neuro: Cranial nerves II through XII appear grossly intact. Moving all 4 extremities spontaneously to noxious stimulus. Currently not following commands Date of Insertion: Apr 25, 2017 Line: Central Venous Catheter Side: Right Location: Internal, Jugular A/P Problem List: (1) Adult respiratory distress syndrome ICD Code: J80 - Acute respiratory distress syndrome (2) Acute respiratory failure with hypoxia ICD Code: J96.01 - Acute respiratory failure with hypoxia (3) Pneumonia ICD Code: J18.9 - Pneumonia, unspecified organism Status: Acute (4) Increased anion gap metabolic acidosis ICD Code: E87.2 - Acidosis (5) Acute renal failure ICD Code: N17.9 - Acute kidney failure, unspecified (6) Lactic acidosis ICD Code: E87.2 - Acidosis (7) Leukocytosis ICD Code: D72.829 - Elevated white blood cell count, unspecified (8) Hyponatremia ICD Code: E87.1 - Hypo-osmolality and hyponatremia (9) Hyperglycemia ICD Code: R73.9 - Hyperglycemia, unspecified (10) Diarrhea ICD Code: R19.7 - Diarrhea, unspecified (11) Elevated lipase ICD Code: R74.8 - Abnormal levels of other serum enzymes (12) Tobacco use ICD Code: Z72.0 - Tobacco use Assessment and Plan NEUROLOGY History depression On Versed, fentanyl infusion for sedation in addition patient is on Precedex drip goal of RA SS -2 Daily sedation vacation Acetaminophen 650 mg by tube every 6 hours when necessary fever Holding sertraline 100 mg daily/home medication while on linezolid PULMONOLOGY Acute hypoxic respiratory failure Adult respiratory distress syndrome Bilateral pneumonia Daily tobacco use Continue with vent support and keep sat >92% On PRVC RR 20, TV 450, IT:1.25, PEEP:8, FIO2: 40% Albuterol/ipratropium aerosols every 4 hours with albuterol aerosols every 2 hours. Dyspnea methylprednisolone succinate 40mg IV Q8, Off Flolan CARDIOLOGY Hypertension Severe pulmonary hypertension Monitor HR and BP keep MAP>65mmHg Lactic acid 1.2. Echo showed EF 60-65% with no regional wall motion abnormality. Severe pulmonary arterial pressure 70 mmHg As needed hydralazine, labetalol and Nitropaste for hypertension GASTROENTEROLOGY Hypertriglyceridemia Elevated lipase level and AST Repeat CT abdomen w contrast 05/02 showed findings c/w pancreatitis, Monitor Lipase level ( trending down) GI is following Continue Glucerna 1.5 goal 45 cc an hour. Currently at [address] the abdomen 04/24 does not indicate any acute abnormality within the abdomen US liver: Echogenic right kidney which can be seen with medical renal disease, otherwise unremarkable Docusate sodium 100 cc twice a day/senna 8.8 mg twice a day for bowel regimen On metoclopramide 5 mg every 8 hours for GI motility GI protection with famotidine 20 mg by tube twice daily Not on a cholesterol-lowering agent/gemfibrozil due to elevated LFTs GENITOURINARY Acute renal failure- Improving - likely ATN from hypo-perfusion Hypernatremia Monitor renal function, I/O's, avoid nephrotoxins Currently on furosemide 40mg daily Change free water 250ml Q8, monitor sodium level Renal is following- Dr. Serrano Renal function is improving INFECTIOUS DISEASE Bilateral pneumonia Diarrhea Continue Azactam, linezolid and azithromycin. ID is following. Monitor for signs of infections ( Fever, WBC) Blood cultures04/24 and 04/29: NGTD Influenza screening, Legionella testing, pneumococcal Ag all negative Follow up on sputum cx 04/28 no growth to date ENDOCRINOLOGY Hyperglycemia Accu-Cheks with sliding scale insulin medium Novulog every 4 hours HEMATOLOGY Leukocytosis Normocytic anemia History of iron deficiency Continue monitor CBC MSK Elevated BMI Weight loss encouraged PROPHYLAXIS DVT prevention with SCD, Heparin SQ GI protection with famotidine LINES Peripheral IVs Right IJ CVP 04/25 - current, Art line placed 04/25 - 04/29 Critical Care: The total critical care time was 30 minutes. Time to perform other separately billable procedures was not included in the critical care time. Problem Qualifiers (1) Pneumonia: Qualified Codes: J18.9 - Pneumonia, unspecified organism Nay Das MD May 02, 2017 10:13
[2017-05-02] MEDS ORDERED: MAGNESIUM SULFATE INJ 2 GM in SODIUM CHLORIDE 0.9% INJ 96 ML IV PRN (10:15)
[2017-05-02] MEDS ORDERED: ICU - MAGNESIUM SULFATE 2 GM/NS 100 ML IV PRN ×2 (10:15)
[2017-05-02] MEDS ORDERED: ICU - MAGNESIUM OXIDE 400 MG TAB PO PRN (10:15)
[2017-05-02] MEDS ORDERED: ICU - CALL ORDERING PHYSICIAN PRN (10:15)
[2017-05-02] MEDS ORDERED: ICU - POTASSIUM PHOSPHATE MONOBASIC 500 MG TAB PO PRN (10:15)
[2017-05-02] MEDS ORDERED: SODIUM PHOSPHATE INJ 30 MMOL in SODIUM CHLOR 0.9% 250 ML INJ 240 ML IV PRN (10:15)
[2017-05-02] MEDS ORDERED: POTASSIUM CHLOR 40 MEQ PREMIX 100 ML IV PRN ×2 (10:15)
[2017-05-02] MEDS ORDERED: ICU - POTASSIUM CHLORIDE/AQUEOUS SOLN 40 MEQ/100 ML IVPB IV PRN (10:15)
[2017-05-02] MEDS ORDERED: ICU - POTASSIUM CHLORIDE/AQUEOUS SOLN 20 MEQ/100 ML IVPB IV PRN (10:15)
[2017-05-02] MEDS ORDERED: MAGNESIUM SULFATE INJ 4 GM in SODIUM CHLORIDE 0.9% INJ 92 ML IV PRN (10:15)
[2017-05-02] MEDS ORDERED: POTASSIUM CHLORIDE 25 MEQ EFFERVESCENT TAB PO PRN ×2 (10:15)
[2017-05-02] MEDS ORDERED: POTASSIUM PHOSPHATE MONOBASIC 500 MG TAB PO/TUBE PRN (10:15)
[2017-05-02] MEDS ORDERED: ICU - MAGNESIUM SULFATE 4 GM/NS 100 ML IV PRN ×2 (10:15)
[2017-05-02] MEDS ORDERED: ICU - D/C ICU ELECTROLYTE ORDERS PRN (10:15)
[2017-05-02] MEDS ORDERED: POTASSIUM PHOSPHATE MONOBASIC 500 MG TAB PO PRN (10:15)
[2017-05-02] MEDS ORDERED: POTASSIUM PHOSPHATE INJ 30 MMOL in SODIUM CHLOR 0.9% 250 ML INJ 250 ML IV PRN (10:15)
[2017-05-02] MEDS ORDERED: ICU - SODIUM PHOSPHATE 30 MMOL/NS 250 ML IV PRN ×2 (10:15)
[2017-05-02] MEDS ORDERED: MAGNESIUM OXIDE 400 MG TAB PO PRN (10:15)
[2017-05-02] MEDS ORDERED: POTASSIUM CHLOR 20 MEQ PREMIX 100 ML IV PRN ×2 (10:15)
[2017-05-02] MEDS ORDERED: ICU - POTASSIUM PHOSPHATE 30 MMOL/NS 250 ML IV PRN ×2 (10:15)
--- NOTE | 2017-05-02 11:53 | HHI.IDPN ---
Note Infectious Disease Note Patient is sedated. Not awakening to voice. On CPAP trial. Afebrile. WBC still elevated. Sputum culture - no growth. Blood culture no growth. Presented to [facility] emergency department on 04/07/2017 with cold and flu-like symptoms including cough, vomiting and diarrhea. PAST MEDICAL HISTORY 1. Irritable bowel syndrome. 2. Iron-deficiency anemia. 3. History of . ALLERGIES AMOXICILLIN. MEDICATIONS 1. Zyvox 2. Aztreonam. 3. Azithromycin. OBJECTIVE: Vital Signs Date Time Temp Pulse Resp B/P (MAP) Pulse Ox O2 Delivery O2 Flow Rate FiO2 05/01/17 11:34 98 40 05/01/17 10:00 92 05/01/17 08:23 96 40 05/01/17 08:00 97.8 86 24 137/77 (97) 93 05/01/17 08:00 40 05/01/17 08:00 86 05/01/17 06:00 84 05/01/17 04:06 93 40 05/01/17 04:00 97.9 109 24 136/82 (100) 94 05/01/17 04:00 40 05/01/17 04:00 109 05/01/17 02:00 93 05/01/17 00:00 40 05/01/17 00:00 97.9 79 25 117/63 (81) 96 05/01/17 00:00 79 04/30/17 23:56 97 40 04/30/17 22:00 61 04/30/17 20:53 99 40 04/30/17 20:00 40 04/30/17 20:00 61 04/30/17 20:00 98.4 61 24 105/64 (78) 97 04/30/17 18:00 71 04/30/17 16:00 40 04/30/17 16:00 64 04/30/17 16:00 97.5 64 24 116/72 (87) 96 04/30/17 15:32 98 40 04/30/17 15:00 70 24 119/72 (88) 97 04/30/17 14:00 67 04/30/17 14:00 67 24 117/69 (85) 97 04/30/17 13:00 70 24 112/67 (82) 97 Laboratory Tests Test 05/01/17 05:23 05/02/17 04:30 White Blood Count 18.7 TH/MM3 19.8 TH/MM3 Red Blood Count 3.46 MIL/MM3 3.37 MIL/MM3 Hemoglobin 10.4 GM/DL 10.1 GM/DL Hematocrit 32.2 % 31.4 % Mean Corpuscular Volume 93.2 FL 93.2 FL Mean Corpuscular Hemoglobin 30.1 PG 30.1 PG Mean Corpuscular Hemoglobin Concent 32.3 % 32.3 % Red Cell Distribution Width 17.1 % 16.5 % Platelet Count 298 TH/MM3 298 TH/MM3 Mean Platelet Volume 7.7 FL 7.8 FL Neutrophils (%) (Auto) 93.5 % 93.2 % Lymphocytes (%) (Auto) 2.5 % 3.2 % Monocytes (%) (Auto) 3.8 % 3.4 % Eosinophils (%) (Auto) 0.1 % 0.1 % Basophils (%) (Auto) 0.1 % 0.1 % Neutrophils # (Auto) 17.5 TH/MM3 18.4 TH/MM3 Lymphocytes # (Auto) 0.5 TH/MM3 0.6 TH/MM3 Monocytes # (Auto) 0.7 TH/MM3 0.7 TH/MM3 Eosinophils # (Auto) 0.0 TH/MM3 0.0 TH/MM3 Basophils # (Auto) 0.0 TH/MM3 0.0 TH/MM3 CBC Comment AUTO DIFF AUTO DIFF Differential Total Cells Counted 100 100 Neutrophils % (Manual) 83 % 88 % Band Neutrophils % 8 % 7 % Lymphocytes % 1 % 1 % Monocytes % 3 % 1 % Eosinophils % 1 % Neutrophils # (Manual) 17.8 TH/MM3 19.4 TH/MM3 Metamyelocytes 3 % 3 % Myelocytes 1 % Nucleated Red Blood Cells 1 /100 WBC Differential Comment FINAL DIFF MANUAL FINAL DIFF MANUAL Platelet Estimate NORMAL NORMAL Platelet Morphology Comment NORMAL NORMAL Spherocytes OCC Laboratory Tests Test 05/01/17 05:23 05/02/17 04:30 Blood Urea Nitrogen 62 MG/DL 48 MG/DL Creatinine 1.05 MG/DL 0.95 MG/DL Random Glucose 159 MG/DL 115 MG/DL Total Protein 6.0 GM/DL 6.1 GM/DL Albumin 2.3 GM/DL 2.2 GM/DL Calcium Level 8.2 MG/DL 8.4 MG/DL Phosphorus Level 2.5 MG/DL 2.0 MG/DL Magnesium Level 2.5 MG/DL 2.3 MG/DL Alkaline Phosphatase 112 U/L 106 U/L Aspartate Amino Transf (AST/SGOT) 31 U/L 31 U/L Alanine Aminotransferase (ALT/SGPT) 40 U/L 35 U/L Total Bilirubin 0.5 MG/DL 0.6 MG/DL Sodium Level 150 MEQ/L 146 MEQ/L Potassium Level 3.6 MEQ/L 4.1 MEQ/L Chloride Level 112 MEQ/L 108 MEQ/L Carbon Dioxide Level 32.3 MEQ/L 33.6 MEQ/L Anion Gap 6 MEQ/L 4 MEQ/L Estimat Glomerular Filtration Rate 67 ML/MIN 75 ML/MIN Ammonia 16 MCMOL/L Amylase Level 402 U/L Lipase 2497 U/L 1874 U/L Microbiology Date/Time Source Procedure Growth Status 04/29/17 18:49 Blood Peripheral Aerobic Blood Culture - Preliminary NO GROWTH IN 3 DAYS Resulted 04/29/17 18:49 Blood Peripheral Anaerobic Blood Culture - Preliminary NO GROWTH IN 3 DAYS Resulted 04/29/17 13:00 Blood Peripheral Aerobic Blood Culture - Preliminary NO GROWTH IN 3 DAYS Resulted 04/29/17 13:00 Blood Peripheral Anaerobic Blood Culture - Preliminary NO GROWTH IN 3 DAYS Resulted IMAGING: Chest X-Ray 05/02/17 0600 Signed Impressions: Service Date/Time: Tuesday, May 02, 2017 04:06 - CONCLUSION: Diffuse consolidation likely related to edema. Davey Lutz MD Abdomen/Pelvis CT 05/01/17 0000 Signed Impressions: Service Date/Time: Tuesday, May 02, 2017 04:57 - CONCLUSION: 1. Increased density around the pancreatic head enhancing region and extending into the mesentery and right perinephric region all likely related to pancreatitis. 2. Suspected mild hepatic steatosis. 3. Bilateral dense areas of consolidation at the lung bases Davey Lutz MD Chest X-Ray 04/30/17 0000 Signed Impressions: Service Date/Time: Sunday, April 30, 2017 03:25 - CONCLUSION: 1. Persistent central airspace infiltrates with increasing consolidation of left lung base. Nakul Bailon MD Chest X-Ray 04/29/17 0000 Signed Impressions: Service Date/Time: Saturday, April 29, 2017 11:30 - CONCLUSION: No significant interval change. Tin Moon MD Abdomen X-Ray 04/29/17 0000 Signed Impressions: Service Date/Time: Saturday, April 29, 2017 11:58 - CONCLUSION: Nonspecific bowel gas pattern with no significant dilatation of the large or small bowel. Tin Moon MD Chest X-Ray 04/28/17 0000 Signed Impressions: Service Date/Time: Friday, April 28, 2017 07:27 - CONCLUSION: 1. The support equipment is in good position. 2. There are extensive bilateral pulmonary infiltrates similar to the prior exam. Exam would be consistent with a pneumonia. Huseyin Christiansen MD Liver Ultrasound 04/26/17 0000 Signed Impressions: Service Date/Time: Wednesday, April 26, 2017 16:44 - CONCLUSION: Echogenic right kidney which can be seen with medical renal disease, otherwise unremarkable right upper quadrant sonogram. Roque Gutiérrez MD Chest CT 04/24/177 Signed Impressions: Service Date/Time: April 13:46 - CONCLUSION: Patchy groundglass infiltrates throughout all lobes of the lungs. It is most prominent in the perihilar distribution but also more peripheral areas. I did not see a mass amenable to biopsy with CT guidance. Jay Weaver MD Abdomen/Pelvis CT 04/24/171326 Signed Impressions: Service Date/Time: April 13:46 - CONCLUSION: Patchy infiltrates in the lung bases. No concerning adenopathy or mass. Abdomen and pelvis are unremarkable. Small amount of free fluid in the pelvis within normal limits for age. The appendix is normal. Jay Weaver MD PHYSICAL EXAMINATION GENERAL: On the ventilator. No distress. HEENT: No icterus. moist mucosa. LUNGS: Rhonchi bilateral. HEART: Regular, S1 and S2 without audible murmurs. ABDOMEN: Soft, Decreased bowel sounds. Rectal bag has loose stools. EXTREMITIES: No CC, Trace edema at the feet. SKIN: No rash. NEURO: Unable to assess. PSYCH: Unable to assess. IMPRESSION 1. Pneumonia. Negative culture. 2. Acute respiratory failure. 3. ARDS. 4. Acute renal failure. Improving. 5. Leukocytosis. 6. CT finding of pancreatitis. RECOMMENDATIONS 1. Continue Zyvox. 2. Continue aztreonam. 3. Continue azithromycin. 4. Follow Temp. 5. Monitor clinical status. Rikki Walker MD May 02, 2017 11:53
[2017-05-02] MEDS: fentaNYL DRIP 250 ML IV PRN (12:17)
--- NOTE | 2017-05-02 12:49 | HHI.GIFU ---
Subjective Remarks Continues with ventilator management, eyes closed no facial grimace to verbal stimuli Abdomen large, round, soft Hemoglobin stable at 10.1 (Kristin Eric) Objective Vitals I&O Vital Signs Date Time Temp Pulse Resp B/P (MAP) Pulse Ox O2 Delivery O2 Flow Rate FiO2 05/02/17 11:58 95 40 05/02/17 09:30 77 20 143/101 (115) 90 05/02/17 09:30 77 05/02/17 09:15 40 05/02/17 09:11 96 40 05/02/17 09:00 79 24 158/98 (118) 90 05/02/17 09:00 79 05/02/17 08:30 64 05/02/17 08:30 64 20 144/94 (111) 91 05/02/17 08:00 74 05/02/17 08:00 98.0 74 20 152/86 (108) 91 05/02/17 07:30 76 05/02/17 07:30 76 30 155/93 (113) 92 05/02/17 07:00 55 20 139/85 (103) 91 05/02/17 07:00 55 05/02/17 06:00 71 05/02/17 04:43 100 100 05/02/17 04:04 95 40 05/02/17 04:00 62 05/02/17 04:00 40 05/02/17 04:00 98.1 62 19 133/74 (93) 93 05/02/17 02:00 63 05/02/17 00:12 98 40 05/02/17 00:00 40 05/02/17 00:00 98.2 83 20 128/69 (88) 91 05/02/17 00:00 83 05/01/17 22:00 68 05/01/17 20:16 100 40 05/01/17 20:00 73 05/01/17 20:00 97.9 73 23 129/78 (95) 91 05/01/17 20:00 40 05/01/17 18:00 80 05/01/17 17:35 94 40 05/01/17 17:00 68 20 116/70 (85) 93 05/01/17 16:00 69 05/01/17 16:00 97.8 69 20 123/72 (89) 96 05/01/17 16:00 40 05/01/17 15:00 71 16 122/72 (89) 96 05/01/17 14:00 72 15 125/72 (89) 96 05/01/17 14:00 72 05/01/17 13:00 79 13 119/70 (86) 98 I/O 05/01/17 05/01/17 05/01/17 05/02/17 05/02/17 05/02/17 07:00 15:00 23:00 07:00 15:00 23:00 Intake Total 1778 ml 190 ml 2208 ml 2888 ml Output Total 1000 ml 1920 ml 1350 ml Balance 778 ml 190 ml 288 ml 1538 ml IV Total 738 ml 190 ml 680 ml 888 ml Tube Feeding 240 ml 229 ml 200 ml Tube Irrigant 800 ml 300 ml 1800 ml Other 999 ml Output Urine Total 900 ml 1800 ml 1200 ml Stool Total 100 ml 100 ml 150 ml Gastric Drainage Total 20 ml Laboratory Laboratory Tests Test 05/02/17 04:30 White Blood Count 19.8 Red Blood Count 3.37 Hemoglobin 10.1 Hematocrit 31.4 Mean Corpuscular Volume 93.2 Mean Corpuscular Hemoglobin 30.1 Mean Corpuscular Hemoglobin Concent 32.3 Red Cell Distribution Width 16.5 Platelet Count 298 Mean Platelet Volume 7.8 Neutrophils (%) (Auto) 93.2 Lymphocytes (%) (Auto) 3.2 Monocytes (%) (Auto) 3.4 Eosinophils (%) (Auto) 0.1 Basophils (%) (Auto) 0.1 Neutrophils # (Auto) 18.4 Lymphocytes # (Auto) 0.6 Monocytes # (Auto) 0.7 Eosinophils # (Auto) 0.0 Basophils # (Auto) 0.0 CBC Comment AUTO DIFF Differential Total Cells Counted 100 Neutrophils % (Manual) 88 Band Neutrophils % 7 Lymphocytes % 1 Monocytes % 1 Neutrophils # (Manual) 19.4 Metamyelocytes 3 Differential Comment FINAL DIFF MANUAL Platelet Estimate NORMAL Platelet Morphology Comment NORMAL Blood Urea Nitrogen 48 Creatinine 0.95 Random Glucose 115 Total Protein 6.1 Albumin 2.2 Calcium Level 8.4 Phosphorus Level 2.0 Magnesium Level 2.3 Alkaline Phosphatase 106 Aspartate Amino Transf (AST/SGOT) 31 Alanine Aminotransferase (ALT/SGPT) 35 Total Bilirubin 0.6 Sodium Level 146 Potassium Level 4.1 Chloride Level 108 Carbon Dioxide Level 33.6 Anion Gap 4 Estimat Glomerular Filtration Rate 75 Lipase 1874 Date/Time Source Procedure Growth Status 04/29/17 18:49 Blood Peripheral Aerobic Blood Culture - Preliminary NO GROWTH IN 3 DAYS Resulted 04/29/17 18:49 Blood Peripheral Anaerobic Blood Culture - Preliminary NO GROWTH IN 3 DAYS Resulted 04/28/17 10:45 Sputum Endotracheal Gram Stain - Final Complete 04/28/17 10:45 Sputum Endotracheal Sputum Culture - Final NO GROWTH IN 48 HOURS. Complete 04/24/17 16:25 Urine Random Urine Legionella Antigen - Final PRESUMPTIVE NEGATIVE FOR LEGIONELLA P... Complete 04/24/17 16:25 Urine Random Urine Streptococcus pneumoniae Antigen (M - Final PRESUMPTIVE NEGATIVE FOR STREPTOCOCCU... Complete Imaging Last Impressions Chest X-Ray 05/02/17 0600 Signed Impressions: Service Date/Time: Tuesday, May 02, 2017 04:06 - CONCLUSION: Diffuse consolidation likely related to edema. Davey Lutz MD Abdomen/Pelvis CT 05/01/17 0000 Signed Impressions: Service Date/Time: Tuesday, May 02, 2017 04:57 - CONCLUSION: 1. Increased density around the pancreatic head enhancing region and extending into the mesentery and right perinephric region all likely related to pancreatitis. 2. Suspected mild hepatic steatosis. 3. Bilateral dense areas of consolidation at the lung bases Davey Lutz MD Abdomen X-Ray 04/29/17 0000 Signed Impressions: Service Date/Time: Saturday, April 29, 2017 11:58 - CONCLUSION: Nonspecific bowel gas pattern with no significant dilatation of the large or small bowel. Tin Moon MD Liver Ultrasound 04/26/17 0000 Signed Impressions: Service Date/Time: Wednesday, April 26, 2017 16:44 - CONCLUSION: Echogenic right kidney which can be seen with medical renal disease, otherwise unremarkable right upper quadrant sonogram. Rqoue Gutiérrez MD Chest CT 04/24/17 1327 Signed Impressions: Service Date/Time: April 13:46 - CONCLUSION: Patchy groundglass infiltrates throughout all lobes of the lungs. It is most prominent in the perihilar distribution but also more peripheral areas. I did not see a mass amenable to biopsy with CT guidance. Jay Weaver MD Physical Exam HEENT: PERRL; normocephalic; atraumatic; no jaundice. CHEST: diminished CARDIAC: RRR ABDOMEN: Soft, obese, BS + EXTREMITIES: No clubbing, cyanosis, or edema. SKIN: Normal; no rash; no jaundice. 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 Bilateral dense areas of consolidation at the lung bases, liver enzymes are normal range, bilirubin normal range, alkaline phosphatase normal range now. Any symptoms of pancreatitis appear to be resolved Abdomen remains round, large, probable bloating with bowel sounds present. No audible grimace on palpation, versus inflammation versus infection? Monitor for any decreased bowel sounds which could be possible ileus, currently patient remains on IV steroids Abdominal x-ray on 04/29/17 nonspecific. Plan Monitor bowel sounds and abdominal girth Okay for trickle feeds, NG tube 10 cc an hour, Glucerna 1.5 Call for any acute bleeding or change in GI status Monitor labs especially hemoglobin hematocrit Consider Reglan 5 mg IV every 6hr Continue stool softeners and PPIs Further recommendations based on symptoms 's patient was seen by myself and Dr. Jarrett, was written on his behalf (Kristin Eric) Plan Patient was seen and examined, agree with above-noted, no significant changes since yesterday, we'll see how she would tolerate advancement of the feeding (Franko Jarrett MD) Kristin Eric May 02, 2017 12:49 Franko Jarrett MD May 02, 2017 15:41
[2017-05-02] MEDS: AZITHROMYCIN INJ 500 MG in SODIUM CHLOR 0.9% 250 ML INJ 250 ML IV SCH (18:09)
[2017-05-02] MEDS: DEXMEDETOMIDINE INJ 1,000 MCG in SODIUM CHLOR 0.9% 250 ML INJ 240 ML IV PRN (20:45)
[2017-05-03] VITALS (36 sets, daily range): BP systolic 109–185; BP diastolic 60–101; PULSE 60–85; RESP 7–55; TEMP 98.1–99.2; O2SAT 90–100
[2017-05-03] MEDS: RESP: ALBUTEROL 2.5 MG/IPRATROPIUM 0.5 MG NEB (SCH) NEB ×4 (00:27→11:16)
[2017-05-03] MEDS: LINEZOLID 600 MG PREMIX 300 ML IV SCH ×2 (01:11→11:59)
[2017-05-03] MEDS: methylPREDNISolone SOD SUCC 40 MG/1 ML VIAL IV PUSH SCH ×3 (01:11→17:22)
[2017-05-03] MEDS: AZTREONAM INJ 1,000 MG in SODIUM CHLORIDE 0.9% INJ 100 ML IV SCH ×3 (01:11→17:22)
[2017-05-03] MEDS: METOCLOPRAMIDE HCL 10 MG/2 ML VIAL IV PUSH SCH ×3 (01:12→17:22)
[2017-05-03] MEDS: INSULIN NovoLIN REGULAR SUPPLEMENTAL SCALE SQ SCH ×6 (02:00→21:27)
[2017-05-03] MEDS: DEXMEDETOMIDINE INJ 1,000 MCG in SODIUM CHLOR 0.9% 250 ML INJ 240 ML IV PRN ×4 (02:29→20:16)
[2017-05-03] MEDS: CHLORHEXIDINE GLUCONATE 2 % 1 PACK (2 CLOTHS) TOP SCH (04:00)
[2017-05-03] MEDS: FREE WATER G-TUBE SCH ×3 (05:00→17:22)
[2017-05-03] MEDS: ARTIFICIAL TEARS OPTH SOLN 15 ML BTL EACH EYE SCH ×3 (05:00→21:27)
[2017-05-03 05:04] LABS: BASOPHIL # 0.1 TH/MM3 (0-0.2); BASOPHIL % 0.6 % (0.0-2.0); EOSINOPHIL % 0.1 % (0.0-4.0); HEMOGLOBIN 10.5 GM/DL (11.6-15.3); LYMPH % 2.4 % (9.0-44.0); LYMPHOCYTE # 0.6 TH/MM3 (1.0-4.8); MEAN CELL VOLUME 92.3 FL (80.0-100.0); MEAN CORPUSCULAR HEMOGLOBIN 30.2 PG (27.0-34.0); MEAN CORPUSCULAR HGB CONC 32.7 % (32.0-36.0); MEAN PLATELET VOLUME 7.8 FL (7.0-11.0); MONO % 3.1 % (0.0-8.0); MONOCYTE # 0.7 TH/MM3 (0-0.9); NEUT % 93.8 % (16.0-70.0); PLATELET COUNT 302 TH/MM3 (150-450); RED BLOOD COUNT 3.47 MIL/MM3 (4.00-5.30); RED CELL DISTRIBUTION WIDTH 16.4 % (11.6-17.2); WHITE BLOOD COUNT 24.4 TH/MM3 (4.0-11.0)
[2017-05-03 05:40] LABS: BICARBONATE 32.5 MEQ/L (21.0-32.0); CALCIUM 8.5 MG/DL (8.5-10.1); CREATININE 0.92 MG/DL (0.50-1.00)
[2017-05-03 06:12] LABS: BANDS 4 % (0-6); LYMPHOCYTES 1 % (9-44); MONOCYTES 1 % (0-8); MYELOCYTES 2 % (0-0); NEUTROPHIL # MANUAL DIFF 23.9 TH/MM3 (1.8-7.7); POLYS (SEG NEUTROPHILS) 92 % (16-70)
[2017-05-03 06:13] LABS: STOMATOCYTES 1+ (NORMAL)
[2017-05-03] MEDS: CHLORHEXIDINE 0.12% (ORAL KIT) 15 ML CUP MT SCH ×2 (08:00→20:00)
[2017-05-03] MEDS: DOCUSATE SODIUM 100 MG/10 ML UDC OG-TUBE SCH ×2 (08:30→20:15)
[2017-05-03] MEDS: FUROSEMIDE 40 MG/4 ML VIAL IV PUSH SCH (08:31)
[2017-05-03] MEDS: SENNOSIDES SYRUP 8.8 MG/5 ML CUP OG-TUBE SCH ×2 (08:31→20:15)
[2017-05-03] MEDS: FAMOTIDINE 20 MG TAB NG SCH ×2 (08:32→20:15)
[2017-05-03] MEDS: SODIUM CHLORIDE 0.9% FLUSH 10 ML FLUSH IV FLUSH SCH ×2 (08:32→20:15)
[2017-05-03] MEDS: HEPARIN SODIUM - SQ 10,000 UNITS/ML VIAL SQ SCH ×2 (08:33→20:15)
--- NOTE | 2017-05-03 08:48 | HHI.CCPN ---
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 She states that she is had multiple symptoms to include nausea, vomiting, diarrhea, cough, congestion, sore throat. Patient states that her symptoms have improved progressively getting worse over the last 2 days. Because she did not improve her family brought her to the emergency department for evaluation. Because of her family's concern is could have saved the patient's life. Patient with severe multisystem organ failure with respiratory failure, renal failure, severe metabolic acidosis with anion gap. Patient indicates that she has had nausea, vomiting and diarrhea and only minimally keep minimal liquids down. She has had cough, congestion. CT scans and chest x-rays show significant infiltrates bilaterally with respiratory failure. Patient with adult respiratory distress syndrome. Without intubation patient will unlikely survive. This was discussed with the family and patient at bedside prior to intubation. They are in agreement with pursuing heroic measures and intubation for medical management. Patient was intubated by ER physician successfully. Patient will be transferred to [facility] for critical care management. 04/25 Patient is sedated with Diprivan, Fentanyl drips and intubated. Afebrile. 04/26 Patient is intubated, sedated with Diprivan, Fentanyl drip in addition she is on Nimbex. She was proned yesterday her O2 requirements is better overall now on PEEP;12 and FIO2 65% 04/27 No events overnight. Intubated and sedation in addition she is on Nimbex. Afebrile. On Flolan 04/28 Patient remains sedated and intubated . On PRVC with PEEP:12, FIO2: 50%. Renal function is improving with Cr: 2.50 from 2.75. Had low grade fever with T: 100.6 last night. 04/29 Patient remains on prone bed intubated, sedated in addition she is on neuromuscular blockade ( Nimbex). Afebrile. Renal function is better with Cr: 1.93 from 2.5 and O2 requirements is better. TF held for high residuals. Spiked fever with 04/30: Tmax 102.7. Currently afebrile. Blood cultures 2 obtained yesterday. Tube feeds restarted currently at 20 cc an hour with Glucerna 1.5. Positive BM. Sodium increased. Subjective 05/01: Currently afebrile. Sodium is improved currently 150. Tolerating tube feeds at goal 20 cc per GI. Plan for CT abdomen today due to elevated lipase 05/02 Patient remains intubated on Versed, Fentanyl and Precedex drips for sedation. CT abdomen performed showed findings c/w pancreatitis. 05/03 No events overnight. Patient remains intubated and is on Precedex drip. Afebrile. Objective Vital Signs Date Time Temp Pulse Resp B/P (MAP) Pulse Ox O2 Delivery O2 Flow Rate FiO2 05/03/17 08:24 40 05/03/17 08:24 97 05/03/17 06:00 61 05/03/17 04:00 99.2 22 155/93 (113) Intake and Output 05/03/17 05/03/17 05/04/17 08:00 16:00 00:00 Intake Total 1150 ml Output Total 1000 ml Balance 150 ml Result Diagram: 05/03/17 0425 05/03/17 0425 Other Results Laboratory Tests Test 05/02/17 23:04 05/03/17 04:25 Phosphorus Level 2.9 MG/DL White Blood Count 24.4 TH/MM3 Red Blood Count 3.47 MIL/MM3 Hemoglobin 10.5 GM/DL Hematocrit 32.0 % Mean Corpuscular Volume 92.3 FL Mean Corpuscular Hemoglobin 30.2 PG Mean Corpuscular Hemoglobin Concent 32.7 % Red Cell Distribution Width 16.4 % Platelet Count 302 TH/MM3 Mean Platelet Volume 7.8 FL Neutrophils (%) (Auto) 93.8 % Lymphocytes (%) (Auto) 2.4 % Monocytes (%) (Auto) 3.1 % Eosinophils (%) (Auto) 0.1 % Basophils (%) (Auto) 0.6 % Neutrophils # (Auto) 23.0 TH/MM3 Lymphocytes # (Auto) 0.6 TH/MM3 Monocytes # (Auto) 0.7 TH/MM3 Eosinophils # (Auto) 0.0 TH/MM3 Basophils # (Auto) 0.1 TH/MM3 CBC Comment AUTO DIFF Differential Total Cells Counted 100 Neutrophils % (Manual) 92 % Band Neutrophils % 4 % Lymphocytes % 1 % Monocytes % 1 % Neutrophils # (Manual) 23.9 TH/MM3 Myelocytes 2 % Differential Comment FINAL DIFF MANUAL Platelet Estimate NORMAL Platelet Morphology Comment NORMAL Stomatocytes 1+ Blood Urea Nitrogen 41 MG/DL Creatinine 0.92 MG/DL Random Glucose 116 MG/DL Calcium Level 8.5 MG/DL Sodium Level 148 MEQ/L Potassium Level 4.0 MEQ/L Chloride Level 111 MEQ/L Carbon Dioxide Level 32.5 MEQ/L Anion Gap 5 MEQ/L Estimat Glomerular Filtration Rate 78 ML/MIN Imaging Last Impressions Chest X-Ray 05/02/17 0600 Signed Impressions: Service Date/Time: Tuesday, May 02, 2017 04:06 - CONCLUSION: Diffuse consolidation likely related to edema. Davey Lutz MD Abdomen/Pelvis CT 05/01/17 0000 Signed Impressions: Service Date/Time: Tuesday, May 02, 2017 04:57 - CONCLUSION: 1. Increased density around the pancreatic head enhancing region and extending into the mesentery and right perinephric region all likely related to pancreatitis. 2. Suspected mild hepatic steatosis. 3. Bilateral dense areas of consolidation at the lung bases Davey Lutz MD Abdomen X-Ray 04/29/17 0000 Signed Impressions: Service Date/Time: Saturday, April 29, 2017 11:58 - CONCLUSION: Nonspecific bowel gas pattern with no significant dilatation of the large or small bowel. Tin Moon MD Liver Ultrasound 04/26/17 0000 Signed Impressions: Service Date/Time: Wednesday, April 26, 2017 16:44 - CONCLUSION: Echogenic right kidney which can be seen with medical renal disease, otherwise unremarkable right upper quadrant sonogram. Roque Gutiérrez MD Chest CT 04/24/17 1327 Signed Impressions: Service Date/Time: April 13:46 - CONCLUSION: Patchy groundglass infiltrates throughout all lobes of the lungs. It is most prominent in the perihilar distribution but also more peripheral areas. I did not see a mass amenable to biopsy with CT guidance. Jay Weaver MD Objective Remarks GENERAL:51-year-old AA female currently orotracheally intubated SKIN: Warm and dry. Unable to evaluate backside. Positive facial skin breakdown from rotoprone bed HEAD: Normocephalic. EYES: No scleral icterus. No injection or drainage. NECK: Supple, trachea midline. No JVD or lymphadenopathy. CARDIOVASCULAR: RRR. S1, [id number] murmurs RESPIRATORY: Diffuse fine crackles appreciated anteriorly. No wheezing GASTROINTESTINAL: Abdomen soft, non-tender, nondistended. Hypoactive bowel sounds appreciated MUSCULOSKELETAL: Trace below the knee pitting edema identified Neuro: Cranial nerves II through XII appear grossly intact. Moving all 4 extremities spontaneously to noxious stimulus. Currently not following commands Date of Insertion: Apr 25, 2017 Line: Central Venous Catheter Side: Right Location: Internal, Jugular A/P Problem List: (1) Adult respiratory distress syndrome ICD Code: J80 - Acute respiratory distress syndrome (2) Acute respiratory failure with hypoxia ICD Code: J96.01 - Acute respiratory failure with hypoxia (3) Pneumonia ICD Code: J18.9 - Pneumonia, unspecified organism Status: Acute (4) Increased anion gap metabolic acidosis ICD Code: E87.2 - Acidosis (5) Acute renal failure ICD Code: N17.9 - Acute kidney failure, unspecified (6) Lactic acidosis ICD Code: E87.2 - Acidosis (7) Leukocytosis ICD Code: D72.829 - Elevated white blood cell count, unspecified (8) Hyponatremia ICD Code: E87.1 - Hypo-osmolality and hyponatremia (9) Hyperglycemia ICD Code: R73.9 - Hyperglycemia, unspecified (10) Diarrhea ICD Code: R19.7 - Diarrhea, unspecified (11) Elevated lipase ICD Code: R74.8 - Abnormal levels of other serum enzymes (12) Tobacco use ICD Code: Z72.0 - Tobacco use Assessment and Plan NEUROLOGY History depression On Precedex drip to facilitate with weaning trials. Daily sedation vacation Acetaminophen 650 mg by tube every 6 hours when necessary fever Holding sertraline 100 mg daily/home medication while on linezolid PULMONOLOGY Acute hypoxic respiratory failure Adult respiratory distress syndrome Bilateral pneumonia Daily tobacco use Continue with vent support and keep sat >92% On PRVC RR 20, TV 450, IT:1.25, PEEP:8, FIO2: 40% Albuterol/ipratropium aerosols every 4 hours with albuterol aerosols every 2 hours. Dyspnea methylprednisolone succinate 40mg IV Q8, Off [facility] CARDIOLOGY Hypertension Severe pulmonary hypertension Monitor HR and BP keep MAP>65mmHg Lactic acid 1.2. Echo showed EF 60-65% with no regional wall motion abnormality. Severe pulmonary arterial pressure 70 mmHg As needed hydralazine, labetalol and Nitropaste for hypertension GASTROENTEROLOGY Hypertriglyceridemia Elevated lipase level and AST Repeat CT abdomen w contrast 05/02 showed findings c/w pancreatitis, Monitor Lipase level ( trending down) GI is following Continue Glucerna 1.5 goal 45 cc an hour. Currently at [address] the abdomen 04/24 does not indicate any acute abnormality within the abdomen US liver: Echogenic right kidney which can be seen with medical renal disease, otherwise unremarkable Docusate sodium 100 cc twice a day/senna 8.8 mg twice a day for bowel regimen On metoclopramide 5 mg every 8 hours for GI motility GI protection with famotidine 20 mg by tube twice daily Not on a cholesterol-lowering agent/gemfibrozil due to elevated LFTs GENITOURINARY Acute renal failure- Improving - likely ATN from hypo-perfusion Hypernatremia Monitor renal function, I/O's, avoid nephrotoxins Currently on furosemide 40mg daily Change free water 250ml Q6, monitor sodium level Renal is following- Dr. Serrano Renal function is improving INFECTIOUS DISEASE Bilateral pneumonia Diarrhea Continue Azactam, linezolid and azithromycin. ID is following. Monitor for signs of infections ( Fever, WBC) Blood cultures04/24 and 04/29: NGTD Influenza screening, Legionella testing, pneumococcal Ag all negative Follow up on sputum cx 04/28 no growth to date ENDOCRINOLOGY Hyperglycemia Accu-Cheks with sliding scale insulin medium Novulog every 4 hours HEMATOLOGY Leukocytosis Normocytic anemia History of iron deficiency Continue monitor CBC MSK Elevated BMI Weight loss encouraged PROPHYLAXIS DVT prevention with SCD, Heparin SQ GI protection with famotidine LINES Peripheral IVs Right IJ CVP 04/25 - current, Art line placed 04/25 - 04/29 Critical Care: The total critical care time was 30 minutes. Time to perform other separately billable procedures was not included in the critical care time. Problem Qualifiers (1) Pneumonia: Qualified Codes: J18.9 - Pneumonia, unspecified organism Nay Das MD May 03, 2017 08:48
[2017-05-03] MEDS: hydrALAZINE HCL 20 MG/ML VIAL IV PUSH PRN (10:38)
[2017-05-03] MEDS: fentaNYL DRIP 250 ML IV PRN (12:30)
[2017-05-03] MEDS: MIDAZOLAM HCL 2 MG/2 ML VIAL IV PUSH PRN ×6 (12:47→23:24)
--- NOTE | 2017-05-03 13:31 | HHI.IDPN ---
Note Infectious Disease Note Patient is sedated. Not awakening to voice. On vent. Afebrile. WBC remain elevated. Sputum culture - no growth. Blood culture no growth. Presented to [facility] emergency department on 04/07/2017 with cold and flu-like symptoms including cough, vomiting and diarrhea. PAST MEDICAL HISTORY 1. Irritable bowel syndrome. 2. Iron-deficiency anemia. 3. History of . ALLERGIES AMOXICILLIN. MEDICATIONS 1. Zyvox 2. Aztreonam. 3. Azithromycin. OBJECTIVE: Vital Signs Date Time Temp Pulse Resp B/P (MAP) Pulse Ox O2 Delivery O2 Flow Rate FiO2 05/03/17 12:54 91 40 05/03/17 12:12 97 40 05/03/17 10:33 96 40 05/03/17 08:24 40 05/03/17 08:24 97 40 05/03/17 08:02 99 40 05/03/17 06:00 61 05/03/17 04:51 99 40 05/03/17 04:00 68 05/03/17 04:00 99.2 68 22 155/93 (113) 98 05/03/17 04:00 40 05/03/17 02:00 65 05/03/17 00:27 96 40 05/03/17 00:00 40 05/03/17 00:00 65 05/03/17 00:00 98.7 65 14 162/92 (115) 96 05/02/17 22:00 68 05/02/17 20:20 98 40 05/02/17 20:00 98.9 87 24 170/90 (116) 95 05/02/17 20:00 87 05/02/17 20:00 40 05/02/17 18:30 94 05/02/17 18:00 90 05/02/17 17:30 87 05/02/17 17:00 84 05/02/17 16:31 84 05/02/17 16:31 84 22 146/87 (106) 97 05/02/17 16:00 40 05/02/17 16:00 79 05/02/17 16:00 98.6 79 15 129/77 (94) 96 05/02/17 15:57 97 40 05/02/17 15:30 85 18 135/80 (98) 96 05/02/17 15:30 85 05/02/17 15:00 83 05/02/17 15:00 83 19 141/83 (102) 95 05/02/17 14:30 88 18 154/99 (117) 94 05/02/17 14:30 88 05/02/17 14:00 93 05/02/17 14:00 93 21 152/89 (110) 95 05/02/17 13:30 87 16 146/82 (103) 95 05/02/17 13:30 87 Laboratory Tests Test 05/02/17 04:30 05/03/17 04:25 White Blood Count 19.8 TH/MM3 24.4 TH/MM3 Red Blood Count 3.37 MIL/MM3 3.47 MIL/MM3 Hemoglobin 10.1 GM/DL 10.5 GM/DL Hematocrit 31.4 % 32.0 % Mean Corpuscular Volume 93.2 FL 92.3 FL Mean Corpuscular Hemoglobin 30.1 PG 30.2 PG Mean Corpuscular Hemoglobin Concent 32.3 % 32.7 % Red Cell Distribution Width 16.5 % 16.4 % Platelet Count 298 TH/MM3 302 TH/MM3 Mean Platelet Volume 7.8 FL 7.8 FL Neutrophils (%) (Auto) 93.2 % 93.8 % Lymphocytes (%) (Auto) 3.2 % 2.4 % Monocytes (%) (Auto) 3.4 % 3.1 % Eosinophils (%) (Auto) 0.1 % 0.1 % Basophils (%) (Auto) 0.1 % 0.6 % Neutrophils # (Auto) 18.4 TH/MM3 23.0 TH/MM3 Lymphocytes # (Auto) 0.6 TH/MM3 0.6 TH/MM3 Monocytes # (Auto) 0.7 TH/MM3 0.7 TH/MM3 Eosinophils # (Auto) 0.0 TH/MM3 0.0 TH/MM3 Basophils # (Auto) 0.0 TH/MM3 0.1 TH/MM3 CBC Comment AUTO DIFF AUTO DIFF Differential Total Cells Counted 100 100 Neutrophils % (Manual) 88 % 92 % Band Neutrophils % 7 % 4 % Lymphocytes % 1 % 1 % Monocytes % 1 % 1 % Neutrophils # (Manual) 19.4 TH/MM3 23.9 TH/MM3 Metamyelocytes 3 % Differential Comment FINAL DIFF MANUAL FINAL DIFF MANUAL Platelet Estimate NORMAL NORMAL Platelet Morphology Comment NORMAL NORMAL Myelocytes 2 % Stomatocytes 1+ Laboratory Tests Test 05/02/17 04:30 05/02/17 23:04 05/03/17 04:25 Blood Urea Nitrogen 48 MG/DL 41 MG/DL Creatinine 0.95 MG/DL 0.92 MG/DL Random Glucose 115 MG/DL 116 MG/DL Total Protein 6.1 GM/DL Albumin 2.2 GM/DL Calcium Level 8.4 MG/DL 8.5 MG/DL Phosphorus Level 2.0 MG/DL 2.9 MG/DL Magnesium Level 2.3 MG/DL Alkaline Phosphatase 106 U/L Aspartate Amino Transf (AST/SGOT) 31 U/L Alanine Aminotransferase (ALT/SGPT) 35 U/L Total Bilirubin 0.6 MG/DL Sodium Level 146 MEQ/L 148 MEQ/L Potassium Level 4.1 MEQ/L 4.0 MEQ/L Chloride Level 108 MEQ/L 111 MEQ/L Carbon Dioxide Level 33.6 MEQ/L 32.5 MEQ/L Anion Gap 4 MEQ/L 5 MEQ/L Estimat Glomerular Filtration Rate 75 ML/MIN 78 ML/MIN Lipase 1874 U/L 1550 U/L IMAGING: Chest X-Ray 05/02/17 0600 Signed Impressions: Service Date/Time: Tuesday, May 02, 2017 04:06 - CONCLUSION: Diffuse consolidation likely related to edema. Davey Lutz MD Abdomen/Pelvis CT 05/01/17 0000 Signed Impressions: Service Date/Time: Tuesday, May 02, 2017 04:57 - CONCLUSION: 1. Increased density around the pancreatic head enhancing region and extending into the mesentery and right perinephric region all likely related to pancreatitis. 2. Suspected mild hepatic steatosis. 3. Bilateral dense areas of consolidation at the lung bases Davey Lutz MD Chest X-Ray 04/30/17 0000 Signed Impressions: Service Date/Time: Sunday, April 30, 2017 03:25 - CONCLUSION: 1. Persistent central airspace infiltrates with increasing consolidation of left lung base. Nakul Bailon MD Chest X-Ray 04/29/17 0000 Signed Impressions: Service Date/Time: Saturday, April 29, 2017 11:30 - CONCLUSION: No significant interval change. Tin Moon MD Abdomen X-Ray 04/29/17 0000 Signed Impressions: Service Date/Time: Saturday, April 29, 2017 11:58 - CONCLUSION: Nonspecific bowel gas pattern with no significant dilatation of the large or small bowel. Tin Moon MD Chest X-Ray 04/28/17 0000 Signed Impressions: Service Date/Time: Friday, April 28, 2017 07:27 - CONCLUSION: 1. The support equipment is in good position. 2. There are extensive bilateral pulmonary infiltrates similar to the prior exam. Exam would be consistent with a pneumonia. Huseyin Christiansen MD Liver Ultrasound 04/26/17 0000 Signed Impressions: Service Date/Time: Wednesday, April 26, 2017 16:44 - CONCLUSION: Echogenic right kidney which can be seen with medical renal disease, otherwise unremarkable right upper quadrant sonogram. Roque Gutiérrez MD Chest CT 04/24/17 1327 Signed Impressions: Service Date/Time: April 13:46 - CONCLUSION: Patchy groundglass infiltrates throughout all lobes of the lungs. It is most prominent in the perihilar distribution but also more peripheral areas. I did not see a mass amenable to biopsy with CT guidance. Jay Weaver MD Abdomen/Pelvis CT 04/24/177 Signed Impressions: Service Date/Time: April 13:46 - CONCLUSION: Patchy infiltrates in the lung bases. No concerning adenopathy or mass. Abdomen and pelvis are unremarkable. Small amount of free fluid in the pelvis within normal limits for age. The appendix is normal. Jay Weaver MD PHYSICAL EXAMINATION GENERAL: On the ventilator. No distress. Opens eyes. HEENT: No icterus. moist mucosa. LUNGS: Rhonchi bilateral. HEART: Regular, S1 and S2 without audible murmurs. ABDOMEN: Soft, Decreased bowel sounds. Rectal bag has loose stools. EXTREMITIES: No CC, Trace edema at the feet. SKIN: No rash. NEURO: Unable to assess. PSYCH: Unable to assess. IMPRESSION 1. Pneumonia. Negative culture. 2. Acute respiratory failure. 3. ARDS. 4. Acute renal failure. Improving. 5. Leukocytosis. 6. Pancreatitis. RECOMMENDATIONS 1. Continue Zyvox. 2. Continue aztreonam. 3. Stop azithromycin. 4. Follow Temp. 5. Monitor clinical status. 6. Monitor the WBC. Rikki Walker MD May 03, 2017 13:31
--- NOTE | 2017-05-03 15:47 | HHI.GIFU ---
Subjective Remarks Resting in the bed in the intensive care setting, De La Garza with clear yellow urine Abdomen round active bowel sounds 4 (Kristin Eric) Objective Vitals I&O Vital Signs Date Time Temp Pulse Resp B/P (MAP) Pulse Ox O2 Delivery O2 Flow Rate FiO2 05/03/17 14:00 64 21 109/60 (76) 93 05/03/17 13:30 66 23 122/79 (93) 94 05/03/17 13:01 74 25 114/68 (83) 90 05/03/17 12:54 91 40 05/03/17 12:31 74 55 137/88 (104) 97 05/03/17 12:12 97 40 05/03/17 12:01 98.5 77 40 185/101 (129) 93 05/03/17 12:00 40 05/03/17 11:42 85 40 183/99 (127) 91 05/03/17 11:00 80 35 155/88 (110) 98 05/03/17 10:33 96 40 05/03/17 10:31 67 23 180/98 (125) 100 05/03/17 10:00 82 35 172/99 (123) 96 05/03/17 09:30 70 30 159/89 (112) 97 05/03/17 09:00 60 7 156/84 (108) 93 05/03/17 08:24 40 05/03/17 08:24 97 40 05/03/17 08:12 79 27 152/99 (116) 97 05/03/17 08:02 99 40 05/03/17 08:00 99.1 67 23 167/101 (123) 98 05/03/17 08:00 40 05/03/17 06:00 61 05/03/17 04:51 99 40 05/03/17 04:00 68 05/03/17 04:00 99.2 68 22 155/93 (113) 98 05/03/17 04:00 40 05/03/17 02:00 65 05/03/17 00:27 96 40 05/03/17 00:00 40 05/03/17 00:00 65 05/03/17 00:00 98.7 65 14 162/92 (115) 96 05/02/17 22:00 68 05/02/17 20:20 98 40 05/02/17 20:00 98.9 87 24 170/90 (116) 95 05/02/17 20:00 87 05/02/17 20:00 40 05/02/17 18:30 94 05/02/17 18:00 90 05/02/17 17:30 87 05/02/17 17:00 84 05/02/17 16:31 84 05/02/17 16:31 84 22 146/87 (106) 97 05/02/17 16:00 40 05/02/17 16:00 79 05/02/17 16:00 98.6 79 15 129/77 (94) 96 05/02/17 15:57 97 40 I/O 05/02/17 05/02/17 05/02/17 05/03/17 05/03/17 05/03/17 07:00 15:00 23:00 07:00 15:00 23:00 Intake Total 2888 ml 850 ml 660 ml 1150 ml Output Total 1350 ml 1400 ml 1000 ml Balance 1538 ml 850 ml -740 ml 150 ml IV Total 888 ml 850 ml 660 ml 650 ml Tube Feeding 200 ml Tube Irrigant 1800 ml Other 500 ml Output Urine Total 1200 ml 1400 ml 950 ml Stool Total 150 ml 50 ml Laboratory Laboratory Tests Test 05/02/17 23:04 05/03/17 04:25 Phosphorus Level 2.9 White Blood Count 24.4 Red Blood Count 3.47 Hemoglobin 10.5 Hematocrit 32.0 Mean Corpuscular Volume 92.3 Mean Corpuscular Hemoglobin 30.2 Mean Corpuscular Hemoglobin Concent 32.7 Red Cell Distribution Width 16.4 Platelet Count 302 Mean Platelet Volume 7.8 Neutrophils (%) (Auto) 93.8 Lymphocytes (%) (Auto) 2.4 Monocytes (%) (Auto) 3.1 Eosinophils (%) (Auto) 0.1 Basophils (%) (Auto) 0.6 Neutrophils # (Auto) 23.0 Lymphocytes # (Auto) 0.6 Monocytes # (Auto) 0.7 Eosinophils # (Auto) 0.0 Basophils # (Auto) 0.1 CBC Comment AUTO DIFF Differential Total Cells Counted 100 Neutrophils % (Manual) 92 Band Neutrophils % 4 Lymphocytes % 1 Monocytes % 1 Neutrophils # (Manual) 23.9 Myelocytes 2 Differential Comment FINAL DIFF MANUAL Platelet Estimate NORMAL Platelet Morphology Comment NORMAL Stomatocytes 1+ Blood Urea Nitrogen 41 Creatinine 0.92 Random Glucose 116 Calcium Level 8.5 Sodium Level 148 Potassium Level 4.0 Chloride Level 111 Carbon Dioxide Level 32.5 Anion Gap 5 Estimat Glomerular Filtration Rate 78 Lipase 1550 Date/Time Source Procedure Growth Status 04/29/17 18:49 Blood Peripheral Aerobic Blood Culture - Preliminary NO GROWTH IN 4 DAYS Resulted 04/29/17 18:49 Blood Peripheral Anaerobic Blood Culture - Preliminary NO GROWTH IN 4 DAYS Resulted 04/28/17 10:45 Sputum Endotracheal Gram Stain - Final Complete 04/28/17 10:45 Sputum Endotracheal Sputum Culture - Final NO GROWTH IN 48 HOURS. Complete 04/24/17 16:25 Urine Random Urine Legionella Antigen - Final PRESUMPTIVE NEGATIVE FOR LEGIONELLA P... Complete 04/24/17 16:25 Urine Random Urine Streptococcus pneumoniae Antigen (M - Final PRESUMPTIVE NEGATIVE FOR STREPTOCOCCU... Complete Imaging Last Impressions Chest X-Ray 05/02/17 0600 Signed Impressions: Service Date/Time: Tuesday, May 02, 2017 04:06 - CONCLUSION: Diffuse consolidation likely related to edema. Davey Lutz MD Abdomen/Pelvis CT 05/01/17 0000 Signed Impressions: Service Date/Time: Tuesday, May 02, 2017 04:57 - CONCLUSION: 1. Increased density around the pancreatic head enhancing region and extending into the mesentery and right perinephric region all likely related to pancreatitis. 2. Suspected mild hepatic steatosis. 3. Bilateral dense areas of consolidation at the lung bases Davey Lutz MD Abdomen X-Ray 04/29/17 0000 Signed Impressions: Service Date/Time: Saturday, April 29, 2017 11:58 - CONCLUSION: Nonspecific bowel gas pattern with no significant dilatation of the large or small bowel. Tin Moon MD Liver Ultrasound 04/26/17 0000 Signed Impressions: Service Date/Time: Wednesday, April 26, 2017 16:44 - CONCLUSION: Echogenic right kidney which can be seen with medical renal disease, otherwise unremarkable right upper quadrant sonogram. Roque Gutiérrez MD Chest CT 04/24/17 1327 Signed Impressions: Service Date/Time: April 13:46 - CONCLUSION: Patchy groundglass infiltrates throughout all lobes of the lungs. It is most prominent in the perihilar distribution but also more peripheral areas. I did not see a mass amenable to biopsy with CT guidance. Jay Weaver MD Physical Exam HEENT: PERRL; normocephalic; atraumatic; no jaundice. CHEST: diminished CARDIAC: RRR ABDOMEN: Round, taut, obese, BS + 4 EXTREMITIES: No clubbing, cyanosis, or edema. SKIN: Normal; no rash; no jaundice. 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 No audible grimace on palpation, versus inflammation versus infection? Monitor for any decreased bowel sounds which could be possible ileus, Abdominal x-ray on 04/29/17 nonspecific. Heart rate 58-60 sinus, active bowel sounds 4, still has rectal De La Garza in but small amount of stool noted watery loose. Consider DC tomorrow. Plan feeds, NG tube 20 cc an hour, Glucerna 1.5, appears to be tolerating low-dose, continue to increase daily 10 cc an hour if patients tolerate Consider DC rectal De La Garza in a.m. KUB, will x-ray in the morning/ comparison from previous Call for any acute bleeding or change in GI status Monitor labs especially hemoglobin hematocrit Consider Reglan 5 mg IV every 6hr Continue stool softeners and PPIs Further recommendations based on symptoms 's patient was seen by myself and Dr. Jarrett, was written on his behalf (Kristin Eric) Plan Patient was seen and examined, she is awake today still intubated, seems to be comfortable still likely lethargic, continue supportive care, lipase still elevated we'll monitor labs (Franko Jarrett MD) Kristin Eric May 03, 2017 15:47 Franko Jarrett MD May 03, 2017 20:28
[2017-05-03] MEDS: AZITHROMYCIN INJ 500 MG in SODIUM CHLOR 0.9% 250 ML INJ 250 ML IV SCH (17:22)
[2017-05-04] VITALS (15 sets, daily range): BP systolic 130–158; BP diastolic 69–81; PULSE 58–80; RESP 20–26; TEMP 98.7–99.3; O2SAT 93–100
[2017-05-04] MEDS: AZTREONAM INJ 1,000 MG in SODIUM CHLORIDE 0.9% INJ 100 ML IV SCH ×3 (00:26→16:49)
[2017-05-04] MEDS: fentaNYL DRIP 250 ML IV PRN (00:27)
[2017-05-04] MEDS: DEXMEDETOMIDINE INJ 1,000 MCG in SODIUM CHLOR 0.9% 250 ML INJ 240 ML IV PRN ×3 (00:27→14:24)
[2017-05-04] MEDS: LINEZOLID 600 MG PREMIX 300 ML IV SCH ×2 (00:27→12:07)
[2017-05-04] MEDS: METOCLOPRAMIDE HCL 10 MG/2 ML VIAL IV PUSH SCH ×3 (01:26→16:49)
[2017-05-04] MEDS: methylPREDNISolone SOD SUCC 40 MG/1 ML VIAL IV PUSH SCH ×3 (01:26→16:50)
[2017-05-04] MEDS: MIDAZOLAM HCL 2 MG/2 ML VIAL IV PUSH PRN ×3 (01:26→05:37)
[2017-05-04] MEDS: INSULIN NovoLIN REGULAR SUPPLEMENTAL SCALE SQ SCH ×6 (01:27→21:17)
[2017-05-04] MEDS: CHLORHEXIDINE GLUCONATE 2 % 1 PACK (2 CLOTHS) TOP SCH (04:00)
--- NOTE | 2017-05-04 04:42 | RADRPT ---
EXAM DATE/TIME: 05/04/2017 04:03 [facility] COMPARISON: ABDOMEN KUB ONLY, April 29, 2017, 11:58. INDICATIONS : Abdominal distention. MEDICAL HISTORY : Pancreatitis. SURGICAL HISTORY : section. ENCOUNTER: Subsequent ACUITY: 1 week PAIN SCORE: Non-responsive. LOCATION: Bilateral Abdomen FINDINGS: Supine view of the abdomen was performed. The abdominal bowel gas pattern is normal. There is air s een within the transverse colon. No abnormal masses, calcifications, or organomegaly is seen. The os seous structures are unremarkable. CONCLUSION: No acute disease. Davey Lutz MD on May 04, 2017 at 4:40 Board Certified Radiologist. This report was verified electronically.
--- NOTE | 2017-05-04 04:50 | RADRPT ---
EXAM DATE/TIME: 05/04/2017 03:55 [facility] COMPARISON: CHEST SINGLE AP, May 02, 2017, 4:06. INDICATIONS : Shortness of breath, possible pulmonary disease. MEDICAL HISTORY : Pancreatitis. SURGICAL HISTORY : section. ENCOUNTER: Subsequent ACUITY: 1 week PAIN SCORE: Non-responsive. LOCATION: Bilateral chest FINDINGS: The ET tube, NG tube, and right internal jugular central line are well placed. The heart size is norm al. The lungs demonstrate mild areas of consolidation in the perihilar regions. CONCLUSION: Mild increased density in the perihilar regions related to mild edema. This is improving from the robles or exam. Davey Lutz MD on May 04, 2017 at 4:48 Board Certified Radiologist. This report was verified electronically.
[2017-05-04] MEDS: ARTIFICIAL TEARS OPTH SOLN 15 ML BTL EACH EYE SCH ×3 (05:19→21:17)
[2017-05-04] MEDS: FREE WATER G-TUBE SCH ×4 (05:19→16:49)
[2017-05-04 05:54] LABS: AUTOMATED NEUTROPHIL # 22.2 TH/MM3 (1.8-7.7); BASOPHIL % 0.1 % (0.0-2.0); HEMATOCRIT 29.2 % (35.0-46.0); HEMOGLOBIN 9.4 GM/DL (11.6-15.3); LYMPH % 2.4 % (9.0-44.0); LYMPHOCYTE # 0.6 TH/MM3 (1.0-4.8); MEAN CELL VOLUME 94.1 FL (80.0-100.0); MEAN CORPUSCULAR HEMOGLOBIN 30.4 PG (27.0-34.0); MEAN CORPUSCULAR HGB CONC 32.2 % (32.0-36.0); MEAN PLATELET VOLUME 8.2 FL (7.0-11.0); MONO % 2.9 % (0.0-8.0); MONOCYTE # 0.7 TH/MM3 (0-0.9); NEUT % 94.6 % (16.0-70.0); PLATELET COUNT 254 TH/MM3 (150-450); RED CELL DISTRIBUTION WIDTH 16.6 % (11.6-17.2); WHITE BLOOD COUNT 23.4 TH/MM3 (4.0-11.0)
[2017-05-04 06:17] LABS: BICARBONATE 31.1 MEQ/L (21.0-32.0); CALCIUM 8.2 MG/DL (8.5-10.1); CREATININE 0.89 MG/DL (0.50-1.00); MAGNESIUM 2.1 MG/DL (1.5-2.5); PHOSPHORUS 2.5 MG/DL (2.5-4.9)
[2017-05-04 07:03] LABS: BANDS 1 % (0-6); LYMPHOCYTES 2 % (9-44); NEUTROPHIL # MANUAL DIFF 22.9 TH/MM3 (1.8-7.7); POLYS (SEG NEUTROPHILS) 97 % (16-70)
[2017-05-04] MEDS: CHLORHEXIDINE 0.12% (ORAL KIT) 15 ML CUP MT SCH ×2 (08:00→20:00)
[2017-05-04] MEDS: FAMOTIDINE 20 MG TAB NG SCH ×2 (08:14→21:00)
[2017-05-04] MEDS: FUROSEMIDE 40 MG/4 ML VIAL IV PUSH SCH (08:14)
[2017-05-04] MEDS: SENNOSIDES SYRUP 8.8 MG/5 ML CUP OG-TUBE SCH ×2 (08:14→21:00)
[2017-05-04] MEDS: DOCUSATE SODIUM 100 MG/10 ML UDC OG-TUBE SCH (08:14)
[2017-05-04] MEDS: HEPARIN SODIUM - SQ 10,000 UNITS/ML VIAL SQ SCH ×2 (08:15→21:16)
[2017-05-04] MEDS: SODIUM CHLORIDE 0.9% FLUSH 10 ML FLUSH IV FLUSH SCH ×2 (08:16→21:00)
--- NOTE | 2017-05-04 10:14 | HHI.GIFU ---
Subjective Remarks Hgb now 9.4, no obvious bleeding Patient still mechanically ventilated, but awake today, tracks with her eyes briefly Abdomen softer on exam from the last 24 hours Bowel sounds active Rectal Thurman DC'd Objective Vitals I&O Vital Signs Date Time Temp Pulse Resp B/P (MAP) Pulse Ox O2 Delivery O2 Flow Rate FiO2 05/04/17 07:56 100 40 05/04/17 06:38 40 05/04/17 06:00 58 05/04/17 04:00 97 40 05/04/17 04:00 62 05/04/17 04:00 98.8 62 24 130/70 (90) 96 05/04/17 04:00 40 05/04/17 02:00 68 05/04/17 00:00 63 05/04/17 00:00 40 05/04/17 00:00 98.7 63 20 145/76 (99) 97 05/03/17 23:24 20 05/03/17 22:00 66 05/03/17 20:20 95 40 05/03/17 20:00 40 05/03/17 20:00 98.6 65 21 165/89 (114) 98 05/03/17 20:00 65 05/03/17 18:00 72 21 139/74 (95) 96 05/03/17 17:30 78 23 136/78 (97) 97 05/03/17 17:00 67 22 148/86 (106) 96 05/03/17 16:30 80 27 140/92 (108) 97 05/03/17 16:24 97 40 05/03/17 16:00 40 05/03/17 16:00 98.1 64 21 136/79 (98) 95 05/03/17 15:30 81 28 130/74 (92) 95 05/03/17 15:00 79 36 137/84 (101) 97 05/03/17 14:31 67 20 139/80 (99) 98 05/03/17 14:00 64 21 109/60 (76) 93 05/03/17 13:30 66 23 122/79 (93) 94 05/03/17 13:01 74 25 114/68 (83) 90 05/03/17 12:54 91 40 05/03/17 12:31 74 55 137/88 (104) 97 05/03/17 12:12 97 40 1/27/18 12:01 98.5 77 40 185/101 (129) 93 05/03/17 12:00 40 05/03/17 11:42 85 40 183/99 (127) 91 05/03/17 11:00 80 35 155/88 (110) 98 05/03/17 10:33 96 40 05/03/17 10:31 67 23 180/98 (125) 100 I/O 05/03/17 05/03/17 05/03/17 05/04/17 05/04/17 05/04/17 07:00 15:00 23:00 07:00 15:00 23:00 Intake Total 1150 ml 550 ml 1163 ml 1723 ml Output Total 1000 ml 2200 ml 1350 ml Balance 150 ml 550 ml -1037 ml 373 ml IV Total 650 ml 550 ml 663 ml 912 ml Tube Feeding 311 ml Other 500 ml 500 ml 500 ml Output Urine Total 950 ml 2100 ml 950 ml Stool Total 50 ml 100 ml 400 ml Laboratory Laboratory Tests Test 05/04/17 04:16 White Blood Count 23.4 Red Blood Count 3.10 Hemoglobin 9.4 Hematocrit 29.2 Mean Corpuscular Volume 94.1 Mean Corpuscular Hemoglobin 30.4 Mean Corpuscular Hemoglobin Concent 32.2 Red Cell Distribution Width 16.6 Platelet Count 254 Mean Platelet Volume 8.2 Neutrophils (%) (Auto) 94.6 Lymphocytes (%) (Auto) 2.4 Monocytes (%) (Auto) 2.9 Eosinophils (%) (Auto) 0.0 Basophils (%) (Auto) 0.1 Neutrophils # (Auto) 22.2 Lymphocytes # (Auto) 0.6 Monocytes # (Auto) 0.7 Eosinophils # (Auto) 0.0 Basophils # (Auto) 0.0 CBC Comment AUTO DIFF Differential Total Cells Counted 100 Neutrophils % (Manual) 97 Band Neutrophils % 1 Lymphocytes % 2 Neutrophils # (Manual) 22.9 Differential Comment FINAL DIFF MANUAL Platelet Estimate NORMAL Platelet Morphology Comment NORMAL Red Cell Morphology Comment NORMAL Blood Urea Nitrogen 41 Creatinine 0.89 Random Glucose 108 Calcium Level 8.2 Phosphorus Level 2.5 Magnesium Level 2.1 Sodium Level 148 Potassium Level 3.9 Chloride Level 112 Carbon Dioxide Level 31.1 Anion Gap 5 Estimat Glomerular Filtration Rate 81 Lipase 1283 Date/Time Source Procedure Growth Status 04/29/17 18:49 Blood Peripheral Aerobic Blood Culture - Preliminary NO GROWTH IN 4 DAYS Resulted 04/29/17 18:49 Blood Peripheral Anaerobic Blood Culture - Preliminary NO GROWTH IN 4 DAYS Resulted 04/28/17 10:45 Sputum Endotracheal Gram Stain - Final Complete 04/28/17 10:45 Sputum Endotracheal Sputum Culture - Final NO GROWTH IN 48 HOURS. Complete 04/24/17 16:25 Urine Random Urine Legionella Antigen - Final PRESUMPTIVE NEGATIVE FOR LEGIONELLA P... Complete 04/24/17 16:25 Urine Random Urine Streptococcus pneumoniae Antigen (M - Final PRESUMPTIVE NEGATIVE FOR STREPTOCOCCU... Complete Imaging Last Impressions Abdomen X-Ray 05/04/17 0800 Signed Impressions: Service Date/Time: Thursday, May 04, 2017 04:03 - CONCLUSION: No acute disease. Davey Lutz MD Chest X-Ray 05/04/17 0000 Signed Impressions: Service Date/Time: Thursday, May 04, 2017 03:55 - CONCLUSION: Mild increased density in the perihilar regions related to mild edema. This is improving from the prior exam. Davey Lutz MD Abdomen/Pelvis CT 05/01/17 0000 Signed Impressions: Service Date/Time: Tuesday, May 02, 2017 04:57 - CONCLUSION: 1. Increased density around the pancreatic head enhancing region and extending into the mesentery and right perinephric region all likely related to pancreatitis. 2. Suspected mild hepatic steatosis. 3. Bilateral dense areas of consolidation at the lung bases Davey Lutz MD Liver Ultrasound 04/26/17 0000 Signed Impressions: Service Date/Time: Wednesday, April 26, 2017 16:44 - CONCLUSION: Echogenic right kidney which can be seen with medical renal disease, otherwise unremarkable right upper quadrant sonogram. Roque Gutiérrez MD Chest CT 04/24/17 1327 Signed Impressions: Service Date/Time: April 13:46 - CONCLUSION: Patchy groundglass infiltrates throughout all lobes of the lungs. It is most prominent in the perihilar distribution but also more peripheral areas. I did not see a mass amenable to biopsy with CT guidance. Jay Weaver MD Physical Exam HEENT: PERRL; normocephalic; atraumatic; no jaundice. ET tube secured CHEST: diminished CARDIAC: RRR ABDOMEN: Round, soft, obese, BS + 4 EXTREMITIES: No clubbing, cyanosis, or edema. SKIN: Normal; no rash; no jaundice. 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, opens eyes purposefully to voice, appears nonanxious Assessment and Plan Assessment: (1) Hepatic steatosis ICD Codes: K76.0 - Fatty (change of) liver, not elsewhere classified (2) Pancreatitis ICD Codes: K85.90 - Acute pancreatitis without necrosis or infection, unspecified Plan Assessment: (1) Hepatic steatosis ICD Codes: K76.0 - Fatty (change of) liver, not elsewhere classified (2) Pancreatitis ICD Codes: K85.90 - Acute pancreatitis without necrosis or infection, unspecified Plan (1) Hepatic steatosis ICD Codes: K76.0 - Fatty (change of) liver, not elsewhere classified (2) Pancreatitis ICD Codes: K85.90 - Acute pancreatitis without necrosis or infection, unspecified Patient continues to be intubated remain in the intensive care setting. Hemoglobin stable at 9.4, lipase slowly decreasing 1283, hepatic profile negative, ANTIONE anti-smooth muscle negative, Abdomen remains round, large, probable bloating with bowel sounds present. No audible grimace on palpation, versus inflammation versus infection? Monitor for any decreased bowel sounds which could be possible ileus, Abdominal x-ray on 04/29/17 nonspecific. active bowel sounds 4, still has rectal Thurman in but small amount of stool noted watery loose. Consider DC tomorrow. KUB done on 05/04/17 shows bowel gas pattern normal, air seen in the transverse colon Loose stools less waterly. DC stool softner, Rectal thurman out Plan feeds, NG tube 30 cc an hour, Glucerna 1.5, appears to be tolerating low-dose, continue to increase daily 10 cc an hour if patients tolerate Call for any acute bleeding or change in GI status Monitor labs , especially attention to hemoglobin and lipase Consider Reglan 5 mg IV every 6hr PPI Kristin Eric May 04, 2017 10:14
--- NOTE | 2017-05-04 12:25 | HHI.IDPN ---
Note Infectious Disease Note Patient awake and following commands. On vent. CPAP. Afebrile. WBC remain elevated. Presented to [facility] emergency department on 04/07/2017 with cold and flu-like symptoms including cough, vomiting and diarrhea. PAST MEDICAL HISTORY 1. Irritable bowel syndrome. 2. Iron-deficiency anemia. 3. History of . ALLERGIES AMOXICILLIN. MEDICATIONS 1. Zyvox 2. Aztreonam. 3. Azithromycin. OBJECTIVE: Vital Signs Date Time Temp Pulse Resp B/P (MAP) Pulse Ox O2 Delivery O2 Flow Rate FiO2 05/04/17 10:15 99 40 05/04/17 07:56 100 40 05/04/17 06:38 40 05/04/17 06:00 58 05/04/17 04:00 97 40 05/04/17 04:00 62 05/04/17 04:00 98.8 62 24 130/70 (90) 96 05/04/17 04:00 40 05/04/17 02:00 68 05/04/17 00:00 63 05/04/17 00:00 40 05/04/17 00:00 98.7 63 20 145/76 (99) 97 05/03/17 23:24 20 05/03/17 22:00 66 05/03/17 20:20 95 40 05/03/17 20:00 40 05/03/17 20:00 98.6 65 21 165/89 (114) 98 05/03/17 20:00 65 05/03/17 18:00 72 21 139/74 (95) 96 05/03/17 17:30 78 23 136/78 (97) 97 05/03/17 17:00 67 22 148/86 (106) 96 05/03/17 16:30 80 27 140/92 (108) 97 05/03/17 16:24 97 40 05/03/17 16:00 40 05/03/17 16:00 98.1 64 21 136/79 (98) 95 05/03/17 15:30 81 28 130/74 (92) 95 05/03/17 15:00 79 36 137/84 (101) 97 05/03/17 14:31 67 20 139/80 (99) 98 05/03/17 14:00 64 21 109/60 (76) 93 05/03/17 13:30 66 23 122/79 (93) 94 05/03/17 13:01 74 25 114/68 (83) 90 05/03/17 12:54 91 40 05/03/17 12:31 74 55 137/88 (104) 97 Laboratory Tests Test 05/03/17 04:25 05/04/17 04:16 White Blood Count 24.4 TH/MM3 23.4 TH/MM3 Red Blood Count 3.47 MIL/MM3 3.10 MIL/MM3 Hemoglobin 10.5 GM/DL 9.4 GM/DL Hematocrit 32.0 % 29.2 % Mean Corpuscular Volume 92.3 FL 94.1 FL Mean Corpuscular Hemoglobin 30.2 PG 30.4 PG Mean Corpuscular Hemoglobin Concent 32.7 % 32.2 % Red Cell Distribution Width 16.4 % 16.6 % Platelet Count 302 TH/MM3 254 TH/MM3 Mean Platelet Volume 7.8 FL 8.2 FL Neutrophils (%) (Auto) 93.8 % 94.6 % Lymphocytes (%) (Auto) 2.4 % 2.4 % Monocytes (%) (Auto) 3.1 % 2.9 % Eosinophils (%) (Auto) 0.1 % 0.0 % Basophils (%) (Auto) 0.6 % 0.1 % Neutrophils # (Auto) 23.0 TH/MM3 22.2 TH/MM3 Lymphocytes # (Auto) 0.6 TH/MM3 0.6 TH/MM3 Monocytes # (Auto) 0.7 TH/MM3 0.7 TH/MM3 Eosinophils # (Auto) 0.0 TH/MM3 0.0 TH/MM3 Basophils # (Auto) 0.1 TH/MM3 0.0 TH/MM3 CBC Comment AUTO DIFF AUTO DIFF Differential Total Cells Counted 100 100 Neutrophils % (Manual) 92 % 97 % Band Neutrophils % 4 % 1 % Lymphocytes % 1 % 2 % Monocytes % 1 % Neutrophils # (Manual) 23.9 TH/MM3 22.9 TH/MM3 Myelocytes 2 % Differential Comment FINAL DIFF MANUAL FINAL DIFF MANUAL Platelet Estimate NORMAL NORMAL Platelet Morphology Comment NORMAL NORMAL Stomatocytes 1+ Red Cell Morphology Comment NORMAL Laboratory Tests Test 05/02/17 23:04 05/03/17 04:25 05/04/17 04:16 Phosphorus Level 2.9 MG/DL 2.5 MG/DL Blood Urea Nitrogen 41 MG/DL 41 MG/DL Creatinine 0.92 MG/DL 0.89 MG/DL Random Glucose 116 MG/DL 108 MG/DL Calcium Level 8.5 MG/DL 8.2 MG/DL Sodium Level 148 MEQ/L 148 MEQ/L Potassium Level 4.0 MEQ/L 3.9 MEQ/L Chloride Level 111 MEQ/L 112 MEQ/L Carbon Dioxide Level 32.5 MEQ/L 31.1 MEQ/L Anion Gap 5 MEQ/L 5 MEQ/L Estimat Glomerular Filtration Rate 78 ML/MIN 81 ML/MIN Lipase 1550 U/L 1283 U/L Magnesium Level 2.1 MG/DL IMAGING: Abdomen X-Ray 05/04/17 0800 Signed Impressions: Service Date/Time: Thursday, May 04, 2017 04:03 - CONCLUSION: No acute disease. Davey Lutz MD Chest X-Ray 05/04/17 0000 Signed Impressions: Service Date/Time: Thursday, May 04, 2017 03:55 - CONCLUSION: Mild increased density in the perihilar regions related to mild edema. This is improving from the prior exam. Davey Lutz MD Chest X-Ray 05/02/17 0600 Signed Impressions: Service Date/Time: Tuesday, May 02, 2017 04:06 - CONCLUSION: Diffuse consolidation likely related to edema. Davey Lutz MD Abdomen/Pelvis CT 05/01/17 0000 Signed Impressions: Service Date/Time: Tuesday, May 02, 2017 04:57 - CONCLUSION: 1. Increased density around the pancreatic head enhancing region and extending into the mesentery and right perinephric region all likely related to pancreatitis. 2. Suspected mild hepatic steatosis. 3. Bilateral dense areas of consolidation at the lung bases Davey Lutz MD Chest X-Ray 04/30/17 0000 Signed Impressions: Service Date/Time: Sunday, April 30, 2017 03:25 - CONCLUSION: 1. Persistent central airspace infiltrates with increasing consolidation of left lung base. Nakul Bailon MD Chest X-Ray 04/29/17 0000 Signed Impressions: Service Date/Time: Saturday, April 29, 2017 11:30 - CONCLUSION: No significant interval change. Tin Moon MD Abdomen X-Ray 04/29/17 0000 Signed Impressions: Service Date/Time: Saturday, April 29, 2017 11:58 - CONCLUSION: Nonspecific bowel gas pattern with no significant dilatation of the large or small bowel. Tin Moon MD Chest X-Ray 04/28/17 0000 Signed Impressions: Service Date/Time: Friday, April 28, 2017 07:27 - CONCLUSION: 1. The support equipment is in good position. 2. There are extensive bilateral pulmonary infiltrates similar to the prior exam. Exam would be consistent with a pneumonia. Huseyin Christiansen MD Liver Ultrasound 04/26/17 0000 Signed Impressions: Service Date/Time: Wednesday, April 26, 2017 16:44 - CONCLUSION: Echogenic right kidney which can be seen with medical renal disease, otherwise unremarkable right upper quadrant sonogram. Roque Gutiérrez MD Chest CT [id number] Signed Impressions: Service Date/Time: April 13:46 - CONCLUSION: Patchy groundglass infiltrates throughout all lobes of the lungs. It is most prominent in the perihilar distribution but also more peripheral areas. I did not see a mass amenable to biopsy with CT guidance. Jay Weaver MD Abdomen/Pelvis CT [id number] Signed Impressions: Service Date/Time: April 13:46 - CONCLUSION: Patchy infiltrates in the lung bases. No concerning adenopathy or mass. Abdomen and pelvis are unremarkable. Small amount of free fluid in the pelvis within normal limits for age. The appendix is normal. Jay Weaver MD PHYSICAL EXAMINATION GENERAL: On the ventilator. No distress. HEENT: No icterus. moist mucosa. LUNGS: Rhonchi bilateral. HEART: Regular, S1 and S2 without audible murmurs. ABDOMEN: Soft, Decreased bowel sounds. Rectal bag has loose stools. EXTREMITIES: No CC, Trace edema at the feet. SKIN: No rash. NEURO: follows commands and moves all extremities. PSYCH: Unable to assess. IMPRESSION 1. Pneumonia. Negative culture. 2. Acute respiratory failure. 3. ARDS. 4. Acute renal failure. Improving. 5. Leukocytosis. WBC still elevated. 6. Pancreatitis. Seems to be improving. RECOMMENDATIONS 1. Stop Zyvox. 2. Continue aztreonam. 3. Stop azithromycin. 4. Follow Temp. 5. Monitor clinical status. 6. Monitor the WBC. Rikki Walker MD May 04, 2017 12:25
--- NOTE | 2017-05-04 15:27 | HHI.CCPN ---
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 She states that she is had multiple symptoms to include nausea, vomiting, diarrhea, cough, congestion, sore throat. Patient states that her symptoms have improved progressively getting worse over the last 2 days. Because she did not improve her family brought her to the emergency department for evaluation. Because of her family's concern is could have saved the patient's life. Patient with severe multisystem organ failure with respiratory failure, renal failure, severe metabolic acidosis with anion gap. Patient indicates that she has had nausea, vomiting and diarrhea and only minimally keep minimal liquids down. She has had cough, congestion. CT scans and chest x-rays show significant infiltrates bilaterally with respiratory failure. Patient with adult respiratory distress syndrome. Without intubation patient will unlikely survive. This was discussed with the family and patient at bedside prior to intubation. They are in agreement with pursuing heroic measures and intubation for medical management. Patient was intubated by ER physician successfully. Patient will be transferred to [facility] for critical care management. 04/25 Patient is sedated with Diprivan, Fentanyl drips and intubated. Afebrile. 04/26 Patient is intubated, sedated with Diprivan, Fentanyl drip in addition she is on Nimbex. She was proned yesterday her O2 requirements is better overall now on PEEP;12 and FIO2 65% 04/27 No events overnight. Intubated and sedation in addition she is on Nimbex. Afebrile. On Flolan 04/28 Patient remains sedated and intubated . On PRVC with PEEP:12, FIO2: 50%. Renal function is improving with Cr: 2.50 from 2.75. Had low grade fever with T: 100.6 last night. 04/29 Patient remains on prone bed intubated, sedated in addition she is on neuromuscular blockade ( Nimbex). Afebrile. Renal function is better with Cr: 1.93 from 2.5 and O2 requirements is better. TF held for high residuals. Spiked fever with 04/30: Tmax 102.7. Currently afebrile. Blood cultures 2 obtained yesterday. Tube feeds restarted currently at 20 cc an hour with Glucerna 1.5. Positive BM. Sodium increased. 05/01: Currently afebrile. Sodium is improved currently 150. Tolerating tube feeds at goal 20 cc per GI. Plan for CT abdomen today due to elevated lipase 05/02 Patient remains intubated on Versed, Fentanyl and Precedex drips for sedation. CT abdomen performed showed findings c/w pancreatitis. 05/03 No events overnight. Patient remains intubated and is on Precedex drip. Afebrile. Subjective 05/04: Afebrile. On dexmedetomidine drip at 1.5 mcg/kg per minute and fentanyl drip at 100 grams an hour. 500 cc stool. Currently a PSV trial 5/5 at 35%. We'll attempt extubation if passes weaning parameters at 4:30 PM. Tube feeds are currently off Objective Vital Signs Date Time Temp Pulse Resp B/P (MAP) Pulse Ox O2 Delivery O2 Flow Rate FiO2 05/04/17 13:25 98 40 05/04/17 06:00 58 05/04/17 04:00 98.8 24 130/70 (90) Intake and Output 05/04/17 05/04/17 05/05/17 08:00 16:00 00:00 Intake Total 1723 ml 650 ml Output Total 1350 ml Balance 373 ml 650 ml Result Diagram: 05/04/17 0416 05/04/17 0416 Other Results Microbiology Date/Time Source Procedure Growth Status 04/29/17 18:49 Blood Peripheral Aerobic Blood Culture - Final NO GROWTH IN 5 DAYS Complete 04/29/17 18:49 Blood Peripheral Anaerobic Blood Culture - Final NO GROWTH IN 5 DAYS Complete 04/28/17 10:45 Sputum Endotracheal Gram Stain - Final Complete 04/28/17 10:45 Sputum Endotracheal Sputum Culture - Final NO GROWTH IN 48 HOURS. Complete 04/24/17 16:25 Urine Random Urine Legionella Antigen - Final PRESUMPTIVE NEGATIVE FOR LEGIONELLA P... Complete 04/24/17 16:25 Urine Random Urine Streptococcus pneumoniae Antigen (M - Final PRESUMPTIVE NEGATIVE FOR STREPTOCOCCU... Complete Imaging Last Impressions Abdomen X-Ray 05/04/17 0800 Signed Impressions: Service Date/Time: Thursday, May 04, 2017 04:03 - CONCLUSION: No acute disease. Davey Lutz MD Chest X-Ray 05/04/17 0000 Signed Impressions: Service Date/Time: Thursday, May 04, 2017 03:55 - CONCLUSION: Mild increased density in the perihilar regions related to mild edema. This is improving from the prior exam. Davey Lutz MD Abdomen/Pelvis CT 05/01/17 0000 Signed Impressions: Service Date/Time: Tuesday, May 02, 2017 04:57 - CONCLUSION: 1. Increased density around the pancreatic head enhancing region and extending into the mesentery and right perinephric region all likely related to pancreatitis. 2. Suspected mild hepatic steatosis. 3. Bilateral dense areas of consolidation at the lung bases Davey Lutz MD Liver Ultrasound 04/26/17 0000 Signed Impressions: Service Date/Time: Wednesday, April 26, 2017 16:44 - CONCLUSION: Echogenic right kidney which can be seen with medical renal disease, otherwise unremarkable right upper quadrant sonogram. Roque Gutiérrez MD Chest CT 04/24/17 1327 Signed Impressions: Service Date/Time: April 13:46 - CONCLUSION: Patchy groundglass infiltrates throughout all lobes of the lungs. It is most prominent in the perihilar distribution but also more peripheral areas. I did not see a mass amenable to biopsy with CT guidance. Jay Weaver MD Objective Remarks GENERAL:51-year-old AA female currently orotracheally intubated SKIN: Warm and dry. Unable to evaluate backside. Positive facial skin breakdown from rotoprone bed HEAD: Normocephalic. EYES: No scleral icterus. No injection or drainage. NECK: Supple, trachea midline. No JVD or lymphadenopathy. CARDIOVASCULAR: RRR. S1, S2 no S4. Without murmurs RESPIRATORY: Diffuse fine crackles appreciated anteriorly. No wheezing GASTROINTESTINAL: Abdomen soft, non-tender, nondistended. Hypoactive bowel sounds appreciated MUSCULOSKELETAL: Trace below the knee pitting edema identified. Abrasion over right medial aspect of thigh. Neuro: Cranial nerves II through XII appear grossly intact. Moving all 4 extremities spontaneously to noxious stimulus. Currently following commands by giving thumbs up bilaterally. Urinary Catheter: Yes Assessment to: Continue De La Garza insert reason: Prolonged Immobilization Vascular Central Line Catheter: Yes Assessment to: Continue Date of Insertion: Apr 25, 2017 Line: Central Venous Catheter Side: Right Location: Internal, Jugular A/P Assessment and Plan NEUROLOGY/PSYCH: History depression On dexmedetomidine drip at 1.5 mcg/kg per minute and fentanyl drip at 100 mcg an hour for sedation/analgesia while intubated Goal of RA SS of 0 Daily sedation vacation Acetaminophen 650 mg by tube every 6 hours when necessary fever Holding sertraline 100 mg daily/home medication while on linezolid note this was discontinued 04/26. PULMONOLOGY Acute hypoxic respiratory failure Adult respiratory distress syndrome Bilateral pneumonia Daily tobacco use Continue with vent support and keep sat >92% On PRVC RR 20, TV 450, IT:1.25, PEEP:8, FIO2: 40% Currently PSV trial 5/5 and 35% Albuterol/ipratropium aerosols every 4 hours with albuterol aerosols every 2 hours. Dyspnea methylprednisolone succinate 40mg IV Q8, Off epoprostenol as of 05/02 CARDIOLOGY Hypertension Severe pulmonary hypertension Monitor HR and BP keep MAP>65mmHg Lactic acid 1.2. Echo showed EF 60-65% with no regional wall motion abnormality. Severe pulmonary arterial pressure 70 mmHg As needed hydralazine, labetalol and Nitropaste for hypertension GASTROENTEROLOGY Hypertriglyceridemia Elevated lipase level and AST Pancreatitis Hepatic steatosis Repeat CT abdomen w contrast 05/02 showed findings c/w pancreatitis, Monitor Lipase level ( trending down) GI is following Continue Glucerna 1.5 goal 45 cc an hour. Currently at 30 cc an hour. Currently on hold for extubation CT the abdomen 04/24 does not indicate any acute abnormality within the abdomen US liver: Echogenic right kidney which can be seen with medical renal disease, otherwise unremarkable Docusate sodium 100 cc twice a day/senna 8.8 mg twice a day for bowel regimen On metoclopramide 5 mg every 8 hours for GI motility GI protection with famotidine 20 mg by tube twice daily Not on a cholesterol-lowering agent/gemfibrozil due to elevated LFTs GENITOURINARY Acute renal failure- Improving - likely ATN from hypo-perfusion Hypernatremia Monitor renal function, I/O's, avoid nephrotoxins Currently on furosemide 40mg daily Change free water 250ml Q6, monitor sodium level Renal has followed- Dr. Serrano Renal function is stable INFECTIOUS DISEASE Bilateral pneumonia Diarrhea Continue Azactam, Discontinued linezolid and azithromycin on 05/04. ID is following. Monitor for signs of infections ( Fever, WBC) Blood cultures04/24 and 04/29: NGTD Influenza screening, Legionella testing, pneumococcal Ag all negative Follow up on sputum cx 04/28 no growth to date ENDOCRINOLOGY Hyperglycemia Accu-Cheks with sliding scale insulin medium Novulog every 4 hours HEMATOLOGY Leukocytosis Normocytic anemia History of iron deficiency Continue monitor CBC MSK Elevated BMI Weight loss encouraged PROPHYLAXIS DVT prevention with SCD, Heparin SQ GI protection with famotidine LINES Peripheral IVs Right IJ CVP 04/25 - current, Art line placed 04/25 - 04/29 Critical Care: The total critical care time was 30 minutes. Time to perform other separately billable procedures was not included in the critical care time. Juan Hui MD May 04, 2017 15:27
[2017-05-04] MEDS: RESP: ALBUTEROL 2.5 MG/IPRATROPIUM 0.5 MG NEB (SCH) NEB ×3 (16:01→23:35)
[2017-05-04] MEDS: SODIUM CHLOR 0.45% 1000 ML INJ 1,000 ML IV SCH (21:30)
[2017-05-05] VITALS (14 sets, daily range): BP systolic 149–184; BP diastolic 65–94; PULSE 81–104; RESP 22–26; TEMP 98–99.1; O2SAT 93–99
[2017-05-05] MEDS: METOCLOPRAMIDE HCL 10 MG/2 ML VIAL IV PUSH SCH ×3 (02:00→18:00)
[2017-05-05] MEDS: INSULIN NovoLIN REGULAR SUPPLEMENTAL SCALE SQ SCH ×5 (02:00→22:00)
[2017-05-05] MEDS: AZTREONAM INJ 1,000 MG in SODIUM CHLORIDE 0.9% INJ 100 ML IV SCH ×3 (02:13→16:34)
[2017-05-05] MEDS: methylPREDNISolone SOD SUCC 40 MG/1 ML VIAL IV PUSH SCH ×3 (02:14→18:25)
[2017-05-05] MEDS: MORPHINE SULFATE 2 MG/ML INJ IV PUSH PRN ×4 (02:14→20:08)
[2017-05-05] MEDS: RESP: ALBUTEROL 2.5 MG/IPRATROPIUM 0.5 MG NEB (SCH) NEB ×6 (04:00→23:46)
[2017-05-05] MEDS: CHLORHEXIDINE GLUCONATE 2 % 1 PACK (2 CLOTHS) TOP SCH (04:00)
[2017-05-05 05:05] LABS: AUTOMATED NEUTROPHIL # 26.6 TH/MM3 (1.8-7.7); BASOPHIL % 0.1 % (0.0-2.0); HEMATOCRIT 30.2 % (35.0-46.0); HEMOGLOBIN 9.8 GM/DL (11.6-15.3); LYMPH % 2.7 % (9.0-44.0); LYMPHOCYTE # 0.8 TH/MM3 (1.0-4.8); MEAN CELL VOLUME 93.6 FL (80.0-100.0); MEAN CORPUSCULAR HEMOGLOBIN 30.3 PG (27.0-34.0); MEAN CORPUSCULAR HGB CONC 32.4 % (32.0-36.0); MEAN PLATELET VOLUME 8.1 FL (7.0-11.0); MONO % 3.6 % (0.0-8.0); NEUT % 93.6 % (16.0-70.0); PLATELET COUNT 258 TH/MM3 (150-450); RED BLOOD COUNT 3.23 MIL/MM3 (4.00-5.30); RED CELL DISTRIBUTION WIDTH 16.6 % (11.6-17.2); WHITE BLOOD COUNT 28.5 TH/MM3 (4.0-11.0)
[2017-05-05] MEDS: FREE WATER G-TUBE SCH ×4 (05:18→18:00)
[2017-05-05] MEDS: ARTIFICIAL TEARS OPTH SOLN 15 ML BTL EACH EYE SCH (05:18)
[2017-05-05 05:20] LABS: ALBUMIN 2.2 GM/DL (3.4-5.0); ALKALINE PHOSPHATASE 122 U/L (45-117); ALT (GPT) 48 U/L (10-53); AST (GOT) 65 U/L (15-37); BICARBONATE 24.2 MEQ/L (21.0-32.0); BLOOD UREA NITROGEN 34 MG/DL (7-18); CALCIUM 8.7 MG/DL (8.5-10.1); CHLORIDE 107 MEQ/L (98-107); CREATININE 0.74 MG/DL (0.50-1.00); GLOMERULAR FILTRATION RATE 100 ML/MIN (>89); GLUCOSE,RANDOM 98 MG/DL (74-106); MAGNESIUM 1.8 MG/DL (1.5-2.5); PHOSPHORUS 2.2 MG/DL (2.5-4.9); SODIUM (NA) 143 MEQ/L (136-145); TOTAL BILIRUBIN ADULT 0.6 MG/DL (0.2-1.0); TOTAL PROTEIN 6.3 GM/DL (6.4-8.2)
[2017-05-05 07:11] LABS: METAMYELOCYTES 1 % (0-1); MYELOCYTES 1 % (0-0); NEUTROPHIL # MANUAL DIFF 28.5 TH/MM3 (1.8-7.7); POLYS (SEG NEUTROPHILS) 98 % (16-70)
[2017-05-05] MEDS: CHLORHEXIDINE 0.12% (ORAL KIT) 15 ML CUP MT SCH ×2 (08:00→20:00)
[2017-05-05] MEDS: FUROSEMIDE 40 MG/4 ML VIAL IV PUSH SCH (08:25)
[2017-05-05] MEDS: HEPARIN SODIUM - SQ 10,000 UNITS/ML VIAL SQ SCH ×2 (08:26→20:07)
[2017-05-05] MEDS: SODIUM CHLOR 0.45% 1000 ML INJ 1,000 ML IV SCH (08:53)
[2017-05-05] MEDS: SENNOSIDES SYRUP 8.8 MG/5 ML CUP OG-TUBE SCH ×2 (09:00→19:56)
[2017-05-05] MEDS ORDERED: NITROGLYCERIN 2% OINT 1 GM PACKET TOPICAL PRN (10:00)
--- NOTE | 2017-05-05 10:05 | HHI.CCPN ---
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 She states that she is had multiple symptoms to include nausea, vomiting, diarrhea, cough, congestion, sore throat. Patient states that her symptoms have improved progressively getting worse over the last 2 days. Because she did not improve her family brought her to the emergency department for evaluation. Because of her family's concern is could have saved the patient's life. Patient with severe multisystem organ failure with respiratory failure, renal failure, severe metabolic acidosis with anion gap. Patient indicates that she has had nausea, vomiting and diarrhea and only minimally keep minimal liquids down. She has had cough, congestion. CT scans and chest x-rays show significant infiltrates bilaterally with respiratory failure. Patient with adult respiratory distress syndrome. Without intubation patient will unlikely survive. This was discussed with the family and patient at bedside prior to intubation. They are in agreement with pursuing heroic measures and intubation for medical management. Patient was intubated by ER physician successfully. Patient will be transferred to [facility] for critical care management. 04/25 Patient is sedated with Diprivan, Fentanyl drips and intubated. Afebrile. 04/26 Patient is intubated, sedated with Diprivan, Fentanyl drip in addition she is on Nimbex. She was proned yesterday her O2 requirements is better overall now on PEEP;12 and FIO2 65% 04/27 No events overnight. Intubated and sedation in addition she is on Nimbex. Afebrile. On Flolan 04/28 Patient remains sedated and intubated . On PRVC with PEEP:12, FIO2: 50%. Renal function is improving with Cr: 2.50 from 2.75. Had low grade fever with T: 100.6 last night. 04/29 Patient remains on prone bed intubated, sedated in addition she is on neuromuscular blockade ( Nimbex). Afebrile. Renal function is better with Cr: 1.93 from 2.5 and O2 requirements is better. TF held for high residuals. Spiked fever with 04/30: Tmax 102.7. Currently afebrile. Blood cultures 2 obtained yesterday. Tube feeds restarted currently at 20 cc an hour with Glucerna 1.5. Positive BM. Sodium increased. 05/01: Currently afebrile. Sodium is improved currently 150. Tolerating tube feeds at goal 20 cc per GI. Plan for CT abdomen today due to elevated lipase 05/02 Patient remains intubated on Versed, Fentanyl and Precedex drips for sedation. CT abdomen performed showed findings c/w pancreatitis. 05/03 No events overnight. Patient remains intubated and is on Precedex drip. Afebrile. 05/04: Afebrile. On dexmedetomidine drip at 1.5 mcg/kg per minute and fentanyl drip at 100 grams an hour. 500 cc stool. Currently a PSV trial 5/5 at 35%. We'll attempt extubation if passes weaning parameters at 4:30 PM. Tube feeds are currently off Subjective 05/05: Resting in bed in no acute distress on 4 L nasal cannula. Extubated yesterday without compensations. Awaiting speech therapy to assess swallow. Generalized weakness. Objective Vital Signs Date Time Temp Pulse Resp B/P (MAP) Pulse Ox O2 Delivery O2 Flow Rate FiO2 05/05/17 08:58 95 Nasal Cannula 4.00 05/05/17 08:00 95 05/05/17 04:00 99.1 25 158/82 (107) 05/04/17 16:00 40 Intake and Output 05/05/17 05/05/17 05/05/17 07:59 15:59 23:59 Intake Total 888 ml Output Total 1150 ml Balance -262 ml Result Diagram: 05/05/17 0435 05/05/17 0435 Other Results Microbiology Date/Time Source Procedure Growth Status 04/29/17 18:49 Blood Peripheral Aerobic Blood Culture - Final NO GROWTH IN 5 DAYS Complete 04/29/17 18:49 Blood Peripheral Anaerobic Blood Culture - Final NO GROWTH IN 5 DAYS Complete 04/28/17 10:45 Sputum Endotracheal Gram Stain - Final Complete 04/28/17 10:45 Sputum Endotracheal Sputum Culture - Final NO GROWTH IN 48 HOURS. Complete 04/24/17 16:25 Urine Random Urine Legionella Antigen - Final PRESUMPTIVE NEGATIVE FOR LEGIONELLA P... Complete 04/24/17 16:25 Urine Random Urine Streptococcus pneumoniae Antigen (M - Final PRESUMPTIVE NEGATIVE FOR STREPTOCOCCU... Complete Imaging Last Impressions Abdomen X-Ray 05/04/17 0800 Signed Impressions: Service Date/Time: Thursday, May 04, 2017 04:03 - CONCLUSION: No acute disease. Davey Lutz MD Chest X-Ray 05/04/17 0000 Signed Impressions: Service Date/Time: Thursday, May 04, 2017 03:55 - CONCLUSION: Mild increased density in the perihilar regions related to mild edema. This is improving from the prior exam. Davey Lutz MD Abdomen/Pelvis CT 05/01/17 0000 Signed Impressions: Service Date/Time: Tuesday, May 02, 2017 04:57 - CONCLUSION: 1. Increased density around the pancreatic head enhancing region and extending into the mesentery and right perinephric region all likely related to pancreatitis. 2. Suspected mild hepatic steatosis. 3. Bilateral dense areas of consolidation at the lung bases Davey Lutz MD Liver Ultrasound 04/26/17 0000 Signed Impressions: Service Date/Time: Wednesday, April 26, 2017 16:44 - CONCLUSION: Echogenic right kidney which can be seen with medical renal disease, otherwise unremarkable right upper quadrant sonogram. Roque Gutiérrez MD Chest CT 04/24/17 1327 Signed Impressions: Service Date/Time: April 13:46 - CONCLUSION: Patchy groundglass infiltrates throughout all lobes of the lungs. It is most prominent in the perihilar distribution but also more peripheral areas. I did not see a mass amenable to biopsy with CT guidance. Jay Weaver MD Objective Remarks GENERAL:51-year-old AA female currently resting in bed on nasal cannula SKIN: Warm and dry. Unable to evaluate backside. Positive facial skin breakdown from rotoprone bed HEAD: Normocephalic. EYES: No scleral icterus. No injection or drainage. NECK: Supple, trachea midline. No JVD or lymphadenopathy. CARDIOVASCULAR: RRR. S1, S2 no S4. Without murmurs RESPIRATORY: Diffuse fine crackles appreciated anteriorly. No wheezing GASTROINTESTINAL: Abdomen soft, non-tender, nondistended. Hypoactive bowel sounds appreciated MUSCULOSKELETAL: Trace below the knee pitting edema identified. Abrasion over right medial aspect of thigh. Neuro: Cranial nerves II through XII appear grossly intact. Moving all 4 extremities spontaneously however upper extremities weak in the lower extremities. Urinary Catheter: No Assessment to: Continue Vascular Central Line Catheter: Yes Assessment to: Remove Date of Insertion: Apr 25, 2017 Line: Central Venous Catheter Side: Right Location: Internal, Jugular A/P Assessment and Plan NEUROLOGY/PSYCH: History depression Hydrocodone/acetaminophen 5/325 one tablet every 4 hours. Pain 1 through 5 Morphine sulfate 2 mg every 2 hours when necessary pain 6-10 Acetaminophen 650 mg every 6 hours when necessary fever Holding sertraline 100 mg daily/home resumed Risperidone 2 mg by mouth twice a day resume/home medication PULMONOLOGY Acute hypoxic respiratory failure - resolving Adult respiratory distress syndrome - resolved Bilateral pneumonia Daily tobacco use Nasal cannula to maintain saturations greater than equal to 92% Incentive spirometry while awake Albuterol/ipratropium aerosols every 4 hours with albuterol aerosols every 2 hours. Dyspnea methylprednisolone succinate 40mg IV Q8, Off epoprostenol as of 05/02 Extubated 05/04 CARDIOLOGY Hypertension Severe pulmonary hypertension Monitor HR and BP keep MAP>65mmHg Lactic acid 1.2. Echo showed EF 60-65% with no regional wall motion abnormality. Severe pulmonary arterial pressure 70 mmHg As needed Nitropaste for hypertension GASTROENTEROLOGY Hypertriglyceridemia Elevated lipase level and AST Pancreatitis Hepatic steatosis Repeat CT abdomen w contrast 05/02 showed findings c/w pancreatitis, Monitor Lipase level ( trending down) GI is following Currently holding Glucerna 1.5 goal 45 cc an hour. Speech therapy evaluate and treat CT the abdomen 04/24 does not indicate any acute abnormality within the abdomen US liver: Echogenic right kidney which can be seen with medical renal disease, otherwise unremarkable Docusate sodium 100 cc twice a day/senna 8.8 mg twice a day for bowel regimen On metoclopramide 5 mg every 8 hours for GI motility GI protection with famotidine 20 mg by tube twice daily Not on a cholesterol-lowering agent/gemfibrozil due to elevated LFTs GENITOURINARY Acute renal failure- Improving - likely ATN from hypo-perfusion Hypernatremia Monitor renal function, I/O's, avoid nephrotoxins Currently on furosemide 40mg daily Free water currently off Renal has followed- Dr. Serrano Renal function is stable INFECTIOUS DISEASE Bilateral pneumonia Diarrhea Continue Azactam, Discontinued linezolid and azithromycin on 05/04. ID is following. Monitor for signs of infections ( Fever, WBC) Blood cultures04/24 and 04/29: NGTD Influenza screening, Legionella testing, pneumococcal Ag all negative Follow up on sputum cx 04/28 no growth to date ENDOCRINOLOGY Hyperglycemia Accu-Cheks with sliding scale insulin medium Novulog every 4 hours HEMATOLOGY Leukocytosis Normocytic anemia History of iron deficiency Continue monitor CBC MSK Elevated BMI Weight loss encouraged PROPHYLAXIS DVT prevention with SCD, Heparin SQ GI protection with famotidine LINES Peripheral IVs Right IJ CVP 04/25 - current, Art line placed 04/25 - 04/29 Level II follow-up Patient is stable. Okay to transfer to floor. Assign care to hospitalist in . Juan Hui MD May 05, 2017 10:05
[2017-05-05] MEDS: MAGNESIUM SULFATE 1 GM PREMIX 100 ML IV SCH ×2 (10:51→16:43)
[2017-05-05] MEDS ORDERED: POTASSIUM PHOSPHATE INJ 30 MMOL in SODIUM CHLOR 0.9% 250 ML INJ 250 ML IV ONE (12:00)
--- NOTE | 2017-05-05 14:19 | HHI.IDPN ---
Note Infectious Disease Note Patient awake and alert. Extubated yesterday. Now on O2 via nasal canula. Being fed by . Afebrile. WBC still elevated. Presented to [place] emergency department on 04/07/2017 with cold and flu-like symptoms including cough, vomiting and diarrhea. PAST MEDICAL HISTORY 1. Irritable bowel syndrome. 2. Iron-deficiency anemia. 3. History of . ALLERGIES AMOXICILLIN. MEDICATIONS Aztreonam. OBJECTIVE: Vital Signs Date Time Temp Pulse Resp B/P (MAP) Pulse Ox O2 Delivery O2 Flow Rate FiO2 05/05/17 12:00 98.0 89 22 176/65 (102) 98 05/05/17 12:00 95 05/05/17 11:43 16 05/05/17 10:00 95 05/05/17 08:58 95 Nasal Cannula 4.00 05/05/17 08:00 98.5 87 25 180/94 (122) 93 05/05/17 08:00 95 05/05/17 06:00 92 05/05/17 04:00 86 05/05/17 04:00 99.1 86 25 158/82 (107) 95 05/05/17 02:00 84 05/05/17 00:00 99.1 89 23 159/84 (109) 94 05/05/17 00:00 89 05/04/17 22:00 80 05/04/17 20:48 97 Nasal Cannula 4.00 05/04/17 20:00 99.0 78 25 158/81 (106) 94 05/04/17 20:00 78 05/04/17 16:30 93 Nasal Cannula 4.00 05/04/17 16:30 93 4 05/04/17 16:00 40 05/04/17 16:00 99.3 77 20 154/81 (105) 98 05/04/17 15:56 100 40 Laboratory Tests Test 05/04/17 04:16 05/05/17 04:35 White Blood Count 23.4 TH/MM3 28.5 TH/MM3 Red Blood Count 3.10 MIL/MM3 3.23 MIL/MM3 Hemoglobin 9.4 GM/DL 9.8 GM/DL Hematocrit 29.2 % 30.2 % Mean Corpuscular Volume 94.1 FL 93.6 FL Mean Corpuscular Hemoglobin 30.4 PG 30.3 PG Mean Corpuscular Hemoglobin Concent 32.2 % 32.4 % Red Cell Distribution Width 16.6 % 16.6 % Platelet Count 254 TH/MM3 258 TH/MM3 Mean Platelet Volume 8.2 FL 8.1 FL Neutrophils (%) (Auto) 94.6 % 93.6 % Lymphocytes (%) (Auto) 2.4 % 2.7 % Monocytes (%) (Auto) 2.9 % 3.6 % Eosinophils (%) (Auto) 0.0 % 0.0 % Basophils (%) (Auto) 0.1 % 0.1 % Neutrophils # (Auto) 22.2 TH/MM3 26.6 TH/MM3 Lymphocytes # (Auto) 0.6 TH/MM3 0.8 TH/MM3 Monocytes # (Auto) 0.7 TH/MM3 1.0 TH/MM3 Eosinophils # (Auto) 0.0 TH/MM3 0.0 TH/MM3 Basophils # (Auto) 0.0 TH/MM3 0.0 TH/MM3 CBC Comment AUTO DIFF AUTO DIFF Differential Total Cells Counted 100 100 Neutrophils % (Manual) 97 % 98 % Band Neutrophils % 1 % Lymphocytes % 2 % Neutrophils # (Manual) 22.9 TH/MM3 28.5 TH/MM3 Differential Comment FINAL DIFF MANUAL FINAL DIFF MANUAL Platelet Estimate NORMAL Platelet Morphology Comment NORMAL Red Cell Morphology Comment NORMAL Metamyelocytes 1 % Myelocytes 1 % Laboratory Tests Test 05/04/17 04:16 05/05/17 04:35 Blood Urea Nitrogen 41 MG/DL 34 MG/DL Creatinine 0.89 MG/DL 0.74 MG/DL Random Glucose 108 MG/DL 98 MG/DL Calcium Level 8.2 MG/DL 8.7 MG/DL Phosphorus Level 2.5 MG/DL 2.2 MG/DL Magnesium Level 2.1 MG/DL 1.8 MG/DL Sodium Level 148 MEQ/L 143 MEQ/L Potassium Level 3.9 MEQ/L 3.4 MEQ/L Chloride Level 112 MEQ/L 107 MEQ/L Carbon Dioxide Level 31.1 MEQ/L 24.2 MEQ/L Anion Gap 5 MEQ/L 12 MEQ/L Estimat Glomerular Filtration Rate 81 ML/MIN 100 ML/MIN Lipase 1283 U/L 1085 U/L Total Protein 6.3 GM/DL Albumin 2.2 GM/DL Alkaline Phosphatase 122 U/L Aspartate Amino Transf (AST/SGOT) 65 U/L Alanine Aminotransferase (ALT/SGPT) 48 U/L Total Bilirubin 0.6 MG/DL IMAGING: Abdomen X-Ray 05/04/17 0800 Signed Impressions: Service Date/Time: Thursday, May 04, 2017 04:03 - CONCLUSION: No acute disease. Davey Lutz MD Chest X-Ray 05/04/17 0000 Signed Impressions: Service Date/Time: Thursday, May 04, 2017 03:55 - CONCLUSION: Mild increased density in the perihilar regions related to mild edema. This is improving from the prior exam. Davey Lutz MD Chest X-Ray 05/02/17 0600 Signed Impressions: Service Date/Time: Tuesday, May 02, 2017 04:06 - CONCLUSION: Diffuse consolidation likely related to edema. Davey Lutz MD Abdomen/Pelvis CT 05/01/17 0000 Signed Impressions: Service Date/Time: Tuesday, May 02, 2017 04:57 - CONCLUSION: 1. Increased density around the pancreatic head enhancing region and extending into the mesentery and right perinephric region all likely related to pancreatitis. 2. Suspected mild hepatic steatosis. 3. Bilateral dense areas of consolidation at the lung bases Davey Lutz MD Chest X-Ray 04/30/17 0000 Signed Impressions: Service Date/Time: Sunday, April 30, 2017 03:25 - CONCLUSION: 1. Persistent central airspace infiltrates with increasing consolidation of left lung base. Nakul Bailon MD Chest X-Ray 04/29/17 0000 Signed Impressions: Service Date/Time: Saturday, April 29, 2017 11:30 - CONCLUSION: No significant interval change. Tin Moon MD Abdomen X-Ray 04/29/17 0000 Signed Impressions: Service Date/Time: Saturday, April 29, 2017 11:58 - CONCLUSION: Nonspecific bowel gas pattern with no significant dilatation of the large or small bowel. Tin Moon MD PHYSICAL EXAMINATION GENERAL: No distress. HEENT: No icterus. moist mucosa. LUNGS: Rhonchi at the bases. HEART: Regular, S1 and S2 without audible murmurs. ABDOMEN: Soft, Distended, Decreased bowel sounds. EXTREMITIES: No CC, Trace edema at the feet. SKIN: No rash. NEURO: Non focal. PSYCH: Calm. IMPRESSION 1. Pneumonia. Negative culture. Improving. CXR improving. 2. Acute respiratory failure. 3. ARDS. Improved. 4. Acute renal failure. Improved. 5. Leukocytosis. WBC still elevated. Could be from pancreatitis vs steroids vs PNA. 6. Pancreatitis. Stable. RECOMMENDATIONS 1. Continue aztreonam. 2. Follow Temp. 3. Monitor clinical status. 4. Monitor the WBC. It is elevated but patient is Stable. Rikki Walker MD May 05, 2017 14:19
--- NOTE | 2017-05-05 15:31 | HHI.GIFU ---
Subjective Remarks Pt resting in bed. has been extubated. Relatively noncontributory but does admit diffuse abd pain. Tolerating clear liquids. (Teresita Avila) Objective Vitals I&O Vital Signs Date Time Temp Pulse Resp B/P (MAP) Pulse Ox O2 Delivery O2 Flow Rate FiO2 05/05/17 14:00 95 05/05/17 12:00 98.0 89 22 176/65 (102) 98 05/05/17 12:00 95 05/05/17 11:43 16 05/05/17 10:00 95 05/05/17 08:58 95 Nasal Cannula 4.00 05/05/17 08:00 98.5 87 25 180/94 (122) 93 05/05/17 08:00 95 05/05/17 06:00 92 05/05/17 04:00 86 05/05/17 04:00 99.1 86 25 158/82 (107) 95 05/05/17 02:00 84 05/05/17 00:00 99.1 89 23 159/84 (109) 94 05/05/17 00:00 89 05/04/17 22:00 80 05/04/17 20:48 97 Nasal Cannula 4.00 05/04/17 20:00 99.0 78 25 158/81 (106) 94 05/04/17 20:00 78 05/04/17 16:30 93 Nasal Cannula 4.00 05/04/17 16:30 93 4 05/04/17 16:00 40 05/04/17 16:00 99.3 77 20 154/81 (105) 98 05/04/17 15:56 100 40 I/O 05/04/17 05/04/17 05/04/17 05/05/17 05/05/17 05/05/17 07:00 15:00 23:00 07:00 15:00 23:00 Intake Total 1723 ml 720 ml 620 ml 888 ml Output Total 1350 ml 2300 ml 1150 ml Balance 373 ml 720 ml -1680 ml -262 ml IV Total 912 ml 720 ml 160 ml 888 ml Tube Feeding 311 ml 210 ml Other 500 ml 250 ml Output Urine Total 950 ml 2100 ml 1150 ml Stool Total 400 ml 200 ml # Bowel Movements 1 Laboratory Laboratory Tests Test 05/05/17 04:35 White Blood Count 28.5 Red Blood Count 3.23 Hemoglobin 9.8 Hematocrit 30.2 Mean Corpuscular Volume 93.6 Mean Corpuscular Hemoglobin 30.3 Mean Corpuscular Hemoglobin Concent 32.4 Red Cell Distribution Width 16.6 Platelet Count 258 Mean Platelet Volume 8.1 Neutrophils (%) (Auto) 93.6 Lymphocytes (%) (Auto) 2.7 Monocytes (%) (Auto) 3.6 Eosinophils (%) (Auto) 0.0 Basophils (%) (Auto) 0.1 Neutrophils # (Auto) 26.6 Lymphocytes # (Auto) 0.8 Monocytes # (Auto) 1.0 Eosinophils # (Auto) 0.0 Basophils # (Auto) 0.0 CBC Comment AUTO DIFF Differential Total Cells Counted 100 Neutrophils % (Manual) 98 Neutrophils # (Manual) 28.5 Metamyelocytes 1 Myelocytes 1 Differential Comment FINAL DIFF MANUAL Blood Urea Nitrogen 34 Creatinine 0.74 Random Glucose 98 Total Protein 6.3 Albumin 2.2 Calcium Level 8.7 Phosphorus Level 2.2 Magnesium Level 1.8 Alkaline Phosphatase 122 Aspartate Amino Transf (AST/SGOT) 65 Alanine Aminotransferase (ALT/SGPT) 48 Total Bilirubin 0.6 Sodium Level 143 Potassium Level 3.4 Chloride Level 107 Carbon Dioxide Level 24.2 Anion Gap 12 Estimat Glomerular Filtration Rate 100 Lipase 1085 Date/Time Source Procedure Growth Status 04/29/17 18:49 Blood Peripheral Aerobic Blood Culture - Final NO GROWTH IN 5 DAYS Complete 04/29/17 18:49 Blood Peripheral Anaerobic Blood Culture - Final NO GROWTH IN 5 DAYS Complete 04/28/17 10:45 Sputum Endotracheal Gram Stain - Final Complete 04/28/17 10:45 Sputum Endotracheal Sputum Culture - Final NO GROWTH IN 48 HOURS. Complete 04/24/17 16:25 Urine Random Urine Legionella Antigen - Final PRESUMPTIVE NEGATIVE FOR LEGIONELLA P... Complete 04/24/17 16:25 Urine Random Urine Streptococcus pneumoniae Antigen (M - Final PRESUMPTIVE NEGATIVE FOR STREPTOCOCCU... Complete Imaging Last Impressions Abdomen X-Ray 05/04/17 0800 Signed Impressions: Service Date/Time: Thursday, May 04, 2017 04:03 - CONCLUSION: No acute disease. Davey Lutz MD Chest X-Ray 05/04/17 0000 Signed Impressions: Service Date/Time: Thursday, May 04, 2017 03:55 - CONCLUSION: Mild increased density in the perihilar regions related to mild edema. This is improving from the prior exam. Davey Lutz MD Abdomen/Pelvis CT 05/01/17 0000 Signed Impressions: Service Date/Time: Tuesday, May 02, 2017 04:57 - CONCLUSION: 1. Increased density around the pancreatic head enhancing region and extending into the mesentery and right perinephric region all likely related to pancreatitis. 2. Suspected mild hepatic steatosis. 3. Bilateral dense areas of consolidation at the lung bases Davey Lutz MD Liver Ultrasound 04/26/17 0000 Signed Impressions: Service Date/Time: Wednesday, April 26, 2017 16:44 - CONCLUSION: Echogenic right kidney which can be seen with medical renal disease, otherwise unremarkable right upper quadrant sonogram. Roque Gutiérrez MD Chest CT 04/24/17 1327 Signed Impressions: Service Date/Time: April 13:46 - CONCLUSION: Patchy groundglass infiltrates throughout all lobes of the lungs. It is most prominent in the perihilar distribution but also more peripheral areas. I did not see a mass amenable to biopsy with CT guidance. Jay Weaver MD Physical Exam HEENT: PERRL; normocephalic; atraumatic; no jaundice. CHEST: diminished CARDIAC: RRR ABDOMEN: mildly distended, soft, obese, BS + 4 difusely TTP EXTREMITIES: No clubbing, cyanosis, or edema. SKIN: Normal; no rash; no jaundice. [employer] SUPERVISOR: Awake, cooperative. (Teresita Avila [facility]) Assessment and Plan Assessment: (1) Hepatic steatosis ICD Codes: K76.0 - Fatty (change of) liver, not elsewhere classified (2) Pancreatitis ICD Codes: K85.90 - Acute pancreatitis without necrosis or infection, unspecified Plan - pancreatitis - lipase 1465 on admission + hypocalcemia. CT abd no contrast no acute abd findings and pancreas WNL CT w/ constrast 05/02 suggestive pancreatitis. tender on exam. cleared by ST for regular diet and thin liquids but will stay on clears for now triglycerides elevated 492 no statin d/t LFT elevation. lipase trending down. on clears - ileus - improving, pt now on clears. + BM semi formed - elevated LFTs - unclear etiology. ?fatty liver per CT. does not appear to be obstructive pattern. US liver unremarkable. no hx heavy drinking reported. hepatitis panel neg liver w/u unremarkable .LFTs mild increase today - bilat PNA, ARDS, acute renal failure - per CCM, nephrology following s/p extubation PLAN - continue clears - IVF - monitor lipase - monitor labs - supportive care pt seen by myself and Dr Jarrett and this note is written on his behalf (Teresita Avila) Plan Patient was seen and examined agree with above note patient is extubated now, had 4 bowel movements, still complaining of some abdominal discomfort, we'll continue with the supportive care, we will give patient clear liquid, we'll check labs tomorrow (Franko aJrrett MD) Teresita Avila May 05, 2017 15:31 Franko Jarrett MD May 05, 2017 16:05
[2017-05-05] MEDS: hydrALAZINE HCL 20 MG/ML VIAL IV PUSH PRN (16:34)
[2017-05-05] MEDS: FAMOTIDINE 20 MG TAB PO SCH (20:07)
[2017-05-05] MEDS: PRAVASTATIN SOD 20 MG TAB PO SCH (20:07)
[2017-05-05] MEDS: risperiDONE 1 MG TAB PO SCH (20:07)
[2017-05-06] VITALS (8 sets, daily range): BP systolic 138–153; BP diastolic 77–97; PULSE 83–88; RESP 17–20; TEMP 96.8–98.2; O2SAT 93–98
[2017-05-06] MEDS: MORPHINE SULFATE 2 MG/ML INJ IV PUSH PRN ×3 (01:35→21:13)
[2017-05-06] MEDS: METOCLOPRAMIDE HCL 10 MG/2 ML VIAL IV PUSH SCH ×3 (01:38→17:39)
[2017-05-06] MEDS: methylPREDNISolone SOD SUCC 40 MG/1 ML VIAL IV PUSH SCH ×3 (01:38→17:39)
[2017-05-06] MEDS: INSULIN NovoLIN REGULAR SUPPLEMENTAL SCALE SQ SCH ×6 (02:00→20:58)
[2017-05-06] MEDS: AZTREONAM INJ 1,000 MG in SODIUM CHLORIDE 0.9% INJ 100 ML IV SCH ×3 (02:13→17:38)
[2017-05-06] MEDS: RESP: ALBUTEROL 2.5 MG/IPRATROPIUM 0.5 MG NEB (SCH) NEB ×5 (03:36→20:41)
[2017-05-06] MEDS: CHLORHEXIDINE GLUCONATE 2 % 1 PACK (2 CLOTHS) TOP SCH (04:00)
[2017-05-06] MEDS: FREE WATER G-TUBE SCH ×5 (06:00→20:58)
[2017-05-06 06:33] LABS: AUTOMATED NEUTROPHIL # 17.2 TH/MM3 (1.8-7.7); BASOPHIL % 0.2 % (0.0-2.0); HEMATOCRIT 31.4 % (35.0-46.0); HEMOGLOBIN 10.4 GM/DL (11.6-15.3); LYMPH % 6.5 % (9.0-44.0); LYMPHOCYTE # 1.3 TH/MM3 (1.0-4.8); MEAN CELL VOLUME 94.1 FL (80.0-100.0); MEAN CORPUSCULAR HEMOGLOBIN 31.1 PG (27.0-34.0); MEAN CORPUSCULAR HGB CONC 33.1 % (32.0-36.0); MEAN PLATELET VOLUME 8.4 FL (7.0-11.0); MONO % 5.4 % (0.0-8.0); MONOCYTE # 1.1 TH/MM3 (0-0.9); NEUT % 87.9 % (16.0-70.0); PLATELET COUNT 236 TH/MM3 (150-450); RED BLOOD COUNT 3.34 MIL/MM3 (4.00-5.30); RED CELL DISTRIBUTION WIDTH 16.9 % (11.6-17.2); WHITE BLOOD COUNT 19.6 TH/MM3 (4.0-11.0)
[2017-05-06 06:59] LABS: ALBUMIN 2.3 GM/DL (3.4-5.0); BICARBONATE 25.8 MEQ/L (21.0-32.0); CALCIUM 8.7 MG/DL (8.5-10.1); CREATININE 0.8 MG/DL (0.50-1.00); PHOSPHORUS 2.6 MG/DL (2.5-4.9)
[2017-05-06] MEDS: CHLORHEXIDINE 0.12% (ORAL KIT) 15 ML CUP MT SCH (08:00)
[2017-05-06] MEDS: SENNOSIDES SYRUP 8.8 MG/5 ML CUP OG-TUBE SCH ×2 (09:00→20:58)
[2017-05-06] MEDS: FUROSEMIDE 40 MG/4 ML VIAL IV PUSH SCH (09:50)
[2017-05-06] MEDS: HEPARIN SODIUM - SQ 10,000 UNITS/ML VIAL SQ SCH ×2 (09:51→20:58)
[2017-05-06] MEDS: risperiDONE 1 MG TAB PO SCH ×2 (09:51→20:57)
[2017-05-06] MEDS: FAMOTIDINE 20 MG TAB PO SCH ×2 (09:51→20:57)
[2017-05-06] MEDS: SERTRALINE HCL 100 MG TAB PO SCH (09:51)
--- NOTE | 2017-05-06 12:22 | HHI.GIFU ---
Subjective Remarks Pt resting in bed in NAD. SAys she feels a "little bit better", abd pain mildly improved. ON clears. (Teresita Avila) Objective Vitals I&O Vital Signs Date Time Temp Pulse Resp B/P (MAP) Pulse Ox O2 Delivery O2 Flow Rate FiO2 05/06/17 08:16 95 Nasal Cannula 4.00 05/06/17 08:00 98.2 86 18 148/78 (101) 97 05/06/17 01:20 95 Nasal Cannula 4.00 05/06/17 00:00 98.1 87 18 142/83 (102) 97 05/05/17 22:00 104 05/05/17 20:17 94 Nasal Cannula 4.00 05/05/17 20:00 81 05/05/17 20:00 98.5 81 23 149/83 (105) 94 05/05/17 18:00 96 05/05/17 16:23 16 05/05/17 16:00 98.0 83 26 184/89 (120) 99 05/05/17 16:00 92 05/05/17 14:00 95 I/O 05/05/17 05/05/17 05/05/17 05/06/17 05/06/17 05/06/17 07:00 15:00 23:00 07:00 15:00 23:00 Intake Total 888 ml 360 ml 1340 ml 100 ml Output Total 1150 ml 2400 ml 200 ml Balance -262 ml 360 ml -1060 ml -100 ml Intake Oral 240 ml IV Total 888 ml 360 ml 1100 ml 100 ml Output Urine Total 1150 ml 2400 ml 200 ml # Bowel Movements 1 4 1 Laboratory Laboratory Tests Test 05/06/17 04:57 White Blood Count 19.6 Red Blood Count 3.34 Hemoglobin 10.4 Hematocrit 31.4 Mean Corpuscular Volume 94.1 Mean Corpuscular Hemoglobin 31.1 Mean Corpuscular Hemoglobin Concent 33.1 Red Cell Distribution Width 16.9 Platelet Count 236 Mean Platelet Volume 8.4 Neutrophils (%) (Auto) 87.9 Lymphocytes (%) (Auto) 6.5 Monocytes (%) (Auto) 5.4 Eosinophils (%) (Auto) 0.0 Basophils (%) (Auto) 0.2 Neutrophils # (Auto) 17.2 Lymphocytes # (Auto) 1.3 Monocytes # (Auto) 1.1 Eosinophils # (Auto) 0.0 Basophils # (Auto) 0.0 CBC Comment DIFF FINAL Differential Comment Blood Urea Nitrogen 27 Creatinine 0.80 Random Glucose 91 Albumin 2.3 Calcium Level 8.7 Phosphorus Level 2.6 Sodium Level 144 Potassium Level 3.7 Chloride Level 109 Carbon Dioxide Level 25.8 Anion Gap 9 Estimat Glomerular Filtration Rate 91 Date/Time Source Procedure Growth Status 04/29/17 18:49 Blood Peripheral Aerobic Blood Culture - Final NO GROWTH IN 5 DAYS Complete 04/29/17 18:49 Blood Peripheral Anaerobic Blood Culture - Final NO GROWTH IN 5 DAYS Complete 04/28/17 10:45 Sputum Endotracheal Gram Stain - Final Complete 04/28/17 10:45 Sputum Endotracheal Sputum Culture - Final NO GROWTH IN 48 HOURS. Complete 04/24/17 16:25 Urine Random Urine Legionella Antigen - Final PRESUMPTIVE NEGATIVE FOR LEGIONELLA P... Complete 04/24/17 16:25 Urine Random Urine Streptococcus pneumoniae Antigen (M - Final PRESUMPTIVE NEGATIVE FOR STREPTOCOCCU... Complete Imaging Last Impressions Abdomen X-Ray 05/04/17 0800 Signed Impressions: Service Date/Time: Thursday, May 04, 2017 04:03 - CONCLUSION: No acute disease. Davey Lutz MD Chest X-Ray 05/04/17 0000 Signed Impressions: Service Date/Time: Thursday, May 04, 2017 03:55 - CONCLUSION: Mild increased density in the perihilar regions related to mild edema. This is improving from the prior exam. Davey Lutz MD Abdomen/Pelvis CT 05/01/17 0000 Signed Impressions: Service Date/Time: Tuesday, May 02, 2017 04:57 - CONCLUSION: 1. Increased density around the pancreatic head enhancing region and extending into the mesentery and right perinephric region all likely related to pancreatitis. 2. Suspected mild hepatic steatosis. 3. Bilateral dense areas of consolidation at the lung bases Davey Luzt MD Liver Ultrasound 04/26/17 0000 Signed Impressions: Service Date/Time: Wednesday, April 26, 2017 16:44 - CONCLUSION: Echogenic right kidney which can be seen with medical renal disease, otherwise unremarkable right upper quadrant sonogram. Roque Gutiérrez MD Chest CT 04/24/17 1327 Signed Impressions: Service Date/Time: April 13:46 - CONCLUSION: Patchy groundglass infiltrates throughout all lobes of the lungs. It is most prominent in the perihilar distribution but also more peripheral areas. I did not see a mass amenable to biopsy with CT guidance. Jay Weaver MD Physical Exam HEENT: PERRL; normocephalic; atraumatic; no jaundice. CHEST: wheezes, rhonchi CARDIAC: RRR ABDOMEN: mildly distended, soft, obese, BS + 4 diffusely TTP but less so than yesterday EXTREMITIES: No clubbing, cyanosis, or edema. SKIN: Normal; no rash; no jaundice. [employer]ER [employer]ICE:lethargic, cooperative. (Teresita Avila) Assessment and Plan Assessment: (1) Hepatic steatosis ICD Codes: K76.0 - Fatty (change of) liver, not elsewhere classified (2) Pancreatitis ICD Codes: K85.90 - Acute pancreatitis without necrosis or infection, unspecified Plan - pancreatitis - lipase 1465 on admission + hypocalcemia. CT abd no contrast no acute abd findings and pancreas WNL CT w/ constrast 05/02 suggestive pancreatitis. tender on exam. cleared by ST for regular diet and thin liquids but will stay on clears for now triglycerides elevated 492 no statin d/t LFT elevation. - ileus - improving, pt now on clears. - elevated LFTs - unclear etiology. ?fatty liver per CT. does not appear to be obstructive pattern. US liver unremarkable. no hx heavy drinking reported. hepatitis panel neg liver w/u unremarkable .LFTs mild increase today - bilat PNA, ARDS, acute renal failure - per CCM, nephrology following s/p extubation 05/06/17 - transferred from [facility] to floor. Some improvement abd pain. tolerating clears. +multiple BM documented, ileus improving. WBC somewhat improved today. will rck lipsae PLAN - continue clears - IVF - recheck lipase in am - monitor labs - supportive care pt seen by myself and Dr Jarrett and this note is written on his behalf (Teresita Avila) Plan Patient was seen and examined, agree with above-noted, seems to be doing better , tolerating clear liquid, improving ileus, will advance slowly (Franko Jarrett MD) Teresita Avila May 06, 2017 12:22 Franko Jarrett MD May 06, 2017 19:20
--- NOTE | 2017-05-06 14:59 | HHI.IDPN ---
Note Infectious Disease Note Patient awake and alert. Notes a little pain in the abdomen. Now on O2 via nasal canula. Afebrile. WBC lower Presented to [place] emergency department on 04/07/2017 with cold and flu-like symptoms including cough, vomiting and diarrhea. PAST MEDICAL HISTORY 1. Irritable bowel syndrome. 2. Iron-deficiency anemia. 3. History of . ALLERGIES AMOXICILLIN. MEDICATIONS Aztreonam. OBJECTIVE: Vital Signs Date Time Temp Pulse Resp B/P (MAP) Pulse Ox O2 Delivery O2 Flow Rate FiO2 05/06/17 12:00 97.8 83 17 138/87 (104) 93 05/06/17 08:16 95 Nasal Cannula 4.00 05/06/17 08:00 98.2 86 18 148/78 (101) 97 05/06/17 01:20 95 Nasal Cannula 4.00 05/06/17 00:00 98.1 87 18 142/83 (102) 97 05/05/17 22:00 104 05/05/17 20:17 94 Nasal Cannula 4.00 05/05/17 20:00 81 05/05/17 20:00 98.5 81 23 149/83 (105) 94 05/05/17 18:00 96 05/05/17 16:23 16 05/05/17 16:00 98.0 83 26 184/89 (120) 99 05/05/17 16:00 92 Laboratory Tests Test 05/05/17 04:35 05/06/17 04:57 White Blood Count 28.5 TH/MM3 19.6 TH/MM3 Red Blood Count 3.23 MIL/MM3 3.34 MIL/MM3 Hemoglobin 9.8 GM/DL 10.4 GM/DL Hematocrit 30.2 % 31.4 % Mean Corpuscular Volume 93.6 FL 94.1 FL Mean Corpuscular Hemoglobin 30.3 PG 31.1 PG Mean Corpuscular Hemoglobin Concent 32.4 % 33.1 % Red Cell Distribution Width 16.6 % 16.9 % Platelet Count 258 TH/MM3 236 TH/MM3 Mean Platelet Volume 8.1 FL 8.4 FL Neutrophils (%) (Auto) 93.6 % 87.9 % Lymphocytes (%) (Auto) 2.7 % 6.5 % Monocytes (%) (Auto) 3.6 % 5.4 % Eosinophils (%) (Auto) 0.0 % 0.0 % Basophils (%) (Auto) 0.1 % 0.2 % Neutrophils # (Auto) 26.6 TH/MM3 17.2 TH/MM3 Lymphocytes # (Auto) 0.8 TH/MM3 1.3 TH/MM3 Monocytes # (Auto) 1.0 TH/MM3 1.1 TH/MM3 Eosinophils # (Auto) 0.0 TH/MM3 0.0 TH/MM3 Basophils # (Auto) 0.0 TH/MM3 0.0 TH/MM3 CBC Comment AUTO DIFF DIFF FINAL Differential Total Cells Counted 100 Neutrophils % (Manual) 98 % Neutrophils # (Manual) 28.5 TH/MM3 Metamyelocytes 1 % Myelocytes 1 % Differential Comment FINAL DIFF MANUAL Laboratory Tests Test 05/05/17 04:35 05/06/17 04:57 Blood Urea Nitrogen 34 MG/DL 27 MG/DL Creatinine 0.74 MG/DL 0.80 MG/DL Random Glucose 98 MG/DL 91 MG/DL Total Protein 6.3 GM/DL Albumin 2.2 GM/DL 2.3 GM/DL Calcium Level 8.7 MG/DL 8.7 MG/DL Phosphorus Level 2.2 MG/DL 2.6 MG/DL Magnesium Level 1.8 MG/DL Alkaline Phosphatase 122 U/L Aspartate Amino Transf (AST/SGOT) 65 U/L Alanine Aminotransferase (ALT/SGPT) 48 U/L Total Bilirubin 0.6 MG/DL Sodium Level 143 MEQ/L 144 MEQ/L Potassium Level 3.4 MEQ/L 3.7 MEQ/L Chloride Level 107 MEQ/L 109 MEQ/L Carbon Dioxide Level 24.2 MEQ/L 25.8 MEQ/L Anion Gap 12 MEQ/L 9 MEQ/L Estimat Glomerular Filtration Rate 100 ML/MIN 91 ML/MIN Lipase 1085 U/L IMAGING: Abdomen X-Ray 05/04/17 0800 Signed Impressions: Service Date/Time: Thursday, May 04, 2017 04:03 - CONCLUSION: No acute disease. Davey Lutz MD Chest X-Ray 05/04/17 0000 Signed Impressions: Service Date/Time: Thursday, May 04, 2017 03:55 - CONCLUSION: Mild increased density in the perihilar regions related to mild edema. This is improving from the prior exam. Davey Lutz MD Chest X-Ray 05/02/17 0600 Signed Impressions: Service Date/Time: Tuesday, May 02, 2017 04:06 - CONCLUSION: Diffuse consolidation likely related to edema. Davey Lutz MD Abdomen/Pelvis CT 05/01/17 0000 Signed Impressions: Service Date/Time: Tuesday, May 02, 2017 04:57 - CONCLUSION: 1. Increased density around the pancreatic head enhancing region and extending into the mesentery and right perinephric region all likely related to pancreatitis. 2. Suspected mild hepatic steatosis. 3. Bilateral dense areas of consolidation at the lung bases Davey Lutz MD Chest X-Ray 04/30/17 0000 Signed Impressions: Service Date/Time: Sunday, April 30, 2017 03:25 - CONCLUSION: 1. Persistent central airspace infiltrates with increasing consolidation of left lung base. Nakul Bailon MD Chest X-Ray 04/29/17 0000 Signed Impressions: Service Date/Time: Saturday, April 29, 2017 11:30 - CONCLUSION: No significant interval change. Tin Moon MD Abdomen X-Ray 04/29/17 Signed Impressions: Service Date/Time: Saturday, April 29, 2017 11:58 - CONCLUSION: Nonspecific bowel gas pattern with no significant dilatation of the large or small bowel. Tin Moon MD PHYSICAL EXAMINATION GENERAL: No distress. HEENT: No icterus. moist mucosa. LUNGS: Rhonchi at the bases. HEART: Regular, S1 and S2 without audible murmurs. ABDOMEN: Soft, Distended, Mild tenderness at left upper quadrant. Decreased bowel sounds. EXTREMITIES: No CC, Trace edema at the feet. SKIN: No rash. NEURO: Non focal. PSYCH: Calm and cooperative. IMPRESSION 1. Pneumonia. Negative culture. Improving. 2. Acute respiratory failure. 3. ARDS. Improved. 4. Acute renal failure. Improved. 5. Leukocytosis. WBC still elevated. Could be from pancreatitis vs steroids vs PNA. 6. Pancreatitis. Stable. RECOMMENDATIONS 1. Continue aztreonam. 2. Monitor the WBC. It is elevated but patient is Stable. 3. Monitor clinical status. Rikki Walker MD May 06, 2017 14:59
--- NOTE | 2017-05-06 17:25 | HHI.PR ---
Subjective Remarks c/o of some generalized pain. Afebrile. On 4 lietrs nasal canula Objective Vitals Vital Signs Date Time Temp Pulse Resp B/P (MAP) Pulse Ox O2 Delivery O2 Flow Rate FiO2 05/06/17 16:00 96.8 88 17 141/77 (98) 98 05/06/17 12:00 97.8 83 17 138/87 (104) 93 05/06/17 08:16 95 Nasal Cannula 4.00 05/06/17 08:00 98.2 86 18 148/78 (101) 97 05/06/17 01:20 95 Nasal Cannula 4.00 05/06/17 00:00 98.1 87 18 142/83 (102) 97 05/05/17 22:00 104 05/05/17 20:17 94 Nasal Cannula 4.00 05/05/17 20:00 81 05/05/17 20:00 98.5 81 23 149/83 (105) 94 05/05/17 18:00 96 I/O 05/05/17 05/05/17 05/05/17 05/06/17 05/06/17 05/06/17 06:59 14:59 22:59 06:59 14:59 22:59 Intake Total 888 ml 360 ml 1340 ml 100 ml Output Total 1150 ml 2400 ml 200 ml Balance -262 ml 360 ml -1060 ml -100 ml Intake Oral 240 ml IV Total 888 ml 360 ml 1100 ml 100 ml Output Urine Total 1150 ml 2400 ml 200 ml # Bowel Movements 1 4 1 Result Diagram: 05/06/17 0457 05/06/17 0457 Imaging Last Impressions Abdomen X-Ray 05/04/17 0800 Signed Impressions: Service Date/Time: Thursday, May 04, 2017 04:03 - CONCLUSION: No acute disease. Davey Lutz MD Chest X-Ray 05/04/17 0000 Signed Impressions: Service Date/Time: Thursday, May 04, 2017 03:55 - CONCLUSION: Mild increased density in the perihilar regions related to mild edema. This is improving from the prior exam. Davey Lutz MD Abdomen/Pelvis CT 05/01/17 0000 Signed Impressions: Service Date/Time: Tuesday, May 02, 2017 04:57 - CONCLUSION: 1. Increased density around the pancreatic head enhancing region and extending into the mesentery and right perinephric region all likely related to pancreatitis. 2. Suspected mild hepatic steatosis. 3. Bilateral dense areas of consolidation at the lung bases Davey Lutz MD Liver Ultrasound 04/26/17 0000 Signed Impressions: Service Date/Time: Wednesday, April 26, 2017 16:44 - CONCLUSION: Echogenic right kidney which can be seen with medical renal disease, otherwise unremarkable right upper quadrant sonogram. Roque Gutiérrez MD Chest CT 04/24/17 1327 Signed Impressions: Service Date/Time: April 13:46 - CONCLUSION: Patchy groundglass infiltrates throughout all lobes of the lungs. It is most prominent in the perihilar distribution but also more peripheral areas. I did not see a mass amenable to biopsy with CT guidance. Jay Weaver MD Objective Remarks GENERAL:51-year-old AA female currently resting in bed on nasal cannula SKIN: Warm and dry. Unable to evaluate backside. Positive facial skin breakdown from rotoprone bed HEAD: Normocephalic. EYES: No scleral icterus. No injection or drainage. NECK: Supple, trachea midline. No JVD or lymphadenopathy. CARDIOVASCULAR: RRR. S1, S2 no S4. Without murmurs RESPIRATORY: Clear to auscultation BL. No wheezing appreciated GASTROINTESTINAL: Abdomen soft, tender to palaption of epigastric region, mildly distended. Hypoactive bowel sounds appreciated MUSCULOSKELETAL: Trace below the knee pitting edema identified. Abrasion over right medial aspect of thigh. Neuro: Cranial nerves II through XII appear grossly intact. Moving all 4 extremities spontaneously however upper extremities weak in the lower extremities. Medications and IVs Current Medications Medications (Trade) Dose Ordered Sig/Tiffanie Route Start Time Stop Time Status Last Admin (NS Flush) 2 ml UNSCH PRN IV FLUSH 04/24/17 15:45 04/29/17 07:56 (fentaNYL INJ) 50 mcg Q1H PRN IV PUSH 04/24/17 15:45 05/05/17 21:36 (Zofran Inj) 4 mg Q6HR PRN IV PUSH 04/24/17 18:00 05/05/17 20:07 Miscellaneous Information 1 Q361D XX 04/24/17 15:45 (Chlorhexidine 2% Cloth) Taper DAILY@04 TOP 04/25/17 04:00 04/21/18 03:59 05/04/17 04:00 (Chlorhexidine 2% Cloth) 3 pack UNSCH PRN TOP 04/24/17 15:45 (Dulcolax Supp) 10 mg DAILY PRN RECTAL 04/24/17 16:00 Aztreonam 1000 mg/ Sodium Chloride 100 ml @ 200 mls/hr Q8H IV 04/24/17 17:00 05/06/17 17:38 Azithromycin 500 mg/Sodium Chloride 250 ml @ 250 mls/hr Q24H IV 04/24/17 18:00 Future Hold 05/03/17 17:22 (D50w (Vial) Inj) 50 ml UNSCH PRN IV PUSH 04/26/17 09:45 (Glucagon Inj) 1 mg UNSCH PRN OTHER 04/26/17 09:45 (NovoLIN R SUPPLEMENTAL SCALE) 1 Q4H SQ 04/26/17 10:00 05/01/17 05:29 (Heparin Inj) 5,000 units Q12HR SQ 04/26/17 21:00 05/06/17 09:51 (Lasix Inj) 40 mg DAILY IV PUSH 04/30/17 09:00 05/06/17 09:50 (Reglan Inj) 5 mg Q8H IV PUSH 04/29/17 18:00 05/06/17 17:39 (Apresoline Inj) 10 mg Q1HR PRN IV PUSH 04/30/17 10:30 05/05/17 16:34 (Albuterol Neb) 2.5 mg Q2HR NEB PRN NEB 04/30/17 11:00 (Tylenol 650 Mg/ 20 ml Liq) 650 mg Q6H PRN OG-TUBE 04/30/17 11:00 (SoluMEDROL INJ) 40 mg Q8H IV PUSH 04/30/17 18:00 05/06/17 17:39 (Senna Liq) 8.8 mg BID OG-TUBE 04/30/17 21:00 05/04/17 08:14 (Free Water) VOLUME OF WATER: ( 300 ) ML Q6HR G-TUBE 05/03/17 12:00 05/06/17 17:38 (Duoneb Neb) 1 ampule Q4HR NEB NEB 05/04/17 16:00 05/06/17 16:00 ([place] 5-325 Mg) 1 tab Q6H PRN PO 05/04/17 21:30 (Morphine Inj) 2 mg Q3H PRN IV PUSH 05/04/17 21:30 05/06/17 06:35 (Pravachol) 20 mg HS PO 05/05/17 21:00 05/05/17 20:07 (Zoloft) 100 mg DAILY PO 05/06/17 09:00 05/06/17 09:51 (risperDAL) 2 mg Q12HR PO 05/05/17 21:00 05/06/17 09:51 (Pepcid) 20 mg BID PO 05/05/17 21:00 05/06/17 09:51 (Nitroglycerin 2% Oint) 2 inch Q6HR PRN TOPICAL 05/05/17 10:00 Date of Insertion: Apr 25, 2017 Line: Central Venous Catheter Side: Right Location: Internal, Jugular A/P Problem List: (1) Adult respiratory distress syndrome ICD Code: J80 - Acute respiratory distress syndrome (2) Acute respiratory failure with hypoxia ICD Code: J96.01 - Acute respiratory failure with hypoxia (3) Pneumonia ICD Code: J18.9 - Pneumonia, unspecified organism Status: Acute (4) Acute renal failure ICD Code: N17.9 - Acute kidney failure, unspecified (5) Increased anion gap metabolic acidosis ICD Code: E87.2 - Acidosis (6) Diarrhea ICD Code: R19.7 - Diarrhea, unspecified (7) Hyponatremia ICD Code: E87.1 - Hypo-osmolality and hyponatremia (8) Leukocytosis ICD Code: D72.829 - Elevated white blood cell count, unspecified (9) Lactic acidosis ICD Code: E87.2 - Acidosis (10) Renal failure ICD Code: N19 - Unspecified kidney failure Status: Acute (11) Hyperglycemia ICD Code: R73.9 - Hyperglycemia, unspecified (12) Elevated lipase ICD Code: R74.8 - Abnormal levels of other serum enzymes (13) Tobacco use ICD Code: Z72.0 - Tobacco use Assessment and Plan History depression Hydrocodone/acetaminophen 5/325 one tablet every 4 hours. Pain 1 through 5 Morphine sulfate 2 mg every 2 hours when necessary pain 6-10 Acetaminophen 650 mg every 6 hours when necessary fever Holding sertraline 100 mg daily/home resumed Risperidone 2 mg by mouth twice a day resume/home medication Acute hypoxic respiratory failure - resolving Adult respiratory distress syndrome - resolved Bilateral pneumonia Daily tobacco use Nasal cannula to maintain saturations greater than equal to 92% Incentive spirometry while awake Albuterol/ipratropium aerosols every 4 hours with albuterol aerosols every 2 hours. Dyspnea methylprednisolone succinate 40mg IV Q8, Off epoprostenol as of 05/02 Extubated 05/04 Hypertension Severe pulmonary hypertension Monitor HR and BP keep MAP>65mmHg Lactic acid 1.2. Echo showed EF 60-65% with no regional wall motion abnormality. Severe pulmonary arterial pressure 70 mmHg As needed Nitropaste for hypertension Hypertriglyceridemia Elevated lipase level and AST Pancreatitis Hepatic steatosis Repeat CT abdomen w contrast 05/02 showed findings c/w pancreatitis, Monitor Lipase level ( trending down) GI is following Speech therapy evaluate and treat CT the abdomen 04/24 does not indicate any acute abnormality within the abdomen US liver: Echogenic right kidney which can be seen with medical renal disease, otherwise unremarkable Docusate sodium 100 cc twice a day/senna 8.8 mg twice a day for bowel regimen On metoclopramide 5 mg every 8 hours for GI motility GI protection with famotidine 20 mg by tube twice daily 05/06 FU GI recommendation, clear liquid diet. NO statin for elevated triglycerides. Not on a cholesterol-lowering agent/gemfibrozil due to elevated LFTs Acute renal failure- Improving - likely ATN from hypo-perfusion Hypernatremia Monitor renal function, I/O's, avoid nephrotoxins Currently on furosemide 40mg daily Free water currently off Renal has followed- Dr. Serrano Renal function is stable 05/06 FORTINO resolved, continue to monitor BUN creatinine, strict input and output, avoid nephrotoxins. Bilateral pneumonia Diarrhea Continue Azactam, Discontinued linezolid and azithromycin on 05/04. ID is following. Monitor for signs of infections ( Fever, WBC) Blood cultures04/24 and 04/29: NGTD Influenza screening, Legionella testing, pneumococcal Ag all negative Follow up on sputum cx 04/28 no growth to date Hyperglycemia Accu-Cheks with sliding scale insulin medium Novulog every 4 hours 05/06 check hemoglobin A1c HEMATOLOGY Leukocytosis Normocytic anemia History of iron deficiency Continue monitor CBC MSK Elevated BMI Weight loss encouraged PROPHYLAXIS DVT prevention with SCD, Heparin SQ GI protection with famotidine Discharge Planning Continue to monitor in the medical floor. DC pending clinical improvement. Problem Qualifiers (1) Pneumonia: Jorge Estrada MD May 06, 2017 17:25
[2017-05-06] MEDS: PRAVASTATIN SOD 20 MG TAB PO SCH (20:57)
[2017-05-06 21:32] LABS: AUTOMATED NEUTROPHIL # 16.6 TH/MM3 (1.8-7.7); BASOPHIL % 0.2 % (0.0-2.0); HEMATOCRIT 31.8 % (35.0-46.0); HEMOGLOBIN 10.6 GM/DL (11.6-15.3); LYMPH % 6.8 % (9.0-44.0); LYMPHOCYTE # 1.3 TH/MM3 (1.0-4.8); MEAN CELL VOLUME 94.3 FL (80.0-100.0); MEAN CORPUSCULAR HEMOGLOBIN 31.4 PG (27.0-34.0); MEAN CORPUSCULAR HGB CONC 33.3 % (32.0-36.0); MEAN PLATELET VOLUME 8.6 FL (7.0-11.0); MONO % 6.1 % (0.0-8.0); MONOCYTE # 1.2 TH/MM3 (0-0.9); NEUT % 86.9 % (16.0-70.0); PLATELET COUNT 253 TH/MM3 (150-450); RED BLOOD COUNT 3.37 MIL/MM3 (4.00-5.30); RED CELL DISTRIBUTION WIDTH 17.2 % (11.6-17.2); WHITE BLOOD COUNT 19.1 TH/MM3 (4.0-11.0)
[2017-05-06 21:44] LABS: BICARBONATE 24.2 MEQ/L (21.0-32.0); CALCIUM 9.1 MG/DL (8.5-10.1); CREATININE 0.79 MG/DL (0.50-1.00)
[2017-05-06 22:45] LABS: BANDS 5 % (0-6); LYMPHOCYTES 7 % (9-44); METAMYELOCYTES 1 % (0-1); MONOCYTES 3 % (0-8); MYELOCYTES 3 % (0-0); NEUTROPHIL # MANUAL DIFF 17.2 TH/MM3 (1.8-7.7); POLYS (SEG NEUTROPHILS) 81 % (16-70)
[2017-05-07 00:05] VITALS: BP 148/80; PULSE 104; RESP 20; TEMP 96; O2SAT 97
[2017-05-07] MEDS: RESP: ALBUTEROL 2.5 MG/IPRATROPIUM 0.5 MG NEB (SCH) NEB ×7 (00:17→23:42)
[2017-05-07] MEDS: INSULIN NovoLIN REGULAR SUPPLEMENTAL SCALE SQ SCH ×6 (01:31→21:45)
[2017-05-07] MEDS: MORPHINE SULFATE 2 MG/ML INJ IV PUSH PRN (01:46)
[2017-05-07] MEDS: AZTREONAM INJ 1,000 MG in SODIUM CHLORIDE 0.9% INJ 100 ML IV SCH ×3 (01:46→18:43)
[2017-05-07] MEDS: METOCLOPRAMIDE HCL 10 MG/2 ML VIAL IV PUSH SCH ×3 (01:48→18:47)
[2017-05-07] MEDS: methylPREDNISolone SOD SUCC 40 MG/1 ML VIAL IV PUSH SCH ×3 (01:49→18:47)
[2017-05-07] MEDS: FREE WATER G-TUBE SCH ×4 (01:49→21:46)
[2017-05-07] MEDS: CHLORHEXIDINE GLUCONATE 2 % 1 PACK (2 CLOTHS) TOP SCH (01:49)
[2017-05-07 08:00] VITALS: BP 138/75; PULSE 99; RESP 17; TEMP 98.8; O2SAT 93
[2017-05-07 08:08] VITALS: O2SAT 90
[2017-05-07] MEDS: FUROSEMIDE 40 MG/4 ML VIAL IV PUSH SCH (09:00)
[2017-05-07 10:28] LABS: ALBUMIN 2.4 GM/DL (3.4-5.0); DIRECT BILIRUBIN ADULT 0.1 MG/DL (0.0-0.2)
[2017-05-07 10:30] LABS: INDIRECT BILIRUBIN 0.3 MG/DL (0.0-0.8); TOTAL BILIRUBIN ADULT 0.4 MG/DL (0.2-1.0); TOTAL PROTEIN 6.8 GM/DL (6.4-8.2)
[2017-05-07] MEDS: HEPARIN SODIUM - SQ 10,000 UNITS/ML VIAL SQ SCH ×2 (11:58→21:49)
[2017-05-07] MEDS: FAMOTIDINE 20 MG TAB PO SCH ×2 (11:59→21:48)
[2017-05-07] MEDS: SENNOSIDES SYRUP 8.8 MG/5 ML CUP OG-TUBE SCH ×2 (11:59→21:00)
[2017-05-07 12:00] VITALS: BP 134/89; PULSE 108; RESP 17; TEMP 97.2; O2SAT 91
[2017-05-07] MEDS: SERTRALINE HCL 100 MG TAB PO SCH (12:00)
[2017-05-07] MEDS: risperiDONE 1 MG TAB PO SCH ×2 (12:00→21:48)
--- NOTE | 2017-05-07 13:24 | HHI.IDPN ---
Note Infectious Disease Note Patient is somnolent today. Not staying awake after being aroused. Was awake and alert yesterday. Was given Morphine yesterday evening. Denies pain Now on O2 via nasal canula. Afebrile. Presented to [facility] emergency department on 04/07/2017 with cold and flu-like symptoms including cough, vomiting and diarrhea. PAST MEDICAL HISTORY 1. Irritable bowel syndrome. 2. Iron-deficiency anemia. 3. History of . ALLERGIES AMOXICILLIN. MEDICATIONS Aztreonam. OBJECTIVE: Vital Signs Date Time Temp Pulse Resp B/P (MAP) Pulse Ox O2 Delivery O2 Flow Rate FiO2 05/07/17 12:00 97.2 108 17 134/89 (104) 91 05/07/17 08:08 90 Nasal Cannula 4.00 05/07/17 08:00 98.8 99 17 138/75 (96) 93 05/07/17 00:05 96.0 104 20 148/80 (102) 97 05/06/17 20:43 95 Nasal Cannula 4.00 05/06/17 20:00 97.1 84 20 153/97 (115) 94 05/06/17 16:00 96.8 88 17 141/77 (98) 98 Laboratory Tests Test 05/06/17 04:57 05/06/17 20:35 White Blood Count 19.6 TH/MM3 19.1 TH/MM3 Red Blood Count 3.34 MIL/MM3 3.37 MIL/MM3 Hemoglobin 10.4 GM/DL 10.6 GM/DL Hematocrit 31.4 % 31.8 % Mean Corpuscular Volume 94.1 FL 94.3 FL Mean Corpuscular Hemoglobin 31.1 PG 31.4 PG Mean Corpuscular Hemoglobin Concent 33.1 % 33.3 % Red Cell Distribution Width 16.9 % 17.2 % Platelet Count 236 TH/MM3 253 TH/MM3 Mean Platelet Volume 8.4 FL 8.6 FL Neutrophils (%) (Auto) 87.9 % 86.9 % Lymphocytes (%) (Auto) 6.5 % 6.8 % Monocytes (%) (Auto) 5.4 % 6.1 % Eosinophils (%) (Auto) 0.0 % 0.0 % Basophils (%) (Auto) 0.2 % 0.2 % Neutrophils # (Auto) 17.2 TH/MM3 16.6 TH/MM3 Lymphocytes # (Auto) 1.3 TH/MM3 1.3 TH/MM3 Monocytes # (Auto) 1.1 TH/MM3 1.2 TH/MM3 Eosinophils # (Auto) 0.0 TH/MM3 0.0 TH/MM3 Basophils # (Auto) 0.0 TH/MM3 0.0 TH/MM3 CBC Comment DIFF FINAL AUTO DIFF Differential Comment FINAL DIFF MANUAL Differential Total Cells Counted 100 Neutrophils % (Manual) 81 % Band Neutrophils % 5 % Lymphocytes % 7 % Monocytes % 3 % Neutrophils # (Manual) 17.2 TH/MM3 Metamyelocytes 1 % Myelocytes 3 % Platelet Estimate NORMAL Platelet Morphology Comment NORMAL Laboratory Tests Test 05/06/17 04:57 05/06/17 20:35 05/07/17 09:22 Blood Urea Nitrogen 27 MG/DL 26 MG/DL Creatinine 0.80 MG/DL 0.79 MG/DL Random Glucose 91 MG/DL 97 MG/DL Albumin 2.3 GM/DL 2.4 GM/DL Calcium Level 8.7 MG/DL 9.1 MG/DL Phosphorus Level 2.6 MG/DL Sodium Level 144 MEQ/L 143 MEQ/L Potassium Level 3.7 MEQ/L 3.7 MEQ/L Chloride Level 109 MEQ/L 109 MEQ/L Carbon Dioxide Level 25.8 MEQ/L 24.2 MEQ/L Anion Gap 9 MEQ/L 10 MEQ/L Estimat Glomerular Filtration Rate 91 ML/MIN 92 ML/MIN Total Bilirubin 0.4 MG/DL Direct Bilirubin 0.1 MG/DL Indirect Bilirubin 0.3 MG/DL Aspartate Amino Transf (AST/SGOT) 37 U/L Alanine Aminotransferase (ALT/SGPT) 45 U/L Alkaline Phosphatase 110 U/L Total Protein 6.8 GM/DL Lipase 512 U/L IMAGING: Abdomen X-Ray 05/04/17 0800 Signed Impressions: Service Date/Time: Thursday, May 04, 2017 04:03 - CONCLUSION: No acute disease. Davey Lutz MD Chest X-Ray 05/04/17 0000 Signed Impressions: Service Date/Time: Thursday, May 04, 2017 03:55 - CONCLUSION: Mild increased density in the perihilar regions related to mild edema. This is improving from the prior exam. Davey Lutz MD Chest X-Ray 05/02/17 0600 Signed Impressions: Service Date/Time: Tuesday, May 02, 2017 04:06 - CONCLUSION: Diffuse consolidation likely related to edema. Davey Lutz MD Abdomen/Pelvis CT 05/01/17 0000 Signed Impressions: Service Date/Time: Tuesday, May 02, 2017 04:57 - CONCLUSION: 1. Increased density around the pancreatic head enhancing region and extending into the mesentery and right perinephric region all likely related to pancreatitis. 2. Suspected mild hepatic steatosis. 3. Bilateral dense areas of consolidation at the lung bases Davey Lutz MD Chest X-Ray 04/30/17 0000 Signed Impressions: Service Date/Time: Sunday, April 30, 2017 03:25 - CONCLUSION: 1. Persistent central airspace infiltrates with increasing consolidation of left lung base. Nakul Bailon MD Chest X-Ray 04/29/17 0000 Signed Impressions: Service Date/Time: Saturday, April 29, 2017 11:30 - CONCLUSION: No significant interval change. Tin Moon MD Abdomen X-Ray 04/29/17 0000 Signed Impressions: Service Date/Time: Saturday, April 29, 2017 11:58 - CONCLUSION: Nonspecific bowel gas pattern with no significant dilatation of the large or small bowel. Tin Moon MD PHYSICAL EXAMINATION GENERAL: Somnolent. HEENT: No icterus. Mucosa dry. LUNGS: Rhonchi at the bases. HEART: Regular, S1 and S2 without audible murmurs. ABDOMEN: Soft, Distended, Decreased bowel sounds. EXTREMITIES: No CC, Trace edema at the feet. SKIN: No rash. NEURO: Patient not staying awake to evaluate. IMPRESSION 1. Pneumonia. Negative culture. 2. Acute respiratory failure. 3. ARDS. Improved. 4. Acute renal failure. Improved. 5. Leukocytosis. WBC still elevated. Could be from pancreatitis vs steroids vs PNA. 6. Pancreatitis. Stable. RECOMMENDATIONS 1. Continue aztreonam. 2. Monitor the WBC. 3. Monitor clinical status. 4. Monitor temp and obtain cultures if fever occurs. Rikki Walker MD May 07, 2017 13:24
--- NOTE | 2017-05-07 14:50 | HHI.GIFU ---
Subjective Remarks Pt resting in bed, very lethargic. c/o abd pain. Per RN no bm, has been feeling like she needs to but can't. (Teresita Avila) Objective Vitals I&O Vital Signs Date Time Temp Pulse Resp B/P (MAP) Pulse Ox O2 Delivery O2 Flow Rate FiO2 05/07/17 12:00 97.2 108 17 134/89 (104) 91 05/07/17 08:08 90 Nasal Cannula 4.00 05/07/17 08:00 98.8 99 17 138/75 (96) 93 05/07/17 00:05 96.0 104 20 148/80 (102) 97 05/06/17 20:43 95 Nasal Cannula 4.00 05/06/17 20:00 97.1 84 20 153/97 (115) 94 05/06/17 16:00 96.8 88 17 141/77 (98) 98 I/O 05/06/17 05/06/17 05/06/17 05/07/17 05/07/17 05/07/17 07:00 15:00 23:00 07:00 15:00 23:00 Intake Total 100 ml 120 ml 480 ml Output Total 200 ml 1000 ml 300 ml Balance -100 ml -880 ml 180 ml Intake Oral 120 ml 380 ml IV Total 100 ml 100 ml Output Urine Total 200 ml 1000 ml 300 ml # Voids 2 1 # Bowel Movements 1 2 Laboratory Laboratory Tests Test 05/06/17 20:35 05/07/17 09:22 White Blood Count 19.1 Red Blood Count 3.37 Hemoglobin 10.6 Hematocrit 31.8 Mean Corpuscular Volume 94.3 Mean Corpuscular Hemoglobin 31.4 Mean Corpuscular Hemoglobin Concent 33.3 Red Cell Distribution Width 17.2 Platelet Count 253 Mean Platelet Volume 8.6 Neutrophils (%) (Auto) 86.9 Lymphocytes (%) (Auto) 6.8 Monocytes (%) (Auto) 6.1 Eosinophils (%) (Auto) 0.0 Basophils (%) (Auto) 0.2 Neutrophils # (Auto) 16.6 Lymphocytes # (Auto) 1.3 Monocytes # (Auto) 1.2 Eosinophils # (Auto) 0.0 Basophils # (Auto) 0.0 CBC Comment AUTO DIFF Differential Total Cells Counted 100 Neutrophils % (Manual) 81 Band Neutrophils % 5 Lymphocytes % 7 Monocytes % 3 Neutrophils # (Manual) 17.2 Metamyelocytes 1 Myelocytes 3 Differential Comment FINAL DIFF MANUAL Platelet Estimate NORMAL Platelet Morphology Comment NORMAL Blood Urea Nitrogen 26 Creatinine 0.79 Random Glucose 97 Calcium Level 9.1 Sodium Level 143 Potassium Level 3.7 Chloride Level 109 Carbon Dioxide Level 24.2 Anion Gap 10 Estimat Glomerular Filtration Rate 92 Total Bilirubin 0.4 Direct Bilirubin 0.1 Indirect Bilirubin 0.3 Aspartate Amino Transf (AST/SGOT) 37 Alanine Aminotransferase (ALT/SGPT) 45 Alkaline Phosphatase 110 Total Protein 6.8 Albumin 2.4 Lipase 512 Date/Time Source Procedure Growth Status 04/29/17 18:49 Blood Peripheral Aerobic Blood Culture - Final NO GROWTH IN 5 DAYS Complete 04/29/17 18:49 Blood Peripheral Anaerobic Blood Culture - Final NO GROWTH IN 5 DAYS Complete 04/28/17 10:45 Sputum Endotracheal Gram Stain - Final Complete 04/28/17 10:45 Sputum Endotracheal Sputum Culture - Final NO GROWTH IN 48 HOURS. Complete 04/24/17 16:25 Urine Random Urine Legionella Antigen - Final PRESUMPTIVE NEGATIVE FOR LEGIONELLA P... Complete 04/24/17 16:25 Urine Random Urine Streptococcus pneumoniae Antigen (M - Final PRESUMPTIVE NEGATIVE FOR STREPTOCOCCU... Complete Imaging Last Impressions Abdomen X-Ray 05/04/17 0800 Signed Impressions: Service Date/Time: Thursday, May 04, 2017 04:03 - CONCLUSION: No acute disease. Davey Lutz MD Chest X-Ray 05/04/17 0000 Signed Impressions: Service Date/Time: Thursday, May 04, 2017 03:55 - CONCLUSION: Mild increased density in the perihilar regions related to mild edema. This is improving from the prior exam. Davey Lutz MD Abdomen/Pelvis CT 05/01/17 0000 Signed Impressions: Service Date/Time: Tuesday, May 02, 2017 04:57 - CONCLUSION: 1. Increased density around the pancreatic head enhancing region and extending into the mesentery and right perinephric region all likely related to pancreatitis. 2. Suspected mild hepatic steatosis. 3. Bilateral dense areas of consolidation at the lung bases Davey Lutz MD Liver Ultrasound 04/26/17 0000 Signed Impressions: Service Date/Time: Wednesday, April 26, 2017 16:44 - CONCLUSION: Echogenic right kidney which can be seen with medical renal disease, otherwise unremarkable right upper quadrant sonogram. Roque Gutiérrez MD Chest CT 04/24/17 1327 Signed Impressions: Service Date/Time: April 13:46 - CONCLUSION: Patchy groundglass infiltrates throughout all lobes of the lungs. It is most prominent in the perihilar distribution but also more peripheral areas. I did not see a mass amenable to biopsy with CT guidance. Jay Weaver MD Physical Exam HEENT: PERRL; normocephalic; atraumatic; no jaundice. CHEST: rhonchi CARDIAC: RRR ABDOMEN: mildly distended, soft, obese, BS + 4 diffusely TTP seems worse epigastric area EXTREMITIES: No clubbing, cyanosis, or edema. SKIN: Normal; no rash; no jaundice. INFORMATICS PHYSICIAN LIAISON:lethargic, cooperative. (Teresita Avila) Assessment and Plan Assessment: (1) Hepatic steatosis ICD Codes: K76.0 - Fatty (change of) liver, not elsewhere classified (2) Pancreatitis ICD Codes: K85.90 - Acute pancreatitis without necrosis or infection, unspecified Plan - pancreatitis - lipase 1465 on admission + hypocalcemia. CT abd no contrast no acute abd findings and pancreas WNL CT w/ constrast 05/02 suggestive pancreatitis. tender on exam. cleared by ST for regular diet and thin liquids but will stay on clears for now triglycerides elevated 492 no statin d/t LFT elevation. - ileus - improving, pt now on clears. - elevated LFTs - unclear etiology. ?fatty liver per CT. does not appear to be obstructive pattern. US liver unremarkable. no hx heavy drinking reported. hepatitis panel neg liver w/u unremarkable .LFTs mild increase today - bilat PNA, ARDS, acute renal failure - per CCM, nephrology following s/p extubation 05/06/17 - transferred from [facility] to floor. Some improvement abd pain. tolerating clears. +multiple BM documented, ileus improving. WBC somewhat improved today. will rck lipsae 05/07/17 lipase down to 512 today, LFTs now WNL. very lethargic. pt c/o abd pain. on clears. No BM PLAN - check KUB - continue clears - IVF - monitor lipase - monitor labs - supportive care pt seen by myself and Dr Jarrett and this note is written on his behalf (Teresita Avila) Plan Patient was seen and examined, agree with above-noted, seems to be improving overall but still having abdominal discomfort and sleepy, will repeat labs and check KUB (Franko Jarrett MD) Teresita Avila May 07, 2017 14:50 Franko Jarrett MD May 07, 2017 16:18
--- NOTE | 2017-05-07 15:45 | RADRPT ---
EXAM DATE/TIME: 05/07/2017 15:14 [facility] COMPARISON: ABDOMEN KUB ONLY, May 04, 2017, 4:03. INDICATIONS : Evaluate ileus. Abdominal pain. MEDICAL HISTORY : Pancreatitis. SURGICAL HISTORY : section. ENCOUNTER: Subsequent ACUITY: 1 week PAIN SCORE: 3/10 LOCATION: Bilateral abdomen. FINDINGS: Supine view of the abdomen was performed. Gaseous distention of multiple bowel loops. No abnormal ma sses, calcifications, or organomegaly is seen. The osseous structures are unremarkable. CONCLUSION: Gaseous distention of multiple bowel loops likely ileus. This is slightly more prominent on current s tudy. Roque Gutiérrez MD on May 07, 2017 at 15:42 Board Certified Radiologist. This report was verified electronically.
[2017-05-07 16:00] VITALS: BP 157/94; PULSE 98; RESP 17; TEMP 97.7; O2SAT 90
--- NOTE | 2017-05-07 18:37 | HHI.PR ---
Subjective Remarks Patient c/o abdominal pain states vomited earlier. Denies nausea at the moment of the interview. afebrile Objective Vitals Vital Signs Date Time Temp Pulse Resp B/P (MAP) Pulse Ox O2 Delivery O2 Flow Rate FiO2 05/07/17 16:00 97.7 98 17 157/94 (115) 90 05/07/17 15:52 Nasal Cannula 4.00 05/07/17 12:00 97.2 108 17 134/89 (104) 91 05/07/17 08:08 90 Nasal Cannula 4.00 05/07/17 08:00 98.8 99 17 138/75 (96) 93 05/07/17 00:05 96.0 104 20 148/80 (102) 97 05/06/17 20:43 95 Nasal Cannula 4.00 05/06/17 20:00 97.1 84 20 153/97 (115) 94 I/O 05/06/17 05/06/17 05/06/17 05/07/17 05/07/17 05/07/17 07:00 15:00 23:00 07:00 15:00 23:00 Intake Total 100 ml 120 ml 480 ml Output Total 200 ml 1000 ml 300 ml Balance -100 ml -880 ml 180 ml Intake Oral 120 ml 380 ml IV Total 100 ml 100 ml Output Urine Total 200 ml 1000 ml 300 ml # Voids 2 1 # Bowel Movements 1 2 Result Diagram: 05/06/17203405/06/172034 Imaging Last Impressions Abdomen X-Ray 05/07/17 0000 Signed Impressions: Service Date/Time: Sunday, May 07, 2017 15:14 - CONCLUSION: Gaseous distention of multiple bowel loops likely ileus. This is slightly more prominent on current study. Roque Gutiérrez MD Chest X-Ray 05/04/17 0000 Signed Impressions: Service Date/Time: Thursday, May 04, 2017 03:55 - CONCLUSION: Mild increased density in the perihilar regions related to mild edema. This is improving from the prior exam. Davey Lutz MD Abdomen/Pelvis CT 05/01/17 0000 Signed Impressions: Service Date/Time: Tuesday, May 02, 2017 04:57 - CONCLUSION: 1. Increased density around the pancreatic head enhancing region and extending into the mesentery and right perinephric region all likely related to pancreatitis. 2. Suspected mild hepatic steatosis. 3. Bilateral dense areas of consolidation at the lung bases Davey Lutz MD Liver Ultrasound 04/26/17 0000 Signed Impressions: Service Date/Time: Wednesday, April 26, 2017 16:44 - CONCLUSION: Echogenic right kidney which can be seen with medical renal disease, otherwise unremarkable right upper quadrant sonogram. Roque Gutiérrez MD Chest CT 04/24/17 1327 Signed Impressions: Service Date/Time: April 13:46 - CONCLUSION: Patchy groundglass infiltrates throughout all lobes of the lungs. It is most prominent in the perihilar distribution but also more peripheral areas. I did not see a mass amenable to biopsy with CT guidance. Jay Weaver MD Objective Remarks GENERAL:51-year-old AA female currently resting in bed on nasal cannula SKIN: Warm and dry. Unable to evaluate backside. Positive facial skin breakdown from rotoprone bed HEAD: Normocephalic. EYES: No scleral icterus. No injection or drainage. NECK: Supple, trachea midline. No JVD or lymphadenopathy. CARDIOVASCULAR: RRR. S1, S2 no S4. Without murmurs RESPIRATORY: Clear to auscultation BL. No wheezing appreciated GASTROINTESTINAL: Abdomen soft, Distended, diffuse tenderness to palpation. Hypoactive bowel sounds appreciated MUSCULOSKELETAL: Trace below the knee pitting edema identified. Abrasion over right medial aspect of thigh. Neuro: Cranial nerves II through XII appear grossly intact. Moving all 4 extremities spontaneously however upper extremities weak in the lower extremities. Medications and IVs Current Medications Medications (Trade) Dose Ordered Sig/Tiffanie Route Start Time Stop Time Status Last Admin (NS Flush) 2 ml UNSCH PRN IV FLUSH 04/24/17 15:45 04/29/17 07:56 (fentaNYL INJ) 50 mcg Q1H PRN IV PUSH 04/24/17 15:45 05/05/17 21:36 (Zofran Inj) 4 mg Q6HR PRN IV PUSH 04/24/17 18:00 05/05/17 20:07 Miscellaneous Information 1 Q361D XX 04/24/17 15:45 (Chlorhexidine 2% Cloth) Taper DAILY@04 TOP 04/25/17 04:00 04/21/18 03:59 05/04/17 04:00 (Chlorhexidine 2% Cloth) 3 pack UNSCH PRN TOP 04/24/17 15:45 (Dulcolax Supp) 10 mg DAILY PRN RECTAL 04/24/17 16:00 Aztreonam 1000 mg/ Sodium Chloride 100 ml @ 200 mls/hr Q8H IV 04/24/17 17:00 05/07/17 18:43 Azithromycin 500 mg/Sodium Chloride 250 ml @ 250 mls/hr Q24H IV 04/24/17 18:00 Future Hold 05/03/17 17:22 (D50w (Vial) Inj) 50 ml UNSCH PRN IV PUSH 04/26/17 09:45 (Glucagon Inj) 1 mg UNSCH PRN OTHER 04/26/17 09:45 (NovoLIN R SUPPLEMENTAL SCALE) 1 Q4H SQ 04/26/17 10:00 05/01/17 05:29 (Heparin Inj) 5,000 units Q12HR SQ 04/26/17 21:00 05/07/17 11:58 (Lasix Inj) 40 mg DAILY IV PUSH 04/30/17 09:00 05/07/17 09:00 (Reglan Inj) 5 mg Q8H IV PUSH 04/29/17 18:00 05/07/17 18:47 (Apresoline Inj) 10 mg Q1HR PRN IV PUSH 04/30/17 10:30 05/05/17 16:34 (Albuterol Neb) 2.5 mg Q2HR NEB PRN NEB 04/30/17 11:00 (Tylenol 650 Mg/ 20 ml Liq) 650 mg Q6H PRN OG-TUBE 04/30/17 11:00 (SoluMEDROL INJ) 40 mg Q8H IV PUSH 04/30/17 18:00 05/07/17 18:47 (Senna Liq) 8.8 mg BID OG-TUBE 04/30/17 21:00 05/07/17 11:59 (Free Water) VOLUME OF WATER: ( 300 ) ML Q6HR G-TUBE 05/03/17 12:00 05/06/17 17:38 (Duoneb Neb) 1 ampule Q4HR NEB NEB 05/04/17 16:00 05/07/17 15:50 ([place] 5-325 Mg) 1 tab Q6H PRN PO 05/04/17 21:30 (Morphine Inj) 2 mg Q3H PRN IV PUSH 05/04/17 21:30 05/07/17 01:46 (Pravachol) 20 mg HS PO 05/05/17 21:00 05/06/17 20:57 (Zoloft) 100 mg DAILY PO 05/06/17 09:00 05/07/17 12:00 (risperDAL) 2 mg Q12HR PO 05/05/17 21:00 05/07/17 12:00 (Pepcid) 20 mg BID PO 05/05/17 21:00 05/07/17 11:59 (Nitroglycerin 2% Oint) 2 inch Q6HR PRN TOPICAL 05/05/17 10:00 Date of Insertion: Apr 25, 2017 Line: Central Venous Catheter Side: Right Location: Internal, Jugular A/P Problem List: (1) Adult respiratory distress syndrome ICD Code: J80 - Acute respiratory distress syndrome (2) Acute respiratory failure with hypoxia ICD Code: J96.01 - Acute respiratory failure with hypoxia (3) Pneumonia ICD Code: J18.9 - Pneumonia, unspecified organism Status: Acute (4) Acute renal failure ICD Code: N17.9 - Acute kidney failure, unspecified (5) Increased anion gap metabolic acidosis ICD Code: E87.2 - Acidosis (6) Diarrhea ICD Code: R19.7 - Diarrhea, unspecified (7) Hyponatremia ICD Code: E87.1 - Hypo-osmolality and hyponatremia (8) Leukocytosis ICD Code: D72.829 - Elevated white blood cell count, unspecified (9) Lactic acidosis ICD Code: E87.2 - Acidosis (10) Renal failure ICD Code: N19 - Unspecified kidney failure Status: Acute (11) Hyperglycemia ICD Code: R73.9 - Hyperglycemia, unspecified (12) Elevated lipase ICD Code: R74.8 - Abnormal levels of other serum enzymes (13) Tobacco use ICD Code: Z72.0 - Tobacco use Assessment and Plan History depression Hydrocodone/acetaminophen 5/325 one tablet every 4 hours. Pain 1 through 5 Morphine sulfate 2 mg every 2 hours when necessary pain 6-10 Acetaminophen 650 mg every 6 hours when necessary fever Holding sertraline 100 mg daily/home resumed Risperidone 2 mg by mouth twice a day resume/home medication Acute hypoxic respiratory failure - resolving Adult respiratory distress syndrome - resolved Bilateral pneumonia Daily tobacco use Nasal cannula to maintain saturations greater than equal to 92% Incentive spirometry while awake Albuterol/ipratropium aerosols every 4 hours with albuterol aerosols every 2 hours. Dyspnea methylprednisolone succinate 40mg IV Q8, Off epoprostenol as of 05/02 Extubated 05/04 05/07 Decrease solumedrol down to 40 mg IV Q 12 hrs. Hypertension Severe pulmonary hypertension Monitor HR and BP keep MAP>65mmHg Lactic acid 1.2. Echo showed EF 60-65% with no regional wall motion abnormality. Severe pulmonary arterial pressure 70 mmHg As needed Nitropaste for hypertension Hypertriglyceridemia Elevated lipase level and AST Pancreatitis Hepatic steatosis Repeat CT abdomen w contrast 05/02 showed findings c/w pancreatitis, Monitor Lipase level ( trending down) GI is following Speech therapy evaluate and treat CT the abdomen 04/24 does not indicate any acute abnormality within the abdomen US liver: Echogenic right kidney which can be seen with medical renal disease, otherwise unremarkable Docusate sodium 100 cc twice a day/senna 8.8 mg twice a day for bowel regimen On metoclopramide 5 mg every 8 hours for GI motility GI protection with famotidine 20 mg by tube twice daily 05/07 FU GI recommendation, clear liquid diet. NO statin for elevated triglycerides. Lipase trending down however KUB shows ileus is worsening. Will consult general surgery. Patient states that he had been vomiting earlier. Continue antiemetics, patient continues to vomit then NG tube will need to be placed. This was discussed with the RN. Not on a cholesterol-lowering agent/gemfibrozil due to elevated LFTs Acute renal failure- Improving - likely ATN from hypo-perfusion Hypernatremia Monitor renal function, I/O's, avoid nephrotoxins Currently on furosemide 40mg daily Free water currently off Renal has followed- Dr. Serrano Renal function is stable 05/06 FORTINO resolved, continue to monitor BUN creatinine, strict input and output, avoid nephrotoxins. Bilateral pneumonia Diarrhea Continue Azactam, Discontinued linezolid and azithromycin on 05/04. ID is following. Monitor for signs of infections ( Fever, WBC) Blood cultures04/24 and 04/29: NGTD Influenza screening, Legionella testing, pneumococcal Ag all negative Follow up on sputum cx 04/28 no growth to date Hyperglycemia Accu-Cheks with sliding scale insulin medium Novulog every 4 hours 05/06 check hemoglobin A1c HEMATOLOGY Leukocytosis Normocytic anemia History of iron deficiency Continue monitor CBC MSK Elevated BMI Weight loss encouraged PROPHYLAXIS DVT prevention with SCD, Heparin SQ GI protection with famotidine Discharge Planning Continue to monitor in the medical floor. DC pending clinical improvement. Problem Qualifiers (1) Pneumonia: Jorge Estrada MD May 07, 2017 18:37
[2017-05-07 20:00] VITALS: BP 158/97; PULSE 92; RESP 18; TEMP 97.6; O2SAT 98
[2017-05-07] MEDS: PRAVASTATIN SOD 20 MG TAB PO SCH (21:48)
[2017-05-08] VITALS: BP 165/96; PULSE 95; RESP 20; TEMP 96.9; O2SAT 98
[2017-05-08] MEDS: METOCLOPRAMIDE HCL 10 MG/2 ML VIAL IV PUSH SCH ×3 (02:00→18:05)
[2017-05-08] MEDS: INSULIN NovoLIN REGULAR SUPPLEMENTAL SCALE SQ SCH ×6 (02:00→22:00)
[2017-05-08] MEDS: methylPREDNISolone SOD SUCC 40 MG/1 ML VIAL IV PUSH SCH ×2 (02:01→09:17)
[2017-05-08] MEDS: AZTREONAM INJ 1,000 MG in SODIUM CHLORIDE 0.9% INJ 100 ML IV SCH ×3 (02:03→18:05)
[2017-05-08] MEDS: RESP: ALBUTEROL 2.5 MG/IPRATROPIUM 0.5 MG NEB (SCH) NEB ×4 (03:49→15:49)
[2017-05-08] MEDS: CHLORHEXIDINE GLUCONATE 2 % 1 PACK (2 CLOTHS) TOP SCH (03:57)
[2017-05-08] MEDS: FREE WATER G-TUBE SCH ×3 (03:59→16:12)
[2017-05-08 06:07] LABS: AUTOMATED NEUTROPHIL # 14.3 TH/MM3 (1.8-7.7); BASOPHIL # 0.1 TH/MM3 (0-0.2); BASOPHIL % 0.5 % (0.0-2.0); HEMATOCRIT 33.4 % (35.0-46.0); HEMOGLOBIN 11.1 GM/DL (11.6-15.3); LYMPHOCYTE # 0.6 TH/MM3 (1.0-4.8); MEAN CELL VOLUME 93.4 FL (80.0-100.0); MEAN CORPUSCULAR HEMOGLOBIN 30.9 PG (27.0-34.0); MEAN CORPUSCULAR HGB CONC 33.1 % (32.0-36.0); MEAN PLATELET VOLUME 8.1 FL (7.0-11.0); MONO % 3.5 % (0.0-8.0); MONOCYTE # 0.5 TH/MM3 (0-0.9); PLATELET COUNT 251 TH/MM3 (150-450); RED BLOOD COUNT 3.57 MIL/MM3 (4.00-5.30); RED CELL DISTRIBUTION WIDTH 17.5 % (11.6-17.2); WHITE BLOOD COUNT 15.6 TH/MM3 (4.0-11.0)
[2017-05-08 06:26] LABS: ALBUMIN 2.5 GM/DL (3.4-5.0); AST (GOT) 22 U/L (15-37); BICARBONATE 24.9 MEQ/L (21.0-32.0); BLOOD UREA NITROGEN 31 MG/DL (7-18); CALCIUM 9.3 MG/DL (8.5-10.1); CHLORIDE 109 MEQ/L (98-107); CREATININE 0.96 MG/DL (0.50-1.00); GLOMERULAR FILTRATION RATE 74 ML/MIN (>89); GLUCOSE,RANDOM 141 MG/DL (74-106); MAGNESIUM 1.9 MG/DL (1.5-2.5); SODIUM (NA) 142 MEQ/L (136-145)
[2017-05-08 06:27] LABS: ALT (GPT) 41 U/L (10-53); PHOSPHORUS 2.9 MG/DL (2.5-4.9)
[2017-05-08 06:29] LABS: ALKALINE PHOSPHATASE 109 U/L (45-117); TOTAL BILIRUBIN ADULT 0.4 MG/DL (0.2-1.0)
[2017-05-08 08:53] VITALS: O2SAT 98
[2017-05-08] MEDS: SENNOSIDES SYRUP 8.8 MG/5 ML CUP OG-TUBE SCH ×2 (09:00→21:00)
[2017-05-08 09:01] VITALS: BP 177/109; PULSE 109; RESP 18; TEMP 97.9; O2SAT 100
[2017-05-08] MEDS: FUROSEMIDE 40 MG/4 ML VIAL IV PUSH SCH (09:16)
[2017-05-08] MEDS: FAMOTIDINE 20 MG TAB PO SCH ×2 (09:17→21:00)
[2017-05-08] MEDS: SERTRALINE HCL 100 MG TAB PO SCH (09:17)
[2017-05-08] MEDS: risperiDONE 1 MG TAB PO SCH ×2 (09:17→21:00)
[2017-05-08] MEDS: HEPARIN SODIUM - SQ 10,000 UNITS/ML VIAL SQ SCH ×2 (09:18→22:01)
[2017-05-08 09:29] LABS: BANDS 8 % (0-6); CORRECTED NUCLEATED RBC 2 /100 WBC (0-0); LYMPHOCYTES 4 % (9-44); METAMYELOCYTES 1 % (0-1); MONOCYTES 2 % (0-8); NEUTROPHIL # MANUAL DIFF 14.7 TH/MM3 (1.8-7.7); NUCLEATED RED BLOOD CELL 2 (0-0); POLYS (SEG NEUTROPHILS) 85 % (16-70)
--- NOTE | 2017-05-08 10:13 | PD.CONS ---
HPI Service General Surgery Consult Requested By Dr. Leigh Reason for Consult Ileus, pancreatitis Primary Care Physician History of Present Illness 51 yo F admitted for pancreatitis on 04/24/17 subsequently developing respiratory failure and requring intubation and ventilation. Her pulmonary status has improved and she is stable on med/surg floor, however, she has persistent ileus with minimal oral intake. She has recently required NG tube placement. It was removed but she has had some emesis. She c/o some abdominal pain. KUB shows diffuse ileus slightly worsened. Review of Systems Constitutional: DENIES: Fever, Chills Eyes: DENIES: Eye inflammation, Eye pain Respiratory: DENIES: Cough Cardiovascular: DENIES: Chest pain, Palpitations Gastrointestinal: COMPLAINS OF: Abdominal pain, Nausea Musculoskeletal: DENIES: Muscle aches, Stiffness Integumentary: DENIES: Pruritus, Rash Neurologic: DENIES: Seizures Past Family Social History Past Medical History IBS Past Surgical History C section Reported Medications Reported Meds & Active Scripts Active Reported Zyprexa (Olanzapine) 5 Mg Tab 5 Mg PO HS Zoloft (Sertraline HCl) 100 Mg Tab 100 Mg PO DAILY Sertraline (Sertraline HCl) 100 Mg Tab 100 Mg PO BID Lovastatin 20 Mg Tab 20 Mg PO HS Risperidone 2 Mg Tab 2 Mg PO Q12HR Allergies: Coded Allergies: acetaminophen (Unverified Allergy, Severe, 11/28/16) amoxicillin (Unverified Allergy, Severe, 11/28/16) oxycodone (Unverified Allergy, Severe, 11/28/16) Sulfa (Sulfonamide Antibiotics) (Unverified Allergy, Mild, HALLUCINATIONS , 11/28/16) Active Ordered Medications Current Medications Medications (Trade) Dose Ordered Sig/Tiffanie Route Start Time Stop Time Status Last Admin (NS Flush) 2 ml UNSCH PRN IV FLUSH 04/24/17 15:45 04/29/17 07:56 (fentaNYL INJ) 50 mcg Q1H PRN IV PUSH 04/24/17 15:45 05/05/17 21:36 (Zofran Inj) 4 mg Q6HR PRN IV PUSH 04/24/17 18:00 05/05/17 20:07 Miscellaneous Information 1 Q361D XX 04/24/17 15:45 (Chlorhexidine 2% Cloth) Taper DAILY@04 TOP 04/25/17 04:00 04/21/18 03:59 05/04/17 04:00 (Chlorhexidine 2% Cloth) 3 pack UNSCH PRN TOP 04/24/17 15:45 (Dulcolax Supp) 10 mg DAILY PRN RECTAL 04/24/17 16:00 Aztreonam 1000 mg/ Sodium Chloride 100 ml @ 200 mls/hr Q8H IV 04/24/17 17:00 05/08/17 09:16 Azithromycin 500 mg/Sodium Chloride 250 ml @ 250 mls/hr Q24H IV 04/24/17 18:00 Future Hold 05/03/17 17:22 (D50w (Vial) Inj) 50 ml UNSCH PRN IV PUSH 04/26/17 09:45 (Glucagon Inj) 1 mg UNSCH PRN OTHER 04/26/17 09:45 (NovoLIN R SUPPLEMENTAL SCALE) 1 Q4H SQ 04/26/17 10:00 05/01/17 05:29 (Heparin Inj) 5,000 units Q12HR SQ 04/26/17 21:00 05/08/17 09:18 (Lasix Inj) 40 mg DAILY IV PUSH 04/30/17 09:00 05/08/17 09:16 (Reglan Inj) 5 mg Q8H IV PUSH 04/29/17 18:00 05/08/17 09:18 (Apresoline Inj) 10 mg Q1HR PRN IV PUSH 04/30/17 10:30 05/05/17 16:34 (Albuterol Neb) 2.5 mg Q2HR NEB PRN NEB 04/30/17 11:00 (Tylenol 650 Mg/ 20 ml Liq) 650 mg Q6H PRN OG-TUBE 04/30/17 11:00 (SoluMEDROL INJ) 40 mg Q8H IV PUSH 04/30/17 18:00 05/08/17 09:17 (Senna Liq) 8.8 mg BID OG-TUBE 04/30/17 21:00 05/07/17 11:59 (Free Water) VOLUME OF WATER: ( 300 ) ML Q6HR G-TUBE 05/03/17 12:00 05/06/17 17:38 (Duoneb Neb) 1 ampule Q4HR NEB NEB 05/04/17 16:00 05/08/17 08:50 ([place] 5-325 Mg) 1 tab Q6H PRN PO 05/04/17 21:30 (Morphine Inj) 2 mg Q3H PRN IV PUSH 05/04/17 21:30 05/07/17 01:46 (Pravachol) 20 mg HS PO 05/05/17 21:00 05/07/17 21:48 (Zoloft) 100 mg DAILY PO 05/06/17 09:00 05/08/17 09:17 (risperDAL) 2 mg Q12HR PO 05/05/17 21:00 05/08/17 09:17 (Pepcid) 20 mg BID PO 05/05/17 21:00 05/08/17 09:17 (Nitroglycerin 2% Oint) 2 inch Q6HR PRN TOPICAL 05/05/17 10:00 Family History Noncontributory Social History smokes 5 cigars daily no report ETOH consumption occasional marijuana Physical Exam Vital Signs Vital Signs Date Time Temp Pulse Resp B/P (MAP) Pulse Ox O2 Delivery O2 Flow Rate FiO2 05/08/17 09:01 97.9 109 18 177/109 (131) 100 05/08/17 08:53 98 Nasal Cannula 4.00 05/08/17 00:00 96.9 95 20 165/96 (119) 98 05/07/17 20:00 97.6 92 18 158/97 (117) 98 05/07/17 16:00 97.7 98 17 157/94 (115) 90 05/07/17 15:52 Nasal Cannula 4.00 05/07/17 12:00 97.2 108 17 134/89 (104) 91 Physical Exam GENERAL: Awake and alert. Obese. HEAD: Normocephalic. Atraumatic. EYES: Pupils equal round and reactive to light bilaterally. No scleral icterus. CHEST: Lungs clear to auscultation bilaterally with no wheezing or rhonchi. No respiratory distress. CARDIOVASCULAR: Regular rate and rhythm. ABDOMEN: Round, distended, mild diffuse ttp SKIN: Warm, dry, nonjaundiced. Laboratory Laboratory Tests Test 05/08/17 05:29 White Blood Count 15.6 Red Blood Count 3.57 Hemoglobin 11.1 Hematocrit 33.4 Mean Corpuscular Volume 93.4 Mean Corpuscular Hemoglobin 30.9 Mean Corpuscular Hemoglobin Concent 33.1 Red Cell Distribution Width 17.5 Platelet Count 251 Mean Platelet Volume 8.1 Neutrophils (%) (Auto) 92.0 Lymphocytes (%) (Auto) 4.0 Monocytes (%) (Auto) 3.5 Eosinophils (%) (Auto) 0.0 Basophils (%) (Auto) 0.5 Neutrophils # (Auto) 14.3 Lymphocytes # (Auto) 0.6 Monocytes # (Auto) 0.5 Eosinophils # (Auto) 0.0 Basophils # (Auto) 0.1 CBC Comment AUTO DIFF Differential Total Cells Counted 100 Neutrophils % (Manual) 85 Band Neutrophils % 8 Lymphocytes % 4 Monocytes % 2 Neutrophils # (Manual) 14.7 Metamyelocytes 1 Nucleated Red Blood Cells 2 Differential Comment FINAL DIFF MANUAL Platelet Estimate NORMAL Platelet Morphology Comment NORMAL Blood Urea Nitrogen 31 Creatinine 0.96 Random Glucose 141 Total Protein 7.0 Albumin 2.5 Calcium Level 9.3 Phosphorus Level 2.9 Magnesium Level 1.9 Alkaline Phosphatase 109 Aspartate Amino Transf (AST/SGOT) 22 Alanine Aminotransferase (ALT/SGPT) 41 Total Bilirubin 0.4 Sodium Level 142 Potassium Level 4.0 Chloride Level 109 Carbon Dioxide Level 24.9 Anion Gap 8 Estimat Glomerular Filtration Rate 74 Lipase 328 Date/Time Source Procedure Growth Status 04/29/17 18:49 Blood Peripheral Aerobic Blood Culture - Final NO GROWTH IN 5 DAYS Complete 04/29/17 18:49 Blood Peripheral Anaerobic Blood Culture - Final NO GROWTH IN 5 DAYS Complete 04/28/17 10:45 Sputum Endotracheal Gram Stain - Final Complete 04/28/17 10:45 Sputum Endotracheal Sputum Culture - Final NO GROWTH IN 48 HOURS. Complete 04/24/17 16:25 Urine Random Urine Legionella Antigen - Final PRESUMPTIVE NEGATIVE FOR LEGIONELLA P... Complete 04/24/17 16:25 Urine Random Urine Streptococcus pneumoniae Antigen (M - Final PRESUMPTIVE NEGATIVE FOR STREPTOCOCCU... Complete Result Diagram: 05/08/1729 05/08/17528 Assessment and Plan Assessment and Plan 51 yo F recent critical illness secondary to pancreatitis now with persistent ileus. Repeat CT a/p to be sure no cause for obstruction. Will f/u after CT obtained. Christiano Jarrell MD May 08, 2017 10:13
[2017-05-08] MEDS ORDERED: ENALAPRILAT 1.25 MG/ML VIAL IV PUSH PRN (10:45)
[2017-05-08 12:57] VITALS: BP 151/93; PULSE 103; RESP 18; TEMP 98.9; O2SAT 94
[2017-05-08] MEDS ORDERED: DIATRIZOATE MEGLUM/DIATRIZOATE SOD 9 ML CUP PO ONE (13:15)
--- NOTE | 2017-05-08 13:36 | HHI.GIFU ---
Subjective Remarks Pt resting in bed, reports some continued abdominal pain. Remains on clear liquids. Denies nausea, vomiting. Reports having two bowel movements with good relief. (Rubina Chavez) Objective Vitals I&O Vital Signs Date Time Temp Pulse Resp B/P (MAP) Pulse Ox O2 Delivery O2 Flow Rate FiO2 05/08/17 12:57 98.9 103 18 151/93 (112) 94 05/08/17 09:01 97.9 109 18 177/109 (131) 100 05/08/17 08:53 98 Nasal Cannula 4.00 05/08/17 00:00 96.9 95 20 165/96 (119) 98 05/07/17 20:00 97.6 92 18 158/97 (117) 98 05/07/17 16:00 97.7 98 17 157/94 (115) 90 05/07/17 15:52 Nasal Cannula 4.00 I/O 05/07/17 05/07/17 05/07/17 05/08/17 05/08/17 05/08/17 07:00 15:00 23:00 07:00 15:00 23:00 Intake Total 480 ml 360 ml 380 ml Output Total 300 ml 400 ml 350 ml 800 ml Balance 180 ml -40 ml 30 ml -800 ml Intake Oral 380 ml 360 ml 380 ml IV Total 100 ml Output Urine Total 300 ml 400 ml 350 ml 800 ml # Voids 1 1 # Bowel Movements 0 1 Laboratory Laboratory Tests Test 05/08/17 05:29 White Blood Count 15.6 Red Blood Count 3.57 Hemoglobin 11.1 Hematocrit 33.4 Mean Corpuscular Volume 93.4 Mean Corpuscular Hemoglobin 30.9 Mean Corpuscular Hemoglobin Concent 33.1 Red Cell Distribution Width 17.5 Platelet Count 251 Mean Platelet Volume 8.1 Neutrophils (%) (Auto) 92.0 Lymphocytes (%) (Auto) 4.0 Monocytes (%) (Auto) 3.5 Eosinophils (%) (Auto) 0.0 Basophils (%) (Auto) 0.5 Neutrophils # (Auto) 14.3 Lymphocytes # (Auto) 0.6 Monocytes # (Auto) 0.5 Eosinophils # (Auto) 0.0 Basophils # (Auto) 0.1 CBC Comment AUTO DIFF Differential Total Cells Counted 100 Neutrophils % (Manual) 85 Band Neutrophils % 8 Lymphocytes % 4 Monocytes % 2 Neutrophils # (Manual) 14.7 Metamyelocytes 1 Nucleated Red Blood Cells 2 Differential Comment FINAL DIFF MANUAL Platelet Estimate NORMAL Platelet Morphology Comment NORMAL Blood Urea Nitrogen 31 Creatinine 0.96 Random Glucose 141 Total Protein 7.0 Albumin 2.5 Calcium Level 9.3 Phosphorus Level 2.9 Magnesium Level 1.9 Alkaline Phosphatase 109 Aspartate Amino Transf (AST/SGOT) 22 Alanine Aminotransferase (ALT/SGPT) 41 Total Bilirubin 0.4 Sodium Level 142 Potassium Level 4.0 Chloride Level 109 Carbon Dioxide Level 24.9 Anion Gap 8 Estimat Glomerular Filtration Rate 74 Lipase 328 Date/Time Source Procedure Growth Status 04/29/17 18:49 Blood Peripheral Aerobic Blood Culture - Final NO GROWTH IN 5 DAYS Complete 04/29/17 18:49 Blood Peripheral Anaerobic Blood Culture - Final NO GROWTH IN 5 DAYS Complete 04/28/17 10:45 Sputum Endotracheal Gram Stain - Final Complete 04/28/17 10:45 Sputum Endotracheal Sputum Culture - Final NO GROWTH IN 48 HOURS. Complete 04/24/17 16:25 Urine Random Urine Legionella Antigen - Final PRESUMPTIVE NEGATIVE FOR LEGIONELLA P... Complete 04/24/17 16:25 Urine Random Urine Streptococcus pneumoniae Antigen (M - Final PRESUMPTIVE NEGATIVE FOR STREPTOCOCCU... Complete Imaging Last Impressions Abdomen X-Ray 05/07/17 0000 Signed Impressions: Service Date/Time: Sunday, May 07, 2017 15:14 - CONCLUSION: Gaseous distention of multiple bowel loops likely ileus. This is slightly more prominent on current study. Roque Gutiérrez MD Chest X-Ray 05/04/17 0000 Signed Impressions: Service Date/Time: Thursday, May 04, 2017 03:55 - CONCLUSION: Mild increased density in the perihilar regions related to mild edema. This is improving from the prior exam. Davey Lutz MD Abdomen/Pelvis CT 05/01/17 0000 Signed Impressions: Service Date/Time: Tuesday, May 02, 2017 04:57 - CONCLUSION: 1. Increased density around the pancreatic head enhancing region and extending into the mesentery and right perinephric region all likely related to pancreatitis. 2. Suspected mild hepatic steatosis. 3. Bilateral dense areas of consolidation at the lung bases Davey Lutz MD Liver Ultrasound 04/26/17 0000 Signed Impressions: Service Date/Time: Wednesday, April 26, 2017 16:44 - CONCLUSION: Echogenic right kidney which can be seen with medical renal disease, otherwise unremarkable right upper quadrant sonogram. Roque Gutiérrez MD Chest CT 04/24/17 1327 Signed Impressions: Service Date/Time: April 13:46 - CONCLUSION: Patchy groundglass infiltrates throughout all lobes of the lungs. It is most prominent in the perihilar distribution but also more peripheral areas. I did not see a mass amenable to biopsy with CT guidance. Jay Weaver MD Physical Exam HEENT:Normocephalic; atraumatic CHEST: Coarse BS. 4 L O2 NC CARDIAC: RRR ABDOMEN: Distended, soft, nontender, bowel sounds active EXTREMITIES: BLE edema SKIN: Normal; no rash; no jaundice. 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 CT abd no contrast no acute abd findings and pancreas WNL CT w/ constrast 05/02 suggestive pancreatitis. tender on exam. cleared by ST for regular diet and thin liquids but will stay on clears for now triglycerides elevated 492 no statin d/t LFT elevation. - ileus - improving, pt now on clears. - elevated LFTs - unclear etiology. ?fatty liver per CT. does not appear to be obstructive pattern. US liver unremarkable. no hx heavy drinking reported. hepatitis panel neg liver w/u unremarkable .LFTs mild increase today - bilat PNA, ARDS, acute renal failure - per [facility], nephrology following s/p extubation 05/06/17 - transferred from IM to floor. Some improvement abd pain. tolerating clears. +multiple BM documented, ileus improving. WBC somewhat improved today. will rck lipsae 05/07/17 lipase down to 512 today, LFTs now WNL. very lethargic. pt c/o abd pain. on clears. No BM (05/08) MENTASTA score on admission- 13 points showing 12% chance of mortality. Lipase now trending down and WNL-328. LFTs now WNL. Liver RUSH unremarkable. Ileus- repeat KUB (05/07) --> Gaseous distention of multiple loops likely ileus. This is slightly more prominent on currently study. Pt currently on Reglan. Reports two BMs since yesterday with good relief. GS now following and has ordered CT abdomen and pelvis. Clinically pt is improving no need to add additional medication at this time. Will continue to monitor progress. Plan: Continue clear liquids IVF Pain control CT abdomen and pelvis pending Continue Reglan Monitor stool count Further recommendations to follow based on clinical course Pt has been seen and examined by myself and Dr. Hunter and this note is written on his behalf (Rubina Chavez) Physician Comments Seen and eamined in the presence of family. Drinking contrast for ct. Advance diet after ct. (Sindy Hunter MD) Rubina Chavez May 08, 2017 13:36 Sindy Hunter MD May 08, 2017 15:04
--- NOTE | 2017-05-08 14:25 | HHI.PR ---
Subjective Remarks Patient complained of diffuse abdominal pain. Some nausea but no vomiting. Objective Vitals Vital Signs Date Time Temp Pulse Resp B/P (MAP) Pulse Ox O2 Delivery O2 Flow Rate FiO2 05/08/17 12:57 98.9 103 18 151/93 (112) 94 05/08/17 09:01 97.9 109 18 177/109 (131) 100 05/08/17 08:53 98 Nasal Cannula 4.00 05/08/17 00:00 96.9 95 20 165/96 (119) 98 05/07/17 20:00 97.6 92 18 158/97 (117) 98 05/07/17 16:00 97.7 98 17 157/94 (115) 90 05/07/17 15:52 Nasal Cannula 4.00 I/O 05/07/17 05/07/17 05/07/17 05/08/17 05/08/17 05/08/17 07:00 15:00 23:00 07:00 15:00 23:00 Intake Total 480 ml 360 ml 380 ml Output Total 300 ml 400 ml 350 ml 800 ml Balance 180 ml -40 ml 30 ml -800 ml Intake Oral 380 ml 360 ml 380 ml IV Total 100 ml Output Urine Total 300 ml 400 ml 350 ml 800 ml # Voids 1 1 # Bowel Movements 0 1 Result Diagram: 05/08/1752805/08/17 05 Objective Remarks GENERAL: Obese female, in no apparent distress. CARDIOVASCULAR: Regular rate and rhythm without murmurs, gallops, or rubs. RESPIRATORY: Clear to auscultation. Breath sounds equal bilaterally. No wheezes , rales, or rhonchi. GASTROINTESTINAL: Abdomen with some distention. Diffusely tender to palpation. No guarding. Hypoactive BS. MUSCULOSKELETAL: Extremities without clubbing, cyanosis, or edema. NEURO: Alert & Oriented x4 to person, place, time, situation. Moves all ext x4 Procedures Intubation/Extubation Date of Insertion: Apr 25, 2017 Line: Central Venous Catheter Side: Right Location: Internal, Jugular A/P Problem List: (1) Adult respiratory distress syndrome ICD Code: J80 - Acute respiratory distress syndrome (2) Acute respiratory failure with hypoxia ICD Code: J96.01 - Acute respiratory failure with hypoxia (3) Pneumonia ICD Code: J18.9 - Pneumonia, unspecified organism Status: Acute (4) Acute renal failure ICD Code: N17.9 - Acute kidney failure, unspecified (5) Increased anion gap metabolic acidosis ICD Code: E87.2 - Acidosis (6) Diarrhea ICD Code: R19.7 - Diarrhea, unspecified (7) Hyponatremia ICD Code: E87.1 - Hypo-osmolality and hyponatremia (8) Leukocytosis ICD Code: D72.829 - Elevated white blood cell count, unspecified (9) Lactic acidosis ICD Code: E87.2 - Acidosis (10) Renal failure ICD Code: N19 - Unspecified kidney failure Status: Acute (11) Hyperglycemia ICD Code: R73.9 - Hyperglycemia, unspecified (12) Elevated lipase ICD Code: R74.8 - Abnormal levels of other serum enzymes (13) Tobacco use ICD Code: Z72.0 - Tobacco use Assessment and Plan 51 Y/O admitted with acute respiratory failure requiring intubation, renal failure and metabolic acidosis. Patient is s/p ICU course. Slowly improving. Setback due to ileus. Hypoxemic respiratory failure/PNA/Pulm HTN: - Much improved. Extubated. - Transition to oral prednisone. - Continue Azactam per ID. - Breathing treatment and supplemental oxygen. History of depression and mood disorder: Risperidone 2 mg by mouth twice a day resume/home medication Daily tobacco use -Cessation counseling provided Hypertriglyceridemia Elevated lipase level and AST Pancreatitis Hepatic steatosis Repeat CT abdomen w contrast 05/02 showed findings c/w pancreatitis, Monitor Lipase level ( trending down) GI is following Speech therapy evaluate and treat CT the abdomen 04/24 does not indicate any acute abnormality within the abdomen US liver: Echogenic right kidney which can be seen with medical renal disease, otherwise unremarkable Docusate sodium 100 cc twice a day/senna 8.8 mg twice a day for bowel regimen On metoclopramide 5 mg every 8 hours for GI motility GI protection with famotidine 20 mg by tube twice daily Clear liquid diet. NO statin for elevated triglycerides. Lipase trending down however KUB shows ileus is worsening. General surgery following. Abd CT ordered. Not on a cholesterol-lowering agent/gemfibrozil due to elevated LFTs Acute renal failure- Improving - likely ATN from hypo-perfusion FORTINO resolved, continue to monitor BUN creatinine, strict input and output, avoid nephrotoxins. PROPHYLAXIS DVT prevention with SCD, Heparin SQ GI protection with famotidine Problem Qualifiers (1) Pneumonia: Rimpel,Ricardy MD May 08, 2017 14:25
[2017-05-08 16:00] VITALS: BP 140/78; PULSE 103; RESP 18; TEMP 97.6; O2SAT 91
[2017-05-08] MEDS ORDERED: ZYPR5TAB PO (16:23)
--- NOTE | 2017-05-08 16:43 | HHI.IDPN ---
Note Infectious Disease Note Patient is more awake but looks drowsy. says the Risperdal may be making her drowsy. he states she has not been taking it anymore and was given other meds instead. Denies pain On O2 via nasal canula. Afebrile. abdomen Xray shows ileus. WBC lower. Lipase lower. Presented to [facility] emergency department on 04/07/2017 with cold and flu-like symptoms including cough, vomiting and diarrhea. PAST MEDICAL HISTORY 1. Irritable bowel syndrome. 2. Iron-deficiency anemia. 3. History of . ALLERGIES AMOXICILLIN. MEDICATIONS Aztreonam. OBJECTIVE: Vital Signs Date Time Temp Pulse Resp B/P (MAP) Pulse Ox O2 Delivery O2 Flow Rate FiO2 05/07/17 12:00 97.2 108 17 134/89 (104) 91 05/07/17 08:08 90 Nasal Cannula 4.00 05/07/17 08:00 98.8 99 17 138/75 (96) 93 05/07/17 00:05 96.0 104 20 148/80 (102) 97 05/06/17 20:43 95 Nasal Cannula 4.00 05/06/17 20:00 97.1 84 20 153/97 (115) 94 05/06/17 16:00 96.8 88 17 141/77 (98) 98 Laboratory Tests Test 05/06/17 20:35 05/08/17 05:29 White Blood Count 19.1 TH/MM3 15.6 TH/MM3 Red Blood Count 3.37 MIL/MM3 3.57 MIL/MM3 Hemoglobin 10.6 GM/DL 11.1 GM/DL Hematocrit 31.8 % 33.4 % Mean Corpuscular Volume 94.3 FL 93.4 FL Mean Corpuscular Hemoglobin 31.4 PG 30.9 PG Mean Corpuscular Hemoglobin Concent 33.3 % 33.1 % Red Cell Distribution Width 17.2 % 17.5 % Platelet Count 253 TH/MM3 251 TH/MM3 Mean Platelet Volume 8.6 FL 8.1 FL Neutrophils (%) (Auto) 86.9 % 92.0 % Lymphocytes (%) (Auto) 6.8 % 4.0 % Monocytes (%) (Auto) 6.1 % 3.5 % Eosinophils (%) (Auto) 0.0 % 0.0 % Basophils (%) (Auto) 0.2 % 0.5 % Neutrophils # (Auto) 16.6 TH/MM3 14.3 TH/MM3 Lymphocytes # (Auto) 1.3 TH/MM3 0.6 TH/MM3 Monocytes # (Auto) 1.2 TH/MM3 0.5 TH/MM3 Eosinophils # (Auto) 0.0 TH/MM3 0.0 TH/MM3 Basophils # (Auto) 0.0 TH/MM3 0.1 TH/MM3 CBC Comment AUTO DIFF AUTO DIFF Differential Total Cells Counted 100 100 Neutrophils % (Manual) 81 % 85 % Band Neutrophils % 5 % 8 % Lymphocytes % 7 % 4 % Monocytes % 3 % 2 % Neutrophils # (Manual) 17.2 TH/MM3 14.7 TH/MM3 Metamyelocytes 1 % 1 % Myelocytes 3 % Differential Comment FINAL DIFF MANUAL FINAL DIFF MANUAL Platelet Estimate NORMAL NORMAL Platelet Morphology Comment NORMAL NORMAL Nucleated Red Blood Cells 2 /100 WBC Laboratory Tests Test 05/06/17 20:35 05/07/17 09:22 05/08/17 05:29 Blood Urea Nitrogen 26 MG/DL 31 MG/DL Creatinine 0.79 MG/DL 0.96 MG/DL Random Glucose 97 MG/DL 141 MG/DL Calcium Level 9.1 MG/DL 9.3 MG/DL Sodium Level 143 MEQ/L 142 MEQ/L Potassium Level 3.7 MEQ/L 4.0 MEQ/L Chloride Level 109 MEQ/L 109 MEQ/L Carbon Dioxide Level 24.2 MEQ/L 24.9 MEQ/L Anion Gap 10 MEQ/L 8 MEQ/L Estimat Glomerular Filtration Rate 92 ML/MIN 74 ML/MIN Total Bilirubin 0.4 MG/DL 0.4 MG/DL Direct Bilirubin 0.1 MG/DL Indirect Bilirubin 0.3 MG/DL Aspartate Amino Transf (AST/SGOT) 37 U/L 22 U/L Alanine Aminotransferase (ALT/SGPT) 45 U/L 41 U/L Alkaline Phosphatase 110 U/L 109 U/L Total Protein 6.8 GM/DL 7.0 GM/DL Albumin 2.4 GM/DL 2.5 GM/DL Lipase 512 U/L 328 U/L Phosphorus Level 2.9 MG/DL Magnesium Level 1.9 MG/DL IMAGING: Abdomen X-Ray 05/07/17 0000 Signed Impressions: Service Date/Time: Sunday, May 07, 2017 15:14 - CONCLUSION: Gaseous distention of multiple bowel loops likely ileus. This is slightly more prominent on current study. Roque Gutiérrez MD Abdomen X-Ray 05/04/17 0800 Signed Impressions: Service Date/Time: Thursday, May 04, 2017 04:03 - CONCLUSION: No acute disease. Davey Lutz MD Chest X-Ray 05/04/17 0000 Signed Impressions: Service Date/Time: Thursday, May 04, 2017 03:55 - CONCLUSION: Mild increased density in the perihilar regions related to mild edema. This is improving from the prior exam. Davey Lutz MD Chest X-Ray 05/02/17 0600 Signed Impressions: Service Date/Time: Tuesday, May 02, 2017 04:06 - CONCLUSION: Diffuse consolidation likely related to edema. Davey Lutz MD Abdomen/Pelvis CT 05/01/17 0000 Signed Impressions: Service Date/Time: Tuesday, May 02, 2017 04:57 - CONCLUSION: 1. Increased density around the pancreatic head enhancing region and extending into the mesentery and right perinephric region all likely related to pancreatitis. 2. Suspected mild hepatic steatosis. 3. Bilateral dense areas of consolidation at the lung bases Davey Lutz MD Chest X-Ray 04/30/17 0000 Signed Impressions: Service Date/Time: Sunday, April 30, 2017 03:25 - CONCLUSION: 1. Persistent central airspace infiltrates with increasing consolidation of left lung base. Nakul Bailon MD Chest X-Ray 04/29/17 0000 Signed Impressions: Service Date/Time: Saturday, April 29, 2017 11:30 - CONCLUSION: No significant interval change. Tin Moon MD Abdomen X-Ray 04/29/17 0000 Signed Impressions: Service Date/Time: Saturday, April 29, 2017 11:58 - CONCLUSION: Nonspecific bowel gas pattern with no significant dilatation of the large or small bowel. Tin Moon MD PHYSICAL EXAMINATION GENERAL: No acute distress. Awake. HEENT: TRUDI. EOMI. No icterus. Mucosa dry. LUNGS: decreased breath sounds. HEART: Regular, S1 and S2 without audible murmurs. ABDOMEN: Soft, Distended, Decreased bowel sounds. Non tender. EXTREMITIES: No CC, Trace edema at the feet. SKIN: No rash. NEURO: Non focal. IMPRESSION 1. Pneumonia. 2. Acute respiratory failure. Improved. 3. ARDS. Improved. 4. Acute renal failure. Improved. 5. Leukocytosis. WBC still elevated. Could be from pancreatitis vs steroids vs PNA. 6. Pancreatitis. Lipase decreasing. RECOMMENDATIONS 1. Continue aztreonam. 2. Continue to monitor the WBC. 3. Monitor clinical status. 4. Monitor temp and obtain cultures if fever occurs. Rikki Walker MD May 08, 2017 16:43
--- NOTE | 2017-05-08 17:32 | RADRPT ---
EXAM DATE/TIME: 05/08/2017 16:58 [facility] COMPARISON: CT ABDOMEN & PELVIS W CONTRAST, May 02, 2017, 4:57. CT ABDOMEN & PELVIS W/O CONTRAST, April, 13:46. INDICATIONS : Abdominal pain. Elevated liver function enzymes. Evaluate for pancreatitis. ORAL CONTRAST: Partial prescribed oral contrast ingested. RADIATION DOSE: 16.87 CTDIvol (mGy) MEDICAL HISTORY : None SURGICAL HISTORY : None. ENCOUNTER: Initial ACUITY: 1 day PAIN SCALE: 3/10 LOCATION: abdomen TECHNIQUE: Volumetric scanning of the abdomen and pelvis was performed. Using automated exposure control and ad justment of the mA and/or kV according to patient size, radiation dose was kept as low as reasonably achievable to obtain optimal diagnostic quality images. DICOM format image data is available electro nically for review and comparison. FINDINGS: LOWER LUNGS: Small patchy areas of consolidated infiltrates are noted in both lung bases which appear improved fro m the prior study. LIVER: Homogeneous density without lesion. There is no dilation of the biliary tree. No calcified gallston es. SPLEEN: Normal size without lesion. PANCREAS: Not as well-visualized as on the prior study due to lack of intravenous contrast. The previously note d low density fluid collections around the head are no longer distinctly visualized. There is mild mo tion artifact in this region. The body and tail appear grossly unremarkable. KIDNEYS: Normal in size and shape. There is no mass, stone, or hydronephrosis. ADRENAL GLANDS: Within normal limits. VASCULAR: There is no aortic aneurysm. BOWEL/MESENTERY: There is abnormal bowel gas pattern noted with multiple loops of borderline dilated small bowel with multiple air-fluid levels. Contrast is noted in the colon there is no focal wall thickening or inflam matory change. There is no free air or fluid. ABDOMINAL WALL: Within normal limits. RETROPERITONEUM: There is no lymphadenopathy. BLADDER: No wall thickening or mass. REPRODUCTIVE: Within normal limits. INGUINAL: There is no lymphadenopathy or hernia. MUSCULOSKELETAL: Within normal limits for patient age. CONCLUSION: 1. Abnormal bowel gas pattern is now noted most characteristic of an ileus. 2. Improved appearance of the pancreas on this noncontrast study with suboptimal visualization. Previ ously noted fluid surrounding the head is no longer visualized and there is no definite inflammatory change. 3. The gallbladder appears unremarkable. There is no evidence of biliary obstruction. 4. Patchy areas of consolidation in both posterior lung bases improved from the prior study. Zeke Cobb MD on May 08, 2017 at 17:23 Board Certified Radiologist. This report was verified electronically.
[2017-05-08 19:05] VITALS: O2SAT 92
[2017-05-08] MEDS: predniSONE 20 MG TAB PO SCH (21:50)
[2017-05-08] MEDS: PRAVASTATIN SOD 20 MG TAB PO SCH (21:58)
[2017-05-09] VITALS (7 sets, daily range): BP systolic 144–175; BP diastolic 88–108; PULSE 82–94; RESP 18–20; TEMP 96.7–100; O2SAT 93–97
[2017-05-09] MEDS: INSULIN NovoLIN REGULAR SUPPLEMENTAL SCALE SQ SCH ×6 (02:00→21:21)
[2017-05-09] MEDS: METOCLOPRAMIDE HCL 10 MG/2 ML VIAL IV PUSH SCH ×3 (02:00→16:56)
[2017-05-09] MEDS: AZTREONAM INJ 1,000 MG in SODIUM CHLORIDE 0.9% INJ 100 ML IV SCH ×3 (02:15→16:56)
[2017-05-09] MEDS: CHLORHEXIDINE GLUCONATE 2 % 1 PACK (2 CLOTHS) TOP SCH ×2 (02:22→21:41)
[2017-05-09] MEDS: FREE WATER G-TUBE SCH ×6 (02:22→21:42)
[2017-05-09 07:46] LABS: HEMATOCRIT 35.5 % (35.0-46.0); HEMOGLOBIN 11.8 GM/DL (11.6-15.3); MEAN CELL VOLUME 94.7 FL (80.0-100.0); MEAN CORPUSCULAR HEMOGLOBIN 31.4 PG (27.0-34.0); MEAN CORPUSCULAR HGB CONC 33.2 % (32.0-36.0); MEAN PLATELET VOLUME 7.9 FL (7.0-11.0); PLATELET COUNT 258 TH/MM3 (150-450); RED BLOOD COUNT 3.75 MIL/MM3 (4.00-5.30); RED CELL DISTRIBUTION WIDTH 17.5 % (11.6-17.2); WHITE BLOOD COUNT 15.5 TH/MM3 (4.0-11.0)
[2017-05-09 08:09] LABS: BICARBONATE 27.9 MEQ/L (21.0-32.0); CALCIUM 9.6 MG/DL (8.5-10.1); CREATININE 1.05 MG/DL (0.50-1.00)
[2017-05-09] MEDS: SENNOSIDES SYRUP 8.8 MG/5 ML CUP OG-TUBE SCH ×2 (08:39→21:21)
[2017-05-09] MEDS: predniSONE 20 MG TAB PO SCH ×2 (08:45→21:20)
[2017-05-09] MEDS: FAMOTIDINE 20 MG TAB PO SCH ×2 (08:45→21:20)
[2017-05-09] MEDS: SERTRALINE HCL 100 MG TAB PO SCH (08:45)
[2017-05-09] MEDS: FUROSEMIDE 40 MG/4 ML VIAL IV PUSH SCH (08:45)
[2017-05-09] MEDS: risperiDONE 1 MG TAB PO SCH (08:45)
[2017-05-09] MEDS: HEPARIN SODIUM - SQ 10,000 UNITS/ML VIAL SQ SCH ×2 (08:46→21:20)
--- NOTE | 2017-05-09 10:05 | HHI.PR ---
Subjective Subjective Notes Had emesis last night. CT a/p shows ileus, no evidence of obstruction. Objective Vitals/I&O Vital Signs Date Time Temp Pulse Resp B/P (MAP) Pulse Ox O2 Delivery O2 Flow Rate FiO2 05/09/17 08:00 97.5 89 20 151/88 (109) 94 05/08/17 19:05 Nasal Cannula 4.00 Labs Laboratory Tests Test 05/09/17 07:24 White Blood Count 15.5 Red Blood Count 3.75 Hemoglobin 11.8 Hematocrit 35.5 Mean Corpuscular Volume 94.7 Mean Corpuscular Hemoglobin 31.4 Mean Corpuscular Hemoglobin Concent 33.2 Red Cell Distribution Width 17.5 Platelet Count 258 Mean Platelet Volume 7.9 Blood Urea Nitrogen 34 Creatinine 1.05 Random Glucose 106 Calcium Level 9.6 Sodium Level 141 Potassium Level 3.9 Chloride Level 105 Carbon Dioxide Level 27.9 Anion Gap 8 Estimat Glomerular Filtration Rate 67 Date/Time Source Procedure Growth Status 04/29/17 18:49 Blood Peripheral Aerobic Blood Culture - Final NO GROWTH IN 5 DAYS Complete 04/29/17 18:49 Blood Peripheral Anaerobic Blood Culture - Final NO GROWTH IN 5 DAYS Complete 04/28/17 10:45 Sputum Endotracheal Gram Stain - Final Complete 04/28/17 10:45 Sputum Endotracheal Sputum Culture - Final NO GROWTH IN 48 HOURS. Complete 04/24/17 16:25 Urine Random Urine Legionella Antigen - Final PRESUMPTIVE NEGATIVE FOR LEGIONELLA P... Complete 04/24/17 16:25 Urine Random Urine Streptococcus pneumoniae Antigen (M - Final PRESUMPTIVE NEGATIVE FOR STREPTOCOCCU... Complete Narrative Exam NAD Abd: distended, mild left sided ttp A/P Assessment and Plan 51 yo F recovering from critical illness secondary to pancreatitis with diffuse ileus. No evidence of obstruction or need for surgical intervention. Christiano Jarrell MD May 09, 2017 10:05
--- NOTE | 2017-05-09 10:47 | HHI.GIFU ---
Subjective Remarks Has been having n/v last night and this morning. Says her abd pain 5/10 mildly improved but seems more distended and firmer today. Not eating, on clears. (Teresita Avila) Objective Vitals I&O Vital Signs Date Time Temp Pulse Resp B/P (MAP) Pulse Ox O2 Delivery O2 Flow Rate FiO2 05/09/17 08:00 97.5 89 20 151/88 (109) 94 05/09/17 00:00 98.4 92 18 144/91 (108) 97 05/08/17 19:05 92 Nasal Cannula 4.00 05/08/17 16:00 97.6 103 18 140/78 (98) 91 05/08/17 12:57 98.9 103 18 151/93 (112) 94 I/O 05/08/17 05/08/17 05/08/17 05/09/17 05/09/17 05/09/17 07:00 15:00 23:00 07:00 15:00 23:00 Intake Total 380 ml 100 ml 100 ml Output Total 350 ml 800 ml Balance 30 ml -700 ml 100 ml Intake Oral 380 ml IV Total 100 ml 100 ml Output Urine Total 350 ml 800 ml # Voids 1 # Bowel Movements 1 Laboratory Laboratory Tests Test 05/09/17 07:24 White Blood Count 15.5 Red Blood Count 3.75 Hemoglobin 11.8 Hematocrit 35.5 Mean Corpuscular Volume 94.7 Mean Corpuscular Hemoglobin 31.4 Mean Corpuscular Hemoglobin Concent 33.2 Red Cell Distribution Width 17.5 Platelet Count 258 Mean Platelet Volume 7.9 Blood Urea Nitrogen 34 Creatinine 1.05 Random Glucose 106 Calcium Level 9.6 Sodium Level 141 Potassium Level 3.9 Chloride Level 105 Carbon Dioxide Level 27.9 Anion Gap 8 Estimat Glomerular Filtration Rate 67 Date/Time Source Procedure Growth Status 04/29/17 18:49 Blood Peripheral Aerobic Blood Culture - Final NO GROWTH IN 5 DAYS Complete 04/29/17 18:49 Blood Peripheral Anaerobic Blood Culture - Final NO GROWTH IN 5 DAYS Complete 04/28/17 10:45 Sputum Endotracheal Gram Stain - Final Complete 04/28/17 10:45 Sputum Endotracheal Sputum Culture - Final NO GROWTH IN 48 HOURS. Complete 04/24/17 16:25 Urine Random Urine Legionella Antigen - Final PRESUMPTIVE NEGATIVE FOR LEGIONELLA P... Complete 04/24/17 16:25 Urine Random Urine Streptococcus pneumoniae Antigen (M - Final PRESUMPTIVE NEGATIVE FOR STREPTOCOCCU... Complete Imaging Last Impressions Abdomen/Pelvis CT 05/08/17 0000 Signed Impressions: Service Date/Time: May 16:58 - CONCLUSION: 1. Abnormal bowel gas pattern is now noted most characteristic of an ileus. 2. Improved appearance of the pancreas on this noncontrast study with suboptimal visualization. Previously noted fluid surrounding the head is no longer visualized and there is no definite inflammatory change. 3. The gallbladder appears unremarkable. There is no evidence of biliary obstruction. 4. Patchy areas of consolidation in both posterior lung bases improved from the prior study. Zeke Cobb MD Abdomen X-Ray 05/07/17 0000 Signed Impressions: Service Date/Time: Sunday, May 07, 2017 15:14 - CONCLUSION: Gaseous distention of multiple bowel loops likely ileus. This is slightly more prominent on current study. Roque Gutiérrez MD Chest X-Ray 05/04/17 0000 Signed Impressions: Service Date/Time: Thursday, May 04, 2017 03:55 - CONCLUSION: Mild increased density in the perihilar regions related to mild edema. This is improving from the prior exam. Davey Lutz MD Liver Ultrasound 04/26/17 0000 Signed Impressions: Service Date/Time: Wednesday, April 26, 2017 16:44 - CONCLUSION: Echogenic right kidney which can be seen with medical renal disease, otherwise unremarkable right upper quadrant sonogram. Roque Gutiérrez MD Chest CT 04/24/17 1327 Signed Impressions: Service Date/Time: April 13:46 - CONCLUSION: Patchy groundglass infiltrates throughout all lobes of the lungs. It is most prominent in the perihilar distribution but also more peripheral areas. I did not see a mass amenable to biopsy with CT guidance. Jay Weaver MD Physical Exam HEENT:Normocephalic; atraumatic CHEST: Coarse CARDIAC: RRR ABDOMEN: seems more Distended today, soft, nontender, bowel sounds active EXTREMITIES: BLE edema SKIN: Normal; no rash; no jaundice. RADIO OPERATOR: lethargic (Teresita Avila) Assessment and Plan Assessment: (1) Hepatic steatosis ICD Codes: K76.0 - Fatty (change of) liver, not elsewhere classified (2) Pancreatitis ICD Codes: K85.90 - Acute pancreatitis without necrosis or infection, unspecified Plan - pancreatitis - lipase 1465 on admission + hypocalcemia. CT abd no contrast no acute abd findings and pancreas WNL CT w/ constrast 05/02 suggestive pancreatitis. tender on exam. cleared by ST for regular diet and thin liquids but will stay on clears for now triglycerides elevated 492 no statin d/t LFT elevation. - ileus - improving, pt now on clears. - elevated LFTs - unclear etiology. ?fatty liver per CT. does not appear to be obstructive pattern. US liver unremarkable. no hx heavy drinking reported. hepatitis panel neg liver w/u unremarkable .LFTs mild increase today - bilat PNA, ARDS, acute renal failure - per CCM, nephrology following s/p extubation 05/06/17 - transferred from [facility] [place] to floor. Some improvement abd pain. tolerating clears. +multiple BM documented, ileus improving. WBC somewhat improved today. will rck lipsae 05/07/17 lipase down to 512 today, LFTs now WNL. very lethargic. pt c/o abd pain. on clears. No BM (05/08) [facility] score on admission- 13 points showing 12% chance of mortality. Lipase now trending down and WNL-328. LFTs now WNL. Liver RUSH unremarkable. Ileus- repeat KUB (05/07) --> Gaseous distention of multiple loops likely ileus. This is slightly more prominent on currently study. Pt currently on Reglan. Reports two BMs since yesterday with good relief. GS now following and has ordered CT abdomen and pelvis. Clinically pt is improving no need to add additional medication at this time. Will continue to monitor progress. 05/09/17 - seems bit more distended today, having n/v last night and this morning. Not eating much. CT ABD 05/08 showed ileus, improve appearance pancreas lipase improved today, 328. Pt now says she only had one small BM yesterday and does not feel much better. No BM today. GS following Plan: - NGT to [facility] - IVF - Continue Reglan - Monitor stool count Further recommendations to follow based on clinical course Pt has been seen and examined by myself and Dr. Hunter and this note is written on his behalf (Teresita Avila) Physician Comments Seen and examined with LOAN APPROVER, CT worsening illeus. Pt. with N/V. NG to L.I.S. TPN. (Sindy Hunter MD) Teresita Avila May 09, 2017 10:46 Sindy Hunter MD May 09, 2017 15:40
--- NOTE | 2017-05-09 16:44 | HHI.PR ---
Subjective Remarks Patient seen earlier this morning. She states she is feeling better. She still reports some nausea. However She is requesting food. Discussed with her at bedside. She no longer takes Risperdal and has been stable on Zyprexa at night and Zoloft. Objective Vitals Vital Signs Date Time Temp Pulse Resp B/P (MAP) Pulse Ox O2 Delivery O2 Flow Rate FiO2 05/09/17 16:00 98.1 82 20 171/93 (119) 95 05/09/17 12:43 93 Nasal Cannula 4.00 05/09/17 12:00 100.0 94 20 175/108 (130) 94 05/09/17 08:00 97.5 89 20 151/88 (109) 94 05/09/17 00:00 98.4 92 18 144/91 (108) 97 05/08/17 19:05 92 Nasal Cannula 4.00 I/O 05/08/17 05/08/17 05/08/17 05/09/17 05/09/17 05/09/17 07:00 15:00 23:00 07:00 15:00 23:00 Intake Total 380 ml 100 ml 100 ml 570 ml Output Total 350 ml 800 ml 2700 ml Balance 30 ml -700 ml 100 ml -2130 ml Intake Oral 380 ml 570 ml IV Total 100 ml 100 ml Output Urine Total 350 ml 800 ml 200 ml Gastric Drainage Total 1900 ml Emesis 600 ml # Voids 1 2 # Bowel Movements 1 Result Diagram: 05/09/17 0724 05/09/17 0724 Objective Remarks GENERAL: Obese female, in no apparent distress. CARDIOVASCULAR: Regular rate and rhythm without murmurs, gallops, or rubs. RESPIRATORY: Clear to auscultation. Breath sounds equal bilaterally. No wheezes , rales, or rhonchi. GASTROINTESTINAL: Abdomen with some distention. Mild tenderness to palpation. No guarding. Hypoactive BS. MUSCULOSKELETAL: Extremities without clubbing, cyanosis, or edema. NEURO: Alert & Oriented x4 to person, place, time, situation. Moves all ext x4 Procedures Intubation/Extubation Date of Insertion: Apr 25, 2017 Line: Central Venous Catheter Side: Right Location: Internal, Jugular A/P Problem List: (1) Adult respiratory distress syndrome ICD Code: J80 - Acute respiratory distress syndrome (2) Acute respiratory failure with hypoxia ICD Code: J96.01 - Acute respiratory failure with hypoxia (3) Pneumonia ICD Code: J18.9 - Pneumonia, unspecified organism Status: Acute (4) Acute renal failure ICD Code: N17.9 - Acute kidney failure, unspecified (5) Increased anion gap metabolic acidosis ICD Code: E87.2 - Acidosis (6) Diarrhea ICD Code: R19.7 - Diarrhea, unspecified (7) Hyponatremia ICD Code: E87.1 - Hypo-osmolality and hyponatremia (8) Leukocytosis ICD Code: D72.829 - Elevated white blood cell count, unspecified (9) Lactic acidosis ICD Code: E87.2 - Acidosis (10) Renal failure ICD Code: N19 - Unspecified kidney failure Status: Acute (11) Hyperglycemia ICD Code: R73.9 - Hyperglycemia, unspecified (12) Elevated lipase ICD Code: R74.8 - Abnormal levels of other serum enzymes (13) Tobacco use ICD Code: Z72.0 - Tobacco use Assessment and Plan 51 Y/O admitted with acute respiratory failure requiring intubation, renal failure and metabolic acidosis. Patient is s/p ICU course. Slowly improving. Setback due to ileus. Hypoxemic respiratory failure/PNA/Pulm HTN: - Much improved. Extubated. - Transition to oral prednisone. - Continue Azactam per ID. - Breathing treatment and supplemental oxygen. - Continue Lasix History of depression and mood disorder: Risperidone 2 mg by mouth twice a day resume/home medication Daily tobacco use -Cessation counseling provided Hypertriglyceridemia Elevated lipase level and AST Pancreatitis Hepatic steatosis Repeat CT abdomen w contrast 05/02 showed findings c/w pancreatitis, Monitor Lipase level ( trending down) GI is following Speech therapy evaluate and treat CT the abdomen 04/24 does not indicate any acute abnormality within the abdomen US liver: Echogenic right kidney which can be seen with medical renal disease, otherwise unremarkable Docusate sodium 100 cc twice a day/senna 8.8 mg twice a day for bowel regimen On metoclopramide 5 mg every 8 hours for GI motility GI protection with famotidine 20 mg by tube twice daily NO statin for elevated triglycerides. Lipase trending down however KUB shows ileus is worsening. Abdominal CT on 05/08/17 showed ileus. Gen. surgery evaluated the patient have since signed off. Advance to full liquid diet. Not on a cholesterol-lowering agent/gemfibrozil due to elevated LFTs Debility: - Physical therapy 7 days a week. Acute renal failure- Improving - likely ATN from hypo-perfusion FORTINO resolved, continue to monitor BUN creatinine, strict input and output, avoid nephrotoxins. PROPHYLAXIS DVT prevention with SCD, Heparin SQ GI protection with famotidine Problem Qualifiers (1) Pneumonia: Cory Condon MD May 09, 2017 16:44
[2017-05-09] MEDS: OLANZapine 5 MG TAB PO SCH (21:00)
[2017-05-09] MEDS: PRAVASTATIN SOD 20 MG TAB PO SCH (21:20)
[2017-05-10] VITALS: BP 142/85; PULSE 89; RESP 18; TEMP 98.9; O2SAT 95
[2017-05-10] MEDS: AZTREONAM INJ 1,000 MG in SODIUM CHLORIDE 0.9% INJ 100 ML IV SCH ×3 (00:38→16:39)
[2017-05-10] MEDS: INSULIN NovoLIN REGULAR SUPPLEMENTAL SCALE SQ SCH ×6 (00:39→22:00)
[2017-05-10] MEDS: METOCLOPRAMIDE HCL 10 MG/2 ML VIAL IV PUSH SCH ×3 (00:39→16:42)
[2017-05-10 08:00] VITALS: BP 146/78; PULSE 85; RESP 18; TEMP 98.4; O2SAT 95
[2017-05-10] MEDS: SENNOSIDES SYRUP 8.8 MG/5 ML CUP OG-TUBE SCH ×2 (08:31→21:54)
[2017-05-10] MEDS: predniSONE 20 MG TAB PO SCH ×2 (08:32→21:55)
[2017-05-10] MEDS: SERTRALINE HCL 100 MG TAB PO SCH (08:33)
[2017-05-10] MEDS: FAMOTIDINE 20 MG TAB PO SCH ×2 (08:33→21:54)
[2017-05-10] MEDS: HEPARIN SODIUM - SQ 10,000 UNITS/ML VIAL SQ SCH ×2 (08:34→21:55)
--- NOTE | 2017-05-10 11:29 | HHI.PR ---
Subjective Remarks Decompensated yesterday afternoon. NGT has been in place since. Reports feeling better today. Inquired about when she will be able to get home. She would like to ambulate to the bathroom. Objective Vitals Vital Signs Date Time Temp Pulse Resp B/P (MAP) Pulse Ox O2 Delivery O2 Flow Rate FiO2 05/10/17 08:00 98.4 85 18 146/78 (100) 95 05/10/17 00:00 98.9 89 18 142/85 (104) 95 05/09/17 20:00 96.7 91 18 144/92 (109) 96 05/09/17 17:13 95 Nasal Cannula 4.00 05/09/17 16:00 98.1 82 20 171/93 (119) 95 05/09/17 12:43 93 Nasal Cannula 4.00 05/09/17 12:00 100.0 94 20 175/108 (130) 94 I/O 05/09/17 05/09/17 05/09/17 05/10/17 05/10/17 05/10/17 07:00 15:00 23:00 07:00 15:00 23:00 Intake Total 570 ml Output Total 2700 ml 1000 ml 700 ml Balance -2130 ml -1000 ml -700 ml Intake Oral 570 ml Output Urine Total 200 ml 300 ml Gastric Drainage Total 1900 ml 1000 ml 400 ml Emesis 600 ml # Voids 2 3 2 # Bowel Movements 2 1 Result Diagram: 05/09/1724 05/09/17 0724 Objective Remarks GENERAL: Obese female, in no apparent distress. NGT in place CARDIOVASCULAR: Regular rate and rhythm without murmurs, gallops, or rubs. RESPIRATORY: Clear to auscultation. Breath sounds equal bilaterally. No wheezes , rales, or rhonchi. GASTROINTESTINAL: Abdomen with some distention. Mild tenderness to palpation. No guarding. Hypoactive BS. MUSCULOSKELETAL: Extremities without clubbing, cyanosis, or edema. NEURO: Alert & Oriented x4 to person, place, time, situation. Moves all ext x4 Procedures Intubation/Extubation Date of Insertion: Apr 25, 2017 Line: Central Venous Catheter Side: Right Location: Internal, Jugular A/P Problem List: (1) Adult respiratory distress syndrome ICD Code: J80 - Acute respiratory distress syndrome (2) Acute respiratory failure with hypoxia ICD Code: J96.01 - Acute respiratory failure with hypoxia (3) Pneumonia ICD Code: J18.9 - Pneumonia, unspecified organism Status: Acute (4) Acute renal failure ICD Code: N17.9 - Acute kidney failure, unspecified (5) Increased anion gap metabolic acidosis ICD Code: E87.2 - Acidosis (6) Diarrhea ICD Code: R19.7 - Diarrhea, unspecified (7) Hyponatremia ICD Code: E87.1 - Hypo-osmolality and hyponatremia (8) Leukocytosis ICD Code: D72.829 - Elevated white blood cell count, unspecified (9) Lactic acidosis ICD Code: E87.2 - Acidosis (10) Renal failure ICD Code: N19 - Unspecified kidney failure Status: Acute (11) Hyperglycemia ICD Code: R73.9 - Hyperglycemia, unspecified (12) Elevated lipase ICD Code: R74.8 - Abnormal levels of other serum enzymes (13) Tobacco use ICD Code: Z72.0 - Tobacco use Assessment and Plan 51 Y/O admitted with acute respiratory failure requiring intubation, renal failure and metabolic acidosis. Patient is s/p ICU course. Slowly improving. Setback due to ileus. Hypoxemic respiratory failure/PNA/Pulm HTN: - Continue oral prednisone. - Continue Azactam per ID. - Breathing treatment and supplemental oxygen. - Continue Lasix Ileus Hypertriglyceridemia Elevated lipase level and AST Pancreatitis Hepatic steatosis Repeat CT abdomen w contrast 05/02 showed findings c/w pancreatitis, Monitor Lipase level ( trending down) GI is following Abdominal CT on 05/08/17 showed ileus. Gen. surgery evaluated the patient have since signed off. 05/10 S/P NGT placement on 05/09 for worsening ileus. Continue NGT. GI following. May consider clamping NGT since she had a bowel movement. Further plans per GI. History of depression and mood disorder: Risperidone 2 mg by mouth twice a day resume/home medication Daily tobacco use -Cessation counseling provided Debility: - Physical therapy 7 days a week. RN to assist out of bed. Acute renal failure- Improving - likely ATN from hypo-perfusion FORTINO resolved, continue to monitor BUN creatinine, strict input and output, avoid nephrotoxins. PROPHYLAXIS DVT prevention with SCD, Heparin SQ GI protection with famotidine Problem Qualifiers (1) Pneumonia: Cory Condon MD May 10, 2017 11:29
[2017-05-10] MEDS: FREE WATER G-TUBE SCH ×4 (11:48→22:10)
[2017-05-10 12:00] VITALS: BP 142/73; PULSE 88; RESP 17; TEMP 97.9; O2SAT 96
[2017-05-10 16:00] VITALS: BP 155/85; PULSE 86; RESP 18; TEMP 98.2; O2SAT 96
--- NOTE | 2017-05-10 16:53 | HHI.GIFU ---
Subjective Remarks Patient is resting in bed, tolerating full liquid okay, no nausea or vomiting, having mild abd pain, (+) for flatus (Fracisco Fitzgerald TECHNICIAN TRAINEE) Objective Vitals I&O Vital Signs Date Time Temp Pulse Resp B/P (MAP) Pulse Ox O2 Delivery O2 Flow Rate FiO2 05/10/17 16:00 98.2 86 18 155/85 (108) 96 05/10/17 12:00 97.9 88 17 142/73 (96) 96 05/10/17 08:00 98.4 85 18 146/78 (100) 95 05/10/17 00:00 98.9 89 18 142/85 (104) 95 05/09/17 20:00 96.7 91 18 144/92 (109) 96 05/09/17 17:13 95 Nasal Cannula 4.00 I/O 05/09/17 05/09/17 05/09/17 05/10/17 05/10/17 05/10/17 07:00 15:00 23:00 07:00 15:00 23:00 Intake Total 570 ml Output Total 2700 ml 1000 ml 700 ml 400 ml Balance -2130 ml -1000 ml -700 ml -400 ml Intake Oral 570 ml Output Urine Total 200 ml 300 ml Gastric Drainage Total 1900 ml 1000 ml 400 ml 400 ml Emesis 600 ml # Voids 2 3 2 # Bowel Movements 2 1 Laboratory Date/Time Source Procedure Growth Status 04/29/17 18:49 Blood Peripheral Aerobic Blood Culture - Final NO GROWTH IN 5 DAYS Complete 04/29/17 18:49 Blood Peripheral Anaerobic Blood Culture - Final NO GROWTH IN 5 DAYS Complete 04/28/17 10:45 Sputum Endotracheal Gram Stain - Final Complete 04/28/17 10:45 Sputum Endotracheal Sputum Culture - Final NO GROWTH IN 48 HOURS. Complete 04/24/17 16:25 Urine Random Urine Legionella Antigen - Final PRESUMPTIVE NEGATIVE FOR LEGIONELLA P... Complete 04/24/17 16:25 Urine Random Urine Streptococcus pneumoniae Antigen (M - Final PRESUMPTIVE NEGATIVE FOR STREPTOCOCCU... Complete Imaging Last Impressions Abdomen/Pelvis CT 05/08/17 0000 Signed Impressions: Service Date/Time: May 16:58 - CONCLUSION: 1. Abnormal bowel gas pattern is now noted most characteristic of an ileus. 2. Improved appearance of the pancreas on this noncontrast study with suboptimal visualization. Previously noted fluid surrounding the head is no longer visualized and there is no definite inflammatory change. 3. The gallbladder appears unremarkable. There is no evidence of biliary obstruction. 4. Patchy areas of consolidation in both posterior lung bases improved from the prior study. Zeke Cobb MD Abdomen X-Ray 05/07/17 0000 Signed Impressions: Service Date/Time: Sunday, May 07, 2017 15:14 - CONCLUSION: Gaseous distention of multiple bowel loops likely ileus. This is slightly more prominent on current study. Roque Gutiérrez MD Chest X-Ray 05/04/17 0000 Signed Impressions: Service Date/Time: Thursday, May 04, 2017 03:55 - CONCLUSION: Mild increased density in the perihilar regions related to mild edema. This is improving from the prior exam. Davey Lutz MD Liver Ultrasound 04/26/17 0000 Signed Impressions: Service Date/Time: Wednesday, April 26, 2017 16:44 - CONCLUSION: Echogenic right kidney which can be seen with medical renal disease, otherwise unremarkable right upper quadrant sonogram. Roque Gutiérrez MD Chest CT 04/24/17 1327 Signed Impressions: Service Date/Time: April 13:46 - CONCLUSION: Patchy groundglass infiltrates throughout all lobes of the lungs. It is most prominent in the perihilar distribution but also more peripheral areas. I did not see a mass amenable to biopsy with CT guidance. Jay Weaver MD Physical Exam HEENT:Normocephalic; atraumatic CHEST: Coarse CARDIAC: RRR ABDOMEN: seems more Distended today, soft, nontender, bowel sounds active EXTREMITIES: BLE edema SKIN: Normal; no rash; no jaundice. PRINCIPAL TRAINER: lethargic (Amawi,Khawla TECHNICIAN TRAINEE) Assessment and Plan Assessment: (1) Hepatic steatosis ICD Codes: K76.0 - Fatty (change of) liver, not elsewhere classified (2) Pancreatitis ICD Codes: K85.90 - Acute pancreatitis without necrosis or infection, unspecified Plan - pancreatitis - lipase 1465 on admission + hypocalcemia. CT abd no contrast no acute abd findings and pancreas WNL CT w/ constrast 05/02 suggestive pancreatitis. tender on exam. cleared by ST for regular diet and thin liquids but will stay on clears for now triglycerides elevated 492 no statin d/t LFT elevation. - ileus - improving, pt now on clears. - elevated LFTs - unclear etiology. ?fatty liver per CT. does not appear to be obstructive pattern. US liver unremarkable. no hx heavy drinking reported. hepatitis panel neg liver w/u unremarkable .LFTs mild increase today - bilat PNA, ARDS, acute renal failure - per [facility]CM, nephrology following s/p extubation 05/06/17 - transferred from [facility] to floor. Some improvement abd pain. tolerating clears. +multiple BM documented, ileus improving. WBC somewhat improved today. will rck lipsae 05/07/17 lipase down to 512 today, LFTs now WNL. very lethargic. pt c/o abd pain. on clears. No BM (05/08) [place] score on admission- 13 points showing 12% chance of mortality. Lipase now trending down and WNL-328. LFTs now WNL. Liver RUSH unremarkable. Ileus- repeat KUB (05/07) --> Gaseous distention of multiple loops likely ileus. This is slightly more prominent on currently study. Pt currently on Reglan. Reports two BMs since yesterday with good relief. GS now following and has ordered CT abdomen and pelvis. Clinically pt is improving no need to add additional medication at this time. Will continue to monitor progress. 05/09/17 - seems bit more distended today, having n/v last night and this morning. Not eating much. CT ABD 05/08 showed ileus, improve appearance pancreas lipase improved today, 328. Pt now says she only had one small BM yesterday and does not feel much better. No BM today. GS following 05/10/17 NGT removed, tolerating Fulls okay, lipase wnl wbc trending down Plan: - DC NGT - Full liquid - IVF - Continue Reglan Further recommendations to follow based on clinical course Pt has been seen and examined by myself and Dr. Hunter and this note is written on his behalf (Fracisco Fitzgerald) Physician Comments Seen and examined with ALANA, jules NGT. Full liquid diet. (Sindy Hunter MD) Fracisco Fitzgerald May 10, 2017 16:53 Sindy Hunter MD May 11, 2017 10:24
[2017-05-10 20:00] VITALS: BP 136/83; PULSE 71; RESP 18; TEMP 97.6; O2SAT 92
[2017-05-10] MEDS: PRAVASTATIN SOD 20 MG TAB PO SCH (21:54)
[2017-05-10] MEDS: OLANZapine 5 MG TAB PO SCH (21:55)
[2017-05-10] MEDS: CHLORHEXIDINE GLUCONATE 2 % 1 PACK (2 CLOTHS) TOP SCH (22:09)
[2017-05-11 00:24] VITALS: BP 146/77; PULSE 80; RESP 18; TEMP 97.6; O2SAT 94
[2017-05-11] MEDS: INSULIN NovoLIN REGULAR SUPPLEMENTAL SCALE SQ SCH ×6 (01:16→22:00)
[2017-05-11] MEDS: AZTREONAM INJ 1,000 MG in SODIUM CHLORIDE 0.9% INJ 100 ML IV SCH ×3 (01:17→16:56)
[2017-05-11] MEDS: METOCLOPRAMIDE HCL 10 MG/2 ML VIAL IV PUSH SCH ×3 (01:17→16:57)
--- NOTE | 2017-05-11 05:47 | RADRPT ---
EXAM DATE/TIME: 05/11/2017 05:03 [facility] COMPARISON: CT ABDOMEN & PELVIS W/O CONTRAST, May 08, 2017, 16:58. ABDOMEN KUB ONLY, May 07, 2017, 15:1 4. INDICATIONS : Evaluate ileus. MEDICAL HISTORY : Pancreatitis. SURGICAL HISTORY : section. ENCOUNTER: Subsequent ACUITY: 1 week PAIN SCORE: 3/10 LOCATION: abdomen FINDINGS: Diffuse gaseous distention of small bowel and large bowel identified. There is slightly decreased col onic distention. Osseous structures are intact. CONCLUSION: Slightly decreased distention today. Acosta Ruiz MD on May 11, 2017 at 5:45 Board Certified Radiologist. This report was verified electronically.
[2017-05-11] MEDS: HEPARIN SODIUM - SQ 10,000 UNITS/ML VIAL SQ SCH ×2 (07:52→22:22)
[2017-05-11] MEDS: predniSONE 20 MG TAB PO SCH ×2 (07:54→22:23)
[2017-05-11] MEDS: SENNOSIDES SYRUP 8.8 MG/5 ML CUP OG-TUBE SCH ×2 (07:54→21:00)
[2017-05-11] MEDS: SERTRALINE HCL 100 MG TAB PO SCH (07:55)
[2017-05-11] MEDS: FAMOTIDINE 20 MG TAB PO SCH ×2 (07:55→22:23)
[2017-05-11 08:00] VITALS: BP 155/82; PULSE 66; RESP 17; TEMP 98.7; O2SAT 93
[2017-05-11 08:45] LABS: AUTOMATED NEUTROPHIL # 11.6 TH/MM3 (1.8-7.7); BASOPHIL # 0.1 TH/MM3 (0-0.2); BASOPHIL % 0.6 % (0.0-2.0); EOSINOPHIL % 0.1 % (0.0-4.0); HEMATOCRIT 32.4 % (35.0-46.0); HEMOGLOBIN 10.8 GM/DL (11.6-15.3); LYMPH % 9.3 % (9.0-44.0); LYMPHOCYTE # 1.3 TH/MM3 (1.0-4.8); MEAN CELL VOLUME 94.4 FL (80.0-100.0); MEAN CORPUSCULAR HEMOGLOBIN 31.5 PG (27.0-34.0); MEAN CORPUSCULAR HGB CONC 33.4 % (32.0-36.0); MEAN PLATELET VOLUME 8.4 FL (7.0-11.0); MONO % 4.8 % (0.0-8.0); MONOCYTE # 0.7 TH/MM3 (0-0.9); NEUT % 85.2 % (16.0-70.0); PLATELET COUNT 203 TH/MM3 (150-450); RED BLOOD COUNT 3.43 MIL/MM3 (4.00-5.30); RED CELL DISTRIBUTION WIDTH 18.5 % (11.6-17.2); WHITE BLOOD COUNT 13.7 TH/MM3 (4.0-11.0)
[2017-05-11 09:01] LABS: BICARBONATE 25.3 MEQ/L (21.0-32.0); CALCIUM 8.7 MG/DL (8.5-10.1); CREATININE 0.87 MG/DL (0.50-1.00)
[2017-05-11 09:56] VITALS: O2SAT 93
--- NOTE | 2017-05-11 09:56 | HHI.GIFU ---
Subjective Remarks Patient is resting in bed, still with mild abd pain, (+) for flatus and BM, no nausea or vomiting. (AmilcarCiraameyajorge WARNER) Objective Vitals I&O Vital Signs Date Time Temp Pulse Resp B/P (MAP) Pulse Ox O2 Delivery O2 Flow Rate FiO2 05/11/17 08:00 98.7 66 17 155/82 (106) 93 05/11/17 00:24 97.6 80 18 146/77 (100) 94 05/10/17 20:00 97.6 71 18 136/83 (100) 92 05/10/17 16:00 98.2 86 18 155/85 (108) 96 05/10/17 12:00 97.9 88 17 142/73 (96) 96 I/O 05/10/17 05/10/17 05/10/17 05/11/17 05/11/17 05/11/17 07:00 15:00 23:00 07:00 15:00 23:00 Intake Total 2400 ml 680 ml Output Total 700 ml 400 ml 300 ml Balance -700 ml -400 ml 2400 ml 380 ml Intake Oral 2400 ml 680 ml Output Urine Total 300 ml 300 ml Gastric Drainage Total 400 ml 400 ml # Voids 2 3 2 # Bowel Movements 1 2 Laboratory Laboratory Tests Test 05/11/17 08:22 White Blood Count 13.7 Red Blood Count 3.43 Hemoglobin 10.8 Hematocrit 32.4 Mean Corpuscular Volume 94.4 Mean Corpuscular Hemoglobin 31.5 Mean Corpuscular Hemoglobin Concent 33.4 Red Cell Distribution Width 18.5 Platelet Count 203 Mean Platelet Volume 8.4 Neutrophils (%) (Auto) 85.2 Lymphocytes (%) (Auto) 9.3 Monocytes (%) (Auto) 4.8 Eosinophils (%) (Auto) 0.1 Basophils (%) (Auto) 0.6 Neutrophils # (Auto) 11.6 Lymphocytes # (Auto) 1.3 Monocytes # (Auto) 0.7 Eosinophils # (Auto) 0.0 Basophils # (Auto) 0.1 CBC Comment DIFF FINAL Differential Comment Hematology Comments Blood Urea Nitrogen 30 Creatinine 0.87 Random Glucose 87 Calcium Level 8.7 Sodium Level 141 Potassium Level 4.0 Chloride Level 105 Carbon Dioxide Level 25.3 Anion Gap 11 Estimat Glomerular Filtration Rate 83 Lipase 841 Date/Time Source Procedure Growth Status 04/29/17 18:49 Blood Peripheral Aerobic Blood Culture - Final NO GROWTH IN 5 DAYS Complete 04/29/17 18:49 Blood Peripheral Anaerobic Blood Culture - Final NO GROWTH IN 5 DAYS Complete 04/28/17 10:45 Sputum Endotracheal Gram Stain - Final Complete 04/28/17 10:45 Sputum Endotracheal Sputum Culture - Final NO GROWTH IN 48 HOURS. Complete 04/24/17 16:25 Urine Random Urine Legionella Antigen - Final PRESUMPTIVE NEGATIVE FOR LEGIONELLA P... Complete 04/24/17 16:25 Urine Random Urine Streptococcus pneumoniae Antigen (M - Final PRESUMPTIVE NEGATIVE FOR STREPTOCOCCU... Complete Imaging Last Impressions Abdomen X-Ray 05/11/17 0600 Signed Impressions: Service Date/Time: Thursday, May 11, 2017 05:03 - CONCLUSION: Slightly decreased distention today. Acosta Ruiz MD Abdomen/Pelvis CT 05/08/17 0000 Signed Impressions: Service Date/Time: May 16:58 - CONCLUSION: 1. Abnormal bowel gas pattern is now noted most characteristic of an ileus. 2. Improved appearance of the pancreas on this noncontrast study with suboptimal visualization. Previously noted fluid surrounding the head is no longer visualized and there is no definite inflammatory change. 3. The gallbladder appears unremarkable. There is no evidence of biliary obstruction. 4. Patchy areas of consolidation in both posterior lung bases improved from the prior study. Zeke Cobb MD Chest X-Ray 05/04/17 0000 Signed Impressions: Service Date/Time: Thursday, May 04, 2017 03:55 - CONCLUSION: Mild increased density in the perihilar regions related to mild edema. This is improving from the prior exam. Davey Lutz MD Liver Ultrasound 04/26/17 0000 Signed Impressions: Service Date/Time: Wednesday, April 26, 2017 16:44 - CONCLUSION: Echogenic right kidney which can be seen with medical renal disease, otherwise unremarkable right upper quadrant sonogram. Roque Gutiérrez MD Chest CT 04/24/17 1327 Signed Impressions: Service Date/Time: April 13:46 - CONCLUSION: Patchy groundglass infiltrates throughout all lobes of the lungs. It is most prominent in the perihilar distribution but also more peripheral areas. I did not see a mass amenable to biopsy with CT guidance. Jay Weaver MD Physical Exam HEENT:Normocephalic; atraumatic CHEST: Coarse CARDIAC: RRR ABDOMEN: nondistended today, soft, nontender, bowel sounds active EXTREMITIES: BLE edema SKIN: skin breakage in the face with clear dressing FIELD TRAINER: alert and oriented (Fracisco Fitzgerald PRACTICE DIRECTOR) Assessment and Plan Assessment: (1) Hepatic steatosis ICD Codes: K76.0 - Fatty (change of) liver, not elsewhere classified (2) Pancreatitis ICD Codes: K85.90 - Acute pancreatitis without necrosis or infection, unspecified Plan - pancreatitis - lipase 1465 on admission + hypocalcemia. CT abd no contrast no acute abd findings and pancreas WNL CT w/ constrast 05/02 suggestive pancreatitis. tender on exam. cleared by ST for regular diet and thin liquids but will stay on clears for now triglycerides elevated 492 no statin d/t LFT elevation. - ileus - improving, pt now on clears. - elevated LFTs - unclear etiology. ?fatty liver per CT. does not appear to be obstructive pattern. US liver unremarkable. no hx heavy drinking reported. hepatitis panel neg liver w/u unremarkable .LFTs mild increase today - bilat PNA, ARDS, acute renal failure - per [facility], nephrology following s/p extubation 05/06/17 - transferred from [facility] to floor. Some improvement abd pain. tolerating clears. +multiple BM documented, ileus improving. WBC somewhat improved today. will rck lipsae 05/07/17 lipase down to 512 today, LFTs now WNL. very lethargic. pt c/o abd pain. on clears. No BM (05/08) [place] score on admission- 13 points showing 12% chance of mortality. Lipase now trending down and WNL-328. LFTs now WNL. Liver RUSH unremarkable. Ileus- repeat KUB (05/07) --> Gaseous distention of multiple loops likely ileus. This is slightly more prominent on currently study. Pt currently on Reglan. Reports two BMs since yesterday with good relief. GS now following and has ordered CT abdomen and pelvis. Clinically pt is improving no need to add additional medication at this time. Will continue to monitor progress. 05/09/17 - seems bit more distended today, having n/v last night and this morning. Not eating much. CT ABD 05/08 showed ileus, improve appearance pancreas lipase improved today, 328. Pt now says she only had one small BM yesterday and does not feel much better. No BM today. GS following 05/10/17 NGT removed, tolerating Fulls okay, lipase wnl wbc trending down 05/11/17 Patient (+) for flatus and BM, no nausea or vomiting, some mild abd pain , WBC trending down, however lipase is going up after advancing diet yesterday Plan: - Full liquid - lipase, CBC in the am, - if patient not tolerating diet, consider post pyloric feeding - IVF - Continue Reglan Further recommendations to follow based on clinical course Pt has been seen and examined by myself and Dr. Hunter and this note is written on his behalf (Fracisco Fitzgerald) Physician Comments Seen and examined with ALANA, liquid diet. If not able to advance would recommend DBT feedings (Sindy Hunter MD) Fracisco Fitzgerald May 11, 2017 09:56 Sindy Hunter MD May 11, 2017 10:35
[2017-05-11] MEDS: FREE WATER G-TUBE SCH ×4 (10:34→22:24)
--- NOTE | 2017-05-11 11:38 | HHI.PR ---
Subjective Remarks Patient reports she had abdominal pain earlier but that has significantly improved. She reports some mild nausea but no vomiting. She is complaining that she is hungry. Objective Vitals Vital Signs Date Time Temp Pulse Resp B/P (MAP) Pulse Ox O2 Delivery O2 Flow Rate FiO2 05/11/17 09:56 93 Nasal Cannula 4.00 05/11/17 08:00 98.7 66 17 155/82 (106) 93 05/11/17 00:24 97.6 80 18 146/77 (100) 94 05/10/17 20:00 97.6 71 18 136/83 (100) 92 05/10/17 16:00 98.2 86 18 155/85 (108) 96 05/10/17 12:00 97.9 88 17 142/73 (96) 96 I/O 05/10/17 05/10/17 05/10/17 05/11/17 05/11/17 05/11/17 07:00 15:00 23:00 07:00 15:00 23:00 Intake Total 2400 ml 680 ml Output Total 700 ml 400 ml 300 ml Balance -700 ml -400 ml 2400 ml 380 ml Intake Oral 2400 ml 680 ml Output Urine Total 300 ml 300 ml Gastric Drainage Total 400 ml 400 ml # Voids 2 3 2 # Bowel Movements 1 2 Result Diagram: 05/11/1782105/11/17821 Objective Remarks GENERAL: Obese female, in no apparent distress. NGT in place CARDIOVASCULAR: Regular rate and rhythm without murmurs, gallops, or rubs. RESPIRATORY: Clear to auscultation. Breath sounds equal bilaterally. No wheezes , rales, or rhonchi. GASTROINTESTINAL: Abdomen with some distention. Mild tenderness to palpation. No guarding. Hypoactive BS. MUSCULOSKELETAL: Extremities without clubbing, cyanosis, or edema. NEURO: Alert & Oriented x4 to person, place, time, situation. Moves all ext x4 Procedures Intubation/Extubation Date of Insertion: Apr 25, 2017 Line: Central Venous Catheter Side: Right Location: Internal, Jugular A/P Problem List: (1) Adult respiratory distress syndrome ICD Code: J80 - Acute respiratory distress syndrome (2) Acute respiratory failure with hypoxia ICD Code: J96.01 - Acute respiratory failure with hypoxia (3) Pneumonia ICD Code: J18.9 - Pneumonia, unspecified organism Status: Acute (4) Acute renal failure ICD Code: N17.9 - Acute kidney failure, unspecified (5) Increased anion gap metabolic acidosis ICD Code: E87.2 - Acidosis (6) Diarrhea ICD Code: R19.7 - Diarrhea, unspecified (7) Hyponatremia ICD Code: E87.1 - Hypo-osmolality and hyponatremia (8) Leukocytosis ICD Code: D72.829 - Elevated white blood cell count, unspecified (9) Lactic acidosis ICD Code: E87.2 - Acidosis (10) Renal failure ICD Code: N19 - Unspecified kidney failure Status: Acute (11) Hyperglycemia ICD Code: R73.9 - Hyperglycemia, unspecified (12) Elevated lipase ICD Code: R74.8 - Abnormal levels of other serum enzymes (13) Tobacco use ICD Code: Z72.0 - Tobacco use Assessment and Plan 51 Y/O admitted with acute respiratory failure requiring intubation, renal failure and metabolic acidosis. Patient is s/p ICU course. Slowly improving. Setback due to ileus. Hypoxemic respiratory failure/PNA/Pulm HTN: - Continue oral prednisone. Continue to taper. - Continue Azactam per ID. - Breathing treatment and supplemental oxygen. - Continue Lasix Ileus Hypertriglyceridemia Elevated lipase level and AST Pancreatitis Hepatic steatosis Repeat CT abdomen w contrast 05/02 showed findings c/w pancreatitis, Monitor Lipase level GI is following Abdominal CT on 05/08/17 showed ileus. Gen. surgery evaluated the patient have since signed off. 05/11 lipase elevated again after the patient was started on a diet. Continue trial of full liquid diet. Per GI if unable to tolerate, may consider postpyloric feeding. History of depression and mood disorder: Resume home medication Daily tobacco use -Cessation counseling provided Debility: - Physical therapy 7 days a week. RN to assist out of bed. Acute renal failure- Improving - likely ATN from hypo-perfusion FORTINO resolved, continue to monitor BUN creatinine, strict input and output, avoid nephrotoxins. PROPHYLAXIS DVT prevention with SCD, Heparin SQ GI protection with famotidine Problem Qualifiers (1) Pneumonia: Cory Condon MD May 11, 2017 11:38
[2017-05-11 12:00] VITALS: BP 150/79; PULSE 68; RESP 17; TEMP 98.4; O2SAT 94
[2017-05-11 16:00] VITALS: BP 148/76; PULSE 71; RESP 17; TEMP 98.2; O2SAT 94
[2017-05-11 20:00] VITALS: BP 144/84; PULSE 89; RESP 20; TEMP 98.7; O2SAT 97
[2017-05-11] MEDS: PRAVASTATIN SOD 20 MG TAB PO SCH (22:22)
[2017-05-11] MEDS: OLANZapine 5 MG TAB PO SCH (22:23)
[2017-05-11] MEDS: CHLORHEXIDINE GLUCONATE 2 % 1 PACK (2 CLOTHS) TOP SCH (22:24)
[2017-05-12] VITALS: BP 166/96; PULSE 82; RESP 18; TEMP 98.8; O2SAT 96
[2017-05-12] MEDS: AZTREONAM INJ 1,000 MG in SODIUM CHLORIDE 0.9% INJ 100 ML IV SCH ×2 (00:38→10:03)
[2017-05-12] MEDS: METOCLOPRAMIDE HCL 10 MG/2 ML VIAL IV PUSH SCH ×3 (00:39→17:57)
[2017-05-12] MEDS: INSULIN NovoLIN REGULAR SUPPLEMENTAL SCALE SQ SCH ×6 (00:41→23:36)
[2017-05-12 07:41] LABS: AUTOMATED NEUTROPHIL # 10.7 TH/MM3 (1.8-7.7); BASOPHIL # 0.1 TH/MM3 (0-0.2); BASOPHIL % 0.7 % (0.0-2.0); HEMOGLOBIN 10.6 GM/DL (11.6-15.3); LYMPH % 9.3 % (9.0-44.0); LYMPHOCYTE # 1.2 TH/MM3 (1.0-4.8); MEAN CELL VOLUME 94.3 FL (80.0-100.0); MEAN CORPUSCULAR HEMOGLOBIN 31.2 PG (27.0-34.0); MEAN CORPUSCULAR HGB CONC 33.1 % (32.0-36.0); MEAN PLATELET VOLUME 7.4 FL (7.0-11.0); MONOCYTE # 0.8 TH/MM3 (0-0.9); PLATELET COUNT 241 TH/MM3 (150-450); RED BLOOD COUNT 3.39 MIL/MM3 (4.00-5.30); RED CELL DISTRIBUTION WIDTH 17.4 % (11.6-17.2); WHITE BLOOD COUNT 12.8 TH/MM3 (4.0-11.0)
[2017-05-12 08:00] VITALS: BP 144/80; PULSE 69; RESP 18; TEMP 98.2; O2SAT 93
[2017-05-12 08:59] VITALS: O2SAT 93
[2017-05-12] MEDS: SENNOSIDES SYRUP 8.8 MG/5 ML CUP OG-TUBE SCH ×2 (09:00→23:35)
[2017-05-12] MEDS: HEPARIN SODIUM - SQ 10,000 UNITS/ML VIAL SQ SCH ×2 (09:00→23:36)
[2017-05-12] MEDS: FAMOTIDINE 20 MG TAB PO SCH ×2 (10:01→23:53)
[2017-05-12] MEDS: SERTRALINE HCL 100 MG TAB PO SCH (10:01)
[2017-05-12] MEDS: predniSONE 20 MG TAB PO SCH ×2 (10:01→23:53)
--- NOTE | 2017-05-12 11:24 | HHI.GIFU ---
Subjective Remarks Pt hungry, says her pain is improved and n/v improved. Admits mild nausea sometimes but no vomiting. + BM documented. Objective Vitals I&O Vital Signs Date Time Temp Pulse Resp B/P (MAP) Pulse Ox O2 Delivery O2 Flow Rate FiO2 05/12/17 08:59 93 Nasal Cannula 4.00 05/12/17 08:00 98.2 69 18 144/80 (101) 93 05/12/17 00:00 98.8 82 18 166/96 (119) 96 05/11/17 20:00 98.7 89 20 144/84 (104) 97 05/11/17 16:00 98.2 71 17 148/76 (100) 94 05/11/17 12:00 98.4 68 17 150/79 (102) 94 I/O 05/11/17 05/11/17 05/11/17 05/12/17 05/12/17 05/12/17 07:00 15:00 23:00 07:00 15:00 23:00 Intake Total 680 ml 340 ml 580 ml Output Total 300 ml 800 ml Balance 380 ml 340 ml -220 ml Intake Oral 680 ml 240 ml 480 ml IV Total 100 ml 100 ml Output Urine Total 300 ml 800 ml # Voids 2 3 # Bowel Movements 2 0 2 Laboratory Laboratory Tests Test 05/12/17 07:25 White Blood Count 12.8 Red Blood Count 3.39 Hemoglobin 10.6 Hematocrit 32.0 Mean Corpuscular Volume 94.3 Mean Corpuscular Hemoglobin 31.2 Mean Corpuscular Hemoglobin Concent 33.1 Red Cell Distribution Width 17.4 Platelet Count 241 Mean Platelet Volume 7.4 Neutrophils (%) (Auto) 84.0 Lymphocytes (%) (Auto) 9.3 Monocytes (%) (Auto) 6.0 Eosinophils (%) (Auto) 0.0 Basophils (%) (Auto) 0.7 Neutrophils # (Auto) 10.7 Lymphocytes # (Auto) 1.2 Monocytes # (Auto) 0.8 Eosinophils # (Auto) 0.0 Basophils # (Auto) 0.1 CBC Comment DIFF FINAL Differential Comment Lipase 865 Date/Time Source Procedure Growth Status 04/29/17 18:49 Blood Peripheral Aerobic Blood Culture - Final NO GROWTH IN 5 DAYS Complete 04/29/17 18:49 Blood Peripheral Anaerobic Blood Culture - Final NO GROWTH IN 5 DAYS Complete 04/28/17 10:45 Sputum Endotracheal Gram Stain - Final Complete 04/28/17 10:45 Sputum Endotracheal Sputum Culture - Final NO GROWTH IN 48 HOURS. Complete 04/24/17 16:25 Urine Random Urine Legionella Antigen - Final PRESUMPTIVE NEGATIVE FOR LEGIONELLA P... Complete 04/24/17 16:25 Urine Random Urine Streptococcus pneumoniae Antigen (M - Final PRESUMPTIVE NEGATIVE FOR STREPTOCOCCU... Complete Imaging Last Impressions Abdomen X-Ray 05/11/17 0600 Signed Impressions: Service Date/Time: Thursday, May 11, 2017 05:03 - CONCLUSION: Slightly decreased distention today. Acosta Ruiz MD Abdomen/Pelvis CT 05/08/17 0000 Signed Impressions: Service Date/Time: May 16:58 - CONCLUSION: 1. Abnormal bowel gas pattern is now noted most characteristic of an ileus. 2. Improved appearance of the pancreas on this noncontrast study with suboptimal visualization. Previously noted fluid surrounding the head is no longer visualized and there is no definite inflammatory change. 3. The gallbladder appears unremarkable. There is no evidence of biliary obstruction. 4. Patchy areas of consolidation in both posterior lung bases improved from the prior study. Zeke Cobb MD Chest X-Ray 05/04/17 0000 Signed Impressions: Service Date/Time: Thursday, May 04, 2017 03:55 - CONCLUSION: Mild increased density in the perihilar regions related to mild edema. This is improving from the prior exam. Davey Lutz MD Liver Ultrasound 04/26/17 0000 Signed Impressions: Service Date/Time: Wednesday, April 26, 2017 16:44 - CONCLUSION: Echogenic right kidney which can be seen with medical renal disease, otherwise unremarkable right upper quadrant sonogram. Roque Gutiérrez MD Chest CT 04/24/17 1327 Signed Impressions: Service Date/Time: April 13:46 - CONCLUSION: Patchy groundglass infiltrates throughout all lobes of the lungs. It is most prominent in the perihilar distribution but also more peripheral areas. I did not see a mass amenable to biopsy with CT guidance. Jay Weaver MD Physical Exam HEENT:Normocephalic; atraumatic CHEST: Coarse CARDIAC: RRR ABDOMEN: obese, soft, nontender, bowel sounds active EXTREMITIES: BLE edema SKIN: skin breakage in the face with clear dressing [employer]: alert and oriented Assessment and Plan Assessment: (1) Hepatic steatosis ICD Codes: K76.0 - Fatty (change of) liver, not elsewhere classified (2) Pancreatitis ICD Codes: K85.90 - Acute pancreatitis without necrosis or infection, unspecified Plan - pancreatitis - lipase 1465 on admission + hypocalcemia. CT abd no contrast no acute abd findings and pancreas WNL CT w/ constrast 05/02 suggestive pancreatitis. tender on exam. cleared by ST for regular diet and thin liquids but will stay on clears for now triglycerides elevated 492 no statin d/t LFT elevation. - ileus - improving, pt now on clears. - elevated LFTs - unclear etiology. ?fatty liver per CT. does not appear to be obstructive pattern. US liver unremarkable. no hx heavy drinking reported. hepatitis panel neg liver w/u unremarkable .LFTs mild increase today - bilat PNA, ARDS, acute renal failure - per CCM, nephrology following s/p extubation 05/06/17 - transferred from [facility] [place]. Some improvement abd pain. tolerating clears. +multiple BM documented, ileus improving. WBC somewhat improved today. will rck lipsae 05/07/17 lipase down to 512 today, LFTs now WNL. very lethargic. pt c/o abd pain. on clears. No BM (05/08) KLAMATH score on admission- 13 points showing 12% chance of mortality. Lipase now trending down and WNL-328. LFTs now WNL. Liver RUSH unremarkable. Ileus- repeat KUB (05/07) --> Gaseous distention of multiple loops likely ileus. This is slightly more prominent on currently study. Pt currently on Reglan. Reports two BMs since yesterday with good relief. GS now following and has ordered CT abdomen and pelvis. Clinically pt is improving no need to add additional medication at this time. Will continue to monitor progress. 05/09/17 - seems bit more distended today, having n/v last night and this morning. Not eating much. CT ABD 05/08 showed ileus, improve appearance pancreas lipase improved today, 328. Pt now says she only had one small BM yesterday and does not feel much better. No BM today. GS following 05/10/17 NGT removed, tolerating Fulls okay, lipase wnl wbc trending down 05/11/17 Patient (+) for flatus and BM, no nausea or vomiting, some mild abd pain , WBC trending down, however lipase is going up after advancing diet yesterday 05/12/17 +BM. n/v improving, abd pain improving. WBC trending down. lipase stable, will try low fat foods as full liquid diet can have alot of fat Plan: - trial soft low fat diet - if n/v returns or abd pain worsens go back to clears - rck lipase am - if patient not tolerating diet, consider post pyloric feeding - IVF - Continue Reglan Further recommendations to follow based on clinical course Pt has been seen and examined by myself and and this note is written on her behalf Teresita Avila May 12, 2017 11:24
[2017-05-12 12:00] VITALS: BP 130/84; PULSE 68; RESP 19; TEMP 96.5; O2SAT 96
[2017-05-12] MEDS: FREE WATER G-TUBE SCH ×3 (12:00→23:55)
--- NOTE | 2017-05-12 14:04 | HHI.PR ---
Subjective Remarks Wants to eat. Denies nausea or vomiting. Discussed the need to participate with PT. Objective Vitals Vital Signs Date Time Temp Pulse Resp B/P (MAP) Pulse Ox O2 Delivery O2 Flow Rate FiO2 05/12/17 12:00 96.5 68 19 130/84 (99) 96 05/12/17 08:59 93 Nasal Cannula 4.00 05/12/17 08:00 98.2 69 18 144/80 (101) 93 05/12/17 00:00 98.8 82 18 166/96 (119) 96 05/11/17 20:00 98.7 89 20 144/84 (104) 97 05/11/17 16:00 98.2 71 17 148/76 (100) 94 I/O 05/11/17 05/11/17 05/11/17 05/12/17 05/12/17 05/12/17 07:00 15:00 23:00 07:00 15:00 23:00 Intake Total 680 ml 340 ml 580 ml Output Total 300 ml 800 ml Balance 380 ml 340 ml -220 ml Intake Oral 680 ml 240 ml 480 ml IV Total 100 ml 100 ml Output Urine Total 300 ml 800 ml # Voids 2 3 # Bowel Movements 2 0 2 Result Diagram: 05/12/17 0725 05/11/17 0822 Objective Remarks GENERAL: Obese female, in no apparent distress. NGT in place CARDIOVASCULAR: Regular rate and rhythm without murmurs, gallops, or rubs. RESPIRATORY: Clear to auscultation. Breath sounds equal bilaterally. No wheezes , rales, or rhonchi. GASTROINTESTINAL: Abdomen with some mild distention. Mild tenderness to palpation. No guarding. Hypoactive BS. MUSCULOSKELETAL: Extremities without clubbing, cyanosis, or edema. NEURO: Alert & Oriented x4 to person, place, time, situation. Moves all ext x4 Procedures Intubation/Extubation Date of Insertion: Apr 25, 2017 Line: Central Venous Catheter Side: Right Location: Internal, Jugular A/P Problem List: (1) Adult respiratory distress syndrome ICD Code: J80 - Acute respiratory distress syndrome (2) Acute respiratory failure with hypoxia ICD Code: J96.01 - Acute respiratory failure with hypoxia (3) Pneumonia ICD Code: J18.9 - Pneumonia, unspecified organism Status: Acute (4) Acute renal failure ICD Code: N17.9 - Acute kidney failure, unspecified (5) Increased anion gap metabolic acidosis ICD Code: E87.2 - Acidosis (6) Diarrhea ICD Code: R19.7 - Diarrhea, unspecified (7) Hyponatremia ICD Code: E87.1 - Hypo-osmolality and hyponatremia (8) Leukocytosis ICD Code: D72.829 - Elevated white blood cell count, unspecified (9) Lactic acidosis ICD Code: E87.2 - Acidosis (10) Renal failure ICD Code: N19 - Unspecified kidney failure Status: Acute (11) Hyperglycemia ICD Code: R73.9 - Hyperglycemia, unspecified (12) Elevated lipase ICD Code: R74.8 - Abnormal levels of other serum enzymes (13) Tobacco use ICD Code: Z72.0 - Tobacco use Assessment and Plan 51 Y/O admitted with acute respiratory failure requiring intubation, renal failure and metabolic acidosis. Patient is s/p ICU course. Slowly improving. Setback due to ileus and persistently elevated Lipase. N/V. Hypoxemic respiratory failure/PNA/Pulm HTN: - Continue oral prednisone. Continue to taper. - Continue Azactam per ID. - Breathing treatment and supplemental oxygen. - Continue Lasix Ileus Hypertriglyceridemia Elevated lipase level and AST Pancreatitis Hepatic steatosis Repeat CT abdomen w contrast 05/02 showed findings c/w pancreatitis. Repeat CT showed improvement of the pancreas. Abdominal CT on 05/08/17 showed ileus. Gen. surgery evaluated the patient have since signed off. Appreciate GI following. Lipase persistently elevated but symptoms improved. Agree with trial of diet. Monitor Lipase level . History of depression and mood disorder: Resume home medication Daily tobacco use -Cessation counseling provided Debility: - Physical therapy 7 days a week. RN to assist out of bed. Acute renal failure- Improving - likely ATN from hypo-perfusion FORTINO resolved, continue to monitor BUN creatinine, strict input and output, avoid nephrotoxins. PROPHYLAXIS DVT prevention with SCD, Heparin SQ GI protection with famotidine Discharge Planning Continue rehabilitation efforts. Still having GI issues and very debilitated. No benefit for SNF placement. Once GI issues resolved and strong enough, ultimate plan to DC home with HH. Problem Qualifiers (1) Pneumonia: Cory Condon MD May 12, 2017 14:04
--- NOTE | 2017-05-12 14:09 | HHI.IDPN ---
Note Infectious Disease Note Patient is awake and alert. Says she feels good. Eating lunch - solid food with help of nurses aide. Denies pain On O2 via nasal canula. Afebrile. Presented to [facility] emergency department on 04/07/2017 with cold and flu-like symptoms including cough, vomiting and diarrhea. PAST MEDICAL HISTORY 1. Irritable bowel syndrome. 2. Iron-deficiency anemia. 3. History of . ALLERGIES AMOXICILLIN. MEDICATIONS Aztreonam. OBJECTIVE: Vital Signs Date Time Temp Pulse Resp B/P (MAP) Pulse Ox O2 Delivery O2 Flow Rate FiO2 05/12/17 12:00 96.5 68 19 130/84 (99) 96 05/12/17 08:59 93 Nasal Cannula 4.00 05/12/17 08:00 98.2 69 18 144/80 (101) 93 05/12/17 00:00 98.8 82 18 166/96 (119) 96 05/11/17 20:00 98.7 89 20 144/84 (104) 97 05/11/17 16:00 98.2 71 17 148/76 (100) 94 Laboratory Tests Test 05/11/17 08:22 05/12/17 07:25 White Blood Count 13.7 TH/MM3 12.8 TH/MM3 Red Blood Count 3.43 MIL/MM3 3.39 MIL/MM3 Hemoglobin 10.8 GM/DL 10.6 GM/DL Hematocrit 32.4 % 32.0 % Mean Corpuscular Volume 94.4 FL 94.3 FL Mean Corpuscular Hemoglobin 31.5 PG 31.2 PG Mean Corpuscular Hemoglobin Concent 33.4 % 33.1 % Red Cell Distribution Width 18.5 % 17.4 % Platelet Count 203 TH/MM3 241 TH/MM3 Mean Platelet Volume 8.4 FL 7.4 FL Neutrophils (%) (Auto) 85.2 % 84.0 % Lymphocytes (%) (Auto) 9.3 % 9.3 % Monocytes (%) (Auto) 4.8 % 6.0 % Eosinophils (%) (Auto) 0.1 % 0.0 % Basophils (%) (Auto) 0.6 % 0.7 % Neutrophils # (Auto) 11.6 TH/MM3 10.7 TH/MM3 Lymphocytes # (Auto) 1.3 TH/MM3 1.2 TH/MM3 Monocytes # (Auto) 0.7 TH/MM3 0.8 TH/MM3 Eosinophils # (Auto) 0.0 TH/MM3 0.0 TH/MM3 Basophils # (Auto) 0.1 TH/MM3 0.1 TH/MM3 CBC Comment DIFF FINAL DIFF FINAL Differential Comment Hematology Comments Laboratory Tests Test 05/11/17 08:22 05/12/17 07:25 Blood Urea Nitrogen 30 MG/DL Creatinine 0.87 MG/DL Random Glucose 87 MG/DL Calcium Level 8.7 MG/DL Sodium Level 141 MEQ/L Potassium Level 4.0 MEQ/L Chloride Level 105 MEQ/L Carbon Dioxide Level 25.3 MEQ/L Anion Gap 11 MEQ/L Estimat Glomerular Filtration Rate 83 ML/MIN Lipase 841 U/L 865 U/L IMAGING: Abdomen X-Ray 05/11/17 0600 Signed Impressions: Service Date/Time: Thursday, May 11, 2017 05:03 - CONCLUSION: Slightly decreased distention today. Acosta Ruiz MD Abdomen X-Ray 05/07/17 0000 Signed Impressions: Service Date/Time: Sunday, May 07, 2017 15:14 - CONCLUSION: Gaseous distention of multiple bowel loops likely ileus. This is slightly more prominent on current study. Roque Gutiérrez MD Abdomen X-Ray 05/04/17 0800 Signed Impressions: Service Date/Time: Thursday, May 04, 2017 04:03 - CONCLUSION: No acute disease. Davey Lutz MD Chest X-Ray 05/04/17 0000 Signed Impressions: Service Date/Time: Thursday, May 04, 2017 03:55 - CONCLUSION: Mild increased density in the perihilar regions related to mild edema. This is improving from the prior exam. Davey Lutz MD Chest X-Ray 05/02/17 0600 Signed Impressions: Service Date/Time: Tuesday, May 02, 2017 04:06 - CONCLUSION: Diffuse consolidation likely related to edema. Davey Lutz MD Abdomen/Pelvis CT 05/01/17 0000 Signed Impressions: Service Date/Time: Tuesday, May 02, 2017 04:57 - CONCLUSION: 1. Increased density around the pancreatic head enhancing region and extending into the mesentery and right perinephric region all likely related to pancreatitis. 2. Suspected mild hepatic steatosis. 3. Bilateral dense areas of consolidation at the lung bases Davey Lutz MD PHYSICAL EXAMINATION GENERAL: No acute distress. Awake. HEENT: TRUDI. EOMI. No icterus. Mucosa dry. LUNGS: Rhonchi at left base. HEART: Regular, S1 and S2 without audible murmurs. ABDOMEN: Soft, Distended, normoactive bowel sounds. Non tender. EXTREMITIES: No CC, Trace edema at the feet. SKIN: No rash. NEURO: Non focal. IMPRESSION 1. Pneumonia. 2. Acute respiratory failure. Improved. 3. ARDS. Improved. 4. Acute renal failure. Improved. 5. Leukocytosis. WBC decreasing. Could be from pancreatitis vs steroids vs PNA. 6. Pancreatitis. Lipase increased but No abd pain. RECOMMENDATIONS 1. Stop aztreonam. 2. Continue to monitor the WBC. 3. Monitor clinical status. Rikki Walker MD May 12, 2017 14:09
[2017-05-12 16:00] VITALS: BP 128/79; PULSE 74; RESP 19; TEMP 97.3; O2SAT 97
[2017-05-12 20:00] VITALS: BP 146/82; PULSE 70; RESP 18; TEMP 99; O2SAT 97
[2017-05-12] MEDS: PRAVASTATIN SOD 20 MG TAB PO SCH (23:53)
[2017-05-12] MEDS: OLANZapine 5 MG TAB PO SCH (23:53)
[2017-05-13] VITALS: BP 144/85; PULSE 65; RESP 18; TEMP 97.1; O2SAT 99
[2017-05-13] MEDS: INSULIN NovoLIN REGULAR SUPPLEMENTAL SCALE SQ SCH ×3 (02:00→10:00)
[2017-05-13] MEDS: METOCLOPRAMIDE HCL 10 MG/2 ML VIAL IV PUSH SCH ×3 (02:27→18:49)
[2017-05-13] MEDS: CHLORHEXIDINE GLUCONATE 2 % 1 PACK (2 CLOTHS) TOP SCH (04:00)
[2017-05-13] MEDS: FREE WATER G-TUBE SCH ×3 (05:50→18:00)
[2017-05-13 08:00] VITALS: BP 156/82; PULSE 64; RESP 18; TEMP 98.1; O2SAT 98
[2017-05-13 08:50] VITALS: O2SAT 98
[2017-05-13] MEDS: FAMOTIDINE 20 MG TAB PO SCH ×2 (09:00→19:49)
[2017-05-13] MEDS: SENNOSIDES SYRUP 8.8 MG/5 ML CUP OG-TUBE SCH ×2 (09:00→19:49)
[2017-05-13] MEDS: predniSONE 20 MG TAB PO SCH ×2 (09:00→19:49)
[2017-05-13] MEDS: HEPARIN SODIUM - SQ 10,000 UNITS/ML VIAL SQ SCH ×2 (09:00→19:49)
--- NOTE | 2017-05-13 10:40 | HHI.PR ---
Subjective Remarks Follow-up respiratory failure, pancreatitis. Patient denies abdominal pain. States that she feels "okay" today. Going for HIDA scan. Objective Vitals Vital Signs Date Time Temp Pulse Resp B/P (MAP) Pulse Ox O2 Delivery O2 Flow Rate FiO2 05/13/17 08:50 98 Nasal Cannula 4.00 05/13/17 08:00 98.1 64 18 156/82 (106) 98 05/13/17 00:00 97.1 65 18 144/85 (104) 99 05/12/17 22:06 Nasal Cannula 4.00 05/12/17 20:00 99.0 70 18 146/82 (103) 97 05/12/17 16:00 97.3 74 19 128/79 (95) 97 05/12/17 12:00 96.5 68 19 130/84 (99) 96 I/O 05/12/17 05/12/17 05/12/17 05/13/17 05/13/17 05/13/17 07:00 15:00 23:00 07:00 15:00 23:00 Intake Total 580 ml 680 ml Output Total 800 ml 400 ml 1500 ml Balance -220 ml 280 ml -1500 ml Intake Oral 480 ml 680 ml IV Total 100 ml Output Urine Total 800 ml 400 ml 1500 ml # Bowel Movements 2 Result Diagram: 05/12/17 0725 05/11/17 0822 Imaging Last Impressions Abdomen X-Ray 05/11/17 0600 Signed Impressions: Service Date/Time: Thursday, May 11, 2017 05:03 - CONCLUSION: Slightly decreased distention today. Acosta Ruiz MD Abdomen/Pelvis CT 05/08/17 0000 Signed Impressions: Service Date/Time: May 16:58 - CONCLUSION: 1. Abnormal bowel gas pattern is now noted most characteristic of an ileus. 2. Improved appearance of the pancreas on this noncontrast study with suboptimal visualization. Previously noted fluid surrounding the head is no longer visualized and there is no definite inflammatory change. 3. The gallbladder appears unremarkable. There is no evidence of biliary obstruction. 4. Patchy areas of consolidation in both posterior lung bases improved from the prior study. Zeke Cobb MD Chest X-Ray 05/04/17 0000 Signed Impressions: Service Date/Time: Thursday, May 04, 2017 03:55 - CONCLUSION: Mild increased density in the perihilar regions related to mild edema. This is improving from the prior exam. Davey Lutz MD Liver Ultrasound 04/26/17 0000 Signed Impressions: Service Date/Time: Wednesday, April 26, 2017 16:44 - CONCLUSION: Echogenic right kidney which can be seen with medical renal disease, otherwise unremarkable right upper quadrant sonogram. Roque Gutiérrez MD Chest CT 04/24/17 1327 Signed Impressions: Service Date/Time: April 13:46 - CONCLUSION: Patchy groundglass infiltrates throughout all lobes of the lungs. It is most prominent in the perihilar distribution but also more peripheral areas. I did not see a mass amenable to biopsy with CT guidance. Jay Weaver MD Objective Remarks General: Obese female in no acute distress. Heart: Regular rate and rhythm. No murmur. Lungs: Clear to auscultation bilaterally. No wheezes, rales, or rhonchi. Breathing is nonlabored. Abdomen: Soft, nontender, mildly distended. Extremities: No lower extremity edema. Psych: Alert and oriented. Neuro: Weakness of both lower extremities, left greater than right. Procedures Intubation/Extubation Urinary Catheter: No Vascular Central Line Catheter: No A/P Problem List: (1) Adult respiratory distress syndrome ICD Code: J80 - Acute respiratory distress syndrome (2) Acute respiratory failure with hypoxia ICD Code: J96.01 - Acute respiratory failure with hypoxia (3) Pneumonia ICD Code: J18.9 - Pneumonia, unspecified organism Status: Acute (4) Acute renal failure ICD Code: N17.9 - Acute kidney failure, unspecified (5) Increased anion gap metabolic acidosis ICD Code: E87.2 - Acidosis (6) Diarrhea ICD Code: R19.7 - Diarrhea, unspecified (7) Hyponatremia ICD Code: E87.1 - Hypo-osmolality and hyponatremia (8) Leukocytosis ICD Code: D72.829 - Elevated white blood cell count, unspecified (9) Lactic acidosis ICD Code: E87.2 - Acidosis (10) Renal failure ICD Code: N19 - Unspecified kidney failure Status: Acute (11) Hyperglycemia ICD Code: R73.9 - Hyperglycemia, unspecified (12) Elevated lipase ICD Code: R74.8 - Abnormal levels of other serum enzymes (13) Tobacco use ICD Code: Z72.0 - Tobacco use Assessment and Plan 1. Hypoxemic respiratory failure, pneumonia, pulmonary hypertension: Continue Azactam. Appreciate infectious disease recommendations. Patient status post intubation, now on oxygen per nasal cannula. Continue Lasix. Continue nebulizers. 2. Ileus: Appreciate GI recommendations. 3. Pancreatitis: Persistent elevation of lipase. Patient has no abdominal pain at this time. HIDA scan ordered by GI. 4. History of depression, mood disorder: Continue home medications. 5. Tobacco abuse: Counseled to quit smoking. 6. Debility, generalized weakness: Physical therapy 7 days per week. 7. Acute renal failure: Resolved. Likely ATN secondary to hypoperfusion. 8. GI prophylaxis: Famotidine. 9. DVT prophylaxis: SCDs, heparin. Discharge Planning Patient continues to have GI issues and is very debilitated. Would require SNF placement, but has no payor source. Plan will be to discharge home with home health care when patient is strong enough. Problem Qualifiers (1) Pneumonia: Maurice Garcia MD May 13, 2017 10:40
[2017-05-13] MEDS ORDERED: SINCALIDE 5 MCG/5 ML VIAL IV PUSH ONE (12:49)
[2017-05-13 13:57] VITALS: BP 157/76; PULSE 74; RESP 19; TEMP 97.7; O2SAT 95
--- NOTE | 2017-05-13 14:14 | RADRPT ---
EXAM DATE/TIME: 05/13/2017 11:05 [place] COMPARISON: No previous studies available for comparison. INDICATIONS : Abdominal pain, nausea and vomiting. DOSE: 4.0 mCi Tc99m Mebrofenin IV MEDICATION: 2.24 mcg Cholecystokinin IV; No symptomatic response. Cholecystokinin was administered by slow infusion over 8 minutes beginning at 75 minutes. MEDICAL HISTORY : None SURGICAL HISTORY : None. ENCOUNTER: Initial ACUITY: 1 day PAIN SCALE: 2/10 LOCATION: Right upper quadrant TECHNIQUE: Following the intravenous administration of radiotracer, dynamic sequential image were performed with continuous acquisition. Time-activity curves were generated. FINDINGS: HEPATIIC KINETICS: There is prompt uptake of radiotracer in the liver. No focal defects are seen. There is normal rate of washout from the hepatic parenchyma. BILIARY CLEARANCE: Activity is first seen in the extrahepatic biliary system at 20 minutes. There is normal excretion i nto the small bowel. GALLBLADDER: Activity is first seen in the gallbladder at 15 minutes. POST CHOLECYSTOKININ: After Cholecystokinin administration, there is prompt emptying of the gallbladder with a 40 % ejectio n fraction. Common bile duct kinetics are normal and there is no evidence of biliary obstruction. BILIARY ENTERIC REFLUX: None observed. CLINICAL: The patient was asymptomatic after Cholecystokinin administration. CONCLUSION: Negative biliary scan Amado Triana MD on May 13, 2017 at 14:04 Board Certified Radiologist. This report was verified electronically.
--- NOTE | 2017-05-13 15:42 | HHI.GIFU ---
Subjective Remarks awake eating soft Cardiac diet. No nausea, or Abd. pain O2 at 2 L. afebrile, temp high 99. (Kristin Eric) Objective Vitals I&O Vital Signs Date Time Temp Pulse Resp B/P (MAP) Pulse Ox O2 Delivery O2 Flow Rate FiO2 05/13/17 13:57 97.7 74 19 157/76 (103) 95 05/13/17 08:50 98 Nasal Cannula 4.00 05/13/17 08:00 98.1 64 18 156/82 (106) 98 05/13/17 00:00 97.1 65 18 144/85 (104) 99 05/12/17 22:06 Nasal Cannula 4.00 05/12/17 20:00 99.0 70 18 146/82 (103) 97 05/12/17 16:00 97.3 74 19 128/79 (95) 97 I/O 05/12/17 05/12/17 05/12/17 05/13/17 05/13/17 05/13/17 07:00 15:00 23:00 07:00 15:00 23:00 Intake Total 580 ml 680 ml Output Total 800 ml 400 ml 1500 ml Balance -220 ml 280 ml -1500 ml Intake Oral 480 ml 680 ml IV Total 100 ml Output Urine Total 800 ml 400 ml 1500 ml # Bowel Movements 2 Laboratory Laboratory Tests Test 05/13/17 06:22 Lipase 1049 Date/Time Source Procedure Growth Status 04/29/17 18:49 Blood Peripheral Aerobic Blood Culture - Final NO GROWTH IN 5 DAYS Complete 04/29/17 18:49 Blood Peripheral Anaerobic Blood Culture - Final NO GROWTH IN 5 DAYS Complete 04/28/17 10:45 Sputum Endotracheal Gram Stain - Final Complete 04/28/17 10:45 Sputum Endotracheal Sputum Culture - Final NO GROWTH IN 48 HOURS. Complete 04/24/17 16:25 Urine Random Urine Legionella Antigen - Final PRESUMPTIVE NEGATIVE FOR LEGIONELLA P... Complete 04/24/17 16:25 Urine Random Urine Streptococcus pneumoniae Antigen (M - Final PRESUMPTIVE NEGATIVE FOR STREPTOCOCCU... Complete Imaging Last Impressions Hepatobiliary Scan Nuclear Medicine 05/13/17 0000 Signed Impressions: Service Date/Time: Saturday, May 13, 2017 11:05 - CONCLUSION: Negative biliary scan Amado Triana MD Abdomen X-Ray 05/11/17 0600 Signed Impressions: Service Date/Time: Thursday, May 11, 2017 05:03 - CONCLUSION: Slightly decreased distention today. Acosta Ruiz MD Abdomen/Pelvis CT 05/08/17 0000 Signed Impressions: Service Date/Time: May 16:58 - CONCLUSION: 1. Abnormal bowel gas pattern is now noted most characteristic of an ileus. 2. Improved appearance of the pancreas on this noncontrast study with suboptimal visualization. Previously noted fluid surrounding the head is no longer visualized and there is no definite inflammatory change. 3. The gallbladder appears unremarkable. There is no evidence of biliary obstruction. 4. Patchy areas of consolidation in both posterior lung bases improved from the prior study. Zeke Cobb MD Chest X-Ray 05/04/17 0000 Signed Impressions: Service Date/Time: Thursday, May 04, 2017 03:55 - CONCLUSION: Mild increased density in the perihilar regions related to mild edema. This is improving from the prior exam. Davey Lutz MD Liver Ultrasound 04/26/17 0000 Signed Impressions: Service Date/Time: Wednesday, April 26, 2017 16:44 - CONCLUSION: Echogenic right kidney which can be seen with medical renal disease, otherwise unremarkable right upper quadrant sonogram. Roque Gutiérrez MD Chest CT 04/24/17 1327 Signed Impressions: Service Date/Time: April 13:46 - CONCLUSION: Patchy groundglass infiltrates throughout all lobes of the lungs. It is most prominent in the perihilar distribution but also more peripheral areas. I did not see a mass amenable to biopsy with CT guidance. 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 CT abd no contrast no acute abd findings and pancreas WNL - ileus - resolved - elevated LFTs - unclear etiology. ?fatty liver per CT. does not appear to be obstructive pattern. US liver unremarkable. no hx heavy drinking reported. hepatitis panel neg . Liver w/u unremarkable - bilat PNA, ARDS, acute renal failure - complications. improved 05/06/17 - transferred from [facility] [place] to floor. Some improvement abd pain. tolerating clears. +multiple BM documented, ileus improving. WBC somewhat improved today. will rck lipsae 05/07/17 lipase down to 512 today, LFTs now WNL. very lethargic. pt c/o abd pain. on clears. No BM (05/08) [place] score on admission- 13 points showing 12% chance of mortality. Lipase now trending down and WNL-328. LFTs now WNL. Liver RUSH unremarkable. Ileus- repeat KUB (05/07) --> Gaseous distention of multiple loops likely ileus. This is slightly more prominent on currently study. Pt currently on Reglan. Reports two BMs since yesterday with good relief. GS now following and has ordered CT abdomen and 05/09/17 - seems bit more distended today, having n/v last night and this morning. Not eating much. CT ABD 05/08 showed ileus, improve appearance pancreas lipase improved today, 328. Pt now says she only had one small BM yesterday and does not feel much better. No BM today. GS following 05/10/17 NGT removed, tolerating Fulls okay, lipase wnl wbc trending down 05/11/17 Patient (+) for flatus and BM, no nausea or vomiting, some mild abd pain , WBC trending down, however lipase is going up after advancing diet yesterday 05/12/17 +BM. n/v improving, abd pain improving. WBC trending down. lipase stable, will try low fat foods as full liquid diet can have alot of fat 05/13/17, [place], stable at 10.6, no obvious bleeding, WBC 12.8 decreasing. Diet Heart Healthy soft, tolerating well, hungry. No nausea, vomiting. No ABd. pain Plan: - Heart Healthy diet - Increase activity - monitor labs - Continue Reglan 5mg. IV - bowel regimen as needed for BM at least every 2 day. -monitor I&O Further recommendations to follow based on clinical course Pt has been seen and examined by myself and and this note is written on her behalf (Kristin Eric) Physician Comments hida scan negative (Aliyah Gill MD) Kristin Eric May 13, 2017 15:42 Aliyah Gill MD May 13, 2017 21:29
[2017-05-13 16:00] VITALS: BP 144/77; PULSE 82; RESP 18; TEMP 97.9; O2SAT 97
[2017-05-13] MEDS: SERTRALINE HCL 100 MG TAB PO SCH (16:31)
[2017-05-13] MEDS: OLANZapine 5 MG TAB PO SCH (19:49)
[2017-05-13] MEDS: PRAVASTATIN SOD 20 MG TAB PO SCH (19:49)
[2017-05-13 20:00] VITALS: BP 132/75; PULSE 72; RESP 18; TEMP 99.2; O2SAT 96
[2017-05-14 00:56] VITALS: BP 125/83; PULSE 69; RESP 18; TEMP 98.6; O2SAT 98
[2017-05-14] MEDS: METOCLOPRAMIDE HCL 10 MG/2 ML VIAL IV PUSH SCH ×3 (00:56→18:08)
[2017-05-14] MEDS: CHLORHEXIDINE GLUCONATE 2 % 1 PACK (2 CLOTHS) TOP SCH (04:00)
[2017-05-14] MEDS: FREE WATER G-TUBE SCH ×5 (04:20→23:39)
[2017-05-14 05:17] VITALS: O2SAT 97
[2017-05-14 08:00] VITALS: BP 154/78; PULSE 70; RESP 18; TEMP 98.9; O2SAT 98
[2017-05-14] MEDS: SENNOSIDES SYRUP 8.8 MG/5 ML CUP OG-TUBE SCH ×2 (09:05→20:33)
[2017-05-14] MEDS: HEPARIN SODIUM - SQ 10,000 UNITS/ML VIAL SQ SCH ×2 (09:10→20:33)
[2017-05-14] MEDS: predniSONE 20 MG TAB PO SCH ×2 (09:10→20:33)
[2017-05-14] MEDS: FAMOTIDINE 20 MG TAB PO SCH ×2 (09:10→20:33)
[2017-05-14] MEDS: SERTRALINE HCL 100 MG TAB PO SCH (09:10)
[2017-05-14 12:00] VITALS: BP 125/78; PULSE 83; RESP 19; TEMP 97.8; O2SAT 96
--- NOTE | 2017-05-14 14:56 | HHI.GIFU ---
Subjective Remarks Resting in the Bed Afebrile today Active bowel sounds able to eat fried shrimp dinner from the outside that her family brought Appetite good (HernestoKristin Estuardo WARNER) Objective Vitals I&O Vital Signs Date Time Temp Pulse Resp B/P (MAP) Pulse Ox O2 Delivery O2 Flow Rate FiO2 05/14/17 12:00 97.8 83 19 125/78 (94) 96 05/14/17 08:00 98.9 70 18 154/78 (103) 98 05/14/17 05:17 97 Nasal Cannula 4.00 05/14/17 00:56 98.6 69 18 125/83 (97) 98 05/13/17 20:00 99.2 72 18 132/75 (94) 96 05/13/17 16:00 97.9 82 18 144/77 (99) 97 I/O 05/13/17 05/13/17 05/13/17 05/14/17 05/14/17 05/14/17 07:00 15:00 23:00 07:00 15:00 23:00 Intake Total 640 ml Output Total 1500 ml 1200 ml Balance -1500 ml 640 ml -1200 ml Intake Oral 640 ml Output Urine Total 1500 ml 1200 ml # Bowel Movements 1 Laboratory Date/Time Source Procedure Growth Status 04/29/17 18:49 Blood Peripheral Aerobic Blood Culture - Final NO GROWTH IN 5 DAYS Complete 04/29/17 18:49 Blood Peripheral Anaerobic Blood Culture - Final NO GROWTH IN 5 DAYS Complete 04/28/17 10:45 Sputum Endotracheal Gram Stain - Final Complete 04/28/17 10:45 Sputum Endotracheal Sputum Culture - Final NO GROWTH IN 48 HOURS. Complete 04/24/17 16:25 Urine Random Urine Legionella Antigen - Final PRESUMPTIVE NEGATIVE FOR LEGIONELLA P... Complete 04/24/17 16:25 Urine Random Urine Streptococcus pneumoniae Antigen (M - Final PRESUMPTIVE NEGATIVE FOR STREPTOCOCCU... Complete Imaging Last Impressions Hepatobiliary Scan Nuclear Medicine 05/13/17 0000 Signed Impressions: Service Date/Time: Saturday, May 13, 2017 11:05 - CONCLUSION: Negative biliary scan Amado Triana MD Abdomen X-Ray 05/11/17 0600 Signed Impressions: Service Date/Time: Thursday, May 11, 2017 05:03 - CONCLUSION: Slightly decreased distention today. Acosta Ruiz MD Abdomen/Pelvis CT 05/08/17 0000 Signed Impressions: Service Date/Time: May 16:58 - CONCLUSION: 1. Abnormal bowel gas pattern is now noted most characteristic of an ileus. 2. Improved appearance of the pancreas on this noncontrast study with suboptimal visualization. Previously noted fluid surrounding the head is no longer visualized and there is no definite inflammatory change. 3. The gallbladder appears unremarkable. There is no evidence of biliary obstruction. 4. Patchy areas of consolidation in both posterior lung bases improved from the prior study. Zeke Cobb MD Chest X-Ray 05/04/17 0000 Signed Impressions: Service Date/Time: Thursday, May 04, 2017 03:55 - CONCLUSION: Mild increased density in the perihilar regions related to mild edema. This is improving from the prior exam. Davey Lutz MD Liver Ultrasound 04/26/17 0000 Signed Impressions: Service Date/Time: Wednesday, April 26, 2017 16:44 - CONCLUSION: Echogenic right kidney which can be seen with medical renal disease, otherwise unremarkable right upper quadrant sonogram. Roque Gutiérrez MD Chest CT 04/24/17 1327 Signed Impressions: Service Date/Time: April 13:46 - CONCLUSION: Patchy groundglass infiltrates throughout all lobes of the lungs. It is most prominent in the perihilar distribution but also more peripheral areas. I did not see a mass amenable to biopsy with CT guidance. 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 CT abd no contrast no acute abd findings and pancreas WNL - ileus - resolved, bowel sounds active, tolerating regular food, appetite back to normal - elevated LFTs - unclear etiology. Probable fatty liver disease noted per CT. US liver unremarkable. no hx heavy drinking reported. hepatitis panel neg . Liver w/u unremarkable 05/06/17 - transferred from [facility] [place] floor. Some improvement abd pain. tolerating clears. +multiple BM documented, ileus improving. WBC somewhat improved today. will rck lipsae 05/07/17 lipase down to 512 today, LFTs now WNL. very lethargic. pt c/o abd pain. on clears. No BM (05/08) [place] score on admission- 13 points showing 12% chance of mortality. Lipase now trending down and WNL-328. LFTs now WNL. Liver RUSH unremarkable. Ileus- repeat KUB (05/07) --> Gaseous distention of multiple loops likely ileus. This is slightly more prominent on currently study. Pt currently on Reglan. Reports two BMs since yesterday with good relief. GS now following and has ordered CT abdomen and 05/09/17 - seems bit more distended today, having n/v last night and this morning. Not eating much. CT ABD 05/08 showed ileus, improve appearance pancreas lipase improved today, 328. Pt now says she only had one small BM yesterday and does not feel much better. No BM today. GS following 05/10/17 NGT removed, tolerating Fulls okay, lipase wnl wbc trending down 05/11/17 Patient (+) for flatus and BM, no nausea or vomiting, some mild abd pain , WBC trending down, however lipase is going up after advancing diet yesterday 05/12/17 +BM. n/v improving, abd pain improving. WBC trending down. lipase stable, will try low fat foods as full liquid diet can have alot of fat 05/13/17, [place], stable at 10.6, no obvious bleeding, WBC 12.8 decreasing. Diet Heart Healthy soft, tolerating well, hungry. No nausea, vomiting. No ABd. pain 05/14/17, continues to improve gradual, no obvious abdominal pain while sounds are active, patient ate outside fried shrimp dinner her family brought her, HIDA scan done on 05/13/17 negative/unremarkable, BM 1 in the past 24 hours, anemia and hemoglobin 10.6 no obvious bleeding Plan: - Heart Healthy diet, (eating food from outside also) - Increase activity, encouraged patient to dangle. Consider physical therapy if not working with her - monitor labs, special attention to LFTs and hemoglobin and hematocrit - Continue Reglan 5mg. IV - bowel regimen as needed for BM at least every 2 day. -monitor I&O Further recommendations to follow based on clinical course Pt has been seen and examined by myself and and this note is written on her behalf (Kristin Eric) Physician Comments seen, examined agree with above discussed about low fat diet clinically she is improving -would like to go home (Aliyah Gill MD) Kristin Eric May 14, 2017 14:56 Aliyah Gill MD May 14, 2017 19:36
--- NOTE | 2017-05-14 15:32 | HHI.PR ---
Subjective Remarks Follow-up weakness. Patient denies abdominal pain, nausea, vomiting. She is eating better. She ate some fried shrimp that her family brought in. Shortness of breath is improving. Patient states that she still feels very weak, but was able to ambulate 3 or 4 steps with physical therapy today. Objective Vitals Vital Signs Date Time Temp Pulse Resp B/P (MAP) Pulse Ox O2 Delivery O2 Flow Rate FiO2 05/14/17 12:00 97.8 83 19 125/78 (94) 96 05/14/17 08:00 98.9 70 18 154/78 (103) 98 05/14/17 05:17 97 Nasal Cannula 4.00 05/14/17 00:56 98.6 69 18 125/83 (97) 98 05/13/17 20:00 99.2 72 18 132/75 (94) 96 05/13/17 16:00 97.9 82 18 144/77 (99) 97 I/O 05/13/17 05/13/17 05/13/17 05/14/17 05/14/17 05/14/17 07:00 15:00 23:00 07:00 15:00 23:00 Intake Total 640 ml Output Total 1500 ml 1200 ml Balance -1500 ml 640 ml -1200 ml Intake Oral 640 ml Output Urine Total 1500 ml 1200 ml # Bowel Movements 1 Result Diagram: 05/12/17 0725 05/11/17 0822 Imaging Last Impressions Hepatobiliary Scan Nuclear Medicine 05/13/17 0000 Signed Impressions: Service Date/Time: Saturday, May 13, 2017 11:05 - CONCLUSION: Negative biliary scan Amado Triana MD Abdomen X-Ray 05/11/17 0600 Signed Impressions: Service Date/Time: Thursday, May 11, 2017 05:03 - CONCLUSION: Slightly decreased distention today. Acosta Ruiz MD Abdomen/Pelvis CT 05/08/17 0000 Signed Impressions: Service Date/Time: May 16:58 - CONCLUSION: 1. Abnormal bowel gas pattern is now noted most characteristic of an ileus. 2. Improved appearance of the pancreas on this noncontrast study with suboptimal visualization. Previously noted fluid surrounding the head is no longer visualized and there is no definite inflammatory change. 3. The gallbladder appears unremarkable. There is no evidence of biliary obstruction. 4. Patchy areas of consolidation in both posterior lung bases improved from the prior study. Zeke Cobb MD Chest X-Ray 05/04/17 0000 Signed Impressions: Service Date/Time: Thursday, May 04, 2017 03:55 - CONCLUSION: Mild increased density in the perihilar regions related to mild edema. This is improving from the prior exam. Davey Lutz MD Liver Ultrasound 04/26/17 0000 Signed Impressions: Service Date/Time: Wednesday, April 26, 2017 16:44 - CONCLUSION: Echogenic right kidney which can be seen with medical renal disease, otherwise unremarkable right upper quadrant sonogram. Roque Gutiérrez MD Chest CT 04/24/17 1327 Signed Impressions: Service Date/Time: April 13:46 - CONCLUSION: Patchy groundglass infiltrates throughout all lobes of the lungs. It is most prominent in the perihilar distribution but also more peripheral areas. I did not see a mass amenable to biopsy with CT guidance. Jay Weaver MD Objective Remarks General: Obese female in no acute distress. Heart: Regular rate and rhythm. No murmur. Lungs: Clear to auscultation bilaterally. No wheezes, rales, or rhonchi. Breathing is nonlabored. Abdomen: Soft, nontender, mildly distended. Extremities: No lower extremity edema. Psych: Alert and oriented. Neuro: Weakness of both lower extremities, left greater than right, slightly better today. Procedures Intubation/Extubation Urinary Catheter: No Vascular Central Line Catheter: No A/P Problem List: (1) Adult respiratory distress syndrome ICD Code: J80 - Acute respiratory distress syndrome (2) Acute respiratory failure with hypoxia ICD Code: J96.01 - Acute respiratory failure with hypoxia (3) Pneumonia ICD Code: J18.9 - Pneumonia, unspecified organism Status: Acute (4) Acute renal failure ICD Code: N17.9 - Acute kidney failure, unspecified (5) Increased anion gap metabolic acidosis ICD Code: E87.2 - Acidosis (6) Diarrhea ICD Code: R19.7 - Diarrhea, unspecified (7) Hyponatremia ICD Code: E87.1 - Hypo-osmolality and hyponatremia (8) Leukocytosis ICD Code: D72.829 - Elevated white blood cell count, unspecified (9) Lactic acidosis ICD Code: E87.2 - Acidosis (10) Renal failure ICD Code: N19 - Unspecified kidney failure Status: Acute (11) Hyperglycemia ICD Code: R73.9 - Hyperglycemia, unspecified (12) Elevated lipase ICD Code: R74.8 - Abnormal levels of other serum enzymes (13) Tobacco use ICD Code: Z72.0 - Tobacco use Assessment and Plan 1. Hypoxemic respiratory failure, pneumonia, pulmonary hypertension: Continue Azactam. Appreciate infectious disease recommendations. Patient status post intubation, now on oxygen per nasal cannula. Continue Lasix. Continue nebulizers. Wean oxygen as tolerated. 2. Ileus: Improved. Patient tolerating diet. Appreciate GI recommendations. 3. Pancreatitis: Persistent elevation of lipase. Patient has no abdominal pain at this time. HIDA scan ordered by GI. 4. History of depression, mood disorder: Continue home medications. 5. Tobacco abuse: Counseled to quit smoking. 6. Debility, generalized weakness: Physical therapy 7 days per week. 7. Acute renal failure: Resolved. Likely ATN secondary to hypoperfusion. 8. GI prophylaxis: Famotidine. 9. DVT prophylaxis: SCDs, heparin. Discharge Planning Patient continues to be very debilitated. Would require SNF placement, but has no payor source. Plan will be to discharge home with home health care when patient is strong enough. Problem Qualifiers (1) Pneumonia: Maurice Garcia MD May 14, 2017 15:32
[2017-05-14 16:00] VITALS: BP 137/81; PULSE 81; RESP 18; TEMP 98.5; O2SAT 99
[2017-05-14 20:00] VITALS: BP 136/86; PULSE 83; RESP 19; TEMP 98.9; O2SAT 98
[2017-05-14] MEDS: OLANZapine 5 MG TAB PO SCH (20:33)
[2017-05-14] MEDS: PRAVASTATIN SOD 20 MG TAB PO SCH (20:33)
[2017-05-15] VITALS: BP 140/81; PULSE 82; RESP 18; TEMP 98.7; O2SAT 92
[2017-05-15] MEDS: METOCLOPRAMIDE HCL 10 MG/2 ML VIAL IV PUSH SCH ×3 (01:40→17:18)
[2017-05-15] MEDS: FREE WATER G-TUBE SCH ×4 (02:31→21:02)
[2017-05-15] MEDS: CHLORHEXIDINE GLUCONATE 2 % 1 PACK (2 CLOTHS) TOP SCH (04:00)
[2017-05-15 07:19] LABS: BASOPHIL % 0.3 % (0.0-2.0); EOSINOPHIL % 0.1 % (0.0-4.0); HEMATOCRIT 31.3 % (35.0-46.0); HEMOGLOBIN 10.6 GM/DL (11.6-15.3); LYMPH % 9.6 % (9.0-44.0); MEAN CELL VOLUME 95.4 FL (80.0-100.0); MEAN CORPUSCULAR HEMOGLOBIN 32.3 PG (27.0-34.0); MEAN CORPUSCULAR HGB CONC 33.8 % (32.0-36.0); MEAN PLATELET VOLUME 7.7 FL (7.0-11.0); MONO % 5.6 % (0.0-8.0); MONOCYTE # 0.6 TH/MM3 (0-0.9); NEUT % 84.4 % (16.0-70.0); PLATELET COUNT 208 TH/MM3 (150-450); RED BLOOD COUNT 3.28 MIL/MM3 (4.00-5.30); RED CELL DISTRIBUTION WIDTH 17.7 % (11.6-17.2); WHITE BLOOD COUNT 10.6 TH/MM3 (4.0-11.0)
[2017-05-15 07:33] LABS: ALBUMIN 2.6 GM/DL (3.4-5.0); AST (GOT) 10 U/L (15-37); BICARBONATE 25.5 MEQ/L (21.0-32.0); BLOOD UREA NITROGEN 24 MG/DL (7-18); CALCIUM 9.2 MG/DL (8.5-10.1); CHLORIDE 107 MEQ/L (98-107); GLOMERULAR FILTRATION RATE 106 ML/MIN (>89); GLUCOSE,RANDOM 102 MG/DL (74-106); SODIUM (NA) 139 MEQ/L (136-145)
[2017-05-15 07:35] LABS: ALT (GPT) 38 U/L (10-53)
[2017-05-15 07:37] LABS: ALKALINE PHOSPHATASE 107 U/L (45-117); TOTAL BILIRUBIN ADULT 0.3 MG/DL (0.2-1.0); TOTAL PROTEIN 6.6 GM/DL (6.4-8.2)
[2017-05-15 08:00] VITALS: BP 144/95; PULSE 70; RESP 18; TEMP 98.2; O2SAT 98
[2017-05-15] MEDS: predniSONE 20 MG TAB PO SCH (09:00)
[2017-05-15] MEDS: SERTRALINE HCL 100 MG TAB PO SCH (09:01)
[2017-05-15] MEDS: HEPARIN SODIUM - SQ 10,000 UNITS/ML VIAL SQ SCH ×2 (09:01→19:44)
[2017-05-15] MEDS: FAMOTIDINE 20 MG TAB PO SCH ×2 (09:01→19:44)
[2017-05-15] MEDS: SENNOSIDES SYRUP 8.8 MG/5 ML CUP OG-TUBE SCH ×2 (09:01→19:45)
[2017-05-15 12:00] VITALS: BP 123/88; PULSE 109; RESP 18; TEMP 99.1; O2SAT 95
--- NOTE | 2017-05-15 13:22 | HHI.PR ---
Subjective Remarks Follow-up weakness. Patient reports that her left foot weakness is slowly improving. Per physical therapy, she is able to transfer better today. She reports heartburn, which she attributes to food she ate for lunch. Objective Vitals Vital Signs Date Time Temp Pulse Resp B/P (MAP) Pulse Ox O2 Delivery O2 Flow Rate FiO2 05/15/17 12:00 99.1 109 18 123/88 (100) 95 05/15/17 08:00 98.2 70 18 144/95 (111) 98 05/15/17 00:00 98.7 82 18 140/81 (100) 92 05/14/17 20:00 98.9 83 19 136/86 (103) 98 05/14/17 16:00 98.5 81 18 137/81 (99) 99 I/O 05/14/17 05/14/17 05/14/17 05/15/17 05/15/17 05/15/17 07:00 15:00 23:00 07:00 15:00 23:00 Intake Total 1920 ml 120 ml Output Total 1200 ml 600 ml Balance -1200 ml 1320 ml 120 ml Intake Oral 1920 ml 120 ml Output Urine Total 1200 ml 600 ml # Voids 6 # Bowel Movements 1 1 1 Result Diagram: 05/15/17 0605 05/15/17 0605 Imaging Last Impressions Hepatobiliary Scan Nuclear Medicine 05/13/17 0000 Signed Impressions: Service Date/Time: Saturday, May 13, 2017 11:05 - CONCLUSION: Negative biliary scan Amado Triana MD Abdomen X-Ray 05/11/17 0600 Signed Impressions: Service Date/Time: Thursday, May 11, 2017 05:03 - CONCLUSION: Slightly decreased distention today. Acosta Ruiz MD Abdomen/Pelvis CT 05/08/17 0000 Signed Impressions: Service Date/Time: May 16:58 - CONCLUSION: 1. Abnormal bowel gas pattern is now noted most characteristic of an ileus. 2. Improved appearance of the pancreas on this noncontrast study with suboptimal visualization. Previously noted fluid surrounding the head is no longer visualized and there is no definite inflammatory change. 3. The gallbladder appears unremarkable. There is no evidence of biliary obstruction. 4. Patchy areas of consolidation in both posterior lung bases improved from the prior study. Zeke Cobb MD Chest X-Ray 05/04/17 0000 Signed Impressions: Service Date/Time: Thursday, May 04, 2017 03:55 - CONCLUSION: Mild increased density in the perihilar regions related to mild edema. This is improving from the prior exam. Davey Lutz MD Liver Ultrasound 04/26/17 0000 Signed Impressions: Service Date/Time: Wednesday, April 26, 2017 16:44 - CONCLUSION: Echogenic right kidney which can be seen with medical renal disease, otherwise unremarkable right upper quadrant sonogram. Roque Gutiérrez MD Chest CT 04/24/17 1327 Signed Impressions: Service Date/Time: April 13:46 - CONCLUSION: Patchy groundglass infiltrates throughout all lobes of the lungs. It is most prominent in the perihilar distribution but also more peripheral areas. I did not see a mass amenable to biopsy with CT guidance. Jay Weaver MD Objective Remarks General: Obese female in no acute distress. Sitting up in a chair. Heart: Regular rate and rhythm. No murmur. Lungs: Clear to auscultation bilaterally. No wheezes, rales, or rhonchi. Breathing is nonlabored. Abdomen: Soft, nontender, mildly distended. Extremities: No lower extremity edema. Psych: Alert and oriented. Neuro: Weakness of both lower extremities, left greater than right, slightly better today. Procedures Intubation/Extubation Urinary Catheter: No Vascular Central Line Catheter: No A/P Problem List: (1) Adult respiratory distress syndrome ICD Code: J80 - Acute respiratory distress syndrome (2) Acute respiratory failure with hypoxia ICD Code: J96.01 - Acute respiratory failure with hypoxia (3) Pneumonia ICD Code: J18.9 - Pneumonia, unspecified organism Status: Acute (4) Acute renal failure ICD Code: N17.9 - Acute kidney failure, unspecified (5) Increased anion gap metabolic acidosis ICD Code: E87.2 - Acidosis (6) Diarrhea ICD Code: R19.7 - Diarrhea, unspecified (7) Hyponatremia ICD Code: E87.1 - Hypo-osmolality and hyponatremia (8) Leukocytosis ICD Code: D72.829 - Elevated white blood cell count, unspecified (9) Lactic acidosis ICD Code: E87.2 - Acidosis (10) Renal failure ICD Code: N19 - Unspecified kidney failure Status: Acute (11) Hyperglycemia ICD Code: R73.9 - Hyperglycemia, unspecified (12) Elevated lipase ICD Code: R74.8 - Abnormal levels of other serum enzymes (13) Tobacco use ICD Code: Z72.0 - Tobacco use Assessment and Plan 1. Hypoxemic respiratory failure, pneumonia, pulmonary hypertension: Continue Azactam. Appreciate infectious disease recommendations. Patient status post intubation. Continue Lasix. Continue nebulizers. Currently on room air. 2. Ileus: Improved. Patient tolerating diet. Appreciate GI recommendations. 3. Pancreatitis: Persistent elevation of lipase. Patient has no abdominal pain at this time. HIDA scan is negative. 4. History of depression, mood disorder: Continue home medications. 5. Tobacco abuse: Counseled to quit smoking. 6. Debility, generalized weakness: Physical therapy 7 days per week. Improving. Left lower extremity weakness improving. 7. Acute renal failure: Resolved. Likely ATN secondary to hypoperfusion. 8. GI prophylaxis: Famotidine. 9. DVT prophylaxis: SCDs, heparin. Discharge Planning Patient continues to be very debilitated. Would require SNF placement, but has no payor source. Plan will be to discharge home with home health care when patient is strong enough. Problem Qualifiers (1) Pneumonia: Maurice Garcia MD May 15, 2017 13:21
[2017-05-15] MEDS: CALCIUM CARBONATE 500 MG CHEWABLE TAB CHEW PRN ×2 (14:17→17:21)
--- NOTE | 2017-05-15 15:48 | HHI.GIFU ---
Subjective Remarks resting in bed more awake appetite improved temp high 99.1 Mild Abd. bloating, but improved (Kristin Eric) Objective Vitals I&O Vital Signs Date Time Temp Pulse Resp B/P (MAP) Pulse Ox O2 Delivery O2 Flow Rate FiO2 05/15/17 12:00 99.1 109 18 123/88 (100) 95 05/15/17 08:00 98.2 70 18 144/95 (111) 98 05/15/17 00:00 98.7 82 18 140/81 (100) 92 05/14/17 20:00 98.9 83 19 136/86 (103) 98 05/14/17 16:00 98.5 81 18 137/81 (99) 99 I/O 05/14/17 05/14/17 05/14/17 05/15/17 05/15/17 05/15/17 07:00 15:00 23:00 07:00 15:00 23:00 Intake Total 1920 ml 120 ml Output Total 1200 ml 600 ml Balance -1200 ml 1320 ml 120 ml Intake Oral 1920 ml 120 ml Output Urine Total 1200 ml 600 ml # Voids 6 # Bowel Movements 1 1 1 Laboratory Laboratory Tests Test 05/15/17 06:05 White Blood Count 10.6 Red Blood Count 3.28 Hemoglobin 10.6 Hematocrit 31.3 Mean Corpuscular Volume 95.4 Mean Corpuscular Hemoglobin 32.3 Mean Corpuscular Hemoglobin Concent 33.8 Red Cell Distribution Width 17.7 Platelet Count 208 Mean Platelet Volume 7.7 Neutrophils (%) (Auto) 84.4 Lymphocytes (%) (Auto) 9.6 Monocytes (%) (Auto) 5.6 Eosinophils (%) (Auto) 0.1 Basophils (%) (Auto) 0.3 Neutrophils # (Auto) 9.0 Lymphocytes # (Auto) 1.0 Monocytes # (Auto) 0.6 Eosinophils # (Auto) 0.0 Basophils # (Auto) 0.0 CBC Comment DIFF FINAL Differential Comment Blood Urea Nitrogen 24 Creatinine 0.70 Random Glucose 102 Total Protein 6.6 Albumin 2.6 Calcium Level 9.2 Alkaline Phosphatase 107 Aspartate Amino Transf (AST/SGOT) 10 Alanine Aminotransferase (ALT/SGPT) 38 Total Bilirubin 0.3 Sodium Level 139 Potassium Level 4.0 Chloride Level 107 Carbon Dioxide Level 25.5 Anion Gap 7 Estimat Glomerular Filtration Rate 106 Lipase 995 Date/Time Source Procedure Growth Status 04/29/17 18:49 Blood Peripheral Aerobic Blood Culture - Final NO GROWTH IN 5 DAYS Complete 04/29/17 18:49 Blood Peripheral Anaerobic Blood Culture - Final NO GROWTH IN 5 DAYS Complete 04/28/17 10:45 Sputum Endotracheal Gram Stain - Final Complete 04/28/17 10:45 Sputum Endotracheal Sputum Culture - Final NO GROWTH IN 48 HOURS. Complete 04/24/17 16:25 Urine Random Urine Legionella Antigen - Final PRESUMPTIVE NEGATIVE FOR LEGIONELLA P... Complete 04/24/17 16:25 Urine Random Urine Streptococcus pneumoniae Antigen (M - Final PRESUMPTIVE NEGATIVE FOR STREPTOCOCCU... Complete Imaging Last Impressions Hepatobiliary Scan Nuclear Medicine 05/13/17 0000 Signed Impressions: Service Date/Time: Saturday, May 13, 2017 11:05 - CONCLUSION: Negative biliary scan Amado Triana MD Abdomen X-Ray 05/11/17 0600 Signed Impressions: Service Date/Time: Thursday, May 11, 2017 05:03 - CONCLUSION: Slightly decreased distention today. Acosta Ruiz MD Abdomen/Pelvis CT 05/08/17 0000 Signed Impressions: Service Date/Time: May 16:58 - CONCLUSION: 1. Abnormal bowel gas pattern is now noted most characteristic of an ileus. 2. Improved appearance of the pancreas on this noncontrast study with suboptimal visualization. Previously noted fluid surrounding the head is no longer visualized and there is no definite inflammatory change. 3. The gallbladder appears unremarkable. There is no evidence of biliary obstruction. 4. Patchy areas of consolidation in both posterior lung bases improved from the prior study. Zeke Cobb MD Chest X-Ray 05/04/17 0000 Signed Impressions: Service Date/Time: Thursday, May 04, 2017 03:55 - CONCLUSION: Mild increased density in the perihilar regions related to mild edema. This is improving from the prior exam. Davey Lutz MD Liver Ultrasound 04/26/17 0000 Signed Impressions: Service Date/Time: Wednesday, April 26, 2017 16:44 - CONCLUSION: Echogenic right kidney which can be seen with medical renal disease, otherwise unremarkable right upper quadrant sonogram. Roque Gutiérrez MD Chest CT 04/24/17 1327 Signed Impressions: Service Date/Time: April 13:46 - CONCLUSION: Patchy groundglass infiltrates throughout all lobes of the lungs. It is most prominent in the perihilar distribution but also more peripheral areas. I did not see a mass amenable to biopsy with CT guidance. 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 CT abd no contrast no acute abd findings and pancreas WNL - ileus - resolved, bowel sounds active, tolerating regular food, appetite back to normal - elevated LFTs - unclear etiology. Probable fatty liver disease noted per CT. US liver unremarkable. no hx heavy drinking reported. hepatitis panel neg . Liver w/u unremarkable 05/06/17 - transferred from [facility] [place] to floor. Some improvement abd pain. tolerating clears. +multiple BM documented, ileus improving. WBC somewhat improved today. will rck lipsae 05/07/17 lipase down to 512 today, LFTs now WNL. very lethargic. pt c/o abd pain. on clears. No BM (05/08) [id number] score on admission- 13 points showing 12% chance of mortality. Lipase now trending down and WNL-328. LFTs now WNL. Liver RUSH unremarkable. Ileus- repeat KUB (05/07) --> Gaseous distention of multiple loops likely ileus. This is slightly more prominent on currently study. Pt currently on Reglan. Reports two BMs since yesterday with good relief. GS now following and has ordered CT abdomen and 05/09/17 - seems bit more distended today, having n/v last night and this morning. Not eating much. CT ABD 05/08 showed ileus, improve appearance pancreas lipase improved today, 328. Pt now says she only had one small BM yesterday and does not feel much better. No BM today. GS following 05/10/17 NGT removed, tolerating Fulls okay, lipase wnl wbc trending down 05/11/17 Patient (+) for flatus and BM, no nausea or vomiting, some mild abd pain , WBC trending down, however lipase is going up after advancing diet yesterday 05/12/17 +BM. n/v improving, abd pain improving. WBC trending down. lipase stable, will try low fat foods as full liquid diet can have alot of fat 05/13/17, [place], stable at 10.6, no obvious bleeding, WBC 12.8 decreasing. Diet Heart Healthy soft, tolerating well, hungry. No nausea, vomiting. No ABd. pain 05/14/17, continues to improve gradual, no obvious abdominal pain while sounds are active, patient ate outside fried shrimp dinner her family brought her, HIDA scan done on 05/13/17 negative/unremarkable, BM 1 in the past 24 hours, anemia and hemoglobin 10.6 no obvious bleeding 05/15/17, Appetite continues to improve, Diet tolerating Regular low NA. , Mild Abd. bloating, but denies any acute Abd. pain, Walked with PT 12 steps today. Labs HGB 10.6, Lipase 995, LFTs normal Plan: - Regular low NA, - Increase activity, encouraged patient to dangle. Will need continued strengthening - monitor labs, any change in Abd. girth - Continue Reglan 5mg. IV - bowel regimen as needed for BM at least every 2 day.(BM formed today) -monitor I&O Further recommendations to follow based on clinical course Pt has been seen and examined by myself and and this note is written on her behalf (Kristin Eric) Physician Comments seen, examined agree with above we will ad pancreatic enzymes with meals (Aliyah Gill MD) Kristin Eric May 15, 2017 15:48 Aliyah Gill MD May 15, 2017 17:37
[2017-05-15 16:00] VITALS: BP 139/85; PULSE 79; RESP 17; TEMP 98.2; O2SAT 97
[2017-05-15 18:10] VITALS: O2SAT 97
[2017-05-15] MEDS: LIPASE/PROTEASE/AMYLASE (12,000/38,000/60,000) CAP PO SCH (18:28)
[2017-05-15] MEDS: PRAVASTATIN SOD 20 MG TAB PO SCH (19:44)
[2017-05-15] MEDS: OLANZapine 5 MG TAB PO SCH (19:44)
[2017-05-15 20:00] VITALS: BP 143/70; PULSE 72; RESP 16; TEMP 97.1; O2SAT 99
[2017-05-16] VITALS: BP 149/80; PULSE 71; RESP 14; TEMP 98.6; O2SAT 98
[2017-05-16] MEDS: METOCLOPRAMIDE HCL 10 MG/2 ML VIAL IV PUSH SCH ×3 (01:57→16:27)
[2017-05-16] MEDS: CHLORHEXIDINE GLUCONATE 2 % 1 PACK (2 CLOTHS) TOP SCH (04:00)
[2017-05-16] MEDS: FREE WATER G-TUBE SCH ×3 (04:02→16:21)
[2017-05-16 08:00] VITALS: BP 126/88; PULSE 83; RESP 19; TEMP 98.7; O2SAT 97
[2017-05-16 08:11] VITALS: O2SAT 98
--- NOTE | 2017-05-16 08:53 | HHI.GIFU ---
Subjective Remarks Pt OOB in chair, eating breakfast. Denies any GI complaints at this time. Tolerating diet. Reports 2 BMs yesterday. (Rubina Chavez) Objective Vitals I&O Vital Signs Date Time Temp Pulse Resp B/P (MAP) Pulse Ox O2 Delivery O2 Flow Rate FiO2 05/16/17 08:11 98 Nasal Cannula 4.00 05/16/17 00:00 98.6 71 14 149/80 (103) 98 05/15/17 20:00 97.1 72 16 143/70 (94) 99 05/15/17 18:10 97 Nasal Cannula 4.00 05/15/17 16:00 98.2 79 17 139/85 (103) 97 05/15/17 12:00 99.1 109 18 123/88 (100) 95 I/O 05/15/17 05/15/17 05/15/17 05/16/17 05/16/17 05/16/17 07:00 15:00 23:00 07:00 15:00 23:00 Intake Total 120 ml 1200 ml 650 ml Output Total 1250 ml Balance 120 ml -50 ml 650 ml Intake Oral 120 ml 1200 ml 650 ml Output Urine Total 1250 ml # Voids 6 6 # Bowel Movements 1 2 1 Laboratory Laboratory Tests Test 05/16/17 03:27 Lipase 1265 Date/Time Source Procedure Growth Status 04/29/17 18:49 Blood Peripheral Aerobic Blood Culture - Final NO GROWTH IN 5 DAYS Complete 04/29/17 18:49 Blood Peripheral Anaerobic Blood Culture - Final NO GROWTH IN 5 DAYS Complete 04/28/17 10:45 Sputum Endotracheal Gram Stain - Final Complete 04/28/17 10:45 Sputum Endotracheal Sputum Culture - Final NO GROWTH IN 48 HOURS. Complete 04/24/17 16:25 Urine Random Urine Legionella Antigen - Final PRESUMPTIVE NEGATIVE FOR LEGIONELLA P... Complete 04/24/17 16:25 Urine Random Urine Streptococcus pneumoniae Antigen (M - Final PRESUMPTIVE NEGATIVE FOR STREPTOCOCCU... Complete Imaging Last Impressions Hepatobiliary Scan Nuclear Medicine 05/13/17 0000 Signed Impressions: Service Date/Time: Saturday, May 13, 2017 11:05 - CONCLUSION: Negative biliary scan Amado Triana MD Abdomen X-Ray 05/11/17 0600 Signed Impressions: Service Date/Time: Thursday, May 11, 2017 05:03 - CONCLUSION: Slightly decreased distention today. Acosta Ruiz MD Abdomen/Pelvis CT 05/08/17 0000 Signed Impressions: Service Date/Time: May 16:58 - CONCLUSION: 1. Abnormal bowel gas pattern is now noted most characteristic of an ileus. 2. Improved appearance of the pancreas on this noncontrast study with suboptimal visualization. Previously noted fluid surrounding the head is no longer visualized and there is no definite inflammatory change. 3. The gallbladder appears unremarkable. There is no evidence of biliary obstruction. 4. Patchy areas of consolidation in both posterior lung bases improved from the prior study. Zeke Cobb MD Chest X-Ray 05/04/17 0000 Signed Impressions: Service Date/Time: Thursday, May 04, 2017 03:55 - CONCLUSION: Mild increased density in the perihilar regions related to mild edema. This is improving from the prior exam. Davey Lutz MD Liver Ultrasound 04/26/17 0000 Signed Impressions: Service Date/Time: Wednesday, April 26, 2017 16:44 - CONCLUSION: Echogenic right kidney which can be seen with medical renal disease, otherwise unremarkable right upper quadrant sonogram. Roque Gutiérrez MD Chest CT 04/24/17 1327 Signed Impressions: Service Date/Time: April 13:46 - CONCLUSION: Patchy groundglass infiltrates throughout all lobes of the lungs. It is most prominent in the perihilar distribution but also more peripheral areas. I did not see a mass amenable to biopsy with CT guidance. Jay Weaver MD Physical Exam HEENT: Normocephalic CHEST: Even/unlabored. RA CARDIAC: RRR ABDOMEN: Obese, soft, nontender, bowel sounds active EXTREMITIES: BLE SKIN: Abrasion to cheeks, no active drainage TUBE CARRIER: alert and oriented x 3 (Rubina Chavez) Assessment and Plan Assessment: (1) Hepatic steatosis ICD Codes: K76.0 - Fatty (change of) liver, not elsewhere classified (2) Pancreatitis ICD Codes: K85.90 - Acute pancreatitis without necrosis or infection, unspecified Plan - pancreatitis - inital , managed in intensivecare setting. CT abd no contrast no acute abd findings and pancreas WNL - ileus - resolved, bowel sounds active, tolerating regular food, appetite back to normal - elevated LFTs - unclear etiology. Probable fatty liver disease noted per CT. US liver unremarkable. no hx heavy drinking reported. hepatitis panel neg . Liver w/u unremarkable 05/06/17 [place] [facility] [place] Some improvement abd pain. tolerating clears. +multiple BM documented, ileus improving. WBC somewhat improved today. will rck lipsae 05/07/17 lipase down to 512 today, LFTs now WNL. very lethargic. pt c/o abd pain. on clears. No BM (05/08) KIANA score on admission- 13 points showing 12% chance of mortality. Lipase now trending down and WNL-328. LFTs now WNL. Liver RUSH unremarkable. Ileus- repeat KUB (05/07) --> Gaseous distention of multiple loops likely ileus. This is slightly more prominent on currently study. Pt currently on Reglan. Reports two BMs since yesterday with good relief. GS now following and has ordered CT abdomen and 05/09/17 - seems bit more distended today, having n/v last night and this morning. Not eating much. CT ABD 05/08 showed ileus, improve appearance pancreas lipase improved today, 328. Pt now says she only had one small BM yesterday and does not feel much better. No BM today. GS following 05/10/17 NGT removed, tolerating Fulls okay, lipase wnl wbc trending down 05/11/17 Patient (+) for flatus and BM, no nausea or vomiting, some mild abd pain , WBC trending down, however lipase is going up after advancing diet yesterday 05/12/17 +BM. n/v improving, abd pain improving. WBC trending down. lipase stable, will try low fat foods as full liquid diet can have alot of fat 05/13/17, [place], stable at 10.6, no obvious bleeding, WBC 12.8 decreasing. Diet Heart Healthy soft, tolerating well, hungry. No nausea, vomiting. No ABd. pain 05/14/17, continues to improve gradual, no obvious abdominal pain while sounds are active, patient ate outside fried shrimp dinner her family brought her, HIDA scan done on 05/13/17 negative/unremarkable, BM 1 in the past 24 hours, anemia and hemoglobin 10.6 no obvious bleeding 05/15/17, Appetite continues to improve, Diet tolerating Regular low NA. , Mild Abd. bloating, but denies any acute Abd. pain, Walked with PT 12 steps today. Labs HGB 10.6, Lipase 995, LFTs normal (05/16) --> Pt tolerating heart healthy diet. Reports occasional nausea, denies emesis. Reports 2 BMs yesterday. (+) Flatus. Denies abdominal pain. Some increase in lipase today, although pt is clinically improving. LFTs remain WNL. Pt now on Creon with meals. Plan: Continue Creon Continue to monitor labs Continue Pepcid Continue Reglan PRN Monitor stool count Supportive care Pt has been seen and examined by myself and and this note is written on her behalf (Rubina Chavez) Rubina Chavez May 16, 2017 08:53 Aliyah Gill MD May 16, 2017 20:43
[2017-05-16] MEDS: LIPASE/PROTEASE/AMYLASE (12,000/38,000/60,000) CAP PO SCH ×3 (08:59→16:28)
[2017-05-16] MEDS: SERTRALINE HCL 100 MG TAB PO SCH (08:59)
[2017-05-16] MEDS: HEPARIN SODIUM - SQ 10,000 UNITS/ML VIAL SQ SCH ×2 (08:59→19:38)
[2017-05-16] MEDS: FAMOTIDINE 20 MG TAB PO SCH ×2 (08:59→19:37)
[2017-05-16] MEDS: SENNOSIDES SYRUP 8.8 MG/5 ML CUP OG-TUBE SCH ×2 (09:00→19:37)
[2017-05-16] MEDS: predniSONE 20 MG TAB PO SCH (09:00)
[2017-05-16 12:00] VITALS: BP 137/88; PULSE 66; RESP 18; TEMP 98.3; O2SAT 99
--- NOTE | 2017-05-16 15:05 | HHI.PR ---
Subjective Remarks Follow-up weakness. The patient feels that she is getting stronger each day. Today she ambulated 48 feet with physical therapy. She is still complaining of heartburn. No chest pain or dyspnea. No nausea or vomiting. Objective Vitals Vital Signs Date Time Temp Pulse Resp B/P (MAP) Pulse Ox O2 Delivery O2 Flow Rate FiO2 05/16/17 12:00 98.3 66 18 137/88 (104) 99 05/16/17 08:11 98 Nasal Cannula 4.00 05/16/17 08:00 98.7 83 19 126/88 (101) 97 05/16/17 00:00 98.6 71 14 149/80 (103) 98 05/15/17 20:00 97.1 72 16 143/70 (94) 99 05/15/17 18:10 97 Nasal Cannula 4.00 05/15/17 16:00 98.2 79 17 139/85 (103) 97 I/O 05/15/17 05/15/17 05/15/17 05/16/17 05/16/17 05/16/17 07:00 15:00 23:00 07:00 15:00 23:00 Intake Total 120 ml 1200 ml 650 ml Output Total 1250 ml Balance 120 ml -50 ml 650 ml Intake Oral 120 ml 1200 ml 650 ml Output Urine Total 1250 ml # Voids 6 6 # Bowel Movements 1 2 1 Result Diagram: 05/15/17 0605 05/15/17 0605 Imaging Last Impressions Hepatobiliary Scan Nuclear Medicine 05/13/17 0000 Signed Impressions: Service Date/Time: Saturday, May 13, 2017 11:05 - CONCLUSION: Negative biliary scan Amado Triana MD Abdomen X-Ray 05/11/17 0600 Signed Impressions: Service Date/Time: Thursday, May 11, 2017 05:03 - CONCLUSION: Slightly decreased distention today. Acosta Ruiz MD Abdomen/Pelvis CT 05/08/17 0000 Signed Impressions: Service Date/Time: May 16:58 - CONCLUSION: 1. Abnormal bowel gas pattern is now noted most characteristic of an ileus. 2. Improved appearance of the pancreas on this noncontrast study with suboptimal visualization. Previously noted fluid surrounding the head is no longer visualized and there is no definite inflammatory change. 3. The gallbladder appears unremarkable. There is no evidence of biliary obstruction. 4. Patchy areas of consolidation in both posterior lung bases improved from the prior study. Zeke Cobb MD Chest X-Ray 05/04/17 0000 Signed Impressions: Service Date/Time: Thursday, May 04, 2017 03:55 - CONCLUSION: Mild increased density in the perihilar regions related to mild edema. This is improving from the prior exam. Davey Lutz MD Liver Ultrasound 04/26/17 0000 Signed Impressions: Service Date/Time: Wednesday, April 26, 2017 16:44 - CONCLUSION: Echogenic right kidney which can be seen with medical renal disease, otherwise unremarkable right upper quadrant sonogram. Roque Gutiérrez MD Chest CT 04/24/17 1327 Signed Impressions: Service Date/Time: April 13:46 - CONCLUSION: Patchy groundglass infiltrates throughout all lobes of the lungs. It is most prominent in the perihilar distribution but also more peripheral areas. I did not see a mass amenable to biopsy with CT guidance. Jay Weaver MD Objective Remarks General: Obese female in no acute distress. Sitting up in a chair. Heart: Regular rate and rhythm. No murmur. Lungs: Clear to auscultation bilaterally. No wheezes, rales, or rhonchi. Breathing is nonlabored. Abdomen: Soft, nontender, mildly distended. Extremities: No lower extremity edema. Psych: Alert and oriented. Neuro: Weakness of both lower extremities, left greater than right, slightly better today. Procedures Intubation/Extubation Urinary Catheter: No Vascular Central Line Catheter: No A/P Problem List: (1) Adult respiratory distress syndrome ICD Code: J80 - Acute respiratory distress syndrome (2) Acute respiratory failure with hypoxia ICD Code: J96.01 - Acute respiratory failure with hypoxia (3) Pneumonia ICD Code: J18.9 - Pneumonia, unspecified organism Status: Acute (4) Acute renal failure ICD Code: N17.9 - Acute kidney failure, unspecified (5) Increased anion gap metabolic acidosis ICD Code: E87.2 - Acidosis (6) Diarrhea ICD Code: R19.7 - Diarrhea, unspecified (7) Hyponatremia ICD Code: E87.1 - Hypo-osmolality and hyponatremia (8) Leukocytosis ICD Code: D72.829 - Elevated white blood cell count, unspecified (9) Lactic acidosis ICD Code: E87.2 - Acidosis (10) Renal failure ICD Code: N19 - Unspecified kidney failure Status: Acute (11) Hyperglycemia ICD Code: R73.9 - Hyperglycemia, unspecified (12) Elevated lipase ICD Code: R74.8 - Abnormal levels of other serum enzymes (13) Tobacco use ICD Code: Z72.0 - Tobacco use Assessment and Plan 1. Hypoxemic respiratory failure, pneumonia, pulmonary hypertension: Continue Azactam. Appreciate infectious disease recommendations. Patient is status post intubation. Continue Lasix. Continue nebulizers. Currently stable on room air. 2. Ileus: Improved. Patient tolerating diet. Appreciate GI recommendations. 3. Pancreatitis: Persistent elevation of lipase. Patient has no abdominal pain at this time. HIDA scan is negative. 4. History of depression, mood disorder: Continue home medications. 5. Tobacco abuse: Counseled to quit smoking. 6. Debility, generalized weakness: Physical therapy 7 days per week. Improving. Left lower extremity weakness improving. 7. Acute renal failure: Resolved. Likely ATN secondary to hypoperfusion. 8. GI prophylaxis: Famotidine. Tums as needed for heartburn. 9. DVT prophylaxis: SCDs, heparin. Discharge Planning Patient continues to be weak. Would require SNF placement, but has no payor source. Plan will be to discharge home with home health care when patient is strong enough. Problem Qualifiers (1) Pneumonia: Maurice Garcia MD May 16, 2017 15:05
[2017-05-16 16:00] VITALS: BP 137/95; PULSE 83; RESP 18; TEMP 97.7; O2SAT 95
--- NOTE | 2017-05-16 17:07 | HHI.IDPN ---
Note Infectious Disease Note Patient is awake and alert. Says she feels good. Afebrile. Patient is stable from ID standpoint. I will sign off now. Please call if further input is needed. Rikki Walker MD May 16, 2017 17:07
[2017-05-16] MEDS: OLANZapine 5 MG TAB PO SCH (19:37)
[2017-05-16] MEDS: PRAVASTATIN SOD 20 MG TAB PO SCH (19:37)
[2017-05-16 20:00] VITALS: BP 151/87; PULSE 78; RESP 18; TEMP 99.1; O2SAT 98
[2017-05-17 01:50] VITALS: BP 122/74; PULSE 76; RESP 20; TEMP 98.8; O2SAT 97
[2017-05-17] MEDS: CHLORHEXIDINE GLUCONATE 2 % 1 PACK (2 CLOTHS) TOP SCH (02:35)
[2017-05-17] MEDS: METOCLOPRAMIDE HCL 10 MG/2 ML VIAL IV PUSH SCH ×3 (02:35→17:03)
[2017-05-17] MEDS: FREE WATER G-TUBE SCH ×5 (05:46→22:43)
[2017-05-17] MEDS: LIPASE/PROTEASE/AMYLASE (12,000/38,000/60,000) CAP PO SCH ×3 (08:44→17:03)
[2017-05-17] MEDS: SERTRALINE HCL 100 MG TAB PO SCH (08:44)
[2017-05-17] MEDS: predniSONE 20 MG TAB PO SCH (08:44)
[2017-05-17] MEDS: HEPARIN SODIUM - SQ 10,000 UNITS/ML VIAL SQ SCH ×2 (08:44→22:40)
[2017-05-17] MEDS: FAMOTIDINE 20 MG TAB PO SCH ×2 (08:44→22:40)
[2017-05-17] MEDS: SENNOSIDES SYRUP 8.8 MG/5 ML CUP OG-TUBE SCH ×2 (08:56→22:40)
[2017-05-17] MEDS ORDERED: Calcium Carbonate Chew CHEW (10:55)
--- NOTE | 2017-05-17 10:56 | HHI.DCPOC ---
Discharge Care Plan Diagnosis: (1) Ileus (2) Generalized weakness (3) Pancreatitis (4) Acute respiratory failure with hypoxia (5) Acute renal failure Goals to Promote Your Health * To prevent worsening of your condition and complications * To maintain your health at the optimal level Directions to Meet Your Goals Take your medications as prescribed Follow your dietary instruction Follow activity as directed Keep your appointments as scheduled Take your immunizations and boosters as scheduled If your symptoms worsen call your PCP, if no PCP go to Urgent Care Center or Emergency Room Smoking is Dangerous to Your Health. Avoid second hand smoke Call the 24-hour hour crisis hotline for domestic abuse at Maurice Garcia MD May 17, 2017 10:56
--- NOTE | 2017-05-17 10:59 | HHI.PR ---
Subjective Remarks Follow-up generalized weakness. The patient states that she continues to feel stronger each day. She was able to ambulate a little bit farther today with physical therapy. Denies nausea or vomiting. Heartburn has resolved. Objective Vitals Vital Signs Date Time Temp Pulse Resp B/P (MAP) Pulse Ox O2 Delivery O2 Flow Rate FiO2 05/17/17 01:50 98.8 76 20 122/74 (90) 97 05/16/17 20:00 99.1 78 18 151/87 (108) 98 05/16/17 16:00 97.7 83 18 137/95 (109) 95 05/16/17 12:00 98.3 66 18 137/88 (104) 99 I/O 05/16/17 05/16/17 05/16/17 05/17/17 05/17/17 05/17/17 07:00 15:00 23:00 07:00 15:00 23:00 Intake Total 650 ml 860 ml Balance 650 ml 860 ml Intake Oral 650 ml 860 ml # Voids 6 5 6 # Bowel Movements 1 1 2 Result Diagram: 05/15/17 0605 05/15/17 0605 Imaging Last Impressions Hepatobiliary Scan Nuclear Medicine 05/13/17 0000 Signed Impressions: Service Date/Time: Saturday, May 13, 2017 11:05 - CONCLUSION: Negative biliary scan Amado Triana MD Abdomen X-Ray 05/11/17 0600 Signed Impressions: Service Date/Time: Thursday, May 11, 2017 05:03 - CONCLUSION: Slightly decreased distention today. Acosta Ruiz MD Abdomen/Pelvis CT 05/08/17 0000 Signed Impressions: Service Date/Time: May 16:58 - CONCLUSION: 1. Abnormal bowel gas pattern is now noted most characteristic of an ileus. 2. Improved appearance of the pancreas on this noncontrast study with suboptimal visualization. Previously noted fluid surrounding the head is no longer visualized and there is no definite inflammatory change. 3. The gallbladder appears unremarkable. There is no evidence of biliary obstruction. 4. Patchy areas of consolidation in both posterior lung bases improved from the prior study. Zeke Cobb MD Chest X-Ray 05/04/17 0000 Signed Impressions: Service Date/Time: Thursday, May 04, 2017 03:55 - CONCLUSION: Mild increased density in the perihilar regions related to mild edema. This is improving from the prior exam. aDvey Lutz MD Liver Ultrasound 04/26/17 0000 Signed Impressions: Service Date/Time: Wednesday, April 26, 2017 16:44 - CONCLUSION: Echogenic right kidney which can be seen with medical renal disease, otherwise unremarkable right upper quadrant sonogram. Roque Gutiérrez MD Chest CT 04/24/17 1327 Signed Impressions: Service Date/Time: April 13:46 - CONCLUSION: Patchy groundglass infiltrates throughout all lobes of the lungs. It is most prominent in the perihilar distribution but also more peripheral areas. I did not see a mass amenable to biopsy with CT guidance. Jay Weaver MD Objective Remarks General: Obese female in no acute distress. Heart: Regular rate and rhythm. No murmur. Lungs: Clear to auscultation bilaterally. No wheezes, rales, or rhonchi. Breathing is nonlabored. Abdomen: Soft, nontender, mildly distended. Extremities: No lower extremity edema. Psych: Alert and oriented. Procedures Intubation/Extubation Urinary Catheter: No Vascular Central Line Catheter: No A/P Problem List: (1) Adult respiratory distress syndrome ICD Code: J80 - Acute respiratory distress syndrome (2) Acute respiratory failure with hypoxia ICD Code: J96.01 - Acute respiratory failure with hypoxia (3) Pneumonia ICD Code: J18.9 - Pneumonia, unspecified organism Status: Acute (4) Acute renal failure ICD Code: N17.9 - Acute kidney failure, unspecified (5) Increased anion gap metabolic acidosis ICD Code: E87.2 - Acidosis (6) Diarrhea ICD Code: R19.7 - Diarrhea, unspecified (7) Hyponatremia ICD Code: E87.1 - Hypo-osmolality and hyponatremia (8) Leukocytosis ICD Code: D72.829 - Elevated white blood cell count, unspecified (9) Lactic acidosis ICD Code: E87.2 - Acidosis (10) Renal failure ICD Code: N19 - Unspecified kidney failure Status: Acute (11) Hyperglycemia ICD Code: R73.9 - Hyperglycemia, unspecified (12) Elevated lipase ICD Code: R74.8 - Abnormal levels of other serum enzymes (13) Tobacco use ICD Code: Z72.0 - Tobacco use Assessment and Plan 1. Hypoxemic respiratory failure, pneumonia, pulmonary hypertension: Continue Azactam. Appreciate infectious disease recommendations. Patient is status post intubation. Continue Lasix. Currently stable on room air. 2. Ileus: Improved. Patient tolerating diet. Appreciate GI recommendations. 3. Pancreatitis: Persistent elevation of lipase. Patient has no abdominal pain at this time. HIDA scan is negative. 4. History of depression, mood disorder: Continue home medications. 5. Tobacco abuse: Counseled to quit smoking. 6. Debility, generalized weakness: Physical therapy 7 days per week. Improving. Left lower extremity weakness improving. 7. Acute renal failure: Resolved. Likely ATN secondary to hypoperfusion. 8. GI prophylaxis: Famotidine. Tums as needed for heartburn. 9. DVT prophylaxis: SCDs, heparin. Discharge Planning Discharge to inpatient rehab if arrangements can be made. If not able to arrange discharge to inpatient rehab, patient will need to remain in hospital until strong enough to navigate 2 flights of stairs at her home. Problem Qualifiers (1) Pneumonia: Maurice Garcia MD May 17, 2017 10:59
[2017-05-17 12:00] VITALS: BP 139/91; PULSE 81; RESP 19; TEMP 97.4; O2SAT 97
[2017-05-17 16:00] VITALS: BP 158/96; PULSE 90; RESP 19; TEMP 97; O2SAT 95
[2017-05-17 19:52] VITALS: O2SAT 95
[2017-05-17 20:00] VITALS: BP 143/89; PULSE 70; RESP 18; TEMP 98.9; O2SAT 98
[2017-05-17] MEDS: PRAVASTATIN SOD 20 MG TAB PO SCH (22:40)
[2017-05-17] MEDS: OLANZapine 5 MG TAB PO SCH (22:40)
[2017-05-18] VITALS: BP 153/80; PULSE 69; RESP 18; TEMP 99.1; O2SAT 99
[2017-05-18] MEDS: METOCLOPRAMIDE HCL 10 MG/2 ML VIAL IV PUSH SCH ×3 (02:00→17:05)
[2017-05-18] MEDS: CHLORHEXIDINE GLUCONATE 2 % 1 PACK (2 CLOTHS) TOP SCH (04:00)
[2017-05-18] MEDS: FREE WATER G-TUBE SCH ×4 (06:00→19:35)
[2017-05-18 07:27] LABS: HEMATOCRIT 29.5 % (35.0-46.0); HEMOGLOBIN 10.1 GM/DL (11.6-15.3); MEAN CELL VOLUME 94.9 FL (80.0-100.0); MEAN CORPUSCULAR HEMOGLOBIN 32.4 PG (27.0-34.0); MEAN CORPUSCULAR HGB CONC 34.1 % (32.0-36.0); PLATELET COUNT 232 TH/MM3 (150-450); RED BLOOD COUNT 3.11 MIL/MM3 (4.00-5.30); WHITE BLOOD COUNT 10.1 TH/MM3 (4.0-11.0)
[2017-05-18 07:56] LABS: ALBUMIN 2.5 GM/DL (3.4-5.0); ALT (GPT) 28 U/L (10-53); AST (GOT) 11 U/L (15-37); BICARBONATE 24.9 MEQ/L (21.0-32.0); BLOOD UREA NITROGEN 21 MG/DL (7-18); CALCIUM 8.8 MG/DL (8.5-10.1); CHLORIDE 107 MEQ/L (98-107); CREATININE 0.69 MG/DL (0.50-1.00); GLOMERULAR FILTRATION RATE 108 ML/MIN (>89); GLUCOSE,RANDOM 89 MG/DL (74-106); SODIUM (NA) 141 MEQ/L (136-145)
[2017-05-18 07:59] LABS: ALKALINE PHOSPHATASE 98 U/L (45-117); TOTAL BILIRUBIN ADULT 0.2 MG/DL (0.2-1.0); TOTAL PROTEIN 6.5 GM/DL (6.4-8.2)
[2017-05-18 08:00] VITALS: BP 139/77; PULSE 89; RESP 20; TEMP 98.7; O2SAT 97
[2017-05-18] MEDS ORDERED: DIATRIZOATE MEGLUM/DIATRIZOATE SOD 9 ML CUP PO ONE (08:00)
[2017-05-18] MEDS: SERTRALINE HCL 100 MG TAB PO SCH (08:03)
[2017-05-18] MEDS: FAMOTIDINE 20 MG TAB PO SCH ×2 (08:03→19:34)
[2017-05-18] MEDS: HEPARIN SODIUM - SQ 10,000 UNITS/ML VIAL SQ SCH ×2 (08:03→19:34)
[2017-05-18] MEDS: predniSONE 20 MG TAB PO SCH (08:03)
[2017-05-18] MEDS: LIPASE/PROTEASE/AMYLASE (12,000/38,000/60,000) CAP PO SCH ×3 (08:03→17:05)
[2017-05-18] MEDS: SENNOSIDES SYRUP 8.8 MG/5 ML CUP OG-TUBE SCH ×2 (08:03→19:34)
[2017-05-18 12:00] VITALS: BP 155/95; PULSE 81; RESP 17; TEMP 99.1; O2SAT 99
--- NOTE | 2017-05-18 12:13 | HHI.GIFU ---
Subjective Remarks Pt sitting in bedside chair, drinking contrast for repeat CT scan. States no GI complaints at this time. She is hungry, unable to eat breakfast because of CT scan ordered. Denies nausea, vomiting, abdominal pain. Planning on going to inpatient rehab. (Rubina Chavez) Objective Vitals I&O Vital Signs Date Time Temp Pulse Resp B/P (MAP) Pulse Ox O2 Delivery O2 Flow Rate FiO2 05/18/17 08:00 98.7 89 20 139/77 (97) 97 05/18/17 00:00 99.1 69 18 153/80 (104) 99 05/17/17 20:00 98.9 70 18 143/89 (107) 98 05/17/17 19:52 95 21 05/17/17 16:00 97.0 90 19 158/96 (116) 95 I/O 05/17/17 05/17/17 05/17/17 05/18/17 05/18/17 05/18/17 07:00 15:00 23:00 07:00 15:00 23:00 Intake Total 960 ml 120 ml Output Total 400 ml Balance 960 ml -400 ml 120 ml Intake Oral 960 ml 120 ml Output Urine Total 400 ml # Voids 6 7 # Bowel Movements 2 2 1 Laboratory Laboratory Tests Test 05/17/17 16:08 05/18/17 06:54 Lipase 1142 988 White Blood Count 10.1 Red Blood Count 3.11 Hemoglobin 10.1 Hematocrit 29.5 Mean Corpuscular Volume 94.9 Mean Corpuscular Hemoglobin 32.4 Mean Corpuscular Hemoglobin Concent 34.1 Red Cell Distribution Width 18.0 Platelet Count 232 Mean Platelet Volume 7.0 Blood Urea Nitrogen 21 Creatinine 0.69 Random Glucose 89 Total Protein 6.5 Albumin 2.5 Calcium Level 8.8 Alkaline Phosphatase 98 Aspartate Amino Transf (AST/SGOT) 11 Alanine Aminotransferase (ALT/SGPT) 28 Total Bilirubin 0.2 Sodium Level 141 Potassium Level 3.5 Chloride Level 107 Carbon Dioxide Level 24.9 Anion Gap 9 Estimat Glomerular Filtration Rate 108 Date/Time Source Procedure Growth Status 04/29/17 18:49 Blood Peripheral Aerobic Blood Culture - Final NO GROWTH IN 5 DAYS Complete 04/29/17 18:49 Blood Peripheral Anaerobic Blood Culture - Final NO GROWTH IN 5 DAYS Complete 04/28/17 10:45 Sputum Endotracheal Gram Stain - Final Complete 04/28/17 10:45 Sputum Endotracheal Sputum Culture - Final NO GROWTH IN 48 HOURS. Complete 04/24/17 16:25 Urine Random Urine Legionella Antigen - Final PRESUMPTIVE NEGATIVE FOR LEGIONELLA P... Complete 04/24/17 16:25 Urine Random Urine Streptococcus pneumoniae Antigen (M - Final PRESUMPTIVE NEGATIVE FOR STREPTOCOCCU... Complete Imaging Last Impressions Hepatobiliary Scan Nuclear Medicine 05/13/17 0000 Signed Impressions: Service Date/Time: Saturday, May 13, 2017 11:05 - CONCLUSION: Negative biliary scan Amado Triana MD Abdomen X-Ray 05/11/17 0600 Signed Impressions: Service Date/Time: Thursday, May 11, 2017 05:03 - CONCLUSION: Slightly decreased distention today. Acosta Ruiz MD Abdomen/Pelvis CT 05/08/17 0000 Signed Impressions: Service Date/Time: May 16:58 - CONCLUSION: 1. Abnormal bowel gas pattern is now noted most characteristic of an ileus. 2. Improved appearance of the pancreas on this noncontrast study with suboptimal visualization. Previously noted fluid surrounding the head is no longer visualized and there is no definite inflammatory change. 3. The gallbladder appears unremarkable. There is no evidence of biliary obstruction. 4. Patchy areas of consolidation in both posterior lung bases improved from the prior study. Zeke Cobb MD Chest X-Ray 05/04/17 0000 Signed Impressions: Service Date/Time: Thursday, May 04, 2017 03:55 - CONCLUSION: Mild increased density in the perihilar regions related to mild edema. This is improving from the prior exam. Davey Lutz MD Liver Ultrasound 04/26/17 0000 Signed Impressions: Service Date/Time: Wednesday, April 26, 2017 16:44 - CONCLUSION: Echogenic right kidney which can be seen with medical renal disease, otherwise unremarkable right upper quadrant sonogram. Roque Gutiérrez MD Chest CT 04/24/17 1327 Signed Impressions: Service Date/Time: April 13:46 - CONCLUSION: Patchy groundglass infiltrates throughout all lobes of the lungs. It is most prominent in the perihilar distribution but also more peripheral areas. I did not see a mass amenable to biopsy with CT guidance. Jay Weaver MD Physical Exam HEENT: Normocephalic CHEST: Even/unlabored. RA CARDIAC: RRR ABDOMEN: Obese, soft, nontender, bowel sounds active EXTREMITIES: BLE SKIN: Abrasion to cheeks, no active drainage PSYCHOLOGIST RESEARCH ASSISTANT: alert and oriented x 3 (Rubina Chavez) Assessment and Plan Assessment: (1) Hepatic steatosis ICD Codes: K76.0 - Fatty (change of) liver, not elsewhere classified (2) Pancreatitis ICD Codes: K85.90 - Acute pancreatitis without necrosis or infection, unspecified Plan - pancreatitis - inital , managed in intensivecare setting. CT abd no contrast no acute abd findings and pancreas WNL - ileus - resolved, bowel sounds active, tolerating regular food, appetite back to normal - elevated LFTs - unclear etiology. Probable fatty liver disease noted per CT. US liver unremarkable. no hx heavy drinking reported. hepatitis panel neg . Liver w/u unremarkable 05/06/17 - transferred from [facility] [place]. Some improvement abd pain. tolerating clears. +multiple BM documented, ileus improving. WBC somewhat improved today. will rck lipsae 05/07/17 lipase down to 512 today, LFTs now WNL. very lethargic. pt c/o abd pain. on clears. No BM (05/08) [place] score on admission- 13 points showing 12% chance of mortality. Lipase now trending down and WNL-328. LFTs now WNL. Liver RUSH unremarkable. Ileus- repeat KUB (05/07) --> Gaseous distention of multiple loops likely ileus. This is slightly more prominent on currently study. Pt currently on Reglan. Reports two BMs since yesterday with good relief. GS now following and has ordered CT abdomen and 05/09/17 - seems bit more distended today, having n/v last night and this morning. Not eating much. CT ABD 05/08 showed ileus, improve appearance pancreas lipase improved today, 328. Pt now says she only had one small BM yesterday and does not feel much better. No BM today. GS following 05/10/17 NGT removed, tolerating Fulls okay, lipase wnl wbc trending down 05/11/17 Patient (+) for flatus and BM, no nausea or vomiting, some mild abd pain , WBC trending down, however lipase is going up after advancing diet yesterday 05/12/17 +BM. n/v improving, abd pain improving. WBC trending down. lipase stable, will try low fat foods as full liquid diet can have alot of fat 05/13/17, [place], stable at 10.6, no obvious bleeding, WBC 12.8 decreasing. Diet Heart Healthy soft, tolerating well, hungry. No nausea, vomiting. No ABd. pain 05/14/17, continues to improve gradual, no obvious abdominal pain while sounds are active, patient ate outside fried shrimp dinner her family brought her, HIDA scan done on 05/13/17 negative/unremarkable, BM 1 in the past 24 hours, anemia and hemoglobin 10.6 no obvious bleeding 05/15/17, Appetite continues to improve, Diet tolerating Regular low NA. , Mild Abd. bloating, but denies any acute Abd. pain, Walked with PT 12 steps today. Labs HGB 10.6, Lipase 995, LFTs normal (05/16) --> Pt tolerating heart healthy diet. Reports occasional nausea, denies emesis. Reports 2 BMs yesterday. (+) Flatus. Denies abdominal pain. Some increase in lipase today, although pt is clinically improving. LFTs remain WNL. Pt now on Creon with meals. (05/18) --> Improvement in lipase today. Remains with no GI complaints. Tolerating diet with no nausea, vomiting, abdominal pain. Reports 2 BMS today, normal. Repeat CT scan to be done today, pt currently drinking contrast. Pt planned for discharge to inpatient rehab, possibly [facility]. Plan: Repeat CT abdomen and pelvis pending Continue Creon Continue to monitor labs Continue Pepcid Continue Reglan PRN Supportive care Pt has been seen and examined by myself and Dr. Kumar and this note is written on her behalf (Rubina Chavez) Physician Comments Patient seen and examined Agree with above Continue with current supportive care Monitor labs Repeat CT shows great improvement All parameters appeared to be improving (Franklyn Kumar MD) Rubina Chavez May 18, 2017 12:12 Franklyn Kumar MD May 18, 2017 19:05
[2017-05-18] MEDS ORDERED: IOHEXOL 350 MG/ML 10 ML VIAL (for RAD DIAG) IVCONTRAST ONE (12:30)
--- NOTE | 2017-05-18 12:39 | RADRPT ---
EXAM DATE/TIME: 05/18/2017 12:22 [facility] COMPARISON: CT ABDOMEN & PELVIS W/O CONTRAST, May 08, 2017, 16:58. CT ABDOMEN & PELVIS W CONTRAST, May 02, 2017, 4:57. INDICATIONS : Abdominal pain. Acute pancreatitis. IV CONTRAST: 100 cc Omnipaque 350 (iohexol) IV ORAL CONTRAST: Prescribed oral contrast ingested. RADIATION DOSE: 19.79 CTDIvol (mGy) MEDICAL HISTORY : None SURGICAL HISTORY : None. ENCOUNTER: Initial ACUITY: 1 day PAIN SCALE: 1/10 LOCATION: abdomen TECHNIQUE: Volumetric scanning of the abdomen and pelvis was performed. Using automated exposure control and ad justment of the mA and/or kV according to patient size, radiation dose was kept as low as reasonably achievable to obtain optimal diagnostic quality images. DICOM format image data is available electro nically for review and comparison. FINDINGS: LOWER LUNGS: There has been improvement in the lung exam with minimal bilateral interstitial edema present within the lung bases. LIVER: Homogeneous density without lesion. There is no dilation of the biliary tree. No calcified gallston es. SPLEEN: Normal size without lesion. PANCREAS: Within normal limits. No inflammatory changes are noted. No evidence of pancreatic necrosis. No pseud ocyst. KIDNEYS: Normal in size and shape. There is no concerning mass, stone or hydronephrosis. Benign left renal cy sts. ADRENAL GLANDS: Within normal limits. VASCULAR: There is no aortic aneurysm. BOWEL/MESENTERY: The stomach, small bowel, and colon demonstrate no acute abnormality. There is no free intraperitone al air or fluid. The dilation of the small bowel has completely resolved. ABDOMINAL WALL: Within normal limits. RETROPERITONEUM: There is no lymphadenopathy. BLADDER: No wall thickening or mass. REPRODUCTIVE: Within normal limits. INGUINAL: There is no lymphadenopathy or hernia. MUSCULOSKELETAL: Within normal limits for patient age. CONCLUSION: Significantly improved exam with almost complete resolution of the interstitial edema identified with in the lung bases. The abnormal dilation of the small bowel has completely resolved. The pancreas is normal in appearance without evidence of necrosis or pseudocyst.. Raisa Griffiths MD on May 18, 2017 at 12:32 Board Certified Radiologist. This report was verified electronically.
--- NOTE | 2017-05-18 15:54 | HHI.PR ---
Subjective Remarks Follow up weakness. Patient is concerned about her BP being elevated. She continues to be able to ambulate greater distances with PT. Left foot "moving better". Objective Vitals Vital Signs Date Time Temp Pulse Resp B/P (MAP) Pulse Ox O2 Delivery O2 Flow Rate FiO2 05/18/17 12:00 99.1 81 17 155/95 (115) 99 05/18/17 08:00 98.7 89 20 139/77 (97) 97 05/18/17 00:00 99.1 69 18 153/80 (104) 99 05/17/17 20:00 98.9 70 18 143/89 (107) 98 05/17/17 19:52 95 21 05/17/17 16:00 97.0 90 19 158/96 (116) 95 I/O 05/17/17 05/17/17 05/17/17 05/18/17 05/18/17 05/18/17 06:59 14:59 22:59 06:59 14:59 22:59 Intake Total 960 ml 120 ml Output Total 400 ml Balance 960 ml -400 ml 120 ml Intake Oral 960 ml 120 ml Output Urine Total 400 ml # Voids 6 7 # Bowel Movements 2 2 1 Result Diagram: 05/18/17 0654 05/18/17 0654 Imaging Last Impressions Abdomen/Pelvis CT 05/17/17 0000 Signed Impressions: Service Date/Time: Thursday, May 18, 2017 12:22 - CONCLUSION: Significantly improved exam with almost complete resolution of the interstitial edema identified within the lung bases. The abnormal dilation of the small bowel has completely resolved. The pancreas is normal in appearance without evidence of necrosis or pseudocyst.. Raisa Griffiths MD Hepatobiliary Scan Nuclear Medicine 05/13/17 0000 Signed Impressions: Service Date/Time: Saturday, May 13, 2017 11:05 - CONCLUSION: Negative biliary scan Amado Triana MD Abdomen X-Ray 05/11/17 0600 Signed Impressions: Service Date/Time: Thursday, May 11, 2017 05:03 - CONCLUSION: Slightly decreased distention today. Acosta Ruiz MD Chest X-Ray 05/04/17 0000 Signed Impressions: Service Date/Time: Thursday, May 04, 2017 03:55 - CONCLUSION: Mild increased density in the perihilar regions related to mild edema. This is improving from the prior exam. Davey Lutz MD Liver Ultrasound 04/26/17 0000 Signed Impressions: Service Date/Time: Wednesday, April 26, 2017 16:44 - CONCLUSION: Echogenic right kidney which can be seen with medical renal disease, otherwise unremarkable right upper quadrant sonogram. Roque Gutiérrez MD Chest CT 04/24/17 1327 Signed Impressions: Service Date/Time: April 13:46 - CONCLUSION: Patchy groundglass infiltrates throughout all lobes of the lungs. It is most prominent in the perihilar distribution but also more peripheral areas. I did not see a mass amenable to biopsy with CT guidance. Jay Weaver MD Objective Remarks General: Obese female in no acute distress. Heart: Regular rate and rhythm. No murmur. Lungs: Clear to auscultation bilaterally. No wheezes, rales, or rhonchi. Breathing is nonlabored. Abdomen: Soft, nontender, mildly distended. Extremities: No lower extremity edema. Psych: Alert and oriented. Procedures Intubation/Extubation Urinary Catheter: No Vascular Central Line Catheter: No A/P Problem List: (1) Adult respiratory distress syndrome ICD Code: J80 - Acute respiratory distress syndrome (2) Acute respiratory failure with hypoxia ICD Code: J96.01 - Acute respiratory failure with hypoxia (3) Pneumonia ICD Code: J18.9 - Pneumonia, unspecified organism Status: Acute (4) Acute renal failure ICD Code: N17.9 - Acute kidney failure, unspecified (5) Increased anion gap metabolic acidosis ICD Code: E87.2 - Acidosis (6) Diarrhea ICD Code: R19.7 - Diarrhea, unspecified (7) Hyponatremia ICD Code: E87.1 - Hypo-osmolality and hyponatremia (8) Leukocytosis ICD Code: D72.829 - Elevated white blood cell count, unspecified (9) Lactic acidosis ICD Code: E87.2 - Acidosis (10) Renal failure ICD Code: N19 - Unspecified kidney failure Status: Acute (11) Hyperglycemia ICD Code: R73.9 - Hyperglycemia, unspecified (12) Elevated lipase ICD Code: R74.8 - Abnormal levels of other serum enzymes (13) Tobacco use ICD Code: Z72.0 - Tobacco use Assessment and Plan 1. Hypoxemic respiratory failure, pneumonia, pulmonary hypertension: Continue Azactam. Appreciate infectious disease recommendations. Patient is status post intubation. Continue Lasix. Currently stable on room air. 2. Ileus: Improved. Patient tolerating diet. Appreciate GI recommendations. 3. Pancreatitis: Persistent elevation of lipase. Patient has no abdominal pain at this time. HIDA scan is negative. 4. History of depression, mood disorder: Continue home medications. 5. Tobacco abuse: Counseled to quit smoking. 6. Debility, generalized weakness: Physical therapy 7 days per week. Weakness is improving. Patient ambulating greater distances each day. 7. Acute renal failure: Resolved. Likely ATN secondary to hypoperfusion. 8. GI prophylaxis: Famotidine. Tums as needed for heartburn. 9. DVT prophylaxis: SCDs, heparin. 10. Hypertension: Add amlodipine. Vasotec as needed. Discharge Planning [facility] declined the patient, so she will need to remain in hospital until strong enough to navigate 2 flights of stairs at her home. Problem Qualifiers (1) Pneumonia: Maurice Garcia MD May 18, 2017 15:54
[2017-05-18 16:00] VITALS: BP 169/105; PULSE 77; RESP 17; TEMP 98.7; O2SAT 99
[2017-05-18] MEDS ORDERED: PILL SPLITTER OTHER PRN (16:00)
[2017-05-18] MEDS: amLODIPine BESYLATE 5 MG TAB PO SCH (17:05)
[2017-05-18 18:00] VITALS: BP 121/85
[2017-05-18] MEDS: OLANZapine 5 MG TAB PO SCH (19:34)
[2017-05-18] MEDS: PRAVASTATIN SOD 20 MG TAB PO SCH (19:34)
[2017-05-18 20:00] VITALS: BP 164/97; PULSE 78; RESP 18; TEMP 98.5; O2SAT 98
[2017-05-19] VITALS (7 sets, daily range): BP systolic 135–161; BP diastolic 79–90; PULSE 78–91; RESP 18–22; TEMP 97.7–99.5; O2SAT 94–99
[2017-05-19] MEDS: METOCLOPRAMIDE HCL 10 MG/2 ML VIAL IV PUSH SCH ×3 (02:00→18:15)
[2017-05-19] MEDS: CHLORHEXIDINE GLUCONATE 2 % 1 PACK (2 CLOTHS) TOP SCH ×2 (02:16→23:24)
[2017-05-19] MEDS: FREE WATER G-TUBE SCH ×5 (06:00→23:24)
[2017-05-19] MEDS: SENNOSIDES SYRUP 8.8 MG/5 ML CUP OG-TUBE SCH ×2 (09:00→21:00)
[2017-05-19] MEDS: FAMOTIDINE 20 MG TAB PO SCH ×2 (09:18→22:21)
[2017-05-19] MEDS: HEPARIN SODIUM - SQ 10,000 UNITS/ML VIAL SQ SCH ×2 (09:18→22:21)
[2017-05-19] MEDS: SERTRALINE HCL 100 MG TAB PO SCH (09:18)
[2017-05-19] MEDS: amLODIPine BESYLATE 5 MG TAB PO SCH (09:18)
[2017-05-19] MEDS: predniSONE 20 MG TAB PO SCH (09:18)
[2017-05-19] MEDS: LIPASE/PROTEASE/AMYLASE (12,000/38,000/60,000) CAP PO SCH ×3 (09:18→18:15)
[2017-05-19] MEDS ORDERED: amLODIPine BESYLATE 5 MG TAB PO ONE (11:00)
--- NOTE | 2017-05-19 13:46 | HHI.GIFU ---
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 + formed BM. No n/v. No abd pain. (Teresita Avila) Objective Vitals I&O Vital Signs Date Time Temp Pulse Resp B/P (MAP) Pulse Ox O2 Delivery O2 Flow Rate FiO2 05/19/17 10:26 94 05/19/17 00:56 98.2 82 18 151/87 (108) 94 05/18/17 20:00 98.5 78 18 164/97 (119) 98 05/18/17 18:00 121/85 (97) 05/18/17 16:00 98.7 77 17 169/105 (126) 99 I/O 05/18/17 05/18/17 05/18/17 05/19/17 05/19/17 05/19/17 07:00 15:00 23:00 07:00 15:00 23:00 Intake Total 120 ml 960 ml Output Total 400 ml Balance -400 ml 120 ml 960 ml Intake Oral 120 ml 960 ml Output Urine Total 400 ml # Voids 4 3 # Bowel Movements 1 2 Laboratory Date/Time Source Procedure Growth Status 04/29/17 18:49 Blood Peripheral Aerobic Blood Culture - Final NO GROWTH IN 5 DAYS Complete 04/29/17 18:49 Blood Peripheral Anaerobic Blood Culture - Final NO GROWTH IN 5 DAYS Complete 04/28/17 10:45 Sputum Endotracheal Gram Stain - Final Complete 04/28/17 10:45 Sputum Endotracheal Sputum Culture - Final NO GROWTH IN 48 HOURS. Complete 04/24/17 16:25 Urine Random Urine Legionella Antigen - Final PRESUMPTIVE NEGATIVE FOR LEGIONELLA P... Complete 04/24/17 16:25 Urine Random Urine Streptococcus pneumoniae Antigen (M - Final PRESUMPTIVE NEGATIVE FOR STREPTOCOCCU... Complete Imaging Last Impressions Abdomen/Pelvis CT 05/17/17 0000 Signed Impressions: Service Date/Time: Thursday, May 18, 2017 12:22 - CONCLUSION: Significantly improved exam with almost complete resolution of the interstitial edema identified within the lung bases. The abnormal dilation of the small bowel has completely resolved. The pancreas is normal in appearance without evidence of necrosis or pseudocyst.. Raisa Griffiths MD Hepatobiliary Scan Nuclear Medicine 05/13/17 0000 Signed Impressions: Service Date/Time: Saturday, May 13, 2017 11:05 - CONCLUSION: Negative biliary scan Amado Triana MD Abdomen X-Ray 05/11/17 0600 Signed Impressions: Service Date/Time: Thursday, May 11, 2017 05:03 - CONCLUSION: Slightly decreased distention today. Acosta Ruiz MD Chest X-Ray 05/04/17 0000 Signed Impressions: Service Date/Time: Thursday, May 04, 2017 03:55 - CONCLUSION: Mild increased density in the perihilar regions related to mild edema. This is improving from the prior exam. Davey Lutz MD Liver Ultrasound 04/26/17 0000 Signed Impressions: Service Date/Time: Wednesday, April 26, 2017 16:44 - CONCLUSION: Echogenic right kidney which can be seen with medical renal disease, otherwise unremarkable right upper quadrant sonogram. Roque Gutiérrez MD Chest CT 04/24/17 1327 Signed Impressions: Service Date/Time: April 13:46 - CONCLUSION: Patchy groundglass infiltrates throughout all lobes of the lungs. It is most prominent in the perihilar distribution but also more peripheral areas. I did not see a mass amenable to biopsy with CT guidance. 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 CT abd no contrast no acute abd findings and pancreas WNL - ileus - resolved, bowel sounds active, tolerating regular food, appetite back to normal - elevated LFTs - unclear etiology. Probable fatty liver disease noted per CT. US liver unremarkable. no hx heavy drinking reported. hepatitis panel neg . Liver w/u unremarkable 05/06/17 - [place] [facility] [place] Some improvement abd pain. tolerating clears. +multiple BM documented, ileus improving. WBC somewhat improved today. will rck lipsae 05/07/17 lipase down to 512 today, LFTs now WNL. very lethargic. pt c/o abd pain. on clears. No BM (05/08) [facility] score on admission- 13 points showing 12% chance of mortality. Lipase now trending down and WNL-328. LFTs now WNL. Liver RUSH unremarkable. Ileus- repeat KUB (05/07) --> Gaseous distention of multiple loops likely ileus. This is slightly more prominent on currently study. Pt currently on Reglan. Reports two BMs since yesterday with good relief. GS now following and has ordered CT abdomen and 05/09/17 - seems bit more distended today, having n/v last night and this morning. Not eating much. CT ABD 05/08 showed ileus, improve appearance pancreas lipase improved today, 328. Pt now says she only had one small BM yesterday and does not feel much better. No BM today. GS following 05/10/17 NGT removed, tolerating Fulls okay, lipase wnl wbc trending down 05/11/17 Patient (+) for flatus and BM, no nausea or vomiting, some mild abd pain , WBC trending down, however lipase is going up after advancing diet yesterday 05/12/17 +BM. n/v improving, abd pain improving. WBC trending down. lipase stable, will try low fat foods as full liquid diet can have alot of fat 05/13/17, [place], stable at 10.6, no obvious bleeding, WBC 12.8 decreasing. Diet Heart Healthy soft, tolerating well, hungry. No nausea, vomiting. No ABd. pain 05/14/17, continues to improve gradual, no obvious abdominal pain while sounds are active, patient ate outside fried shrimp dinner her family brought her, HIDA scan done on 05/13/17 negative/unremarkable, BM 1 in the past 24 hours, anemia and hemoglobin 10.6 no obvious bleeding 05/15/17, Appetite continues to improve, Diet tolerating Regular low NA. , Mild Abd. bloating, but denies any acute Abd. pain, Walked with PT 12 steps today. Labs HGB 10.6, Lipase 995, LFTs normal (05/16) --> Pt tolerating heart healthy diet. Reports occasional nausea, denies emesis. Reports 2 BMs yesterday. (+) Flatus. Denies abdominal pain. Some increase in lipase today, although pt is clinically improving. LFTs remain WNL. Pt now on Creon with meals. (05/18) --> Improvement in lipase today. Remains with no GI complaints. Tolerating diet with no nausea, vomiting, abdominal pain. Reports 2 BMS today, normal. Repeat CT scan to be done today, pt currently drinking contrast. Pt planned for discharge to inpatient rehab, possibly [facility]. 05/19/17 - pt doing better, looks good. 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 lipase remains elevated but is trending down. CT indicating improvement, pancreas normal. Plan: low fat diet Continue Creon Continue to monitor labs Continue Pepcid Continue Reglan PRN Supportive care not much more to add from GI perspective, will sign off. please reconsult if needed Pt has been seen and examined by myself and Dr. Kumar and this note is written on her behalf (Teresita Avila) Physician Comments Patient seen and examined Agree with above Continue with current supportive care Monitor labs Not much to add from a GI perspective we will sign off (Franklyn Kumar MD) Teresita Avila May 19, 2017 13:46 Franklyn Kumar MD May 19, 2017 19:43
--- NOTE | 2017-05-19 14:46 | HHI.PR ---
Subjective Remarks Follow-up weakness, hypertension. The patient worked with physical therapy and attempted going up stairs today. She is still reporting significant weakness of the left foot and the right leg. Denies chest pain or dyspnea. Objective Vitals Vital Signs Date Time Temp Pulse Resp B/P (MAP) Pulse Ox O2 Delivery O2 Flow Rate FiO2 05/19/17 10:26 94 05/19/17 00:56 98.2 82 18 151/87 (108) 94 05/18/17 20:00 98.5 78 18 164/97 (119) 98 05/18/17 18:00 121/85 (97) 05/18/17 16:00 98.7 77 17 169/105 (126) 99 I/O 05/18/17 05/18/17 05/18/17 05/19/17 05/19/17 05/19/17 07:00 15:00 23:00 07:00 15:00 23:00 Intake Total 120 ml 960 ml Output Total 400 ml Balance -400 ml 120 ml 960 ml Intake Oral 120 ml 960 ml Output Urine Total 400 ml # Voids 4 3 # Bowel Movements 1 2 Result Diagram: 05/18/17 0654 05/18/17 0654 Imaging Last Impressions Abdomen/Pelvis CT 05/17/17 0000 Signed Impressions: Service Date/Time: Thursday, May 18, 2017 12:22 - CONCLUSION: Significantly improved exam with almost complete resolution of the interstitial edema identified within the lung bases. The abnormal dilation of the small bowel has completely resolved. The pancreas is normal in appearance without evidence of necrosis or pseudocyst.. Raisa Griffiths MD Hepatobiliary Scan Nuclear Medicine 05/13/17 0000 Signed Impressions: Service Date/Time: Saturday, May 13, 2017 11:05 - CONCLUSION: Negative biliary scan Amado Triana MD Abdomen X-Ray 05/11/17 0600 Signed Impressions: Service Date/Time: Thursday, May 11, 2017 05:03 - CONCLUSION: Slightly decreased distention today. Acosta Ruiz MD Chest X-Ray 05/04/17 0000 Signed Impressions: Service Date/Time: Thursday, May 04, 2017 03:55 - CONCLUSION: Mild increased density in the perihilar regions related to mild edema. This is improving from the prior exam. Davey Lutz MD Liver Ultrasound 1/20/18 0000 Signed Impressions: Service Date/Time: Wednesday, April 26, 2017 16:44 - CONCLUSION: Echogenic right kidney which can be seen with medical renal disease, otherwise unremarkable right upper quadrant sonogram. Roque Gutiérrez MD Chest CT 04/24/17 1327 Signed Impressions: Service Date/Time: April 13:46 - CONCLUSION: Patchy groundglass infiltrates throughout all lobes of the lungs. It is most prominent in the perihilar distribution but also more peripheral areas. I did not see a mass amenable to biopsy with CT guidance. Jay Weaver MD Objective Remarks General: Obese female in no acute distress. Heart: Regular rate and rhythm. No murmur. Lungs: Clear to auscultation bilaterally. No wheezes, rales, or rhonchi. Breathing is nonlabored. Abdomen: Soft, nontender, mildly distended. Extremities: No lower extremity edema. Psych: Alert and oriented. Procedures Intubation/Extubation Urinary Catheter: No Vascular Central Line Catheter: No A/P Problem List: (1) Adult respiratory distress syndrome ICD Code: J80 - Acute respiratory distress syndrome (2) Acute respiratory failure with hypoxia ICD Code: J96.01 - Acute respiratory failure with hypoxia (3) Pneumonia ICD Code: J18.9 - Pneumonia, unspecified organism Status: Acute (4) Acute renal failure ICD Code: N17.9 - Acute kidney failure, unspecified (5) Increased anion gap metabolic acidosis ICD Code: E87.2 - Acidosis (6) Diarrhea ICD Code: R19.7 - Diarrhea, unspecified (7) Hyponatremia ICD Code: E87.1 - Hypo-osmolality and hyponatremia (8) Leukocytosis ICD Code: D72.829 - Elevated white blood cell count, unspecified (9) Lactic acidosis ICD Code: E87.2 - Acidosis (10) Renal failure ICD Code: N19 - Unspecified kidney failure Status: Acute (11) Hyperglycemia ICD Code: R73.9 - Hyperglycemia, unspecified (12) Elevated lipase ICD Code: R74.8 - Abnormal levels of other serum enzymes (13) Tobacco use ICD Code: Z72.0 - Tobacco use Assessment and Plan 1. Hypoxemic respiratory failure, pneumonia, pulmonary hypertension: Continue Azactam. Appreciate infectious disease recommendations. Patient is status post intubation. Continue Lasix. Currently stable on room air. 2. Ileus: Improved. Patient tolerating diet. Appreciate GI recommendations. 3. Pancreatitis: Persistent elevation of lipase. Patient has no abdominal pain at this time. HIDA scan is negative. 4. History of depression, mood disorder: Continue home medications. 5. Tobacco abuse: Counseled to quit smoking. 6. Debility, generalized weakness: Physical therapy 7 days per week. Patient continues to improve. She is ambulating greater distances each day, and today worked with physical therapy on going up stairs. 7. Acute renal failure: Resolved. Likely ATN secondary to hypoperfusion. 8. GI prophylaxis: Famotidine. Tums as needed for heartburn. 9. DVT prophylaxis: SCDs, heparin. 10. Hypertension: Blood pressure still elevated. Increase amlodipine. Vasotec as needed. Discharge Planning HHCIR declined the patient, so she will need to remain in hospital until strong enough to navigate 2 flights of stairs at her home. Problem Qualifiers (1) Pneumonia: Maurice Garcia MD May 19, 2017 14:46
[2017-05-19] MEDS: OLANZapine 5 MG TAB PO SCH (22:22)
[2017-05-19] MEDS: PRAVASTATIN SOD 20 MG TAB PO SCH (22:22)
[2017-05-20] VITALS (8 sets, daily range): BP systolic 113–138; BP diastolic 60–89; PULSE 80–99; RESP 17–20; TEMP 98.6–99.5; O2SAT 95–99
[2017-05-20] MEDS: METOCLOPRAMIDE HCL 10 MG/2 ML VIAL IV PUSH SCH ×3 (02:09→17:20)
[2017-05-20] MEDS: SODIUM CHLORIDE 0.9% FLUSH 10 ML FLUSH IV FLUSH PRN (02:10)
[2017-05-20] MEDS: LIPASE/PROTEASE/AMYLASE (12,000/38,000/60,000) CAP PO SCH ×3 (08:43→17:20)
[2017-05-20] MEDS: SENNOSIDES SYRUP 8.8 MG/5 ML CUP OG-TUBE SCH ×2 (08:44→20:31)
[2017-05-20] MEDS: amLODIPine BESYLATE 5 MG TAB PO SCH (08:44)
[2017-05-20] MEDS: predniSONE 20 MG TAB PO SCH (08:44)
[2017-05-20] MEDS: HEPARIN SODIUM - SQ 10,000 UNITS/ML VIAL SQ SCH (08:44)
[2017-05-20] MEDS: FAMOTIDINE 20 MG TAB PO SCH ×2 (08:44→20:31)
[2017-05-20] MEDS: SERTRALINE HCL 100 MG TAB PO SCH (08:44)
[2017-05-20] MEDS: FREE WATER G-TUBE SCH ×3 (11:44→23:56)
--- NOTE | 2017-05-20 11:53 | HHI.PR ---
Subjective Remarks The patient was feeling well. She said that she fell down last night. She realizes she is too weak to go home. She has some insomnia. She does not want to take medications because she does not want to get dizzy. She requests a regular diet. Discussed with nursing. Objective Vitals Vital Signs Date Time Temp Pulse Resp B/P (MAP) Pulse Ox O2 Delivery O2 Flow Rate FiO2 05/20/17 09:48 96 05/20/17 08:00 99.5 80 18 117/67 (84) 96 05/20/17 04:00 98.9 98 20 132/89 (103) 97 05/20/17 01:50 98.6 98 18 138/62 (87) 96 05/20/17 00:50 99.4 99 18 113/60 (77) 95 05/19/17 22:45 98.7 82 20 143/82 (102) 99 05/19/17 20:00 99.5 78 22 161/90 (113) 97 05/19/17 16:00 97.7 84 18 135/79 (97) 97 05/19/17 12:00 97.8 91 20 154/88 (110) 97 I/O 05/19/17 05/19/17 05/19/17 05/20/17 05/20/17 05/20/17 07:00 15:00 23:00 07:00 15:00 23:00 Intake Total 960 ml 120 ml Output Total 200 ml Balance 760 ml 120 ml Intake Oral 960 ml 120 ml Output Urine Total 200 ml # Voids 3 5 3 # Bowel Movements 1 2 Result Diagram: 05/18/17 0654 05/18/17 0654 Imaging Last Impressions Abdomen/Pelvis CT 05/17/17 0000 Signed Impressions: Service Date/Time: Thursday, May 18, 2017 12:22 - CONCLUSION: Significantly improved exam with almost complete resolution of the interstitial edema identified within the lung bases. The abnormal dilation of the small bowel has completely resolved. The pancreas is normal in appearance without evidence of necrosis or pseudocyst.. Raisa Griffiths MD Hepatobiliary Scan Nuclear Medicine 05/13/17 0000 Signed Impressions: Service Date/Time: Saturday, May 13, 2017 11:05 - CONCLUSION: Negative biliary scan Amado Triana MD Abdomen X-Ray 05/11/17 0600 Signed Impressions: Service Date/Time: Thursday, May 11, 2017 05:03 - CONCLUSION: Slightly decreased distention today. Acosta Ruiz MD Chest X-Ray 05/04/17 0000 Signed Impressions: Service Date/Time: Thursday, May 04, 2017 03:55 - CONCLUSION: Mild increased density in the perihilar regions related to mild edema. This is improving from the prior exam. Davey Lutz MD Liver Ultrasound 04/26/17 0000 Signed Impressions: Service Date/Time: Wednesday, April 26, 2017 16:44 - CONCLUSION: Echogenic right kidney which can be seen with medical renal disease, otherwise unremarkable right upper quadrant sonogram. Roque Gutiérrez MD Chest CT 04/24/17 1327 Signed Impressions: Service Date/Time: April 13:46 - CONCLUSION: Patchy groundglass infiltrates throughout all lobes of the lungs. It is most prominent in the perihilar distribution but also more peripheral areas. I did not see a mass amenable to biopsy with CT guidance. Jay Weaver MD Objective Remarks General: No acute distress. HEENT: NC, AT. Heart: Regular rate and rhythm. No murmur. Lungs: Clear to auscultation bilaterally. No wheezes, rales, or rhonchi. Breathing is nonlabored. Abdomen: Soft, nontender, mildly distended. Extremities: No lower extremity edema. Psych: Alert and oriented. Mood and affect appropriate. Procedures Intubation/Extubation Medications and IVs Current Medications Medications (Trade) Dose Ordered Sig/Tiffanie Route Start Time Stop Time Status Last Admin (NS Flush) 2 ml UNSCH PRN IV FLUSH 04/24/17 15:45 05/20/17 02:10 (fentaNYL INJ) 50 mcg Q1H PRN IV PUSH 04/24/17 15:45 05/05/17 21:36 (Zofran Inj) 4 mg Q6HR PRN IV PUSH 04/24/17 18:00 05/05/17 20:07 Miscellaneous Information 1 Q361D XX 04/24/17 15:45 (Chlorhexidine 2% Cloth) Taper DAILY@04 TOP 04/25/17 04:00 04/21/18 03:59 05/04/17 04:00 (Chlorhexidine 2% Cloth) 3 pack UNSCH PRN TOP 04/24/17 15:45 (Dulcolax Supp) 10 mg DAILY PRN RECTAL 04/24/17 16:00 (Heparin Inj) 5,000 units Q12HR SQ 04/26/17 21:00 05/20/17 08:44 (Reglan Inj) 5 mg Q8H IV PUSH 04/29/17 18:00 05/20/17 08:43 (Apresoline Inj) 10 mg Q1HR PRN IV PUSH 04/30/17 10:30 05/05/17 16:34 (Albuterol Neb) 2.5 mg Q2HR NEB PRN NEB 04/30/17 11:00 (Tylenol 650 Mg/ 20 ml Liq) 650 mg Q6H PRN OG-TUBE 04/30/17 11:00 (Senna Liq) 8.8 mg BID OG-TUBE 04/30/17 21:00 05/18/17 08:03 (Free Water) VOLUME OF WATER: ( 300 ) ML Q6HR G-TUBE 05/03/17 12:00 05/06/17 17:38 ([place] 5-325 Mg) 1 tab Q6H PRN PO 05/04/17 21:30 (Morphine Inj) 2 mg Q3H PRN IV PUSH 05/04/17 21:30 05/07/17 01:46 (Pravachol) 20 mg HS PO 05/05/17 21:00 05/19/17 22:22 (Zoloft) 100 mg DAILY PO 05/06/17 09:00 05/20/17 08:44 (Pepcid) 20 mg BID PO 05/05/17 21:00 05/20/17 08:44 (Nitroglycerin 2% Oint) 2 inch Q6HR PRN TOPICAL 05/05/17 10:00 (Vasotec Inj) 1.25 mg Q6H PRN IV PUSH 05/08/17 10:45 (ZyPREXA) 5 mg HS PO 05/09/17 21:00 05/19/17 22:22 (Deltasone) 20 mg DAILY PO 05/16/17 09:00 05/20/17 08:44 (Tums Chew) 500 mg Q2H PRN CHEW 05/15/17 13:15 05/15/17 17:21 (Creon 12-38-60) 1 cap TID PO 05/15/17 18:00 05/20/17 11:45 (Pill Splitter) 1 ea UNSCH PRN OTHER 05/18/17 16:00 (Norvasc) 5 mg DAILY PO 05/20/17 09:00 05/20/17 08:44 A/P Problem List: (1) Adult respiratory distress syndrome ICD Code: J80 - Acute respiratory distress syndrome (2) Acute respiratory failure with hypoxia ICD Code: J96.01 - Acute respiratory failure with hypoxia (3) Pneumonia ICD Code: J18.9 - Pneumonia, unspecified organism Status: Acute (4) Acute renal failure ICD Code: N17.9 - Acute kidney failure, unspecified (5) Increased anion gap metabolic acidosis ICD Code: E87.2 - Acidosis (6) Diarrhea ICD Code: R19.7 - Diarrhea, unspecified (7) Hyponatremia ICD Code: E87.1 - Hypo-osmolality and hyponatremia (8) Leukocytosis ICD Code: D72.829 - Elevated white blood cell count, unspecified (9) Lactic acidosis ICD Code: E87.2 - Acidosis (10) Renal failure ICD Code: N19 - Unspecified kidney failure Status: Acute (11) Hyperglycemia ICD Code: R73.9 - Hyperglycemia, unspecified (12) Elevated lipase ICD Code: R74.8 - Abnormal levels of other serum enzymes (13) Tobacco use ICD Code: Z72.0 - Tobacco use Assessment and Plan Hypoxemic respiratory failure/ pneumonia/ pulmonary hypertension Appreciate infectious disease recommendations. Patient is status post intubation. S/p Azactam and Lasix. Currently stable on room air. - oxygen and nebs as needed. - encourage ambulation. Ileus/ Pancreatitis Improved. Patient tolerating diet. Appreciate GI recommendations. CT without evidence of necrosis or pseudocyst. - ADAT. Trial of regular diet per pt request. - outpt follow-up with GI. Tobacco abuse Ongoing tobacco use. - Counseled to quit smoking. Debility/ generalized weakness S/t hospitalization. - Physical therapy 7 days per week. Patient continues to improve. She is ambulating greater distances each day. Acute renal failure Likely ATN secondary to hypoperfusion. - resolved. Hypertension Blood pressure well controlled. - continue increased amlodipine. - Vasotec as needed. PPx: SCDs; switched heparin to Lovenox per pt request Problem Qualifiers (1) Pneumonia: Zeke Hill DO May 20, 2017 11:53
[2017-05-20] MEDS: OLANZapine 5 MG TAB PO SCH (20:31)
[2017-05-20] MEDS: PRAVASTATIN SOD 20 MG TAB PO SCH (20:31)
[2017-05-20] MEDS: ACETAMINOPHEN/HYDROcodone 325 MG/5 MG TAB PO PRN (20:34)
[2017-05-21] VITALS: BP 147/79; PULSE 67; RESP 20; TEMP 98.3; O2SAT 97
[2017-05-21] MEDS: SODIUM CHLORIDE 0.9% FLUSH 10 ML FLUSH IV FLUSH PRN ×2 (02:56→22:46)
[2017-05-21] MEDS: METOCLOPRAMIDE HCL 10 MG/2 ML VIAL IV PUSH SCH ×3 (02:56→17:41)
[2017-05-21] MEDS: CHLORHEXIDINE GLUCONATE 2 % 1 PACK (2 CLOTHS) TOP SCH (04:00)
[2017-05-21] MEDS: FREE WATER G-TUBE SCH ×3 (06:00→08:00)
[2017-05-21] MEDS: amLODIPine BESYLATE 5 MG TAB PO SCH (07:57)
[2017-05-21] MEDS: FAMOTIDINE 20 MG TAB PO SCH ×2 (07:57→22:38)
[2017-05-21] MEDS: ENOXAPARIN SODIUM 40 MG/0.4 ML SYRINGE SQ SCH (07:57)
[2017-05-21] MEDS: predniSONE 20 MG TAB PO SCH (07:57)
[2017-05-21] MEDS: SERTRALINE HCL 100 MG TAB PO SCH (07:58)
[2017-05-21 08:00] VITALS: BP 125/75; PULSE 91; RESP 18; TEMP 98.4; O2SAT 94
[2017-05-21] MEDS: ACETAMINOPHEN/HYDROcodone 325 MG/5 MG TAB PO PRN ×2 (08:08→22:38)
[2017-05-21 09:00] VITALS: O2SAT 97
[2017-05-21] MEDS: SENNOSIDES SYRUP 8.8 MG/5 ML CUP OG-TUBE SCH ×2 (09:00→22:38)
[2017-05-21] MEDS: LIPASE/PROTEASE/AMYLASE (12,000/38,000/60,000) CAP PO SCH ×3 (10:34→17:41)
[2017-05-21 12:00] VITALS: BP 120/76; PULSE 86; RESP 19; TEMP 97.5; O2SAT 97
--- NOTE | 2017-05-21 13:59 | HHI.PR ---
Subjective Remarks The patient said that she was still on a restricted diet and would like that liberalized. She said she was going to work with physical therapy and a little bit. She has been having bowel movements. Discussed with nursing. Objective Vitals Vital Signs Date Time Temp Pulse Resp B/P (MAP) Pulse Ox O2 Delivery O2 Flow Rate FiO2 05/21/17 12:00 97.5 86 19 120/76 (91) 97 05/21/17 09:00 97 05/21/17 08:00 98.4 91 18 125/75 (92) 94 05/21/17 00:00 98.3 67 20 147/79 (101) 97 05/20/17 21:49 20 05/20/17 20:00 98.8 86 20 138/82 (100) 98 05/20/17 16:00 99.1 90 18 132/86 (101) 97 I/O 05/20/17 05/20/17 05/20/17 05/21/17 05/21/17 05/21/17 07:00 15:00 23:00 07:00 15:00 23:00 Intake Total 120 ml 1080 ml 360 ml Output Total 1000 ml Balance 120 ml 80 ml 360 ml Intake Oral 120 ml 1080 ml 360 ml Output Urine Total 1000 ml # Voids 3 4 # Bowel Movements 2 1 0 Result Diagram: 05/18/17 0654 05/18/17 0654 Imaging Last Impressions Abdomen/Pelvis CT 05/17/17 0000 Signed Impressions: Service Date/Time: Thursday, May 18, 2017 12:22 - CONCLUSION: Significantly improved exam with almost complete resolution of the interstitial edema identified within the lung bases. The abnormal dilation of the small bowel has completely resolved. The pancreas is normal in appearance without evidence of necrosis or pseudocyst.. Raisa Griffiths MD Hepatobiliary Scan Nuclear Medicine 05/13/17 0000 Signed Impressions: Service Date/Time: Saturday, May 13, 2017 11:05 - CONCLUSION: Negative biliary scan Amado Triana MD Abdomen X-Ray 05/11/17 0600 Signed Impressions: Service Date/Time: Thursday, May 11, 2017 05:03 - CONCLUSION: Slightly decreased distention today. Acosta Ruiz MD Chest X-Ray 05/04/17 0000 Signed Impressions: Service Date/Time: Thursday, May 04, 2017 03:55 - CONCLUSION: Mild increased density in the perihilar regions related to mild edema. This is improving from the prior exam. Davey Lutz MD Liver Ultrasound 04/26/17 0000 Signed Impressions: Service Date/Time: Wednesday, April 26, 2017 16:44 - CONCLUSION: Echogenic right kidney which can be seen with medical renal disease, otherwise unremarkable right upper quadrant sonogram. Roque Gutiérrez MD Chest CT 04/24/17 1327 Signed Impressions: Service Date/Time: April 13:46 - CONCLUSION: Patchy groundglass infiltrates throughout all lobes of the lungs. It is most prominent in the perihilar distribution but also more peripheral areas. I did not see a mass amenable to biopsy with CT guidance. Jay Weaver MD Objective Remarks General: No acute distress. HEENT: NC, AT. Heart: Regular rate and rhythm. No murmur. Lungs: Clear to auscultation bilaterally. No wheezes, rales, or rhonchi. Breathing is nonlabored. Abdomen: Soft, nontender, mildly distended. Extremities: No lower extremity edema. Neuro: Alert and oriented. No gross deficits. Psych: Mood and affect appropriate. Procedures Intubation/Extubation Medications and IVs Current Medications Medications (Trade) Dose Ordered Sig/Tiffanie Route Start Time Stop Time Status Last Admin (NS Flush) 2 ml UNSCH PRN IV FLUSH 04/24/17 15:45 05/21/17 02:56 (fentaNYL INJ) 50 mcg Q1H PRN IV PUSH 04/24/17 15:45 05/05/17 21:36 (Zofran Inj) 4 mg Q6HR PRN IV PUSH 04/24/17 18:00 05/05/17 20:07 Miscellaneous Information 1 Q361D XX 04/24/17 15:45 (Chlorhexidine 2% Cloth) Taper DAILY@04 TOP 04/25/17 04:00 04/21/18 03:59 05/21/17 04:00 (Chlorhexidine 2% Cloth) 3 pack UNSCH PRN TOP 04/24/17 15:45 (Dulcolax Supp) 10 mg DAILY PRN RECTAL 04/24/17 16:00 (Reglan Inj) 5 mg Q8H IV PUSH 04/29/17 18:00 05/21/17 08:00 (Apresoline Inj) 10 mg Q1HR PRN IV PUSH 04/30/17 10:30 05/05/17 16:34 (Albuterol Neb) 2.5 mg Q2HR NEB PRN NEB 04/30/17 11:00 (Tylenol 650 Mg/ 20 ml Liq) 650 mg Q6H PRN OG-TUBE 04/30/17 11:00 (Senna Liq) 8.8 mg BID OG-TUBE 04/30/17 21:00 05/20/17 20:31 (Free Water) VOLUME OF WATER: ( 300 ) ML Q6HR G-TUBE 05/03/17 12:00 05/21/17 06:00 ([place] 5-325 Mg) 1 tab Q6H PRN PO 05/04/17 21:30 05/21/17 08:08 (Morphine Inj) 2 mg Q3H PRN IV PUSH 05/04/17 21:30 05/07/17 01:46 (Pravachol) 20 mg HS PO 05/05/17 21:00 05/20/17 20:31 (Zoloft) 100 mg DAILY PO 05/06/17 09:00 05/21/17 07:58 (Pepcid) 20 mg BID PO 05/05/17 21:00 05/21/17 07:57 (Nitroglycerin 2% Oint) 2 inch Q6HR PRN TOPICAL 05/05/17 10:00 (Vasotec Inj) 1.25 mg Q6H PRN IV PUSH 05/08/17 10:45 (ZyPREXA) 5 mg HS PO 05/09/17 21:00 05/20/17 20:31 (Deltasone) 20 mg DAILY PO 05/16/17 09:00 05/21/17 07:57 (Tums Chew) 500 mg Q2H PRN CHEW 05/15/17 13:15 05/15/17 17:21 (Creon 12-38-60) 1 cap TID PO 05/15/17 18:00 05/21/17 11:34 (Pill Splitter) 1 ea UNSCH PRN OTHER 05/18/17 16:00 (Norvasc) 5 mg DAILY PO 05/20/17 09:00 05/21/17 07:57 (Lovenox Inj) 40 mg Q24H SQ 05/21/17 09:00 05/21/17 07:57 A/P Problem List: (1) Adult respiratory distress syndrome ICD Code: J80 - Acute respiratory distress syndrome (2) Acute respiratory failure with hypoxia ICD Code: J96.01 - Acute respiratory failure with hypoxia (3) Pneumonia ICD Code: J18.9 - Pneumonia, unspecified organism Status: Acute (4) Acute renal failure ICD Code: N17.9 - Acute kidney failure, unspecified (5) Increased anion gap metabolic acidosis ICD Code: E87.2 - Acidosis (6) Diarrhea ICD Code: R19.7 - Diarrhea, unspecified (7) Hyponatremia ICD Code: E87.1 - Hypo-osmolality and hyponatremia (8) Leukocytosis ICD Code: D72.829 - Elevated white blood cell count, unspecified (9) Lactic acidosis ICD Code: E87.2 - Acidosis (10) Renal failure ICD Code: N19 - Unspecified kidney failure Status: Acute (11) Hyperglycemia ICD Code: R73.9 - Hyperglycemia, unspecified (12) Elevated lipase ICD Code: R74.8 - Abnormal levels of other serum enzymes (13) Tobacco use ICD Code: Z72.0 - Tobacco use Assessment and Plan Hypoxemic respiratory failure/ pneumonia/ pulmonary hypertension Appreciate infectious disease recommendations. Patient is status post intubation. S/p Azactam and Lasix. Currently stable on room air. - oxygen and nebs as needed. - encourage ambulation. Ileus/ Pancreatitis Improved. Patient tolerating diet. Appreciate GI recommendations. CT without evidence of necrosis or pseudocyst. - ADAT. Trial of regular diet per pt request. Change back to low residue diet if abdominal pain or nausea develops. - outpt follow-up with GI. Tobacco abuse Ongoing tobacco use. - Counseled to quit smoking. Debility/ generalized weakness S/t hospitalization. - Physical therapy 7 days per week. Patient continues to improve. She is ambulating greater distances each day. Acute renal failure Likely ATN secondary to hypoperfusion. - resolved. Hypertension Blood pressure well controlled 05/21. - continue increased amlodipine. - Vasotec as needed. PPx: SCDs; switched heparin to Lovenox per pt request Problem Qualifiers (1) Pneumonia: Zeke Hill DO May 21, 2017 13:59
[2017-05-21 16:00] VITALS: BP 139/86; PULSE 85; RESP 19; TEMP 98.1; O2SAT 99
[2017-05-21 20:00] VITALS: BP 123/73; PULSE 73; RESP 18; TEMP 98.6; O2SAT 93
[2017-05-21] MEDS: PRAVASTATIN SOD 20 MG TAB PO SCH (22:38)
[2017-05-21] MEDS: OLANZapine 5 MG TAB PO SCH (22:38)
[2017-05-22] VITALS: BP 150/81; PULSE 73; RESP 18; TEMP 98.2; O2SAT 98
[2017-05-22] MEDS: METOCLOPRAMIDE HCL 10 MG/2 ML VIAL IV PUSH SCH ×3 (01:59→18:03)
[2017-05-22] MEDS: CHLORHEXIDINE GLUCONATE 2 % 1 PACK (2 CLOTHS) TOP SCH (04:00)
[2017-05-22] MEDS: ACETAMINOPHEN/HYDROcodone 325 MG/5 MG TAB PO PRN ×2 (04:34→12:35)
[2017-05-22] MEDS: FREE WATER G-TUBE SCH ×4 (06:00→18:00)
[2017-05-22 08:00] VITALS: BP 116/67; PULSE 95; RESP 19; TEMP 98.5; O2SAT 96
[2017-05-22] MEDS: FAMOTIDINE 20 MG TAB PO SCH ×2 (09:05→19:49)
[2017-05-22] MEDS: amLODIPine BESYLATE 5 MG TAB PO SCH (09:05)
[2017-05-22] MEDS: SERTRALINE HCL 100 MG TAB PO SCH (09:06)
[2017-05-22] MEDS: predniSONE 20 MG TAB PO SCH (09:06)
[2017-05-22] MEDS: LIPASE/PROTEASE/AMYLASE (12,000/38,000/60,000) CAP PO SCH ×3 (09:06→18:03)
[2017-05-22] MEDS: SODIUM CHLORIDE 0.9% FLUSH 10 ML FLUSH IV FLUSH PRN ×3 (09:07→19:47)
[2017-05-22] MEDS: ENOXAPARIN SODIUM 40 MG/0.4 ML SYRINGE SQ SCH (09:07)
[2017-05-22] MEDS: SENNOSIDES SYRUP 8.8 MG/5 ML CUP OG-TUBE SCH ×2 (09:08→19:48)
--- NOTE | 2017-05-22 11:58 | HHI.PR ---
Subjective Remarks The patient was working with physical therapy. She had just completed some stairs. She said that she had some tuna from [employer] yesterday and had significant left-sided flank pain. It lasted a couple of hours and then went away. No nausea or vomiting. No diarrhea. She currently feels well. Discussed with nursing. Objective Vitals Vital Signs Date Time Temp Pulse Resp B/P (MAP) Pulse Ox O2 Delivery O2 Flow Rate FiO2 05/22/17 08:00 98.5 95 19 116/67 (83) 96 05/22/17 05:48 18 05/22/17 00:00 98.2 73 18 150/81 (104) 98 05/21/17 20:00 98.6 73 18 123/73 (90) 93 05/21/17 16:00 98.1 85 19 139/86 (103) 99 05/21/17 12:00 97.5 86 19 120/76 (91) 97 I/O 05/21/17 05/21/17 05/21/17 05/22/17 05/22/17 05/22/17 07:00 15:00 23:00 07:00 15:00 23:00 Intake Total 360 ml 1810 ml Output Total 1 ml Balance 360 ml 1810 ml -1 ml Intake Oral 360 ml 1810 ml Output Urine Total 1 ml # Voids 4 16 # Bowel Movements 0 3 Result Diagram: 05/18/17 0654 05/18/17 0654 Imaging Last Impressions Abdomen/Pelvis CT 05/17/17 0000 Signed Impressions: Service Date/Time: Thursday, May 18, 2017 12:22 - CONCLUSION: Significantly improved exam with almost complete resolution of the interstitial edema identified within the lung bases. The abnormal dilation of the small bowel has completely resolved. The pancreas is normal in appearance without evidence of necrosis or pseudocyst.. Raisa Griffiths MD Hepatobiliary Scan Nuclear Medicine 05/13/17 0000 Signed Impressions: Service Date/Time: Saturday, May 13, 2017 11:05 - CONCLUSION: Negative biliary scan Amado Triana MD Abdomen X-Ray 05/11/17 0600 Signed Impressions: Service Date/Time: Thursday, May 11, 2017 05:03 - CONCLUSION: Slightly decreased distention today. Acosta Ruiz MD Chest X-Ray 05/04/17 0000 Signed Impressions: Service Date/Time: Thursday, May 04, 2017 03:55 - CONCLUSION: Mild increased density in the perihilar regions related to mild edema. This is improving from the prior exam. Davey Lutz MD Liver Ultrasound 04/26/17 0000 Signed Impressions: Service Date/Time: Wednesday, April 26, 2017 16:44 - CONCLUSION: Echogenic right kidney which can be seen with medical renal disease, otherwise unremarkable right upper quadrant sonogram. Roque Gutiérrez MD Chest CT 04/24/17 1327 Signed Impressions: Service Date/Time: April 13:46 - CONCLUSION: Patchy groundglass infiltrates throughout all lobes of the lungs. It is most prominent in the perihilar distribution but also more peripheral areas. I did not see a mass amenable to biopsy with CT guidance. Jya Weaver MD Objective Remarks General: No acute distress. HEENT: NC, AT. Heart: Regular rate and rhythm. No murmur. Lungs: Clear to auscultation bilaterally. No wheezes, rales, or rhonchi. Breathing is nonlabored. Abdomen: Soft, nontender, mildly distended. Extremities: No lower extremity edema. Neuro: Alert and oriented. No gross deficits. Psych: Mood and affect appropriate. Procedures Intubation/Extubation Medications and IVs Current Medications Medications (Trade) Dose Ordered Sig/Tiffanie Route Start Time Stop Time Status Last Admin (NS Flush) 2 ml UNSCH PRN IV FLUSH 04/24/17 15:45 05/22/17 09:07 (fentaNYL INJ) 50 mcg Q1H PRN IV PUSH 04/24/17 15:45 05/05/17 21:36 (Zofran Inj) 4 mg Q6HR PRN IV PUSH 04/24/17 18:00 05/05/17 20:07 Miscellaneous Information 1 Q361D XX 04/24/17 15:45 (Chlorhexidine 2% Cloth) Taper DAILY@04 TOP 04/25/17 04:00 04/21/18 03:59 05/21/17 04:00 (Chlorhexidine 2% Cloth) 3 pack UNSCH PRN TOP 04/24/17 15:45 (Dulcolax Supp) 10 mg DAILY PRN RECTAL 04/24/17 16:00 (Reglan Inj) 5 mg Q8H IV PUSH 04/29/17 18:00 05/22/17 09:07 (Apresoline Inj) 10 mg Q1HR PRN IV PUSH 04/30/17 10:30 05/05/17 16:34 (Albuterol Neb) 2.5 mg Q2HR NEB PRN NEB 04/30/17 11:00 (Tylenol 650 Mg/ 20 ml Liq) 650 mg Q6H PRN OG-TUBE 04/30/17 11:00 (Senna Liq) 8.8 mg BID OG-TUBE 04/30/17 21:00 05/22/17 09:08 (Free Water) VOLUME OF WATER: ( 300 ) ML Q6HR G-TUBE 05/03/17 12:00 05/21/17 06:00 ([employer] 5-325 Mg) 1 tab Q6H PRN PO 05/04/17 21:30 05/22/17 04:34 (Morphine Inj) 2 mg Q3H PRN IV PUSH 05/04/17 21:30 05/07/17 01:46 (Pravachol) 20 mg HS PO 05/05/17 21:00 05/21/17 22:38 (Zoloft) 100 mg DAILY PO 05/06/17 09:00 05/22/17 09:06 (Pepcid) 20 mg BID PO 05/05/17 21:00 05/22/17 09:05 (Nitroglycerin 2% Oint) 2 inch Q6HR PRN TOPICAL 05/05/17 10:00 (Vasotec Inj) 1.25 mg Q6H PRN IV PUSH 05/08/17 10:45 (ZyPREXA) 5 mg HS PO 05/09/17 21:00 05/21/17 22:38 (Deltasone) 20 mg DAILY PO 05/16/17 09:00 05/22/17 09:06 (Tums Chew) 500 mg Q2H PRN CHEW 05/15/17 13:15 05/15/17 17:21 (Creon 12-38-60) 1 cap TID PO 05/15/17 18:00 05/22/17 09:06 (Pill Splitter) 1 ea UNSCH PRN OTHER 05/18/17 16:00 (Norvasc) 5 mg DAILY PO 05/20/17 09:00 05/22/17 09:05 (Lovenox Inj) 40 mg Q24H SQ 05/21/17 09:00 05/22/17 09:07 A/P Problem List: (1) Adult respiratory distress syndrome ICD Code: J80 - Acute respiratory distress syndrome (2) Acute respiratory failure with hypoxia ICD Code: J96.01 - Acute respiratory failure with hypoxia (3) Pneumonia ICD Code: J18.9 - Pneumonia, unspecified organism Status: Acute (4) Acute renal failure ICD Code: N17.9 - Acute kidney failure, unspecified (5) Increased anion gap metabolic acidosis ICD Code: E87.2 - Acidosis (6) Diarrhea ICD Code: R19.7 - Diarrhea, unspecified (7) Hyponatremia ICD Code: E87.1 - Hypo-osmolality and hyponatremia (8) Leukocytosis ICD Code: D72.829 - Elevated white blood cell count, unspecified (9) Lactic acidosis ICD Code: E87.2 - Acidosis (10) Renal failure ICD Code: N19 - Unspecified kidney failure Status: Acute (11) Hyperglycemia ICD Code: R73.9 - Hyperglycemia, unspecified (12) Elevated lipase ICD Code: R74.8 - Abnormal levels of other serum enzymes (13) Tobacco use ICD Code: Z72.0 - Tobacco use Assessment and Plan Hypoxemic respiratory failure/ pneumonia/ pulmonary hypertension Appreciate infectious disease recommendations. Patient is status post intubation. S/p Azactam and Lasix. Currently stable on room air. - oxygen and nebs as needed. - encourage ambulation. Ileus/ Pancreatitis Improved. Patient tolerating diet. Appreciate GI recommendations. CT without evidence of necrosis or pseudocyst. - ADAT. Trial of regular diet per pt request. Change back to low residue diet if abdominal pain or nausea develops. - outpt follow-up with GI. - repeat CMP and lipase as had left sided flank pain after eating tuna. Tobacco abuse Ongoing tobacco use. - Counseled to quit smoking. Debility/ generalized weakness S/t hospitalization. - Physical therapy 7 days per week. Patient continues to improve. She is ambulating greater distances each day. Acute renal failure Likely ATN secondary to hypoperfusion. - resolved. Hypertension Blood pressure well controlled 05/22. - continue increased amlodipine. - Vasotec as needed. PPx: SCDs; switched heparin to Lovenox per pt request Problem Qualifiers (1) Pneumonia: Zeke Hill DO May 22, 2017 11:58
[2017-05-22 12:00] VITALS: BP 93/62; PULSE 94; RESP 19; TEMP 98.5; O2SAT 97
[2017-05-22 14:39] LABS: ALBUMIN 2.8 GM/DL (3.4-5.0); AST (GOT) 12 U/L (15-37); BICARBONATE 23.5 MEQ/L (21.0-32.0); BLOOD UREA NITROGEN 16 MG/DL (7-18); CALCIUM 9.3 MG/DL (8.5-10.1); CHLORIDE 105 MEQ/L (98-107); CREATININE 0.97 MG/DL (0.50-1.00); GLOMERULAR FILTRATION RATE 73 ML/MIN (>89); GLUCOSE,RANDOM 188 MG/DL (74-106); SODIUM (NA) 138 MEQ/L (136-145)
[2017-05-22 14:40] LABS: ALT (GPT) 26 U/L (10-53)
[2017-05-22 14:42] LABS: ALKALINE PHOSPHATASE 114 U/L (45-117); TOTAL BILIRUBIN ADULT 0.2 MG/DL (0.2-1.0); TOTAL PROTEIN 7.4 GM/DL (6.4-8.2)
[2017-05-22 16:00] VITALS: BP 100/62; PULSE 78; RESP 19; TEMP 98.7; O2SAT 94
[2017-05-22] MEDS: OLANZapine 5 MG TAB PO SCH (19:49)
[2017-05-22] MEDS: PRAVASTATIN SOD 20 MG TAB PO SCH (19:49)
[2017-05-22 20:00] VITALS: BP 145/81; PULSE 78; RESP 18; TEMP 98.7; O2SAT 97
[2017-05-23] VITALS: BP 138/74; PULSE 76; RESP 18; TEMP 98.3; O2SAT 96
[2017-05-23] MEDS: METOCLOPRAMIDE HCL 10 MG/2 ML VIAL IV PUSH SCH ×3 (02:00→17:45)
[2017-05-23] MEDS: FREE WATER G-TUBE SCH ×4 (03:42→18:19)
[2017-05-23] MEDS: CHLORHEXIDINE GLUCONATE 2 % 1 PACK (2 CLOTHS) TOP SCH (03:42)
[2017-05-23 08:00] VITALS: BP 134/71; PULSE 97; RESP 18; TEMP 98.9; O2SAT 95
[2017-05-23] MEDS: FAMOTIDINE 20 MG TAB PO SCH ×2 (08:46→20:27)
[2017-05-23] MEDS: SERTRALINE HCL 100 MG TAB PO SCH (08:46)
[2017-05-23] MEDS: LIPASE/PROTEASE/AMYLASE (12,000/38,000/60,000) CAP PO SCH ×3 (08:46→17:44)
[2017-05-23] MEDS: predniSONE 20 MG TAB PO SCH (08:47)
[2017-05-23] MEDS: SENNOSIDES SYRUP 8.8 MG/5 ML CUP OG-TUBE SCH ×2 (08:47→20:27)
[2017-05-23] MEDS: amLODIPine BESYLATE 5 MG TAB PO SCH (08:47)
[2017-05-23] MEDS: ENOXAPARIN SODIUM 40 MG/0.4 ML SYRINGE SQ SCH (08:48)
[2017-05-23 12:00] VITALS: BP 126/64; PULSE 83; RESP 18; TEMP 98.3; O2SAT 92
[2017-05-23 16:00] VITALS: BP 131/78; PULSE 90; RESP 20; TEMP 98.4; O2SAT 96
--- NOTE | 2017-05-23 17:28 | HHI.PR ---
Subjective Remarks The patient said that she did great on the stairs with physical therapy. She has been tolerating her diet today without any issues. She had no acute complaints. Discussed with nursing. Objective Vitals Vital Signs Date Time Temp Pulse Resp B/P (MAP) Pulse Ox O2 Delivery O2 Flow Rate FiO2 05/23/17 12:00 98.3 83 18 126/64 (84) 92 05/23/17 08:00 98.9 97 18 134/71 (92) 95 05/23/17 00:00 98.3 76 18 138/74 (95) 96 05/22/17 20:00 98.7 78 18 145/81 (102) 97 I/O 05/22/17 05/22/17 05/22/17 05/23/17 05/23/17 05/23/17 07:00 15:00 23:00 07:00 15:00 23:00 Intake Total 840 ml Output Total 1 ml 1000 ml Balance -1 ml 840 ml -1000 ml Intake Oral 840 ml Output Urine Total 1 ml 1000 ml # Voids 7 # Bowel Movements 3 2 Result Diagram: 05/22/17 1347 Imaging Last Impressions Abdomen/Pelvis CT 05/17/17 0000 Signed Impressions: Service Date/Time: Thursday, May 18, 2017 12:22 - CONCLUSION: Significantly improved exam with almost complete resolution of the interstitial edema identified within the lung bases. The abnormal dilation of the small bowel has completely resolved. The pancreas is normal in appearance without evidence of necrosis or pseudocyst.. Raisa Griffiths MD Hepatobiliary Scan Nuclear Medicine 05/13/17 0000 Signed Impressions: Service Date/Time: Saturday, May 13, 2017 11:05 - CONCLUSION: Negative biliary scan Amado Triana MD Abdomen X-Ray 05/11/17 0600 Signed Impressions: Service Date/Time: Thursday, May 11, 2017 05:03 - CONCLUSION: Slightly decreased distention today. Acosta Ruiz MD Chest X-Ray 05/04/17 0000 Signed Impressions: Service Date/Time: Thursday, May 04, 2017 03:55 - CONCLUSION: Mild increased density in the perihilar regions related to mild edema. This is improving from the prior exam. Davey Lutz MD Liver Ultrasound 04/26/17 0000 Signed Impressions: Service Date/Time: Wednesday, April 26, 2017 16:44 - CONCLUSION: Echogenic right kidney which can be seen with medical renal disease, otherwise unremarkable right upper quadrant sonogram. Roque Gutiérrez MD Chest CT 04/24/17 1327 Signed Impressions: Service Date/Time: April 13:46 - CONCLUSION: Patchy groundglass infiltrates throughout all lobes of the lungs. It is most prominent in the perihilar distribution but also more peripheral areas. I did not see a mass amenable to biopsy with CT guidance. Jay Weaver MD Objective Remarks General: No acute distress. HEENT: NC, AT. Heart: Regular rate and rhythm. No murmur. Lungs: Clear to auscultation bilaterally. No wheezes, rales, or rhonchi. Breathing is nonlabored. Abdomen: Soft, nontender, mildly distended. Extremities: No lower extremity edema. Neuro: Alert and oriented. No gross deficits. Psych: Mood and affect appropriate. Procedures Intubation/Extubation Medications and IVs Current Medications Medications (Trade) Dose Ordered Sig/Tiffanie Route Start Time Stop Time Status Last Admin (NS Flush) 2 ml UNSCH PRN IV FLUSH 04/24/17 15:45 05/22/17 19:47 (fentaNYL INJ) 50 mcg Q1H PRN IV PUSH 04/24/17 15:45 05/05/17 21:36 (Zofran Inj) 4 mg Q6HR PRN IV PUSH 04/24/17 18:00 05/05/17 20:07 Miscellaneous Information 1 Q361D XX 04/24/17 15:45 (Chlorhexidine 2% Cloth) Taper DAILY@04 TOP 04/25/17 04:00 04/21/18 03:59 05/21/17 04:00 (Chlorhexidine 2% Cloth) 3 pack UNSCH PRN TOP 04/24/17 15:45 (Dulcolax Supp) 10 mg DAILY PRN RECTAL 04/24/17 16:00 (Reglan Inj) 5 mg Q8H IV PUSH 04/29/17 18:00 05/23/17 08:49 (Apresoline Inj) 10 mg Q1HR PRN IV PUSH 04/30/17 10:30 05/05/17 16:34 (Albuterol Neb) 2.5 mg Q2HR NEB PRN NEB 04/30/17 11:00 (Tylenol 650 Mg/ 20 ml Liq) 650 mg Q6H PRN OG-TUBE 04/30/17 11:00 (Senna Liq) 8.8 mg BID OG-TUBE 04/30/17 21:00 05/22/17 19:48 (Free Water) VOLUME OF WATER: ( 300 ) ML Q6HR G-TUBE 05/03/17 12:00 05/21/17 06:00 ([place] 5-325 Mg) 1 tab Q6H PRN PO 05/04/17 21:30 05/22/17 12:35 (Morphine Inj) 2 mg Q3H PRN IV PUSH 05/04/17 21:30 05/07/17 01:46 (Pravachol) 20 mg HS PO 05/05/17 21:00 05/22/17 19:49 (Zoloft) 100 mg DAILY PO 05/06/17 09:00 05/23/17 08:46 (Pepcid) 20 mg BID PO 05/05/17 21:00 05/23/17 08:46 (Nitroglycerin 2% Oint) 2 inch Q6HR PRN TOPICAL 05/05/17 10:00 (Vasotec Inj) 1.25 mg Q6H PRN IV PUSH 05/08/17 10:45 (ZyPREXA) 5 mg HS PO 05/09/17 21:00 05/22/17 19:49 (Deltasone) 20 mg DAILY PO 05/16/17 09:00 05/23/17 08:47 (Tums Chew) 500 mg Q2H PRN CHEW 05/15/17 13:15 05/15/17 17:21 (Creon 12-38-60) 1 cap TID PO 05/15/17 18:00 05/23/17 14:29 (Pill Splitter) 1 ea UNSCH PRN OTHER 05/18/17 16:00 (Norvasc) 5 mg DAILY PO 05/20/17 09:00 05/23/17 08:47 (Lovenox Inj) 40 mg Q24H SQ 05/21/17 09:00 05/23/17 08:48 A/P Problem List: (1) Adult respiratory distress syndrome ICD Code: J80 - Acute respiratory distress syndrome (2) Acute respiratory failure with hypoxia ICD Code: J96.01 - Acute respiratory failure with hypoxia (3) Pneumonia ICD Code: J18.9 - Pneumonia, unspecified organism Status: Acute (4) Acute renal failure ICD Code: N17.9 - Acute kidney failure, unspecified (5) Increased anion gap metabolic acidosis ICD Code: E87.2 - Acidosis (6) Diarrhea ICD Code: R19.7 - Diarrhea, unspecified (7) Hyponatremia ICD Code: E87.1 - Hypo-osmolality and hyponatremia (8) Leukocytosis ICD Code: D72.829 - Elevated white blood cell count, unspecified (9) Lactic acidosis ICD Code: E87.2 - Acidosis (10) Renal failure ICD Code: N19 - Unspecified kidney failure Status: Acute (11) Hyperglycemia ICD Code: R73.9 - Hyperglycemia, unspecified (12) Elevated lipase ICD Code: R74.8 - Abnormal levels of other serum enzymes (13) Tobacco use ICD Code: Z72.0 - Tobacco use Assessment and Plan Hypoxemic respiratory failure/ pneumonia/ pulmonary hypertension Appreciate infectious disease recommendations. Patient is status post intubation. S/p Azactam and Lasix. Currently stable on room air. - oxygen and nebs as needed. - encourage ambulation. Ileus/ Pancreatitis Improved. Patient tolerating diet. Appreciate GI recommendations. CT without evidence of necrosis or pseudocyst. - ADAT. Trial of regular diet per pt request. Change back to low residue diet if abdominal pain or nausea develops. - outpt follow-up with GI. - repeat CMP and lipase as had left sided flank pain after eating tuna. Labs are stable. Tobacco abuse Ongoing tobacco use. - Counseled to quit smoking. Debility/ generalized weakness S/t hospitalization. - Physical therapy 7 days per week. Patient continues to improve. She is ambulating greater distances each day. Hopefully d/c home over the weekend. Acute renal failure Likely ATN secondary to hypoperfusion. - resolved. Hypertension Blood pressure well controlled 05/23. - continue increased amlodipine. - Vasotec as needed. PPx: SCDs; switched heparin to Lovenox per pt request Problem Qualifiers (1) Pneumonia: Zeke Hill DO May 23, 2017 17:28
[2017-05-23 20:00] VITALS: BP 124/78; PULSE 92; RESP 19; TEMP 96.8; O2SAT 95
[2017-05-23] MEDS: OLANZapine 5 MG TAB PO SCH (20:27)
[2017-05-23] MEDS: PRAVASTATIN SOD 20 MG TAB PO SCH (20:27)
[2017-05-24] VITALS: BP 126/74; PULSE 73; RESP 17; TEMP 96.8; O2SAT 96
[2017-05-24] MEDS: METOCLOPRAMIDE HCL 10 MG/2 ML VIAL IV PUSH SCH ×3 (01:18→17:08)
[2017-05-24] MEDS: FREE WATER G-TUBE SCH ×5 (03:30→23:24)
[2017-05-24] MEDS: CHLORHEXIDINE GLUCONATE 2 % 1 PACK (2 CLOTHS) TOP SCH (03:30)
[2017-05-24 08:00] VITALS: BP 122/79; PULSE 78; RESP 18; TEMP 99.1; O2SAT 92
[2017-05-24] MEDS: SENNOSIDES SYRUP 8.8 MG/5 ML CUP OG-TUBE SCH ×2 (09:19→20:26)
[2017-05-24] MEDS: LIPASE/PROTEASE/AMYLASE (12,000/38,000/60,000) CAP PO SCH ×3 (09:19→17:07)
[2017-05-24] MEDS: FAMOTIDINE 20 MG TAB PO SCH ×2 (09:20→20:26)
[2017-05-24] MEDS: predniSONE 20 MG TAB PO SCH (09:20)
[2017-05-24] MEDS: ENOXAPARIN SODIUM 40 MG/0.4 ML SYRINGE SQ SCH (09:20)
[2017-05-24] MEDS: amLODIPine BESYLATE 5 MG TAB PO SCH (09:20)
[2017-05-24] MEDS: SERTRALINE HCL 100 MG TAB PO SCH (09:20)
[2017-05-24 12:00] VITALS: BP 118/81; PULSE 77; RESP 20; TEMP 98.4; O2SAT 95
--- NOTE | 2017-05-24 13:20 | HHI.PR ---
Subjective Remarks The patient was sitting up in a chair. She said she was unable to do the stairs today because there was not enough physical therapists to help her. She would like to go home soon. Discussed with nursing. Tolerating a diet. Objective Vitals Vital Signs Date Time Temp Pulse Resp B/P (MAP) Pulse Ox O2 Delivery O2 Flow Rate FiO2 05/24/17 12:00 98.4 77 20 118/81 (93) 95 05/24/17 08:00 99.1 78 18 122/79 (93) 92 05/24/17 00:00 96.8 73 17 126/74 (91) 96 05/23/17 20:00 96.8 92 19 124/78 (93) 95 05/23/17 16:00 98.4 90 20 131/78 (95) 96 I/O 05/23/17 05/23/17 05/23/17 05/24/17 05/24/17 05/24/17 07:00 15:00 23:00 07:00 15:00 23:00 Intake Total 2640 ml 480 ml Output Total 1000 ml Balance -1000 ml 2640 ml 480 ml Intake Oral 2640 ml 480 ml Output Urine Total 1000 ml # Voids 8 9 # Bowel Movements 2 5 2 Result Diagram: 05/22/17 1347 Imaging Last Impressions Abdomen/Pelvis CT 05/17/17 0000 Signed Impressions: Service Date/Time: Thursday, May 18, 2017 12:22 - CONCLUSION: Significantly improved exam with almost complete resolution of the interstitial edema identified within the lung bases. The abnormal dilation of the small bowel has completely resolved. The pancreas is normal in appearance without evidence of necrosis or pseudocyst.. Raisa Griffiths MD Hepatobiliary Scan Nuclear Medicine 05/13/17 0000 Signed Impressions: Service Date/Time: Saturday, May 13, 2017 11:05 - CONCLUSION: Negative biliary scan Amado Triana MD Abdomen X-Ray 05/11/17 0600 Signed Impressions: Service Date/Time: Thursday, May 11, 2017 05:03 - CONCLUSION: Slightly decreased distention today. Acosta Ruiz MD Chest X-Ray 05/04/17 0000 Signed Impressions: Service Date/Time: Thursday, May 04, 2017 03:55 - CONCLUSION: Mild increased density in the perihilar regions related to mild edema. This is improving from the prior exam. Davey Lutz MD Liver Ultrasound 04/26/17 0000 Signed Impressions: Service Date/Time: Wednesday, April 26, 2017 16:44 - CONCLUSION: Echogenic right kidney which can be seen with medical renal disease, otherwise unremarkable right upper quadrant sonogram. Roque Gutiérrez MD Chest CT 04/24/17 1327 Signed Impressions: Service Date/Time: April 13:46 - CONCLUSION: Patchy groundglass infiltrates throughout all lobes of the lungs. It is most prominent in the perihilar distribution but also more peripheral areas. I did not see a mass amenable to biopsy with CT guidance. Jay Weaver MD Objective Remarks General: No acute distress. HEENT: NC, AT. Heart: Regular rate and rhythm. No murmur. Lungs: Clear to auscultation bilaterally. No wheezes, rales, or rhonchi. Breathing is nonlabored. Abdomen: Soft, nontender, mildly distended. Extremities: No lower extremity edema. Neuro: Alert and oriented. No gross deficits. Psych: Mood and affect appropriate. Procedures Intubation/Extubation Medications and IVs Current Medications Medications (Trade) Dose Ordered Sig/Tiffanie Route Start Time Stop Time Status Last Admin (NS Flush) 2 ml UNSCH PRN IV FLUSH 04/24/17 15:45 05/22/17 19:47 (fentaNYL INJ) 50 mcg Q1H PRN IV PUSH 04/24/17 15:45 05/05/17 21:36 (Zofran Inj) 4 mg Q6HR PRN IV PUSH 04/24/17 18:00 05/05/17 20:07 Miscellaneous Information 1 Q361D XX 04/24/17 15:45 (Chlorhexidine 2% Cloth) Taper DAILY@04 TOP 04/25/17 04:00 04/21/18 03:59 05/21/17 04:00 (Chlorhexidine 2% Cloth) 3 pack UNSCH PRN TOP 04/24/17 15:45 (Dulcolax Supp) 10 mg DAILY PRN RECTAL 04/24/17 16:00 (Reglan Inj) 5 mg Q8H IV PUSH 04/29/17 18:00 05/24/17 09:20 (Apresoline Inj) 10 mg Q1HR PRN IV PUSH 04/30/17 10:30 05/05/17 16:34 (Albuterol Neb) 2.5 mg Q2HR NEB PRN NEB 04/30/17 11:00 (Tylenol 650 Mg/ 20 ml Liq) 650 mg Q6H PRN OG-TUBE 04/30/17 11:00 (Senna Liq) 8.8 mg BID OG-TUBE 04/30/17 21:00 05/24/17 09:19 (Free Water) VOLUME OF WATER: ( 300 ) ML Q6HR G-TUBE 05/03/17 12:00 05/21/17 06:00 ([place] 5-325 Mg) 1 tab Q6H PRN PO 05/04/17 21:30 05/22/17 12:35 (Morphine Inj) 2 mg Q3H PRN IV PUSH 05/04/17 21:30 05/07/17 01:46 (Pravachol) 20 mg HS PO 05/05/17 21:00 05/23/17 20:27 (Zoloft) 100 mg DAILY PO 05/06/17 09:00 05/24/17 09:20 (Pepcid) 20 mg BID PO 05/05/17 21:00 05/24/17 09:20 (Nitroglycerin 2% Oint) 2 inch Q6HR PRN TOPICAL 05/05/17 10:00 (Vasotec Inj) 1.25 mg Q6H PRN IV PUSH 05/08/17 10:45 (ZyPREXA) 5 mg HS PO 05/09/17 21:00 05/23/17 20:27 (Deltasone) 20 mg DAILY PO 05/16/17 09:00 05/24/17 09:20 (Tums Chew) 500 mg Q2H PRN CHEW 05/15/17 13:15 05/15/17 17:21 (Creon 12-38-60) 1 cap TID PO 05/15/17 18:00 05/24/17 11:52 (Pill Splitter) 1 ea UNSCH PRN OTHER 05/18/17 16:00 (Norvasc) 5 mg DAILY PO 05/20/17 09:00 05/24/17 09:20 (Lovenox Inj) 40 mg Q24H SQ 2/14/18 09:00 05/24/17 09:20 A/P Problem List: (1) Adult respiratory distress syndrome ICD Code: J80 - Acute respiratory distress syndrome (2) Acute respiratory failure with hypoxia ICD Code: J96.01 - Acute respiratory failure with hypoxia (3) Pneumonia ICD Code: J18.9 - Pneumonia, unspecified organism Status: Acute (4) Acute renal failure ICD Code: N17.9 - Acute kidney failure, unspecified (5) Increased anion gap metabolic acidosis ICD Code: E87.2 - Acidosis (6) Diarrhea ICD Code: R19.7 - Diarrhea, unspecified (7) Hyponatremia ICD Code: E87.1 - Hypo-osmolality and hyponatremia (8) Leukocytosis ICD Code: D72.829 - Elevated white blood cell count, unspecified (9) Lactic acidosis ICD Code: E87.2 - Acidosis (10) Renal failure ICD Code: N19 - Unspecified kidney failure Status: Acute (11) Hyperglycemia ICD Code: R73.9 - Hyperglycemia, unspecified (12) Elevated lipase ICD Code: R74.8 - Abnormal levels of other serum enzymes (13) Tobacco use ICD Code: Z72.0 - Tobacco use Assessment and Plan Hypoxemic respiratory failure/ pneumonia/ pulmonary hypertension Appreciate infectious disease recommendations. Patient is status post intubation. S/p Azactam and Lasix. Currently stable on room air. - oxygen and nebs as needed. - encourage ambulation. Ileus/ Pancreatitis Improved. Patient tolerating diet. Appreciate GI recommendations. CT without evidence of necrosis or pseudocyst. - ADAT. Trial of regular diet per pt request. Change back to low residue diet if abdominal pain or nausea develops. Tolerating well at this time. - outpt follow-up with GI. Tobacco abuse Ongoing tobacco use. - Counseled to quit smoking. Debility/ generalized weakness S/t hospitalization. - Physical therapy 7 days per week. Patient continues to improve. She is ambulating greater distances each day. Hopefully d/c home over the weekend. Acute renal failure Likely ATN secondary to hypoperfusion. - resolved. Hypertension Blood pressure well controlled 05/24. - continue increased amlodipine. - Vasotec as needed. PPx: SCDs; switched heparin to Lovenox per pt request Problem Qualifiers (1) Pneumonia: Zeke Hill DO May 24, 2017 13:20
[2017-05-24 16:00] VITALS: BP 147/87; PULSE 83; RESP 20; TEMP 97.6; O2SAT 97
[2017-05-24] MEDS: PRAVASTATIN SOD 20 MG TAB PO SCH (20:26)
[2017-05-24] MEDS: OLANZapine 5 MG TAB PO SCH (20:26)
[2017-05-24] MEDS: CALCIUM CARBONATE 500 MG CHEWABLE TAB CHEW PRN (20:28)
[2017-05-24 20:35] VITALS: BP 131/72; PULSE 72; RESP 20; TEMP 98.9; O2SAT 96
[2017-05-25 00:19] VITALS: BP 146/75; PULSE 68; RESP 18; TEMP 98.9; O2SAT 98
[2017-05-25] MEDS: METOCLOPRAMIDE HCL 10 MG/2 ML VIAL IV PUSH SCH ×2 (01:54→08:50)
[2017-05-25] MEDS: CHLORHEXIDINE GLUCONATE 2 % 1 PACK (2 CLOTHS) TOP SCH (04:00)
[2017-05-25] MEDS: FREE WATER G-TUBE SCH ×3 (04:11→08:49)
[2017-05-25 08:00] VITALS: BP 130/58; PULSE 70; RESP 18; TEMP 96.5; O2SAT 98
[2017-05-25] MEDS: amLODIPine BESYLATE 5 MG TAB PO SCH (08:50)
[2017-05-25] MEDS: FAMOTIDINE 20 MG TAB PO SCH (08:50)
[2017-05-25] MEDS: predniSONE 20 MG TAB PO SCH (08:50)
[2017-05-25] MEDS: LIPASE/PROTEASE/AMYLASE (12,000/38,000/60,000) CAP PO SCH ×2 (08:50→12:50)
[2017-05-25] MEDS: SENNOSIDES SYRUP 8.8 MG/5 ML CUP OG-TUBE SCH (08:50)
[2017-05-25] MEDS: SERTRALINE HCL 100 MG TAB PO SCH (08:50)
[2017-05-25] MEDS: ENOXAPARIN SODIUM 40 MG/0.4 ML SYRINGE SQ SCH (08:51)
[2017-05-25] MEDS ORDERED: METO5TAB PO (10:49)
[2017-05-25] MEDS ORDERED: AMLO5 PO (10:49)
[2017-05-25] MEDS ORDERED: HYDR-3516 PO (10:49)
[2017-05-25] MEDS ORDERED: PRED10 PO (10:49)
[2017-05-25] MEDS ORDERED: FAMO20TA2 PO (10:51)
[2017-05-25] MEDS ORDERED: CREON12 PO (10:51)
--- NOTE | 2017-05-25 11:07 | HHI.DS ---
Discharge Summary Admission Date Apr 24, 2017 at 14:13 Discharge Date: May 25, 2017 Admitting Diagnosis PNEUMONIA, RENAL FAILURE, RESPIRATORY FAILURE (1) Adult respiratory distress syndrome ICD Code: J80 - Acute respiratory distress syndrome Diagnosis: Principal (2) Acute respiratory failure with hypoxia ICD Code: J96.01 - Acute respiratory failure with hypoxia Diagnosis: Principal (3) Pneumonia ICD Code: J18.9 - Pneumonia, unspecified organism Status: Acute (4) Acute renal failure ICD Code: N17.9 - Acute kidney failure, unspecified (5) Increased anion gap metabolic acidosis ICD Code: E87.2 - Acidosis (6) Diarrhea ICD Code: R19.7 - Diarrhea, unspecified Diagnosis: Principal (7) Hyponatremia ICD Code: E87.1 - Hypo-osmolality and hyponatremia (8) Leukocytosis ICD Code: D72.829 - Elevated white blood cell count, unspecified (9) Lactic acidosis ICD Code: E87.2 - Acidosis (10) Renal failure ICD Code: N19 - Unspecified kidney failure Status: Acute (11) Hyperglycemia ICD Code: R73.9 - Hyperglycemia, unspecified (12) Elevated lipase ICD Code: R74.8 - Abnormal levels of other serum enzymes Diagnosis: Principal (13) Tobacco use ICD Code: Z72.0 - Tobacco use Procedures Intubation/Extubation Brief History - From Admission This is a 51-year-old female with known history of iron deficient anemia,-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 She states that she is had multiple symptoms to include nausea, vomiting, diarrhea, cough, congestion, sore throat. Patient states that her symptoms have improved progressively getting worse over the last 2 days. Because she did not improve her family brought her to the emergency department for evaluation. Because of her family's concern is could have saved the patient's life. Patient with severe multisystem organ failure with respiratory failure, renal failure, severe metabolic acidosis with anion gap. Patient indicates that she has had nausea, vomiting and diarrhea and only minimally keep minimal liquids down. She has had cough, congestion. CT scans and chest x-rays show significant infiltrates bilaterally with respiratory failure. Patient with adult respiratory distress syndrome. Without intubation patient will unlikely survive. This was discussed with the family and patient at bedside prior to intubation. They are in agreement with pursuing heroic measures and intubation for medical management. Patient was intubated by ER physician successfully. Patient will be transferred to [facility] for critical care management. CBC/BMP: 05/22/17 1347 Significant Findings Laboratory Tests Test 05/22/17 13:47 Random Glucose 188 MG/DL (74-106) Albumin 2.8 GM/DL (3.4-5.0) Aspartate Amino Transf (AST/SGOT) 12 U/L (15-37) Estimat Glomerular Filtration Rate 73 ML/MIN (>89) Lipase 764 U/L (73-393) Imaging Last Impressions Abdomen/Pelvis CT 05/17/17 0000 Signed Impressions: Service Date/Time: Thursday, May 18, 2017 12:22 - CONCLUSION: Significantly improved exam with almost complete resolution of the interstitial edema identified within the lung bases. The abnormal dilation of the small bowel has completely resolved. The pancreas is normal in appearance without evidence of necrosis or pseudocyst.. Raisa Griffiths MD Hepatobiliary Scan Nuclear Medicine 05/13/17 0000 Signed Impressions: Service Date/Time: Saturday, May 13, 2017 11:05 - CONCLUSION: Negative biliary scan Amado Triana MD Abdomen X-Ray 05/11/17 0600 Signed Impressions: Service Date/Time: Thursday, May 11, 2017 05:03 - CONCLUSION: Slightly decreased distention today. Acosta Ruiz MD Chest X-Ray 05/04/17 0000 Signed Impressions: Service Date/Time: Thursday, May 04, 2017 03:55 - CONCLUSION: Mild increased density in the perihilar regions related to mild edema. This is improving from the prior exam. Davey Lutz MD Liver Ultrasound 04/26/17 0000 Signed Impressions: Service Date/Time: Wednesday, April 26, 2017 16:44 - CONCLUSION: Echogenic right kidney which can be seen with medical renal disease, otherwise unremarkable right upper quadrant sonogram. Roque Gutiérrez MD Chest CT 04/24/17 1327 Signed Impressions: Service Date/Time: April 13:46 - CONCLUSION: Patchy groundglass infiltrates throughout all lobes of the lungs. It is most prominent in the perihilar distribution but also more peripheral areas. I did not see a mass amenable to biopsy with CT guidance. Jay Weaver MD PE at Discharge General: No acute distress. HEENT: NC, AT. Heart: Regular rate and rhythm. No murmur. Lungs: Clear to auscultation bilaterally. No wheezes, rales, or rhonchi. Breathing is nonlabored. Abdomen: Soft, nontender, mildly distended. Extremities: No lower extremity edema. Neuro: Alert and oriented. No gross deficits. Psych: Mood and affect appropriate. Pt update on day of discharge Patient had just worked with physical therapy. She was eager to go home. She had no acute complaints. Discussed with nursing. Hospital Course Hypoxemic respiratory failure/ pneumonia/ pulmonary hypertension The pt was intubated by the ED physician and managed in the intensive care unit. She was eventually extubated. CT with bilateral pneumonia. Echo showed EF 60-65% with no regional wall motion abnormality; Severe pulmonary arterial pressure 70 mmHg. She received incentive spirometry, albuterol/ipratropium aerosols every 4 hours with albuterol aerosols every 2 hours. She was started on methylprednisolone succinate. Off epoprostenol as of 05/02. Infectious disease was consulted. She is s/p Azactam and Lasix. We encouraged ambulation. She was weaned off of nasal cannula. She was counseled to quit smoking. Ileus/ Pancreatitis Repeat CT abdomen with contrast 05/02 showed findings c/w pancreatitis. No evidence of necrosis or pseudocyst. Lipase level was elevated. GI was consulted. US liver: Echogenic right kidney which can be seen with medical renal disease, otherwise unremarkable. She was started on metoclopramide 5 mg every 8 hours for GI motility. She received GI protection with famotidine 20 mg BID. She was advanced to a regular diet.- ADAT. Trial of regular diet per pt request. She will have outpt follow-up with GI. Debility/ generalized weakness The pt received physical therapy 7 days per week. She was eventually cleared for discharge home. Acute renal failure Nephrology was consulted. Thought to be caused by ATN secondary to hypoperfusion. She was placed on furosemide which has since been discontinued. Resolved. Hypertension Blood pressure well controlled on amlodipine, which she will continue upon discharge. Pt Condition on Discharge: Stable Discharge Disposition: Discharge Home Discharge Time: > 30 minutes Discharge Instructions DIET: Follow Instructions for: As Tolerated, No Restrictions Speech Therapy-Diet Recommends: Regular Activities you can perform: Weight Bearing as Monika Follow up Referrals: Gastroenterology - 2 Weeks with Aliyah Gill MD PCP Follow-up - 2 Weeks New Medications: Metoclopramide (Metoclopramide) 5 Mg Tab 5 MG PO TIDAC PRN for NAUSEA, #30 TAB 0 Refills Prednisone (Prednisone) 10 Mg Tab 10 MG PO DAILY for Broncospasm, #3 TAB 0 Refills Walker Rolling/GetGo (Walker Rolling/GetGo) 1 Mis Mis EA .XX DIRECTED, #1 Amlodipine (Norvasc) 5 Mg Tab 5 MG PO DAILY for Blood Pressure Management, #30 TAB Famotidine (Famotidine) 20 Mg Tab 20 MG PO BID for Reflux for 30 Days, #60 TAB 0 Refills Hydrocodone/Acetaminophen (Hydrocodone-Acetamin 5-325 mg) 5 Mg-325 Mg Tablet 1 TAB PO Q6H PRN for PAIN SCALE 1 TO 10, #10 TAB Pancrelipase (Creon) 12,000-38,000-60,000 Units Cap 1 CAP PO TID for pancreas for 30 Days, #90 CAP 0 Refills [Calcium Carbonate Chew] () 500 MG CHEW 500 MG CHEW Q2H PRN for HEARTBURN, #30 CHEW 0 Refills Continued Medications: Lovastatin (Lovastatin) 20 Mg Tab 20 MG PO HS for Cholesterol Management, #30 TAB 0 Refills Olanzapine (Zyprexa) 5 Mg Tab 5 MG PO HS, #30 TAB 0 Refills Sertraline (Zoloft) 100 Mg Tab 100 MG PO DAILY, #30 TAB 0 Refills Discontinued Medications: Risperidone (Risperidone) 2 Mg Tab 2 MG PO Q12HR, #60 TAB 0 Refills Sertraline (Sertraline) 100 Mg Tab 100 MG PO BID, #30 TAB 0 Refills Zeke Hill DO May 25, 2017 11:07
[2017-05-25 12:00] VITALS: BP_SYST 130; BP_SYST 134; BP_DIAS 58; BP_DIAS 61; PULSE 70; RESP 18; TEMP 96.5; TEMP 97.7; O2SAT 98
[2017-05-25] MEDS ORDERED: GETGO ROLLING W1 MI1 (12:19)
--- NOTE | 2017-05-26 10:44 | HHI.FF ---
Face to Face Verification Diagnosis: (1) Adult respiratory distress syndrome (2) Generalized weakness (3) Pancreatitis (4) Elevated lipase Physical Therapy Order: Evaluate and Treat, Improve ambulation, Strength and gait training Home Health Nursing Order: Medical education Signs/symptoms of disease process Medication education-adverse effect Nursing assessment with vital signs I have seen patient Shyann Desouza on 05/26/17. My clinical findings support the need for the requested home health care services because: Ltd mobility - disease progression Deconditioned w/ increased weakness Limited ability to care for self High risk of falls I certify that my clinical findings support that this patient is homebound because: Unsteady gait/balance Unsafe to leave home unassisted Zeke Hill DO May 26, 2017 10:44
== END 2017-05-25 13:13 | disposition home health service (06) | DRG 207 ==
LOC: PHED 12:07 → PHEDA 14:13 → MERGE 14:13 → HIMN 19:00 → N07A 05-05 23:11
PROVIDERS: ADMIT Hospitalist; ATTEND Hospitalist
PROC: 5A1955Z Respiratory Ventilation, Greater than 96 Consecutive Hours (ICD-10-PCS; principal; 2017-04-24)
PROC: 0BH17EZ Insertion of Endotracheal Airway into Trachea, Via Natural or Artificial Opening (ICD-10-PCS; 2017-04-24)
PROC: 0T9B70Z Drainage of Bladder with Drainage Device, Via Natural or Artificial Opening (ICD-10-PCS; 2017-04-24)
PROC: 03HY32Z Insertion of Monitoring Device into Upper Artery, Percutaneous Approach (ICD-10-PCS; 2017-04-25)
PROC: 0DH67UZ Insertion of Feeding Device into Stomach, Via Natural or Artificial Opening (ICD-10-PCS; 2017-04-25)
PROC: 05HM33Z Insertion of Infusion Device into Right Internal Jugular Vein, Percutaneous Approach (ICD-10-PCS; 2017-04-25)
PROC: 4A133B1 Monitoring of Arterial Pressure, Peripheral, Percutaneous Approach (ICD-10-PCS; 2017-04-25)
PROC: 4A133J1 Monitoring of Arterial Pulse, Peripheral, Percutaneous Approach (ICD-10-PCS; 2017-04-25)
DX: J18.9 Pneumonia, unspecified organism (principal); N17.0 Acute kidney failure with tubular necrosis; J80 Acute respiratory distress syndrome; E87.0 Hyperosmolality and hypernatremia; E87.2 Acidosis; E87.1 Hypo-osmolality and hyponatremia; K56.7 Ileus, unspecified; K85.90 Acute pancreatitis without necrosis or infection, unspecified; Z80.6 Family history of leukemia; F17.290 Nicotine dependence, other tobacco product, uncomplicated; D50.9 Iron deficiency anemia, unspecified; F29 Unspecified psychosis not due to a substance or known physiological condition; R19.7 Diarrhea, unspecified; E83.51 Hypocalcemia; E87.6 Hypokalemia; R73.9 Hyperglycemia, unspecified; R74.8 Abnormal levels of other serum enzymes; F12.90 Cannabis use, unspecified, uncomplicated; R11.2 Nausea with vomiting, unspecified; N28.1 Cyst of kidney, acquired; D64.9 Anemia, unspecified; E78.1 Pure hyperglyceridemia; K76.0 Fatty (change of) liver, not elsewhere classified; F39 Unspecified mood [affective] disorder; F32.9 Major depressive disorder, single episode, unspecified; I10 Essential (primary) hypertension; I27.20 Pulmonary hypertension, unspecified; W19.XXXA Unspecified fall, initial encounter; E66.9 Obesity, unspecified
CPT/HCPCS: 31500; 36556; 36600; 51702; 71045; 71250; 74018; 74176; 74177; 76705; 76937; 78227; 80048; 80053; 80069; 80074; 80076; 80202; 81001; 82103; 82105; 82140; 82150; 82390; 82728; 82805; 82948; 83520; 83540; 83550; 83605; 83690; 83735; 83880; 84100; 84155; 84300; 84478; 84484; 85007; 85014; 85018; 85025; 85027; 85610; 85730; 86038; 86255; 87040; 87070; 87205; 87449; 87641; 87804; 93005; 93306; 94002; 94003; 94150; 94640; 94664; 94799; 96365; A9537; J0330; J0360; J0456; J0610; J0696; J1325; J1644; J1650; J1940; J2020; J2060; J2250; J2270; J2405; J2765; J2805; J2920; J2930; J3010; J3370; J3475; J3480; J7030; J7040; J7050; J7512; Q9963; Q9967